=== PATIENT | male | born 1955 | race Caucasian/White ===

== ENCOUNTER 2020-04-15 10:17 | Outpatient (REF) | payer BC, SELFPAY | END 2020-04-15 10:18 | disposition home or self-care (01) | LOC: HO.LAB 10:17 | PROVIDERS: Visit Provider Internal Medicine | DX: Z20.828 Contact with and (suspected) exposure to other viral communicable diseases (principal) | CPT/HCPCS: C9803; U0003 ==

== ENCOUNTER 2020-05-29 08:39 | Outpatient (REF) | payer MEDICARE, SELFPAY ==
[2020-05-29 10:25] LABS: Basophils Percent Auto 0.1 % (0-2); Eosinophils Absolute Auto 0.2 X10*3/uL (0.0-0.4); Eosinophils Percent Auto 2.9 % (0-4); Hemoglobin 16.5 g/dl (14.0-18.0); Imm Gran Abs Auto 0.02 X10*3/uL (0.00-0.03); Imm Gran Pct Auto 0.3 % (0.0-0.4); Lymphocytes Absolute Auto 2.5 X10*3/uL (1.2-4.9); Lymphocytes Percent Auto 35.9 % (20-40); MANUAL DIFF FLAG SCAN; Mean Corpuscular HGB Conc 32.4 g/dl (31.0-36.0); Mean Platelet Volume 12.5 fL (9.4-12.4); Monocytes Absolute Auto 0.7 X10*3/uL (0.1-1.2); Monocytes Percent Auto 10.2 % (2-11); Neutrophils Absolute Auto 3.5 X10*3/uL (2.0-8.3); Neutrophils Percent Auto 50.6 % (45-73); Platelet Count 182 X10*3/uL (160-400); Red Blood Count 5.15 X10*6/uL (4.60-5.80); Red Cell Distribution Width 12.8 % (11.0-16.0); SCAN SMEAR FLAG 1; White Blood Count 6.9 X10*3/uL (4.8-10.8)
[2020-05-29 10:44] LABS: Glucose Urine UA NEG (NEG); Leukocyte Esterase Urine NEG (NEG); Nitrite Urine NEG (NEG); PH 5.5 (5.0-8.0); Specific Gravity - Urine >= 1.030 (1.005-1.025); Urine Blood 2+ (NEG); Urine Ketones NEG (NEG); Urine Protein NEG (NEG-TRACE)
[2020-05-29 10:47] LABS: Appearance Urine HAZY; Color Urine YELLOW
[2020-05-29 10:51] LABS: Alanine Aminotransferase 23 U/L (0-40); Albumin Level 4.3 g/dL (3.5-5.0); Alkaline Phosphatase 78 U/L (39-117); Anion Gap 13 (12-20); Aspartate Amino Transferase 23 U/L (5-37); Bilirubin Total 0.7 mg/dL (0.0-1.0); Blood Urea Nitrogen 19 mg/dL (9-16); Calcium 9.3 mg/dL (8.4-10.2); Carbon Dioxide 29 mmol/L (22-29); Chloride 104 mmol/L (96-108); Cholesterol 198 mg/dL; Estimated Glomerular Filt Rate > 60; Glucose Fasting 92 mg/dL (60-99); HDL Cholesterol 93 mg/dL; LDL Cholesterol Calculated 97 mg/dl; Potassium 4.5 mmol/l (3.3-5.1); Sodium 141 mmol/L (135-145); Total Protein 7.5 g/dL (6.5-8.0); Triglycerides 40 mg/dL
[2020-05-29 10:53] LABS: Squamous Epithelial Cell Urine 1+ /LPF; WBC Urine 0 /HPF (0-4)
[2020-05-29 10:55] LABS: Creatinine Urine 139.68 mg/dL; Microalbum/Creatinine Ratio Ur 25.7 ug/mg cr
[2020-05-29 11:10] LABS: Estimated Average Glucose 100 mg/dL; Hemoglobin A1c % 5.1 %
[2020-05-29 11:52] LABS: Prostate Specific Antigen Scr 1.35 ng/mL (<0.05-4.0)
[2020-05-29 13:54] LABS: SLIDE REVIEW VERIFIED
== END 2020-05-29 08:40 | disposition home or self-care (01) ==
LOC: HO.LAB 08:39
PROVIDERS: PCP Internal Medicine; Visit Provider Internal Medicine
DX: R73.09 Other abnormal glucose (principal); R97.20 Elevated prostate specific antigen [PSA]; Z00.00 Encounter for general adult medical examination without abnormal findings; I10 Essential (primary) hypertension
CPT/HCPCS: 36415; 80053; 80061; 81001; 81003; 82043; 83036; 84153; 85025

== ENCOUNTER 2020-06-07 11:07 | Outpatient (REF) | payer MEDICARE, SELFPAY ==
[2020-06-07 14:21] LABS: Glucose Urine UA NEG (NEG); Leukocyte Esterase Urine NEG (NEG); Nitrite Urine NEG (NEG); PH 5.5 (5.0-8.0); Specific Gravity - Urine >= 1.030 (1.005-1.025); Urine Blood 3+ (NEG); Urine Ketones NEG (NEG); Urine Protein NEG (NEG-TRACE)
[2020-06-07 14:22] LABS: Appearance Urine HAZY; Color Urine YELLOW
[2020-06-07 14:36] LABS: WBC Urine 0 /HPF (0-4)
[2020-06-07 14:37] LABS: Bacteria Urine TRACE /LPF; Mucus Urine TRACE /LPF; Squamous Epithelial Cell Urine 1+ /LPF
== END 2020-06-07 11:08 | disposition home or self-care (01) ==
LOC: HO.WFDLDS 11:07
PROVIDERS: Visit Provider Internal Medicine
DX: R31.21 Asymptomatic microscopic hematuria (principal)
CPT/HCPCS: 81001; 81003

== ENCOUNTER 2020-09-13 08:20 | Day surgery (SDC) | payer MEDICARE, SELFPAY ==
[2020-09-13] VITALS (11 sets, daily range): BP systolic 128–191; BP diastolic 75–97; PULSE 52–97; RESP 15–18; TEMP 36.6–37.1; O2SAT 95–98; BMI 35.9
--- NOTE | ~2020-09-13 | CT_ITS ---
EXAMINATION: CT ABDOMEN AND PELVIS WITHOUT CONTRAST CLINICAL INFORMATION: Left flank pain COMPARISON: February 02, 2016 TECHNIQUE: Multidetector volumetric imaging was performed from the superior aspect of the liver through the pubic symphysis. Sagittal and coronal reformatted images were obtained on the technologist's workstation. This CT examination was performed using dose optimization techniques as appropriate, variously including the following: *Automated exposure control *Adjustment of mA and/or kV according to patient size (this includes techniques or standardized protocols for targeted exams where dose is matched to indication/reason for exam; i.e. extremities or head) *Use of iterative reconstruction technique DLP: 840 mGy-cm FINDINGS: LUNG BASES: The visualized lung bases are unremarkable. No pleural or pericardial effusion. No coronary artery calcifications appreciated. LIVER, GALLBLADDER, AND BILIARY TREE: There is some mild diffuse diminished density present consistent with fatty infiltration. Liver normal size. No focal mass or intrahepatic bile duct dilatation. The gallbladder is unremarkable with no evidence of radiopaque gallstones, gallbladder wall thickening, or obvious pericholecystic inflammatory changes. PANCREAS: Unremarkable. SPLEEN: There are scattered calcified granulomas present. ADRENAL GLANDS: Unremarkable. KIDNEYS AND URETERS: Right kidney: There is a 1 cm exophytic cyst present in the interpolar region. There is a 5 mm nonobstructing calculus seen within the lower pole. No hydronephrosis. Left kidney: There is mild left hydronephrosis with an obstructing proximal left ureteral calculus measuring approximately 9 x 6 mm in size with density measurements of greater than 1000 Hounsfield units. There are 2 nonobstructing calculi within the lower pole one measuring 6 mm in diameter and the other 7 mm in diameter. The ureter has some periureteral inflammatory streaking present. BLADDER: Unremarkable. GASTROINTESTINAL TRACT: No dilated loops of large or small bowel evident. No fixed, air. Minimal fluid seen along the left ureter. There is mild diverticulosis of the descending colon. No evidence of colitis. The appendix appears unremarkable. ABDOMINAL WALL: Small fat-containing umbilical hernia. LYMPH NODES: Normal. VASCULAR: Unremarkable. PELVIC VISCERA: Unremarkable. OSSEOUS STRUCTURES: No suspicious osseous lesion identified. Multilevel degenerative disc disease is present. There is a mild grade 1 spondylolisthesis L3-L4. There is a mild anterior compression fracture of approximately 40% involving the T11 vertebral body. CT/CT abdomen pelvis wo con IMPRESSION: Mild left hydronephrosis with obstructing 9 mm proximal ureteral calculus. Bilateral nephrolithiasis. Fatty infiltration of the liver.
--- NOTE | 2020-09-13 08:52 | ED.BACK ---
HPI - Back Pain/Injury General Chief Complaint: Back Pain/Injury Stated Complaint: flank & abd pain Time Seen by Provider: 09/13/20 08:50 Source: patient Mode of arrival: ambulatory Limitations: no limitations History of Present Illness HPI Narrative: 65-year-old male who walked in for evaluation of left flank pain radiating to the left groin area. 65-year-old male with history of kidney stones on both sides that require multiple urological interventions in the past and patient follow-up with [facility], pain started 2 days ago, left flank area, radiates to the left groin/left testicular area, pain is a dull aching pain, severe 10/10, intermittent, associated with a darker urine and nausea and vomiting. No fever. Patient had a similar pain in the past when he get renal colic. Related Data Home Medications Medication Instructions Recorded Confirmed allopurinol 1 tab PO DAILY 09/13/20 09/13/20 lisinopril 1 tab PO DAILY 09/13/20 09/13/20 naproxen 1 tab PO BID 09/13/20 09/13/20 tramadol 1 tab PO Q6H PRN 09/13/20 09/13/20 Allergies Allergy/AdvReac Type Severity Reaction Status Date / Time No Known Allergies Allergy Verified 09/13/20 08:12 amoxicillin [Augmentin] AdvReac Unknown nausea Verified 12/30/18 00:00 clavulanic acid [Augmentin] AdvReac Unknown nausea Verified 12/30/18 00:00 Review of Systems Review of Systems: All other systems are reviewed and are negative Constitutional: Reports as per HPI and Reports no additional constitutional complaints Eyes: Reports as per HPI and Reports no additional eye complaints Reports system reviewed and no additional complaints, except as documented Cardiovascular: Reports as per HPI and Reports no additional cardiovascular complaints Respiratory: Reports as per HPI and Reports no additional respiratory complaints Gastrointestinal: Reports as per HPI and Reports no additional gastrointestinal complaints Genitourinary: Reports no additional female genitourinary complaints Musculoskeletal: Reports no additional musculoskeletal complaints Skin/Breast: Reports system reviewed and no additional complaints, except as docu Psychiatric: Reports no additional psychiatric complaints Endocrine: Reports no additional endocrine complaints Hematologic/Lymphatic: Reports no additional hematologic/lymphatic complaints Allergic/Immunologic: Reports no additional allergic/immunologic complaints Reports system reviewed and no additional complaints, except as documented and Reports Abnormal speech present [facility] Past Medical History Medical History Kidney calculi Social History Social History Smoking Status: Light tobacco smoker Use of substances other than those prescribed or required for medical reasons: No Have you been hit, kicked, punched, or otherwise hurt by someone within the past year? If so, by whom?: No Advance Directives: No Advance Directives Information Provided: No Advance Directives on File: No Recently lost weight without trying: No Physical Exam Vital Signs: Vital Signs: Last Vital Signs Temp 97.9 F 09/13/20 13:04 Pulse 71 09/13/20 13:04 Resp 16 09/13/20 13:04 BP 128/78 09/13/20 13:04 Pulse Ox 95 09/13/20 13:04 Body Mass Index 35.9 Vital signs have been reviewed as appeared to be correct. Blood pressure elevated. Heart rate normal. Respiration rate normal. Temperature normal. Oxygen saturation normal. Appearance: Alert. Oriented X3. No acute distress. Head: Normal external exam. Normocephalic. Atraumatic. No De Oliveira signs noted. No raccoon eyes noted Eyes: PERRLA. EOMI. Conjunctiva and sclera normal. Eyelids normal. ENT: TM's Normal. Pharynx normal. Uvula midline. Moist mucous membranes. No trismus noted. No drooling noted. No muffled voice noted. Neck: Normal inspection. Neck supple. FROM. No adenopathy. Thyroid Normal. No meningeal signs. No neck mass noted. CVS: Normal heart rate and rhythm. Heart sound normal. No murmurs noted. Pulses normal throughout. Respiratory: No respiratory distress. Painless inspiration. Breath sounds normal. No wheezes/rales/rhonchi noted. Chest nontender. No accessory muscle usage noted or decreased air movement noted. Abdomen: Soft and nontender. Bowel sounds normal in all 4 quadrants. No distention noted. No organomegaly noted. No visible injury noted. Back: Left CVA tenderness. Full range of motion noted. : Normal circumcised external genitalia, no testicular swelling or tenderness, intact cremasteric reflex bilaterally. Skin: Skin warm and dry. Normal skin color. Normal skin turgor. No rashes/lesions/lacerations noted. Extremities: No lower extremity edema. Extremities exhibit normal range of motion. Extremities nontender. Neuro: Oriented X 3. No motor deficit. No sensory deficit. Reflexes normal. Course Course Course Narrative: Assessment and plan. 65-year-old male with history of kidney stones came in with left flank pain showed 9 mm stone, the case was discussed with Dr. Blanco who will admit the patient to the OR for possible stent placement. MDM - Back Pain/Injury Lab Data Attestation: I reviewed the patient's lab results. Result diagrams: 09/13/20 08:58 09/13/20 08:58 Labs: Lab Results 09/13/20 09/13/20 Range/Units 08:58 08:58 WBC 8.4 (4.8-10.8) X10*3/uL RBC 4.92 (4.60-5.80) X10*6/uL Hgb 16.0 (14.0-18.0) g/dl Hct 48.3 (42-52) % MCV 98.2 H (80-98) fL MCH 32.5 (27.0-33.0) pg MCHC 33.1 (31.0-36.0) g/dl RDW 12.5 (11.0-16.0) % Plt Count 153 L (160-400) X10*3/uL MPV 13.0 H (9.4-12.4) fL Immature Gran % (Auto) 0.2 (0.0-0.4) % Neut % (Auto) 68.6 (45-73) % Lymph % (Auto) 18.8 L (20-40) % [place] % (Auto) 11.4 H (2-11) % Eos % (Auto) 0.8 (0-4) % Baso % (Auto) 0.2 (0-2) % Lymph # (Auto) 1.6 (1.2-4.9) X10*3/uL [place] # (Auto) 1.0 (0.1-1.2) X10*3/uL Eos # (Auto) 0.1 (0.0-0.4) X10*3/uL Baso # (Auto) 0.0 (0.0-0.2) X10*3/uL Abs Immat Gran (auto) 0.02 (0.00-0.03) X10*3/uL Absolute Neuts (auto) 5.7 (2.0-8.3) X10*3/uL Absolute Nucleated RBC 0.000 (0.0-0.012) X10*3/uL Nucleated RBC % (auto) 0.0 (0.0-0.2) /100WBC Sodium 138 (135-145) mmol/L Potassium 3.8 (3.3-5.1) mmol/L Chloride 96 (96-108) mmol/L Carbon Dioxide 29 (22-29) mmol/L Anion Gap 17 (12-20) BUN 16 (9-16) mg/dL Creatinine 1.19 (0.5-1.4) mg/dL Estim Creat Clear Calc 78.0 Estimated GFR > 60 Random Glucose 95 (60-115) mg/dL Calcium 11.0 H D (8.4-10.2) mg/dL Total Bilirubin 1.8 H (0.0-1.0) mg/dL Direct Bilirubin 0.7 H (0.0-0.5) mg/dL AST 36 D (5-37) U/L ALT 47 H (0-40) U/L Alkaline Phosphatase 78 (39-117) U/L Total Protein 6.8 (6.5-8.0) g/dL Albumin 3.9 (3.5-5.0) g/dL Lipase 21 (8-78) U/L Imaging Data CT scan - abdomen: Radiologist's impression: Mild left hydronephrosis with obstructing 9 mm proximal ureteral calculus. Discharge Plan Discharge Clinical Impression: Kidney calculi, Renal colic Patient Disposition: Admitted As Inpatient Interventions: Admission Worksheet (ED) Last Done: 09/13/20 10:59
[2020-09-13] MEDS: Morphine Sulfate 2 MG/ML CARTRIDGE 1 MG IVPUSH (09:01)
[2020-09-13] MEDS: ondansetron HCL 4 MG/2 ML VIAL IVPUSH (09:02)
[2020-09-13] MEDS: 0.9 % Sodium Chloride 1,000 ML 999 ML IVCONT (09:03)
[2020-09-13 09:25] LABS: MANUAL DIFF FLAG NO
[2020-09-13 09:31] LABS: Basophils Percent Auto 0.2 % (0-2); Eosinophils Absolute Auto 0.1 X10*3/uL (0.0-0.4); Eosinophils Percent Auto 0.8 % (0-4); Hematocrit 48.3 % (42-52); Imm Gran Abs Auto 0.02 X10*3/uL (0.00-0.03); Imm Gran Pct Auto 0.2 % (0.0-0.4); Lymphocytes Absolute Auto 1.6 X10*3/uL (1.2-4.9); Lymphocytes Percent Auto 18.8 % (20-40); Mean Corpuscular HGB Conc 33.1 g/dl (31.0-36.0); Mean Corpuscular Hemoglobin 32.5 pg (27.0-33.0); Mean Corpuscular Volume 98.2 fL (80-98); Monocytes Percent Auto 11.4 % (2-11); Neutrophils Absolute Auto 5.7 X10*3/uL (2.0-8.3); Neutrophils Percent Auto 68.6 % (45-73); Platelet Count 153 X10*3/uL (160-400); Red Blood Count 4.92 X10*6/uL (4.60-5.80); Red Cell Distribution Width 12.5 % (11.0-16.0); White Blood Count 8.4 X10*3/uL (4.8-10.8)
[2020-09-13 10:17] LABS: Alanine Aminotransferase 47 U/L (0-40); Albumin Level 3.9 g/dL (3.5-5.0); Alkaline Phosphatase 78 U/L (39-117); Anion Gap 17 (12-20); Aspartate Amino Transferase 36 U/L (5-37); Bilirubin Direct 0.7 mg/dL (0.0-0.5); Bilirubin Total 1.8 mg/dL (0.0-1.0); Blood Urea Nitrogen 16 mg/dL (9-16); Carbon Dioxide 29 mmol/L (22-29); Chloride 96 mmol/L (96-108); Estimated Glomerular Filt Rate > 60; Glucose Random 95 mg/dL (60-115); Lipase 21 U/L (8-78); Potassium 3.8 mmol/L (3.3-5.1); Sodium 138 mmol/L (135-145); Total Protein 6.8 g/dL (6.5-8.0)
--- NOTE | 2020-09-13 10:20 | P.CNUR_ITS ---
History of Present Illness Consult details Consult date: 09/13/20 Narrative: Angel is a pleasant 65-year-old male. Seen today in the emergency room for back pain. Long history of nephrolithiasis. Previous ESWL and ureteroscopy. Bilateral. Presents today with nausea, left back pain, and lack of appetite. Pain 8/10 did respond to IV pain medication. Symptoms have been present for [address] scan with 10 mm upper ureter stone, 2 other 6 mm stones in the left kidney. Discussed options with patient. These include stent placement, ureteroscopy, in ESWL. There is ESWL availability today. He would like to go ahead with treatment. He is aware the risks and benefits particularly need for secondary procedures. [facility] Past Medical History Medical History (Updated 09/13/20 @ 10:24 by Bryan Blanco MD) Kidney calculi Social History Social History Smoking Status: Never smoker Use of substances other than those prescribed or required for medical reasons: No Advance Directives: Yes Advance Directives Information Provided: Yes Advance Directives on File: No Meds Allergies Allergy/AdvReac Type Severity Reaction Status Date / Time No Known Allergies Allergy Verified 09/13/20 08:12 amoxicillin [Augmentin] AdvReac Unknown nausea Verified 12/30/18 00:00 clavulanic acid [Augmentin] AdvReac Unknown nausea Verified 12/30/18 00:00 Physical Exam Vital Signs: Vital Signs: Last Vital Signs Temp 98.7 F 09/13/20 09:15 Pulse 64 09/13/20 09:59 Resp 16 09/13/20 10:09 BP 144/80 H 09/13/20 09:59 Pulse Ox 96 09/13/20 09:59 Body Mass Index 35.9 Const: General: cooperative, healthy appearing, comfortable and no acute distress Nutritional Appearance: average body habitus Orientation/consciousness: oriented to person, oriented to place and oriented to time Eyes: General: appearance normal, both eyes and all related structures Chest: Chest palpation & inspection: normal inspection of the chest Resp: Effort & Inspection: normal respiratory effort Cardio: Rate: regular rate GI: Inspection: Yes normal to inspection Skin: Hair: normal Neuro: General: oriented to person, oriented to place and oriented to time Extrem: General: Yes normal to inspection Results Labs Result diagrams: 09/13/20 08:58 09/13/20 08:58 Labs: Abnormal lab results 09/13/20 09/13/20 Range/Units 08:58 08:58 MCV 98.2 H (80-98) fL Plt Count 153 L (160-400) X10*3/uL MPV 13.0 H (9.4-12.4) fL Lymph % (Auto) 18.8 L (20-40) % [place] % (Auto) 11.4 H (2-11) % Calcium 11.0 H D (8.4-10.2) mg/dL Total Bilirubin 1.8 H (0.0-1.0) mg/dL Direct Bilirubin 0.7 H (0.0-0.5) mg/dL ALT 47 H (0-40) U/L Short CBC 09/13/20 Range/Units 08:58 WBC 8.4 (4.8-10.8) X10*3/uL Hgb 16.0 (14.0-18.0) g/dl Hct 48.3 (42-52) % Plt Count 153 L (160-400) X10*3/uL BMP 09/13/20 08:58 Sodium 138 Potassium 3.8 Chloride 96 Carbon Dioxide 29 BUN 16 Creatinine 1.19 Calcium 11.0 H D Liver Function 09/13/20 Range/Units 08:58 Total Bilirubin 1.8 H (0.0-1.0) mg/dL Direct Bilirubin 0.7 H (0.0-0.5) mg/dL AST 36 D (5-37) U/L ALT 47 H (0-40) U/L Alkaline Phosphatase 78 (39-117) U/L Albumin 3.9 (3.5-5.0) g/dL All other labs normal. Left kidney: There is mild left hydronephrosis with an obstructing proximal left ureteral calculus measuring approximately 9 x 6 mm in size with density measurements of greater than 1000 Hounsfield units. There are 2 nonobstructing calculi within the lower pole one measuring 6 mm in diameter and the other 7 mm in diameter. The ureter has some periureteral inflammatory streaking present. Assessment and Plan (1) Kidney calculi: Status: Acute We discussed the nature of the decision and reasonable alternatives for performing the above surgery. Interventions include chemical dissolution, ESWL, ureteroscopy with laser lithotripsy and stent placement, PCNL. Options such as medical therapy were discussed. The relative uncertainties and benefits related to each alternate procedure were adequately discussed. General surgical risks including, but not limited to, pain, bleeding, infection, myocardial infarction, pulmonary embolus, deep vein thrombosis and cerebrovascular accident which may result in further hospitalization were discussed. Full disclosure of the procedure as well as all major risks, benefits and complications were discussed including but not limited to damage to the urethra, bladder and kidney, damage to adjacent organs such as the pancreas, spleen or liver, damage to the ureter, stent migration or malposition, scarring to the renal pelvis, failure of stone fragments to pass, stone passage with ureteral obstruction and the need for secondary procedures. The overall secondary procedure rate is approximately 10-15%. The success rate of the procedure was discussed. Success of the procedure in the short-term does not necessarily guarantee that long-term success will be maintained. Suitable follow up will need to be maintained. The patient showed understanding of the discussion as well as the typical recovery time, and the outpatient nature of this procedure. Opportunity was given for questions. Repeat-back proctol used to confirm understanding. They wish to proceed with - ESWL of the left side
--- NOTE | 2020-09-13 10:40 | PC.NURSE ---
nurse to nurse given to alden (rn) in [place], pt aware of plan of care for surgery with dr. white. pt seen by dr. white earlier.
--- NOTE | 2020-09-13 11:08 | P.CONAN_ITS ---
[facility] Active Problems Active Problems: All Active Problems (Updated 09/13/20 @ 10:28 by Kira Williamson MD) Renal colic (Acute) Kidney calculi (Acute) Past Medical History Medical History Kidney calculi Social History Social History Smoking Status: Light tobacco smoker Use of substances other than those prescribed or required for medical reasons: No Have you been hit, kicked, punched, or otherwise hurt by someone within the past year? If so, by whom?: No Advance Directives: No Advance Directives Information Provided: No Advance Directives on File: No Recently lost weight without trying: No Meds Allergies Allergy/AdvReac Type Severity Reaction Status Date / Time No Known Allergies Allergy Verified 09/13/20 08:12 amoxicillin [Augmentin] AdvReac Unknown nausea Verified 12/30/18 00:00 clavulanic acid [Augmentin] AdvReac Unknown nausea Verified 12/30/18 00:00 Home Medications Medication Instructions Recorded Confirmed Last Taken Type allopurinol 1 tab PO DAILY 09/13/20 09/13/20 09/12/20 History lisinopril 1 tab PO DAILY 09/13/20 09/13/20 09/12/20 History naproxen 1 tab PO BID 09/13/20 09/13/20 09/12/20 History tramadol 1 tab PO Q6H PRN 09/13/20 09/13/20 09/13/20 05:00 History Exam Exam Date and Time: September 13, 2020 1108 Height,Weight and Vital Signs: Height 5 ft 10 in Weight 113.398 kg Last Vital Signs Temp 98 F 09/13/20 11:03 Pulse 97 09/13/20 11:03 Resp 18 09/13/20 11:03 BP 163/97 H 09/13/20 11:03 Pulse Ox 97 09/13/20 11:03 Pertinent Lab Results Pertinent Lab Results: Laboratory Tests 09/13/20 09/13/20 08:58 08:58 WBC 8.4 RBC 4.92 Hgb 16.0 Hct 48.3 MCV 98.2 H MCH 32.5 MCHC 33.1 RDW 12.5 Plt Count 153 L MPV 13.0 H Immature Gran % (Auto) 0.2 Neut % (Auto) 68.6 Lymph % (Auto) 18.8 L [place] % (Auto) 11.4 H Eos % (Auto) 0.8 Baso % (Auto) 0.2 Lymph # (Auto) 1.6 [place] # (Auto) 1.0 Eos # (Auto) 0.1 Baso # (Auto) 0.0 Abs Immat Gran (auto) 0.02 Absolute Neuts (auto) 5.7 Absolute Nucleated RBC 0.000 Nucleated RBC % (auto) 0.0 Sodium 138 Potassium 3.8 Chloride 96 Carbon Dioxide 29 Anion Gap 17 BUN 16 Creatinine 1.19 Estim Creat Clear Calc 78.0 Estimated GFR > 60 Random Glucose 95 Calcium 11.0 H D Total Bilirubin 1.8 H Direct Bilirubin 0.7 H AST 36 D ALT 47 H Alkaline Phosphatase 78 Total Protein 6.8 Albumin 3.9 Lipase 21 Airway Mallampati Class: II TM Dist: >3cm Neck ROM: Full Assessment and Plan Assessment Anesthesia Assessment: Anesthesia Plan Discussed and Chart Reviewed Final Anesthetic Review NPO: Yes ASA Class: II Final Preanesthetic Review: No Changes in Pt Med Stat, Meds/Allgs Chart Reviewed, Consent Obtained/Reviewed and Anes Risks/Benef Reviewed Patient Risk: Low Procedure Risk: Low Assessment/Block/Sedation in SS: Assess/Block/Sedation-SS Anesthetic Plan Anesthetic Plan: MAC: Disposition: Standard PACU
[2020-09-13] MEDS: Lactated Ringers 1,000 ML 20 ML IVCONT (11:17)
--- NOTE | 2020-09-13 12:01 | MHC.SHP ---
Pre-Procedural Eval Section A The patient is an INPATIENT: No Changes since office visit: No Cold of Flu in the past 2 weeks, No New Medical Problems, No Changes in Medication and No Patient answered all questions The History & Physical has been completed within 30 days and I have reviewed it.: Yes Section B Chief Complaint: flank & abd pain Allergies: Allergies Allergy/AdvReac Type Severity Reaction Status Date / Time No Known Allergies Allergy Verified 09/13/20 08:12 amoxicillin [Augmentin] AdvReac Unknown nausea Verified 12/30/18 00:00 clavulanic acid [Augmentin] AdvReac Unknown nausea Verified 12/30/18 00:00 Plan Diagnosis/Plan: Unchanged (left proximal ureter stone) I have reviewed the history and physical and performed a pertinent physical examination on my patient. No changes have occurred unless specified.
--- NOTE | 2020-09-13 12:34 | PM.OP ---
Brief Operative Note Date of Service: 09/13/20 Pre-op diagnosis: left ureteric stone Post-op diagnosis: same Procedure: ESWL ureteric left Surgeon: Bryan Blanco MD Anesthesia: MAC Estimated blood loss (mL): 0 Pathology: none sent Condition: stable Disposition: same day
--- NOTE | 2020-09-13 12:35 | W.PM.OPN ---
Operative Note Operative Note Date of Service: 09/13/20 Narrative: PreOperative Diagnosis: left ureteric stones Post Operative Diagnosis: left ureteric stones Procedure: left ESWL Surgeon: Dr Bryan Blanco Anesthesia: mac/sedation Indications for procedure: They understand ESWL may be a staged procedure and subsequent intervention may be required based on imaging after ESWL. They also understand there is a risk of bleeding, infection, damage to adjacent organs. Procedure: After informed consent was verified the patient was brought to the operating room and placed in a supine position. Anesthesia was performed per protocol. Safety pause time-out was performed. Imaging was in the room and laterality confirmed. ESWL was performed. The 1st 500 shocks were performed at 60 hertz. These were performed with increasing power. Once maximum power was reached the rate was increased to 180 hertz. A total of 3000 shocks were given. Fluoroscopy showed stone disintegration. They tolerated procedure well and was transferred to the recovery area upon completion.
--- NOTE | 2020-09-13 18:30 | PC.NURSE ---
tech currently doing blood cultures and lactic
== END 2020-09-13 15:20 | disposition home or self-care (01) ==
LOC: HO.ED 09-14 11:20 → HO.SSS 09-14 11:22
PROVIDERS: Emergency Provider Emergency Medicine; PCP Internal Medicine; Visit Provider Urology
PROC: (CPT 50590; principal; 2020-09-13 10:10)
DX: N13.2 Hydronephrosis with renal and ureteral calculous obstruction (principal); Z87.442 Personal history of urinary calculi; R11.2 Nausea with vomiting, unspecified; Z88.0 Allergy status to penicillin; Z79.899 Other long term (current) drug therapy; F17.210 Nicotine dependence, cigarettes, uncomplicated
CPT/HCPCS: 50590; 36415; 74176; 80048; 80076; 83690; 85025; 96361; 96374; 96375; 99284; J1885; J1940; J2270; J2405; J3010

== ENCOUNTER 2020-09-19 11:05 | Outpatient (REF) | payer MEDICARE, SELFPAY ==
[2020-09-19 12:42] LABS: Calcium 9.5 mg/dL (8.4-10.2)
== END 2020-09-19 11:06 | disposition home or self-care (01) ==
LOC: HO.LNP 11:05
PROVIDERS: PCP Internal Medicine; Visit Provider Internal Medicine
DX: E83.52 Hypercalcemia (principal)
CPT/HCPCS: 82310

== ENCOUNTER 2020-12-22 13:46 | Outpatient (REF) | payer MEDICARE, SELFPAY ==
[2020-12-22 15:11] LABS: COVID-19 Test Negative (Negative)
== END 2020-12-22 13:47 | disposition home or self-care (01) ==
LOC: HO.LAB 13:46
PROVIDERS: PCP Internal Medicine; Visit Provider Internal Medicine
DX: Z20.822 Contact with and (suspected) exposure to COVID-19 (principal)
CPT/HCPCS: 36415; 87635; C9803

== ENCOUNTER 2021-01-27 08:52 | Inpatient (IN) | payer MEDICARE, SELFPAY ==
[2021-01-27] VITALS (7 sets, daily range): BP systolic 126–142; BP diastolic 63–88; PULSE 60–100; RESP 15–22; TEMP 36.6–36.8; O2SAT 92–99; BMI 35.9
--- NOTE | ~2021-01-27 | XR_ITS ---
EXAMINATION: XR CHEST CLINICAL INFORMATION: Cough and shortness of breath COMPARISON: Previous chest x-ray most recent June 2019 TECHNIQUE: 2 views of the chest were obtained. FINDINGS: The cardiac and mediastinal contours are normal. The lung volumes are low. The lungs are clear. There is no pleural effusion or pneumothorax. There are degenerative changes of the spine. XR/XR chest 2V IMPRESSION: No evidence for acute disease in the chest.
--- NOTE | ~2021-01-27 | CT_ITS ---
EXAMINATION: CT ABDOMEN AND PELVIS WITH CONTRAST CLINICAL INFORMATION: Abnormal liver function tests and lipase. COMPARISON: Previous CT of the abdomen and pelvis most recent August 2020 TECHNIQUE: Multidetector volumetric images were obtained from the superior aspect of the liver through the pubic symphysis following administration 85 mL of Omnipaque 350 intravenous contrast. Sagittal and coronal reformatted images were obtained on the technologist's workstation. Oral contrast: Yes This CT examination was performed using dose optimization techniques as appropriate, variously including the following: *Automated exposure control *Adjustment of mA and/or kV according to patient size (this includes techniques or standardized protocols for targeted exams where dose is matched to indication/reason for exam; i.e. extremities or head) *Use of iterative reconstruction technique DLP: 1060 mGy-cm FINDINGS: LUNG BASES: The visualized lung bases are unremarkable. LIVER, GALLBLADDER, AND BILIARY TREE: The liver is low in attenuation suggestive of fatty infiltration. The liver is slightly enlarged measuring 19 cm in length. No focal liver lesion or biliary duct dilatation. The gallbladder is contracted. PANCREAS: Unremarkable SPLEEN: Spleen is slightly enlarged measuring 13.5 cm in length. There is are small calcifications in the spleen probably related to old granulomatous disease. ADRENAL GLANDS: Unremarkable. KIDNEYS AND URETERS: There are bilateral lower pole renal stones. There is a 3 mm stone in the lower pole of the right kidney. There are several clustered stones in the lower pole the left kidney, largest measuring 4 mm. There is a 1 cm right renal cyst. No hydronephrosis, ureteral dilatation or ureteral stone is seen. BLADDER: Not optimally distended. GASTROINTESTINAL TRACT: There is diverticulosis of the colon. Small and large bowel are otherwise unremarkable. The appendix is unremarkable. The stomach is unremarkable. ABDOMINAL WALL: There is a small umbilical hernia containing fat. There are small bilateral inguinal hernias containing fat. LYMPH NODES: There is shotty retroperitoneal and, peripancreatic and small bowel mesentery lymph nodes adenopathy. No enlarged lymph nodes are seen. There is no ascites. VASCULAR: Unremarkable. PELVIC VISCERA: Unremarkable. OSSEOUS STRUCTURES: There are degenerative changes of the spine and hip joints. CT/CT abdomen pelvis w con IMPRESSION: Enlarged fatty liver. Slightly enlarged spleen. Bilateral renal stones. Small right renal cyst. Diverticulosis of the colon.
[2021-01-27 09:35] LABS: Glucose Urine UA NEG (NEG); Leukocyte Esterase Urine NEG (NEG); Nitrite Urine POS (NEG); PH 5.5 (5.0-8.0); Specific Gravity - Urine 1.025 (1.005-1.025); UACC Culture Trigger YES; Urine Blood TRACE (NEG); Urine Ketones 5 MG/DL (NEG); Urine Protein 2+ MG/DL (NEG-TRACE)
[2021-01-27 10:04] LABS: Appearance Urine HAZY; Color Urine DARK YELLOW
[2021-01-27 10:05] LABS: Bacteria Urine 1+ /LPF; Mucus Urine 1+ /LPF; RBC Urine 0-2 /HPF (0); Squamous Epithelial Cell Urine 2+ /LPF
[2021-01-27 10:19] LABS: COVID-19 Test Negative (Negative); IDNOW Serial# 08D9AD1C
--- NOTE | 2021-01-27 10:23 | ECG_ITS ---
Test Reason : CHECK CARDIAC STATUS Blood Pressure : / mmHG Vent. Rate : 078 BPM Atrial Rate : 078 BPM P-R Int : 166 ms QRS Dur : 088 ms QT Int : 386 ms P-R-T Axes : 050 -09 026 degrees QTc Int : 440 ms Normal sinus rhythm Normal ECG When compared with ECG of 05-JUL-2019 08:44, No significant change was found Referred By: Socorro Daniel Electronically Signed By:FLORENTIN WAGNER
--- NOTE | 2021-01-27 10:50 | ED_ITS ---
HPI - General Adult General Chief complaint: General Medical Stated complaint: BLOOD IN URINE Time Seen by Provider: 01/27/21 10:14 Source: patient Mode of arrival: ambulatory History of Present Illness HPI narrative: 65-year-old male with a past medical history asthma, renal calculi, presenting to the ED complaining of URI symptoms, nasal congestion, sinus headache, wheezing/chest congestion, cough with sputum, SOB, chest discomfort when coughing for greater than 1 week. No reports coffee colored urine x2 days. Reports working out in this hot sun last week. Reports similar urine symptoms in the past with renal stones. Admits to fever T-max 102? last week resolved at present. Denies abdominal pain, nausea/vomiting, diarrhea/co nstipation, LE edema, sick contacts, dysuria/hematuria, flank pain Onset (ago): week(s) Related Data Home Medications Medication Instructions Recorded Confirmed allopurinol 300 mg tablet 1 tab PO DAILY 09/13/20 01/27/21 lisinopril 10 mg tablet 1 tab PO DAILY 09/13/20 01/27/21 naproxen 250 mg tablet 1 tab PO BID 09/13/20 01/27/21 tramadol 50 mg tablet 1 tab PO Q6H PRN 09/13/20 01/27/21 omeprazole magnesium 20 mg mg PO 01/27/21 tablet,delayed release (Prilosec OTC) Previous Rx's Medication Instructions Recorded tamsulosin 0.4 mg capsule 0.4 mg PO BEDTIME 14 Days #14 cap 09/13/20 Allergies Allergy/AdvReac Type Severity Reaction Status Date / Time No Known Allergies Allergy Verified 09/13/20 08:12 amoxicillin [Augmentin] AdvReac Unknown nausea Verified 12/30/18 00:00 clavulanic acid [Augmentin] AdvReac Unknown nausea Verified 12/30/18 00:00 Review of Systems Review of Systems: Constitutional: + Fever (resolved), + Chills, No Night Sweats, No Fatigue, No Malaise ENT/Mouth: No Ear Pain, + Nasal Congestion, + Sinus Pain, No sore throat, + Rhinorrhea Eyes: No Eye Pain, No Swelling, No Vision Changes Cardiovascular: + Chest Pain, + SOB, No Dyspnea on Exertion, No Edema, No Palpitations Respiratory: + Cough, + Sputum, + Wheezing, No Dyspnea Gastrointestinal: No Nausea, No Vomiting, No Diarrhea, No Constipation, No Ab dominal pain Genitourinary: + discolored urine, No Dysuria, No Urinary Frequency, No Hematuria, No Urgency, No Flank Pain, No Hesitancy Musculoskeletal: No joint pain, No Myalgias, No Joint Swelling Skin: No Skin Lesions, No rash Neuro: No Weakness, No Dizziness, No Headache Yes all other systems are reviewed and are negative [facility] Past Medical History Attestation statement: The following information was validated with the patient. Medical History Kidney calculi Social History Social History Alcohol intake: never Patient Tobacco Use Status: Current someday Tobacco user Smoked in Last 30 Days: No Use of substances other than those prescribed or required for medical reasons: No Advance Directives: Yes Advance Directives Information Provided: Yes Advance Directives on File: No Physical Exam Vital Signs: Vital Signs: Last Vital Signs Temp 98.2 F 01/27/21 08:54 Pulse 100 01/27/21 16:40 Resp 16 01/27/21 16:40 BP 126/71 01/27/21 16:40 Pulse Ox 92 01/27/21 16:40 Body Mass Index 35.9 Const: General: cooperative, healthy appearing and no acute distress Orientation/consciousness: patient oriented x3 Limitations: no limitations HENMT: Head: Yes normal to inspection Ears: hearing grossly normal bilaterally General nose exam: Normal external nose present Face and s inus: Yes normal facial exam Eyes: General: appearance normal, both eyes and all related structures EOM: EOMs intact bilaterally Neck: Neck: Yes normal visual inspection Resp: Effort & Inspection: normal respiratory effort Auscultation: wheezes expiratory wheezes (throughout ) Cardio: Rate: regular rate Heart sounds: S1 normal heart sound present and S2 normal heart sound present GI: Inspection: Yes normal to inspection Palpation (GI): Soft to palpation, nontender and no guarding : General: Yes no CVA tenderness Back/Spine/Pelvis: Back: no CVA tenderness Skin: Other: Mildly jaundice Rashes: no rashes Wounds: no wounds Neuro: General: patient oriented x3 Gait exam (Neuro): Normal gait present Extrem: General: Yes normal to inspection, Yes no pedal edema and Yes no calf tenderness Course Course Course Narrative: -no leukocytosis, H&H lower than baseline -UA nitrate + and with the WBCs > will give IV Rocephin -1152--bilirubin, AST/ALT, and alk phos elevated > will obtain CT. Lipase also elevated. On re-evaluation still diffuse expiratory wheeze. Will give hour- long albuterol treatment -1215--patient had quick 4sec run of AFib, self broke. No documented history. Likely from albuterol -patient admits to drinking 2-3 beers/drinks daily. Do see Allopurinol on med rec potentially cause of hepatic toxicity. Has also been taking Tylenol q.4-6 hours the past 2-3 days for fever. And chronically taking Naproxen x years 1613--CT abdomen pelvis w con IMPRESSION: Enlarged fatty liver. Slightly enlarged spleen. Bilateral renal stones. Small right renal cyst. Diverticulosis of the colon.? >> GI Dr. Vazquez Recommended hepatitis studies and trending LFTs Medical Decision Making MDM Narrative Medical decision making narrative: 65-year-old male with a past medical history asthma, renal calculi, presenting to the ED complaining of URI symptoms, nasal congestion, sinus headache, wheezing/chest congestion, cough with sputum, SOB, chest discomfort when coughing for greater than 1 week. No reports coffee colored urine x2 days. On exam mildly tachypneic, diffuse expiratory wheeze/tight lung sounds, abdomen soft/nontender, no CVAT. Concern for asthma exacerbation vs viral syndrome. Rule out pneumonia. Low concern for severe sepsis. Concern for renal stone vs rhabdomyolysis Plan: EKG, labs, UA, CXR, DuoNeb, Solu-Medrol, magnesium, reassess Lab Data Result diagrams: 01/27/21 10:50 01/27/21 10:49 Labs: Lab Results 01/27/21 01/27/21 01/27/21 Range/Units 09:29 09:53 10:49 WBC (4.8-10.8) X10*3/uL RBC (4.60-5.80) X10*6/uL Hgb (14.0-18.0) g/dl Hct (42-52) % MCV (80-98) fL MCH (27.0-33.0) pg MCHC (31.0-36.0) g/dl RDW (11.0-16.0) % Plt Count (160-400) X10*3/uL MPV (9.4-12.4) fL Immature Gran % (Auto) (0.0-0.4) % Neut % (Auto) (45-73) % Lymph % (Auto) (20-40) % [place] % (Auto) (2-11) % Eos % (Auto) (0-4) % Baso % (Auto) (0-2) % Lymph # (Auto) (1.2-4.9) X10*3/uL [place] # (Auto) (0.1-1.2) X10*3/uL Eos # (Auto) (0.0-0.4) X10*3/uL Baso # (Auto) (0.0-0.2) X10*3/uL Abs Immat Gran (auto) (0.00-0.03) X10*3/uL Absolute Neuts (auto) (2.0-8.3) X10*3/uL Absolute Nucleated RBC (0.0-0.012) X10*3/uL Nucleated RBC % (auto) (0.0-0.2) /100WBC Smear Tech's Comments PT (9.9-13.0) SEC INR (0.9-1.1) APTT (24.1-38.0) SEC Sodium 139 (135-145) mmol/L Potassium 3.7 (3.3-5.1) mmol/L Chloride 103 (96-108) mmol/L Carbon Dioxide 28 (22-29) mmol/L Anion Gap 12 (12-20) BUN 20 H (9-16) mg/dL Creatinine 0.83 (0.5-1.4) mg/dL Estim Creat Clear Calc 111.8 Estimated GFR > 60 Random Glucose 116 H (60-115) mg/dL Calcium 9.6 (8.4-10.2) mg/dL Magnesium 1.6 (1.6-2.6) mg/dL Total Bilirubin 8.8 H (0.0-1.0) mg/dL Direct Bilirubin 6.4 H (0.0-0.5) mg/dL AST 197 H (5-37) U/L ALT 188 H (0-40) U/L Alkaline Phosphatase 501 H D (39-117) U/L Total Creatine Kinase 73 (38-174) U/L Troponin I High Sens (<3.5-35.0) ng/L Total Protein 6.7 (6.5-8.0) g/dL Albumin 3.3 L (3.5-5.0) g/dL Lipase 116 H (8-78) U/L Urine Color DARK YELLOW Urine Appearance HAZY Urine pH 5.5 (5.0-8.0) Ur Specific [place] 1.025 (1.005-1.025) Urine Protein 2+ H (NEG-TRACE) MG/DL Urine Glucose (UA) NEG (NEG) MG/DL Urine Ketones 5 (NEG) MG/DL Urine Blood TRACE (NEG) Urine Nitrite POS H (NEG) Ur Leukocyte Esterase NEG (NEG) Urine RBC 0-2 (0) /HPF Urine WBC 5-9 H (0-4) /HPF Ur Squamous Epith Cells 2+ /LPF Urine Bacteria 1+ /LPF Urine Mucus 1+ /LPF COVID-19 ([facility]) Negative (Negative) COVID-19 Clin Com See Note 01/27/21 01/27/21 01/27/21 Range/Units 10:49 10:50 12:29 WBC 6.3 (4.8-10.8) X10*3/uL RBC 4.10 L (4.60-5.80) X10*6/uL Hgb 13.6 L (14.0-18.0) g/dl Hct 39.1 L (42-52) % MCV 95.4 (80-98) fL MCH 33.2 H (27.0-33.0) pg MCHC 34.8 (31.0-36.0) g/dl RDW 13.2 (11.0-16.0) % Plt Count 164 (160-400) X10*3/uL MPV 11.6 (9.4-12.4) fL Immature Gran % (Auto) 1.8 H (0.0-0.4) % Neut % (Auto) 39.4 L (45-73) % Lymph % (Auto) 48.7 H (20-40) % [place] % (Auto) 9.1 (2-11) % Eos % (Auto) 0.8 (0-4) % Baso % (Auto) 0.2 (0-2) % Lymph # (Auto) 3.1 (1.2-4.9) X10*3/uL [place] # (Auto) 0.6 (0.1-1.2) X10*3/uL Eos # (Auto) 0.1 (0.0-0.4) X10*3/uL Baso # (Auto) 0.0 (0.0-0.2) X10*3/uL Abs Immat Gran (auto) 0.11 H (0.00-0.03) X10*3/uL Absolute Neuts (auto) 2.5 (2.0-8.3) X10*3/uL Absolute Nucleated RBC 0.000 (0.0-0.012) X10*3/uL Nucleated RBC % (auto) 0.0 (0.0-0.2) /100WBC Smear Tech's Comments VERIFIED PT 11.8 (9.9-13.0) SEC INR 1.0 (0.9-1.1) APTT 33.3 (24.1-38.0) SEC Sodium (135-145) mmol/L Potassium (3.3-5.1) mmol/L Chloride (96-108) mmol/L Carbon Dioxide (22-29) mmol/L Anion Gap (12-20) BUN (9-16) mg/dL Creatinine (0.5-1.4) mg/dL Estim Creat Clear Calc Estimated GFR Random Glucose (60-115) mg/dL Calcium (8.4-10.2) mg/dL Magnesium (1.6-2.6) mg/dL Total Bilirubin (0.0-1.0) mg/dL Direct Bilirubin (0.0-0.5) mg/dL AST (5-37) U/L ALT (0-40) U/L Alkaline Phosphatase (39-117) U/L Total Creatine Kinase (38-174) U/L Troponin I High Sens 5.9 (<3.5-35.0) ng/L Total Protein (6.5-8.0) g/dL Albumin (3.5-5.0) g/dL Lipase (8-78) U/L Urine Color Urine Appearance Urine pH (5.0-8.0) Ur Specific [place] (1.005-1.025) Urine Protein (NEG-TRACE) MG/DL Urine Glucose (UA) (NEG) MG/DL Urine Ketones (NEG) MG/DL Urine Blood (NEG) Urine Nitrite (NEG) Ur Leukocyte Esterase (NEG) Urine RBC (0) /HPF Urine WBC (0-4) /HPF Ur Squamous Epith Cells /LPF Urine Bacteria /LPF Urine Mucus /LPF COVID-19 ([facility]) (Negative) COVID-19 Clin Com 01/27/21 Range/Units 12:29 WBC (4.8-10.8) X10*3/uL RBC (4.60-5.80) X10*6/uL Hgb (14.0-18.0) g/dl Hct (42-52) % MCV (80-98) fL MCH (27.0-33.0) pg MCHC (31.0-36.0) g/dl RDW (11.0-16.0) % Plt Count (160-400) X10*3/uL MPV (9.4-12.4) fL Immature Gran % (Auto) (0.0-0.4) % Neut % (Auto) (45-73) % Lymph % (Auto) (20-40) % [place] % (Auto) (2-11) % Eos % (Auto) (0-4) % Baso % (Auto) (0-2) % Lymph # (Auto) (1.2-4.9) X10*3/uL [place] # (Auto) (0.1-1.2) X10*3/uL Eos # (Auto) (0.0-0.4) X10*3/uL Baso # (Auto) (0.0-0.2) X10*3/uL Abs Immat Gran (auto) (0.00-0.03) X10*3/uL Absolute Neuts (auto) (2.0-8.3) X10*3/uL Absolute Nucleated RBC (0.0-0.012) X10*3/uL Nucleated RBC % (auto) (0.0-0.2) /100WBC Smear Tech's Comments PT (9.9-13.0) SEC INR (0.9-1.1) APTT (24.1-38.0) SEC Sodium (135-145) mmol/L Potassium (3.3-5.1) mmol/L Chloride (96-108) mmol/L Carbon Dioxide (22-29) mmol/L Anion Gap (12-20) BUN (9-16) mg/dL Creatinine (0.5-1.4) mg/dL Estim Creat Clear Calc Estimated GFR Random Glucose (60-115) mg/dL Calcium (8.4-10.2) mg/dL Magnesium (1.6-2.6) mg/dL Total Bilirubin (0.0-1.0) mg/dL Direct Bilirubin (0.0-0.5) mg/dL AST (5-37) U/L ALT (0-40) U/L Alkaline Phosphatase (39-117) U/L Total Creatine Kinase (38-174) U/L Troponin I High Sens < 3.5 (<3.5-35.0) ng/L Total Protein (6.5-8.0) g/dL Albumin (3.5-5.0) g/dL Lipase (8-78) U/L Urine Color Urine Appearance Urine pH (5.0-8.0) Ur Specific [place] (1.005-1.025) Urine Protein (NEG-TRACE) MG/DL Urine Glucose (UA) (NEG) MG/DL Urine Ketones (NEG) MG/DL Urine Blood (NEG) Urine Nitrite (NEG) Ur Leukocyte Esterase (NEG) Urine RBC (0) /HPF Urine WBC (0-4) /HPF Ur Squamous Epith Cells /LPF Urine Bacteria /LPF Urine Mucus /LPF COVID-19 ([facility]) (Negative) COVID-19 Clin Com ECG Data Attestation: I personally reviewed and interpreted this ECG as follows: Interpretation: EKG normal sinus rhythm with a rate of 78. QTC 440, nonischem ic/no STEMI Discharge Plan Discharge Clinical Impression: Hepatitis Patient Disposition: Admitted As Inpatient
[2021-01-27] MEDS: 0.9 % Sodium Chloride 1,000 ML 999 ML IVCONT (10:52)
[2021-01-27] MEDS: methylPREDNISolone Sod Succ 125 MG/2 ML VIAL IVPUSH (10:54)
[2021-01-27] MEDS: Magnesium Sulfate/H2O 2 GM/50 ML PIGGYBACK IV (10:54)
[2021-01-27 11:04] LABS: Basophils Percent Auto 0.2 % (0-2); Eosinophils Absolute Auto 0.1 X10*3/uL (0.0-0.4); Eosinophils Percent Auto 0.8 % (0-4); Hematocrit 39.1 % (42-52); Hemoglobin 13.6 g/dl (14.0-18.0); Imm Gran Abs Auto 0.11 X10*3/uL (0.00-0.03); Imm Gran Pct Auto 1.8 % (0.0-0.4); Lymphocytes Absolute Auto 3.1 X10*3/uL (1.2-4.9); Lymphocytes Percent Auto 48.7 % (20-40); MANUAL DIFF FLAG SCAN; Mean Corpuscular HGB Conc 34.8 g/dl (31.0-36.0); Mean Corpuscular Hemoglobin 33.2 pg (27.0-33.0); Mean Corpuscular Volume 95.4 fL (80-98); Mean Platelet Volume 11.6 fL (9.4-12.4); Monocytes Absolute Auto 0.6 X10*3/uL (0.1-1.2); Monocytes Percent Auto 9.1 % (2-11); Neutrophils Absolute Auto 2.5 X10*3/uL (2.0-8.3); Neutrophils Percent Auto 39.4 % (45-73); Platelet Count 164 X10*3/uL (160-400); Red Cell Distribution Width 13.2 % (11.0-16.0); SCAN SMEAR FLAG 1; White Blood Count 6.3 X10*3/uL (4.8-10.8)
[2021-01-27 11:14] LABS: Alanine Aminotransferase 188 U/L (0-40); Albumin Level 3.3 g/dL (3.5-5.0); Alkaline Phosphatase 501 U/L (39-117); Anion Gap 12 (12-20); Aspartate Amino Transferase 197 U/L (5-37); Bilirubin Direct 6.4 mg/dL (0.0-0.5); Bilirubin Total 8.8 mg/dL (0.0-1.0); Blood Urea Nitrogen 20 mg/dL (9-16); Calcium 9.6 mg/dL (8.4-10.2); Carbon Dioxide 28 mmol/L (22-29); Chloride 103 mmol/L (96-108); Creatinine Clr Calc Pharmacy 111.8; Estimated Glomerular Filt Rate > 60; Glucose Random 116 mg/dL (60-115); Lipase 116 U/L (8-78); Magnesium 1.6 mg/dL (1.6-2.6); Potassium 3.7 mmol/L (3.3-5.1); Sodium 139 mmol/L (135-145); Total Protein 6.7 g/dL (6.5-8.0)
[2021-01-27 11:20] LABS: Troponin-I High Sensitivity 5.9 ng/L (<3.5-35.0)
[2021-01-27] MEDS: Albuterol/Iprat 2.5/0.5MG 3 ML AMPUL.NEB INHALE (11:35)
[2021-01-27 12:02] LABS: SLIDE REVIEW VERIFIED
[2021-01-27] MEDS: cefTRIAXone sodium 1 GM in 0.9 % Sodium Chloride 50 ML IV (12:06)
[2021-01-27 12:45] LABS: Prothrombin Time 11.8 SEC (9.9-13.0)
[2021-01-27 12:48] LABS: Partial Thromboplastin Time 33.3 SEC (24.1-38.0)
[2021-01-27 13:00] LABS: Troponin-I High Sensitivity < 3.5 ng/L (<3.5-35.0)
[2021-01-27] MEDS: Albuterol Sulfate (0.083%) 2.5 MG/3 ML VIAL.NEB 10 MG INHALE (13:18)
[2021-01-27] MEDS: iohexoL 350 MG/ML 100 ML INFUS..BTL IV (15:11)
[2021-01-27 17:07] LABS: Ethanol < 10 mg/dL
--- NOTE | 2021-01-27 17:34 | P.HPHOSP_ITS ---
History of Present Illness Date of Service: 01/27/21 Chief Complaint: Unpper respiratory symptosm, jaundice 65-year-old male with a past medical history asthma, renal calculi, and HTN presenting to the ED URI symptoms of nasal congestion, sinus headache, wheezing/chest congestion, cough with sputum, SOB, chest discomfort associated with cough for about a 1 week. CXR no pneumonia, incendtal routine labs show A LT of 188, AST 197, ALK phos 501 and Tbili 8.8 with direct bili of 6.4.. He has has jaundice yet no abdominal pain. He admits for having been taking tyelenol for the last 3 days to control sinus headache. INR is normal, tyelenol level is pending. He admits to fever of 102 last week at home. Of note, he drinks at least 3 beers a day in addition to vodka [facility] Medical History Kidney calculi Pertinent family history: father at 98, mother alive 98 Social History Alcohol intake: never Patient Tobacco Use Status: Current someday Tobacco user Smoked in Last 30 Days: No Use of substances other than those prescribed or required for medical reasons: No Advance Directives: Yes Advance Directives Information Provided: Yes Advance Directives on File: No Meds Allergies Allergy/AdvReac Type Severity Reaction Status Date / Time No Known Allergies Allergy Verified 09/13/20 08:12 amoxicillin [Augmentin] AdvReac Unknown nausea Verified 12/30/18 00:00 clavulanic acid [Augmentin] AdvReac Unknown nausea Verified 12/30/18 00:00 Home Medications Medication Instructions Recorded Confirmed Last Taken Type allopurinol 300 mg tablet 1 tab PO DAILY 09/13/20 01/27/21 09/12/20 History lisinopril 10 mg tablet 1 tab PO DAILY 09/13/20 01/27/21 09/12/20 History naproxen 250 mg tablet 1 tab PO BID 09/13/20 01/27/21 09/12/20 History tramadol 50 mg tablet 1 tab PO Q6H PRN 09/13/20 01/27/21 09/13/20 05:00 History omeprazole magnesium 20 mg mg PO 01/27/21 Unknown History tablet,delayed release (Prilosec OTC) Physical Exam Vital Signs and Narrative: Vital Signs: Last Vital Signs Temp 98.2 F 01/27/21 08:54 Pulse 100 01/27/21 16:40 Resp 16 01/27/21 16:40 BP 126/71 01/27/21 16:40 Pulse Ox 92 01/27/21 16:40 Body Mass Index 35.9 Results Labs CBC and Chem 7: 01/27/21 10:50 01/27/21 10:49 Labs: Laboratory Results - last 24 hr 01/27/21 01/27/21 01/27/21 09:29 09:53 10:49 MCV MCH MCHC RDW Plt Count MPV Immature Gran % (Auto) Neut % (Auto) Lymph % (Auto) [place] % (Auto) Eos % (Auto) Baso % (Auto) Lymph # (Auto) [place] # (Auto) Eos # (Auto) Baso # (Auto) Abs Immat Gran (auto) Absolute Neuts (auto) Absolute Nucleated RBC Nucleated RBC % (auto) Smear Tech's Comments PT INR APTT Anion Gap 12 Estim Creat Clear Calc 111.8 Estimated GFR > 60 Random Glucose 116 H Calcium 9.6 Magnesium 1.6 Total Bilirubin 8.8 H Direct Bilirubin 6.4 H AST 197 H ALT 188 H Alkaline Phosphatase 501 H D Total Creatine Kinase 73 Troponin I High Sens Total Protein 6.7 Albumin 3.3 L Lipase 116 H Urine Color DARK YELLOW Urine Appearance HAZY Urine pH 5.5 Ur Specific [place] 1.025 Urine Protein 2+ H Urine Glucose (UA) NEG Urine Ketones 5 Urine Blood TRACE Urine Nitrite POS H Ur Leukocyte Esterase NEG Urine RBC 0-2 Urine WBC 5-9 H Ur Squamous Epith Cells 2+ Urine Bacteria 1+ Urine Mucus 1+ Ethyl Alcohol COVID-19 ([facility]) Negative COVID-19 Clin Com See Note 01/27/21 01/27/21 01/27/21 10:49 10:50 10:50 MCV 95.4 MCH 33.2 H MCHC 34.8 RDW 13.2 Plt Count 164 MPV 11.6 Immature Gran % (Auto) 1.8 H Neut % (Auto) 39.4 L Lymph % (Auto) 48.7 H [place] % (Auto) 9.1 Eos % (Auto) 0.8 Baso % (Auto) 0.2 Lymph # (Auto) 3.1 [place] # (Auto) 0.6 Eos # (Auto) 0.1 Baso # (Auto) 0.0 Abs Immat Gran (auto) 0.11 H Absolute Neuts (auto) 2.5 Absolute Nucleated RBC 0.000 Nucleated RBC % (auto) 0.0 Smear Tech's Comments VERIFIED PT INR APTT Anion Gap Estim Creat Clear Calc Estimated GFR Random Glucose Calcium Magnesium Total Bilirubin Direct Bilirubin AST ALT Alkaline Phosphatase Total Creatine Kinase Troponin I High Sens 5.9 Total Protein Albumin Lipase Urine Color Urine Appearance Urine pH Ur Specific [place] Urine Protein Urine Glucose (UA) Urine Ketones Urine Blood Urine Nitrite Ur Leukocyte Esterase Urine RBC Urine WBC Ur Squamous Epith Cells Urine Bacteria Urine Mucus Ethyl Alcohol < 10 COVID-19 ([facility]) COVID-19 [employer] 01/27/21 01/27/21 12:29 12:29 MCV MCH MCHC RDW Plt Count MPV Immature Gran % (Auto) Neut % (Auto) Lymph % (Auto) [place] % (Auto) Eos % (Auto) Baso % (Auto) Lymph # (Auto) [place] # (Auto) Eos # (Auto) Baso # (Auto) Abs Immat Gran (auto) Absolute Neuts (auto) Absolute Nucleated RBC Nucleated RBC % (auto) Smear Tech's Comments PT 11.8 INR 1.0 APTT 33.3 Anion Gap Estim Creat Clear Calc Estimated GFR Random Glucose Calcium Magnesium Total Bilirubin Direct Bilirubin AST ALT Alkaline Phosphatase Total Creatine Kinase Troponin I High Sens < 3.5 Total Protein Albumin Lipase Urine Color Urine Appearance Urine pH Ur Specific [place] Urine Protein Urine Glucose (UA) Urine Ketones Urine Blood Urine Nitrite Ur Leukocyte Esterase Urine RBC Urine WBC Ur Squamous Epith Cells Urine Bacteria Urine Mucus Ethyl Alcohol COVID-19 ([facility]) COVID-19 [employer] [facility] Radiologist's Impressions: Impressions Chest X-Ray 01/27/21 10:24 IMPRESSION: No evidence for acute disease in the chest. Abdomen/Pelvis CT 01/27/21 11:56 IMPRESSION: Enlarged fatty liver. Slightly enlarged spleen. Bilateral renal stones. Small right renal cyst. Diverticulosis of the colon. Assessment and Plan (1) Hepatitis: Status: Acute (2) Jaundice: Status: Acute 65 year male with alcohol dependence, HTN, Asthma here with URI symptoms and found do have hepatitis, jaundice and possible UTI 1/Acute hepatitis--likely alcoholic -GI consult -viral Hepatitis -Follow LFTS -Avoid Tyelenol 2/Asthma exacerbation--Mild to mod -Bronchodialtors by Neb -corticosterod 3/HTN--continue Lisinopril 4/Kidney stone, non obstructive, assymmptomatic 5/UTI--Ceftriaxone 6/alcohol dependence--at risk for Withdrawal--Phenobarbital protocol, folate, thiamine supplement DVT prophylaxis Quality Stroke Does the patient have a stroke diagnosis?: No VTE Prior VTE?: No VTE Risk Level:: Medical - moderate - high VTE Device Contraindication: Treatment Not Indicated VTE Drug Contraindication: N/A - Med Ordered
[2021-01-27 18:05] LABS: Acetaminophen LAB 2 mcg/mL (<30)
[2021-01-27] MEDS: Dextrose 5 % and 0.45 % NaCl 1,000 ML 100 ML IVCONT (18:34)
[2021-01-27] MEDS: Enoxaparin Sodium 40 MG/0.4 ML SYRINGE SUBCUT (18:34)
[2021-01-27] MEDS: PHENobarbitaL sodium 130 MG/ML VIAL 234 MG IM (18:42)
--- NOTE | 2021-01-27 19:59 | HE.PHANOTE ---
Possible APAP toxicity. Dr. Anderson had a telephone order for 21-hour acetylcystiene protocol. I informed Dr. Anderson that APAP level was in normal ranges at 2 mcg/mL. However due to recent Tyenol usage, increase liver enzymes and recommendation from Dr. White, Dr Anderson would like to continue with the protocol.
[2021-01-27] MEDS: Acetylcysteine 15,000 MG in Dextrose 5 % 200 ML 200 MG IV (20:52)
[2021-01-27] MEDS: 0.9 % Sodium Chloride Flush 3 ML SYRINGE IVFLUSH (21:01)
[2021-01-27] MEDS: PHENobarbitaL sodium 130 MG/ML VIAL 175.5 MG IM (22:13)
[2021-01-27] MEDS: Acetylcysteine 5,000 MG in Dextrose 5 % 500 ML 125 MG IV (22:15)
[2021-01-27] MEDS: Benzonatate 100 MG CAPSULE PO (22:37)
[2021-01-28] VITALS (7 sets, daily range): BP systolic 127–152; BP diastolic 62–84; PULSE 70–92; RESP 14–19; TEMP 36.3–37.1; O2SAT 93–97
[2021-01-28] MEDS: PHENobarbitaL sodium 130 MG/ML VIAL 175.5 MG IM (01:25)
[2021-01-28] MEDS: Acetylcysteine 10,000 MG in Dextrose 5 % 1,000 ML 62.5 MG IV (02:21)
[2021-01-28 06:45] LABS: Basophils Percent Auto 0.2 % (0-2); Eosinophils Percent Auto 0.1 % (0-4); Hematocrit 35.8 % (42-52); Hemoglobin 12.3 g/dl (14.0-18.0); Imm Gran Pct Auto 1.2 % (0.0-0.4); Lymphocytes Absolute Auto 3.3 X10*3/uL (1.2-4.9); Lymphocytes Percent Auto 41.4 % (20-40); MANUAL DIFF FLAG SCAN; Mean Corpuscular HGB Conc 34.4 g/dl (31.0-36.0); Mean Corpuscular Hemoglobin 32.3 pg (27.0-33.0); Mean Platelet Volume 11.8 fL (9.4-12.4); Monocytes Absolute Auto 0.7 X10*3/uL (0.1-1.2); Monocytes Percent Auto 9.1 % (2-11); Neutrophils Absolute Auto 3.9 X10*3/uL (2.0-8.3); Platelet Count 178 X10*3/uL (160-400); Red Blood Count 3.81 X10*6/uL (4.60-5.80); Red Cell Distribution Width 13.1 % (11.0-16.0); SCAN SMEAR FLAG 1
[2021-01-28 06:48] LABS: Ammonia 41 umol/L (13-55)
[2021-01-28 06:55] LABS: INTERNATIONAL NORM RATIO 1.1 (0.9-1.1); Prothrombin Time 12.2 SEC (9.9-13.0)
[2021-01-28 07:16] LABS: Anion Gap 15 (12-20); Blood Urea Nitrogen 18 mg/dL (9-16); Calcium 9.1 mg/dL (8.4-10.2); Carbon Dioxide 23 mmol/L (22-29); Chloride 104 mmol/L (96-108); Creatinine Clr Calc Pharmacy 107.9; Estimated Glomerular Filt Rate > 60; Glucose Fasting 106 mg/dL (60-99); Sodium 138 mmol/L (135-145)
[2021-01-28 07:19] LABS: Alanine Aminotransferase 185 U/L (0-40); Albumin Level 2.9 g/dL (3.5-5.0); Alkaline Phosphatase 431 U/L (39-117); Aspartate Amino Transferase 171 U/L (5-37); Bilirubin Direct 5.4 mg/dL (0.0-0.5); Total Protein 5.9 g/dL (6.5-8.0)
[2021-01-28 07:23] LABS: SLIDE REVIEW VERIFIED
[2021-01-28] MEDS: Albuterol Sulfate (0.083%) 2.5 MG/3 ML VIAL.NEB INHALE ×3 (08:12→15:07)
[2021-01-28] MEDS: PHENobarbitaL 15 MG TABLET 45 MG PO (08:30)
[2021-01-28] MEDS: predniSONE 20 MG TABLET PO (08:30)
[2021-01-28] MEDS: Folic Acid 1 MG TABLET PO (08:31)
[2021-01-28] MEDS: Thiamine HCL 200 MG/2 ML VIAL 100 MG IM (08:32)
[2021-01-28 09:45] LABS: Acetaminophen LAB < 1 mcg/mL (<30)
--- NOTE | 2021-01-28 12:06 | P.DS_ITS ---
DS: Providers Provider Date of Service: 01/28/21 Date of admission: 01/27/21 17:51 Primary care physician: Pato Hampton MD Consults: 01/27/21 17:50 Consult to Gastroenterology Routine Consulting Provider: Derrick Vazquez Reason for consultation: acute hepatitis Has provider been notified: No DS: Diagnosis Discharge Diagnosis (1) Hepatitis: Status: Acute (2) Jaundice: Status: Acute DS: Summary Hospital Course Hospital Course: Chief Complaint: Unpper respiratory symptosm, jaundice 65-year-old male with a past medical history asthma, renal calculi,? and HTN presenting to the ED URI symptoms of nasal congestion, sinus headache, wheezing/chest congestion, cough with sputum, SOB, chest discomfort associated with cough for about a 1 week.? CXR no pneumonia, incendtal routine labs show ALT of? 188, AST 197, ALK phos 501 and Tbili 8.8 with direct bili of 6.4.. He has has jaundice yet no abdominal pain. He admits for having been taking? tyelenol for the last 3 days to control sinus headache. INR is normal, tyelenol level is pending.? He admits to fever of 102 last week at home. Of note, he drinks at least 3 beers a day in addition to vodka Hospital course: 1/Elevated LFTS--etiology not clear possibly multifactorila: alcohol vis viral, vs tyelenol--Levels going down, empirically treated with Mucomust. Tyelenol level remained normal. To avoid tyelenol, repeat LFTs within the week 2/Asthma exacerbation--mild, treated with bronchodilatos, Prednisone for 5 days. 3/HTN--continue Lisinopril 4/Alcohol Dependecy--started on Phenobarb to prevent withdrawal, cessation discussed with him. In the end, he would not stay to finish the Mucomyst and chose to leave AMA, he was aware of his risk including getting worse and possibly dying, he was fully alert and oreiented and still chose to leave AMA Time Spent with Patient Time attestation: Total time spent providing and/or coordinating discharge services: Discharge coordination time: Greater than 30 minutes Quality: Stroke Does the patient have a stroke diagnosis?: No Physical Exam Vital Signs: Vital Signs: Last Vital Signs Temp 98.7 F 01/28/21 11:44 Pulse 91 01/28/21 11:44 Resp 19 01/28/21 11:44 BP 148/78 H 01/28/21 11:44 Pulse Ox 95 01/28/21 11:44 Body Mass Index 35.9 General: AO X 3, no acute distress HEENT--sclera icteris Resp: CTA bilateral CVS: S1,S2,RRR GI: +BS, NT, no distention Skin: No rash Neuro: motor grossly intact Psych: appropriate affect DS: Data Data Completed and Pending Labs on day of discharge: Laboratory Results - last 24 hr 01/27/21 01/27/21 01/27/21 10:49 10:50 12:29 WBC RBC Hgb Hct MCV MCH MCHC RDW Plt Count MPV Immature Gran % (Auto) Neut % (Auto) Lymph % (Auto) [place] % (Auto) Eos % (Auto) Baso % (Auto) Lymph # (Auto) [place] # (Auto) Eos # (Auto) Baso # (Auto) Abs Immat Gran (auto) Absolute Neuts (auto) Absolute Nucleated RBC Nucleated RBC % (auto) Smear Tech's Comments PT 11.8 INR 1.0 APTT 33.3 Sodium Potassium Chloride Carbon Dioxide Anion Gap BUN Creatinine Estim Creat Clear Calc Estimated GFR Fasting Glucose Calcium Total Bilirubin Direct Bilirubin AST ALT Alkaline Phosphatase Ammonia Troponin I High Sens Total Protein Albumin Acetaminophen 2 Phenobarbital Ethyl Alcohol < 10 01/27/21 01/27/21 01/28/21 12:29 18:31 06:14 WBC RBC Hgb Hct MCV MCH MCHC RDW Plt Count MPV Immature Gran % (Auto) Neut % (Auto) Lymph % (Auto) [place] % (Auto) Eos % (Auto) Baso % (Auto) Lymph # (Auto) [place] # (Auto) Eos # (Auto) Baso # (Auto) Abs Immat Gran (auto) Absolute Neuts (auto) Absolute Nucleated RBC Nucleated RBC % (auto) Smear Tech's Comments PT 12.2 INR 1.1 APTT Sodium Potassium Chloride Carbon Dioxide Anion Gap BUN Creatinine Estim Creat Clear Calc Estimated GFR Fasting Glucose Calcium Total Bilirubin Direct Bilirubin AST ALT Alkaline Phosphatase Ammonia Troponin I High Sens < 3.5 Total Protein Albumin Acetaminophen Phenobarbital < 1.1 L Ethyl Alcohol 01/28/21 01/28/21 01/28/21 06:14 06:15 06:15 WBC RBC Hgb Hct MCV MCH MCHC RDW Plt Count MPV Immature Gran % (Auto) Neut % (Auto) Lymph % (Auto) [place] % (Auto) Eos % (Auto) Baso % (Auto) Lymph # (Auto) [place] # (Auto) Eos # (Auto) Baso # (Auto) Abs Immat Gran (auto) Absolute Neuts (auto) Absolute Nucleated RBC Nucleated RBC % (auto) Smear Tech's Comments PT INR APTT Sodium 138 Potassium 4.0 Chloride 104 Carbon Dioxide 23 Anion Gap 15 BUN 18 H Creatinine 0.86 Estim Creat Clear Calc 107.9 Estimated GFR > 60 Fasting Glucose 106 H Calcium 9.1 Total Bilirubin 7.0 H Direct Bilirubin 5.4 H AST 171 H ALT 185 H Alkaline Phosphatase 431 H Ammonia 41 Troponin I High Sens Total Protein 5.9 L Albumin 2.9 L Acetaminophen < 1 Phenobarbital Ethyl Alcohol 01/28/21 06:15 WBC 8.0 RBC 3.81 L Hgb 12.3 L Hct 35.8 L MCV 94.0 MCH 32.3 MCHC 34.4 RDW 13.1 Plt Count 178 MPV 11.8 Immature Gran % (Auto) 1.2 H Neut % (Auto) 48.0 Lymph % (Auto) 41.4 H [place] % (Auto) 9.1 Eos % (Auto) 0.1 Baso % (Auto) 0.2 Lymph # (Auto) 3.3 [place] # (Auto) 0.7 Eos # (Auto) 0.0 Baso # (Auto) 0.0 Abs Immat Gran (auto) 0.10 H Absolute Neuts (auto) 3.9 Absolute Nucleated RBC 0.000 Nucleated RBC % (auto) 0.0 Smear Tech's Comments VERIFIED PT INR APTT Sodium Potassium Chloride Carbon Dioxide Anion Gap BUN Creatinine Estim Creat Clear Calc Estimated GFR Fasting Glucose Calcium Total Bilirubin Direct Bilirubin AST ALT Alkaline Phosphatase Ammonia Troponin I High Sens Total Protein Albumin Acetaminophen Phenobarbital Ethyl Alcohol Discharge Plan Discharge Anticipated Discharge Date/Time: 01/28/21 12:04 Patient Disposition: Home, Self-Care Discharge Diagnosis: acute hepatitis, jaundice and asthma Referrals: Pato Hampton MD [Primary Care Provider] - 1 Week Discharge Medications: New prednisone 20 mg tablet 20 mg PO DAILY Qty: 8 RF: 0 Continued naproxen 250 mg tablet 1 tab PO BID RF: 0 tramadol 50 mg tablet 1 tab PO Q6H PRN (Reason: Pain) RF: 0 lisinopril 10 mg tablet 1 tab PO DAILY RF: 0 allopurinol 300 mg tablet 1 tab PO DAILY RF: 0 tamsulosin 0.4 mg capsule 0.4 mg PO BEDTIME 14 Days Qty: 14 RF: 0 omeprazole magnesium [Prilosec OTC] 20 mg Tablet,Delayed Release (Dr/Ec) PO RF: 0 Discharge Orders: Discharge Order (Routine); Ordered 01/28/21 Ordered By: Felipe Anderson Diet: advance to usual diet Activity on Discharge: As tolerated Stand Alone Forms: Patient Portal Discharge page Care Plan Goals: Full recovery from hepatitis Health Concerns: hepatitis Plan of Treatment: Repeat labs within a week, follow up with GI Take Prednisone for asthma, along with your inhalers Assessment: as above
--- NOTE | 2021-01-28 12:24 | PM.EVENT ---
Event Note Date of Service: 01/28/21 Event Note: GI Consult-Full note dictated Imp: 65 yo male presenting with jaundice and significant elevation of the liver enzymes. This appears to be multifactorial, including EtOH with at least 3 beers and 3 vodkas daily, recent Tylenol with 2 Extra strength pills 4 times a day, daily Naproxen, and probable fatty liver in relation to his obesity as well as EtOH consumption. His LFT's have improved overnight with initiation of Acetylcysteine for the possible component of Acetaminophen toxicity. He shows no signs of chronic liver disease on his exam nor any signs of liver failure by his exam or labs. His CT was negative for any signs of biliary obstruction. Rec: Continue supportive care and complete the Acetylcysteine protocol. I did review all of the above with the patient in detail and the need to stop EtOH, Acetaminophen, and NSAIDs completely. I advised him that I will be in touch with him to set up an OV and to F/U his LFT's to be sure they normalize. I think he could be discharged within the next 24 hours if things remain stable. D/W patient in detail. Thanks
--- NOTE | 2021-01-28 13:28 | P.PNIM_ITS ---
Subjective Subjective Date of Service: 01/28/21 Interval History: f/u hepatitis, asthma.. LFTs better, asthma better Review of Systems Gen: no fever Resp: sob, +cough CV: no chest, no ALANIS, no leg edema GI: No n/v, no abd pain Neuro: No confusion Physical Exam Vital Signs: Vital Signs: Last Vital Signs Temp 98.7 F 01/28/21 11:44 Pulse 83 01/28/21 12:12 Resp 19 01/28/21 11:44 BP 148/78 H 01/28/21 11:44 Pulse Ox 95 01/28/21 11:44 Body Mass Index 35.9 General: AO X 3, no acute distress HEENT sclera icteris Resp: CTA bilateral CVS: S1,S2,RRR GI: +BS, NT, no distention Skin: No rash Neuro: motor grossly intact Psych: appropriate affect Objective Data Active Medications Al Hydroxide/Mg Hydroxide (Magnesium Hydrox/Alum Hydrox 30 Ml Oral.Susp) 30 ml PO Q4H PRN PRN Reason: Heartburn/Nausea Albuterol Sulfate (Albuterol Sulfate (0.083%) 2.5 Mg/3 Ml Vial.Neb) 2.5 mg INHALE RQ4H WHILE AWAKE [facility] Last Admin: 01/28/21 12:12 Dose: 2.5 mg Documented by: STARR Benzonatate (Benzonatate 100 Mg Capsule) 100 mg PO TID PRN PRN Reason: Cough Last Admin: 01/27/21 22:37 Dose: 100 mg Documented by: VANITA Enoxaparin Sodium (Enoxaparin Sodium 40 Mg/0.4 Ml Syringe) 40 mg SUBCUT Q24H [facility] Last Admin: 01/27/21 18:34 Dose: 40 mg Documented by: JAVI Folic Acid (Folic Acid 1 Mg Tablet) 1 mg PO DAILY [facility] Stop: 01/30/21 09:01 Last Admin: 01/28/21 08:31 Dose: 1 mg Documented by: ALEX Acetylcysteine 10,000 mg/ (Dextrose) 1,050 mls @ 62.5 mls/hr IV ONCE ONE Stop: 01/28/21 19:02 Last Admin: 01/28/21 02:21 Dose: 62.5 mls/hr Documented by: HO.ODRISM Medication (No Benzodiazepines) 1 each MISCELLANE DAILY [facility] Melatonin (Melatonin 3 Mg Tablet) 6 mg PO BEDTIME PRN PRN Reason: Insomnia Phenobarbital (Phenobarbital 15 Mg Tablet) 45 mg PO BID [facility]; Protocol Stop: 01/29/21 21:01 Last Admin: 01/28/21 08:30 Dose: 45 mg Documented by: ALEX Phenobarbital (Phenobarbital 30 Mg Tablet) 30 mg PO BID [facility]; Protocol Stop: 01/31/21 21:01 Phenobarbital (Phenobarbital 30 Mg Tablet) 30 mg PO DAILY [facility]; Protocol Stop: 02/02/21 09:01 Prednisone (Prednisone 20 Mg Tablet) 20 mg PO DAILY [facility] Last Admin: 01/28/21 08:30 Dose: 20 mg Documented by: ALEX Sodium Chloride (0.9 % Sodium Chloride Flush 3 Ml Syringe) 3 ml IVFLUSH QSHIFT [facility] Last Admin: 01/28/21 07:47 Dose: Not Given Documented by: ALEX Non-Admin Reason: IV Running Thiamine HCl (Thiamine Hcl 200 Mg/2 Ml Vial) 100 mg IM DAILY [facility] Last Admin: 01/28/21 08:32 Dose: 100 mg Documented by: ALEX Labs CBC & Chem 7: 01/28/21 06:15 01/28/21 06:14 Labs: Laboratory Results - last 24 hr 01/27/21 01/27/21 01/27/21 10:49 10:50 18:31 MCV MCH MCHC RDW Plt Count MPV Immature Gran % (Auto) Neut % (Auto) Lymph % (Auto) [place] % (Auto) Eos % (Auto) Baso % (Auto) Lymph # (Auto) [place] # (Auto) Eos # (Auto) Baso # (Auto) Abs Immat Gran (auto) Absolute Neuts (auto) Absolute Nucleated RBC Nucleated RBC % (auto) Smear Tech's Comments PT INR Anion Gap Estim Creat Clear Calc Estimated GFR Fasting Glucose Calcium Total Bilirubin Direct Bilirubin AST ALT Alkaline Phosphatase Ammonia Total Protein Albumin Acetaminophen 2 Phenobarbital < 1.1 L Ethyl Alcohol < 10 01/28/21 01/28/21 01/28/21 06:14 06:14 06:15 MCV MCH MCHC RDW Plt Count MPV Immature Gran % (Auto) Neut % (Auto) Lymph % (Auto) [place] % (Auto) Eos % (Auto) Baso % (Auto) Lymph # (Auto) [place] # (Auto) Eos # (Auto) Baso # (Auto) Abs Immat Gran (auto) Absolute Neuts (auto) Absolute Nucleated RBC Nucleated RBC % (auto) Smear Tech's Comments PT 12.2 INR 1.1 Anion Gap 15 Estim Creat Clear Calc 107.9 Estimated GFR > 60 Fasting Glucose 106 H Calcium 9.1 Total Bilirubin Direct Bilirubin AST ALT Alkaline Phosphatase Ammonia 41 Total Protein Albumin Acetaminophen < 1 Phenobarbital Ethyl Alcohol 01/28/21 01/28/21 06:15 06:15 MCV 94.0 MCH 32.3 MCHC 34.4 RDW 13.1 Plt Count 178 MPV 11.8 Immature Gran % (Auto) 1.2 H Neut % (Auto) 48.0 Lymph % (Auto) 41.4 H [place] % (Auto) 9.1 Eos % (Auto) 0.1 Baso % (Auto) 0.2 Lymph # (Auto) 3.3 [place] # (Auto) 0.7 Eos # (Auto) 0.0 Baso # (Auto) 0.0 Abs Immat Gran (auto) 0.10 H Absolute Neuts (auto) 3.9 Absolute Nucleated RBC 0.000 Nucleated RBC % (auto) 0.0 Smear Tech's Comments VERIFIED PT INR Anion Gap Estim Creat Clear Calc Estimated GFR Fasting Glucose Calcium Total Bilirubin 7.0 H Direct Bilirubin 5.4 H AST 171 H ALT 185 H Alkaline Phosphatase 431 H Ammonia Total Protein 5.9 L Albumin 2.9 L Acetaminophen Phenobarbital Ethyl Alcohol Microbiology Microbiology Results: Microbiology 01/27/21 00:00 Urine Culture - Final Urine clean catch - Urine merritt top Assessment and Plan (1) Jaundice: Status: Acute (2) Hepatitis: Status: Acute (3) Asthma exacerbation: Status: Acute Assessment and Plan: 1/Elevated LFTS--etiology not clear possibly multifactorila: alcohol vis viral, vs tyelenol--Levels going down, empirically being treated with Mucomust. Tyelenol level remained normal. To avoid tyelenol, repeat labs tomorrow 2/Asthma exacerbation--mild, treating with bronchodilatos, Prednisone for 5 days. 3/HTN--continue Lisinopril 4/Alcohol Dependecy--started on Phenobarb to prevent withdrawal, cessation di scussed with him. Folic acid, thiamine Quality Stroke Does the patient have a stroke diagnosis?: No VTE Prior VTE?: No VTE Risk Level:: Medical - moderate - high VTE Device Contraindication: Treatment Not Indicated VTE Drug Contraindication: N/A - Med Ordered
--- NOTE | 2021-01-28 13:45 | MHC.CM.PN ---
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 D/C KIRA: HOME SELF-CARE (MAY LEAVE AMA), PT'S VEHICLE IN [facility] AND WILL TRANSPORT SELF. PCP: KALLI ARENAS HCP: LILO DOOLEY (SISTER) [phone], COPY REQUESTED
--- NOTE | 2021-01-28 17:22 | PC.NURSE ---
late entry, Pt requested discharge home or would sign himself out AMA. Dr anderson notified. Pt stated if we didnt remove his IV he would do it himself. Pt adamant about leaving. Dr Anderson in to see pt and removed IV. Pt instructed to greens picker prescription for prednisone. Pt adamant about not waiting for any printed dc instructions, got himself dressed , gathered his belongings, signed AMA sheet and ambulated off unit. Pt did not wait for printed dc instructions. Catherine Gore superviser notified.
[2021-01-30 04:15] LABS: HBsAGNum1 0.17 S/CO (0.00-0.99); Hepatitis B Surface Antigen Negative (Negative); ~HepC Num1 0.09 S/CO (0.00-0.79); ~Hepatitis C Antibody Nonreactive (Nonreactive)
[2021-01-30 04:27] LABS: ~Hepatitis B Surface Antibody NONREACTIVE (Nonreactive)
[2021-01-30 04:47] LABS: Hepatitis B Core Antibody Nonreactive (Nonreactive)
--- NOTE | 2021-01-30 12:54 | CONS_ITS ---
DATE OF SERVICE: 01/28/2021 REASON FOR CONSULTATION: Jaundice and elevated LFTs. HISTORY OF PRESENT ILLNESS: The patient is a 65-year-old male, who describes the onset of some darkened urine about 2-3 days before admission. They thought it was blood. He did have some respiratory issues as well, but denies any GI symptoms. He specifically denies any abdominal pain, any obvious jaundice in his skin or eyes, nausea, vomiting, nor anorexia. He reports his bowel movements have been regular without any sign of hematochezia nor melena. He denies any significant heartburn nor dysphagia. He came to the ER and was noted to have significant jaundice with a total bilirubin of 8.8 compared to total bilirubin of 1.8 back in August. He was admitted for further evaluation. The patient does admit to drinking 3 beers and 3 vodka drinks daily. He describes that this seemed to have increased once he retired. He had done that intermittently in the past, but since he retired, he has been doing it almost daily. He does not use any drugs other than prescription. He has had issues with obesity. He has been using two extra strength Tylenol about 4 times a day recently due to his respiratory symptoms and fever. He has also been using daily naproxen. He denies any previous history of liver disease in himself nor family members. He was started on Acetylcysteine for possible Acetaminophen toxicity. MEDICATIONS: Medications at home included allopurinol, lisinopril, naproxen, acetaminophen, omeprazole, tamsulosin, and tramadol. Medications here in the hospital include acetylcysteine, albuterol inhaler, , Lovenox, folic acid, antacids p.r.n., melatonin p.r.n., phenobarbital, prednisone 20 mg daily, and thiamine. PAST MEDICAL HISTORY: Tubular adenomas of the colon, hypertension, gout, kidney stones. Removal of a lipoma. He describes a history of asthma. He denies history of [place], diabetes or stroke. SOCIAL HISTORY: He is retired. He smokes an occasional cigar. Alcohol as above. FAMILY HISTORY: Noncontributory. REVIEW OF SYSTEMS: CONSTITUTIONAL: Other than his respiratory complaints, he has been feeling well from a GI standpoint with good appetite. SKIN: No rash. No pruritus. CARDIAC: No chest pain. PULMONARY: No cough, no hemoptysis. GI: As above. URINARY: The urine has been dark, but denies any dysuria. PHYSICAL EXAMINATION: GENERAL: The patient is a pleasant, alert, comfortable-appearing male. He is alert and oriented. There is no asterixis. There is no spider angiomata. SKIN: Warm and dry. Minimally icteric sclerae. NECK: Supple. CHEST: Clear. CARDIAC: Normal S1, S2. ABDOMEN: Soft, nondistended, nontender without mass. EXTREMITIES: Without edema. No palmar erythema. LABORATORY DATA: As above. Normal electrolytes. BUN 18, creatinine 0.9. His liver profile yesterday showed a total bilirubin of 8.8 with a direct bilirubin of 6.4, AST 197, ALT 188, and alkaline phosphatase 501. Today's labs have improved with a total bilirubin 7.0, direct bilirubin 5.4, AST 171, ALT 185, and alkaline phosphatase 431. His ammonia level was 41. Albumin was 3.3 yesterday and 2.9 today. Lipase was 116 yesterday. Hepatitis serologies are pending. His acetaminophen level was 2 yesterday and alcohol level was nondetectable. COVID was negative. He did have a CAT scan of the abdomen and pelvis describing some mild hepatosplenomegaly, but without any sign of liver lesions nor biliary obstruction. Pancreas was normal. There was no ascites. IMPRESSION: Given the patient's clinical history, I suspect his jaundice and elevated LFTs are multifactorial in relation to alcohol consumption, obesity with fatty liver, possible acetaminophen toxicity, and possible NSAID-induced toxicity. At this point, things appear stable with an improving liver profile and no sign of any liver failure nor chronic liver disease by his examination or by laboratories. As mentioned, he was started on acetylcysteine yesterday and this may also be helping to contribute to an improved liver profile, if indeed there was a component of acetaminophen toxicity. He appears very stable otherwise with a benign abdomen and without any other constitutional symptoms such as vomiting or nausea. At this point, I would continue supportive care and complete the acetylcysteine protocol. I have reviewed all the issues with him in detail in regard to the need to avoid alcohol completely long-term, avoid acetaminophen and NSAIDs completely, and to try to obviously lose weight and watch his diet. I advised him that I will be in touch with him to set up an office visit to follow up his LFTs to be sure they normalize. At this point given an improving liver profile without any sign of liver failure, including normal PT with INRs and normal ammonia levels, I do not think a liver biopsy is required nor consideration for transfer to a tertiary center at this time. This has all been discussed with the patient in detail, and he is comfortable with this plan. Thank you for consultation. MD LILIAN Ga/NASIR / [id number] MTDJoycelyn
[2021-01-31 08:37] LABS: HBS Num1 0.12 mIU/mL (0-7.99); HBc Num1 0.05 S/CO (0.00-0.79)
[2021-01-31 10:42] LABS: ~Hepatitis A Antibody IgM Nonreactive (Nonreactive)
== END 2021-01-28 17:21 | disposition home or self-care (01) | DRG 433 ==
LOC: HO.ED 16:59 → HO.S3 18:22
PROVIDERS: Internal Medicine; Physician Assistant; Admitting Provider Internal Medicine; Emergency Provider Internal Medicine; PCP Internal Medicine; Visit Provider Internal Medicine
DX: K70.10 Alcoholic hepatitis without ascites (principal); J45.901 Unspecified asthma with (acute) exacerbation; N39.0 Urinary tract infection, site not specified; F11.20 Opioid dependence, uncomplicated; R31.0 Gross hematuria; Z20.822 Contact with and (suspected) exposure to COVID-19; I10 Essential (primary) hypertension; K76.0 Fatty (change of) liver, not elsewhere classified; E66.9 Obesity, unspecified; Z68.35 Body mass index [BMI] 35.0-35.9, adult; Z87.442 Personal history of urinary calculi; F17.210 Nicotine dependence, cigarettes, uncomplicated; Z71.6 Tobacco abuse counseling; Z88.0 Allergy status to penicillin; Z79.891 Long term (current) use of opiate analgesic; Z79.899 Other long term (current) drug therapy
CPT/HCPCS: 36415; 71046; 74177; 80048; 80076; 80143; 80184; 81001; 81003; 82077; 82140; 82550; 83690; 83735; 84484; 85025; 85610; 85730; 86704; 86706; 86709; 86803; 87086; 87340; 87635; 93005; 94640; 94644; 96365; 96366; 96375; 99285; J0132; J0696; J1650; J2560; J2930; J3411; J3475; Q9967

== ENCOUNTER 2021-02-05 11:39 | Outpatient (REF) | payer MEDICARE, SELFPAY ==
[2021-02-05 12:44] LABS: Alanine Aminotransferase 183 U/L (0-40); Albumin Level 3.3 g/dL (3.5-5.0); Alkaline Phosphatase 522 U/L (39-117); Aspartate Amino Transferase 101 U/L (5-37); Bilirubin Total 5.4 mg/dL (0.0-1.0); Total Protein 7.7 g/dL (6.5-8.0)
== END 2021-02-05 11:40 | disposition home or self-care (01) ==
LOC: HO.LNP 11:39
PROVIDERS: Visit Provider Internal Medicine
DX: R74.8 Abnormal levels of other serum enzymes (principal)
CPT/HCPCS: 80076

== ENCOUNTER 2021-02-12 10:20 | Outpatient (REF) | payer MEDICARE, SELFPAY ==
[2021-02-12 11:25] LABS: Basophils Percent Auto 0.4 % (0-2); Eosinophils Absolute Auto 0.1 X10*3/uL (0.0-0.4); Eosinophils Percent Auto 0.6 % (0-4); Hematocrit 37.3 % (42-52); Hemoglobin 12.3 g/dl (14.0-18.0); Imm Gran Abs Auto 0.02 X10*3/uL (0.00-0.03); Imm Gran Pct Auto 0.2 % (0.0-0.4); Lymphocytes Absolute Auto 5.9 X10*3/uL (1.2-4.9); Lymphocytes Percent Auto 70.1 % (20-40); MANUAL DIFF FLAG SCAN; Mean Corpuscular Hemoglobin 31.8 pg (27.0-33.0); Mean Corpuscular Volume 96.4 fL (80-98); Monocytes Absolute Auto 0.7 X10*3/uL (0.1-1.2); Monocytes Percent Auto 7.8 % (2-11); Neutrophils Absolute Auto 1.7 X10*3/uL (2.0-8.3); Neutrophils Percent Auto 20.9 % (45-73); Platelet Count 223 X10*3/uL (160-400); Red Blood Count 3.87 X10*6/uL (4.60-5.80); Red Cell Distribution Width 14.2 % (11.0-16.0); SCAN SMEAR FLAG 1; White Blood Count 8.3 X10*3/uL (4.8-10.8)
[2021-02-12 12:07] LABS: SLIDE REVIEW VERIFIED
[2021-02-12 12:42] LABS: Alanine Aminotransferase 113 U/L (0-40); Albumin Level 3.3 g/dL (3.5-5.0); Alkaline Phosphatase 270 U/L (39-117); Aspartate Amino Transferase 81 U/L (5-37); Bilirubin Direct 1.6 mg/dL (0.0-0.5); Bilirubin Total 2.2 mg/dL (0.0-1.0); Total Protein 7.5 g/dL (6.5-8.0)
== END 2021-02-12 10:21 | disposition home or self-care (01) ==
LOC: HO.LNP 10:20
PROVIDERS: Visit Provider Internal Medicine
DX: K70.10 Alcoholic hepatitis without ascites (principal)
CPT/HCPCS: 80076; 85025

== ENCOUNTER 2021-03-08 10:22 | Outpatient (REF) | payer MEDICARE, SELFPAY ==
[2021-03-08 10:46] LABS: Basophils Percent Auto 0.2 % (0-2); Eosinophils Absolute Auto 0.1 X10*3/uL (0.0-0.4); Eosinophils Percent Auto 1.6 % (0-4); Hematocrit 41.6 % (42-52); Hemoglobin 13.8 g/dl (14.0-18.0); Imm Gran Abs Auto 0.03 X10*3/uL (0.00-0.03); Imm Gran Pct Auto 0.4 % (0.0-0.4); Lymphocytes Absolute Auto 4.3 X10*3/uL (1.2-4.9); Lymphocytes Percent Auto 50.6 % (20-40); MANUAL DIFF FLAG SCAN; Mean Corpuscular HGB Conc 33.2 g/dl (31.0-36.0); Mean Corpuscular Hemoglobin 31.2 pg (27.0-33.0); Mean Corpuscular Volume 93.9 fL (80-98); Mean Platelet Volume 11.7 fL (9.4-12.4); Monocytes Absolute Auto 0.8 X10*3/uL (0.1-1.2); Monocytes Percent Auto 9.7 % (2-11); Neutrophils Absolute Auto 3.2 X10*3/uL (2.0-8.3); Neutrophils Percent Auto 37.5 % (45-73); Platelet Count 208 X10*3/uL (160-400); Red Blood Count 4.43 X10*6/uL (4.60-5.80); Red Cell Distribution Width 13.5 % (11.0-16.0); SCAN SMEAR FLAG 1; White Blood Count 8.6 X10*3/uL (4.8-10.8)
[2021-03-08 11:07] LABS: Alanine Aminotransferase 49 U/L (0-40); Albumin Level 4.1 g/dL (3.5-5.0); Alkaline Phosphatase 95 U/L (39-117); Aspartate Amino Transferase 30 U/L (5-37); Bilirubin Direct 0.7 mg/dL (0.0-0.5); Bilirubin Total 1.3 mg/dL (0.0-1.0)
[2021-03-08 11:23] LABS: SLIDE REVIEW VERIFIED
== END 2021-03-08 10:23 | disposition home or self-care (01) ==
LOC: HO.LNP 10:22
PROVIDERS: Visit Provider Internal Medicine
DX: D70.9 Neutropenia, unspecified (principal); K70.11 Alcoholic hepatitis with ascites
CPT/HCPCS: 80076; 85025

== ENCOUNTER 2021-04-02 08:15 | Outpatient (REF) | payer MEDICARE, SELFPAY ==
[2021-04-02 09:14] LABS: Alanine Aminotransferase 35 U/L (0-40); Albumin Level 3.9 g/dL (3.5-5.0); Alkaline Phosphatase 92 U/L (39-117); Aspartate Amino Transferase 27 U/L (5-37); Bilirubin Direct 0.4 mg/dL (0.0-0.5); Bilirubin Total 0.8 mg/dL (0.0-1.0); Total Protein 7.3 g/dL (6.5-8.0)
== END 2021-04-02 08:16 | disposition home or self-care (01) ==
LOC: HO.LAB 08:15
PROVIDERS: PCP Internal Medicine; Visit Provider Internal Medicine
DX: R17 Unspecified jaundice (principal); R74.8 Abnormal levels of other serum enzymes
CPT/HCPCS: 36415; 80076

== ENCOUNTER → 2021-04-03 10:38 | Outpatient (BNVA) | payer MEDICARE, SELFPAY | PROVIDERS: PCP Internal Medicine; Visit Provider Internal Medicine | DX: E66.9 Obesity, unspecified (principal); J45.909 Unspecified asthma, uncomplicated; R06.02 Shortness of breath; G47.33 Obstructive sleep apnea (adult) (pediatric) | CPT/HCPCS: 99202 ==

== ENCOUNTER 2021-04-16 12:53 | Outpatient (REF) | payer MEDICARE, SELFPAY ==
--- NOTE | 2021-04-16 17:07 | PFT_ITS ---
INDICATION: Dyspnea. SPIROMETRY: FEV1 to FVC 84% with an FEV1 of 1.75 L which is 51% predicted, and an FVC of 2.8 L which is 45% predicted. There was a significant response to bronchodilators noted. To note, the patient's SCF05-22 decreased to 36% prebronchodilators. The maximum voluntary ventilation only 57% predicted. LUNG VOLUMES: Total lung capacity 59% predicted with an expiratory reserve volume of 15% predicted. DIFFUSION CAPACITY: DLCO 70% predicted. COMPARISONS: None. INTERPRETATION: No obstructive ventilatory defect. The patient did have a significant response to bronchodilators noted, and there was evidence of significant small airways disease bringing up the question of small airways disease and asthma. The patient does have a moderate decrease in maximum voluntary ventilation secondary to likely deconditioning. Lung volumes demonstrate a moderate restrictive ventilatory defect suggesting the possibility of interstitial lung conditions. In addition to that, the patient does have an elevated BMI with a decrease in the expiratory reserve volume of 15% predicted. The patient does have a mild diffusion impairment. Clinical correlation warranted. MD SHARON Gomez/MODL / [id number]
== END 2021-04-16 12:54 | disposition home or self-care (01) ==
LOC: HO.RESP 12:53
PROVIDERS: PCP Internal Medicine; Visit Provider Internal Medicine
DX: R06.02 Shortness of breath (principal); J45.909 Unspecified asthma, uncomplicated
CPT/HCPCS: 94060; 94727; 94729

== ENCOUNTER → 2021-04-30 13:51 | Outpatient (BNVA) | payer MEDICARE, SELFPAY | PROVIDERS: PCP Internal Medicine; Visit Provider Internal Medicine | DX: G47.33 Obstructive sleep apnea (adult) (pediatric) (principal); J98.4 Other disorders of lung; J44.9 Chronic obstructive pulmonary disease, unspecified | CPT/HCPCS: 99212 ==

== ENCOUNTER 2021-06-12 10:35 | Outpatient (REF) | payer MEDICARE, SELFPAY ==
[2021-06-12 11:00] LABS: Basophils Percent Auto 0.5 % (0-2); Eosinophils Absolute Auto 0.3 X10*3/uL (0.0-0.4); Eosinophils Percent Auto 4.6 % (0-4); Imm Gran Abs Auto 0.01 X10*3/uL (0.00-0.03); Imm Gran Pct Auto 0.2 % (0.0-0.4); Lymphocytes Absolute Auto 3.3 X10*3/uL (1.2-4.9); Lymphocytes Percent Auto 50.2 % (20-40); MANUAL DIFF FLAG SCAN; Mean Corpuscular HGB Conc 32.1 g/dl (31.0-36.0); Mean Corpuscular Hemoglobin 30.6 pg (27.0-33.0); Mean Corpuscular Volume 95.3 fL (80.0-98.0); Mean Platelet Volume 11.9 fL (9.4-12.4); Monocytes Absolute Auto 0.6 X10*3/uL (0.1-1.2); Neutrophils Absolute Auto 2.4 x10*3/uL (2.0-8.3); Neutrophils Percent Auto 35.5 % (45-73); Platelet Count 176 X10*3/uL (160-400); Red Blood Count 5.56 X10*6/uL (4.60-5.80); Red Cell Distribution Width 13.9 % (11.0-16.0); SCAN SMEAR FLAG 1; White Blood Count 6.6 X10*3/uL (4.8-10.8)
[2021-06-12 11:12] LABS: Estimated Average Glucose 100 mg/dL; Hemoglobin A1c % 5.1 %
[2021-06-12 11:18] LABS: Appearance Urine CLEAR; Color Urine YELLOW; Glucose Urine UA NEG (NEG); Leukocyte Esterase Urine NEG (NEG); Nitrite Urine NEG (NEG); PH 5.5 (5.0-8.0); Specific Gravity - Urine 1.025 (1.005-1.025); Urine Blood NEG (NEG); Urine Ketones NEG (NEG); Urine Protein NEG (NEG-TRACE)
[2021-06-12 11:22] LABS: SLIDE REVIEW VERIFIED
[2021-06-12 11:24] LABS: Creatinine Urine 132.65 mg/dL; Microalbum/Creatinine Ratio Ur 24.1 ug/mg cr
[2021-06-12 11:45] LABS: PSA,Total (Free>4and<10) 1.24 ng/mL (0.00-4.00)
[2021-06-12 12:10] LABS: Alanine Aminotransferase 21 U/L (0-40); Albumin Level 3.9 g/dL (3.5-5.0); Alkaline Phosphatase 97 U/L (39-117); Anion Gap 13 (12-20); Aspartate Amino Transferase 27 U/L (5-37); Bilirubin Total 0.8 mg/dL (0.0-1.0); Blood Urea Nitrogen 13 mg/dL (9-16); Calcium 10.4 mg/dL (8.4-10.2); Carbon Dioxide 31 mmol/L (22-29); Chloride 105 mmol/L (96-108); Cholesterol 180 mg/dL; Estimated Glomerular Filt Rate > 60; Glucose Fasting 96 mg/dL (60-99); HDL Cholesterol 84 mg/dL; LDL Cholesterol Calculated 85 mg/dl; Potassium 4.1 mmol/L (3.3-5.1); Sodium 145 mmol/L (135-145); Total Protein 7.4 g/dL (6.5-8.0); Triglycerides 56 mg/dL
== END 2021-06-12 10:36 | disposition home or self-care (01) ==
LOC: HO.LNP 10:35
PROVIDERS: Visit Provider Internal Medicine
DX: Z00.00 Encounter for general adult medical examination without abnormal findings (principal); I10 Essential (primary) hypertension; R97.20 Elevated prostate specific antigen [PSA]; R73.03 Prediabetes; Z12.5 Encounter for screening for malignant neoplasm of prostate
CPT/HCPCS: 80053; 80061; 81003; 82043; 83036; 84153; 85025

== ENCOUNTER 2021-06-14 10:24 | Outpatient (REF) | payer MEDICARE, SELFPAY ==
[2021-06-14 11:32] LABS: Calcium 11.1 mg/dL (8.4-10.2)
== END 2021-06-14 10:25 | disposition home or self-care (01) ==
LOC: HO.LNP 10:24
PROVIDERS: Visit Provider Internal Medicine
DX: E83.52 Hypercalcemia (principal)
CPT/HCPCS: 82310

== ENCOUNTER 2021-07-26 10:04 | Outpatient (REF) | payer MEDICARE, SELFPAY ==
[2021-07-26 10:34] LABS: Calcium 10.1 mg/dL (8.4-10.2)
== END 2021-07-26 10:05 | disposition home or self-care (01) ==
LOC: HO.LNP 10:04
PROVIDERS: Visit Provider Internal Medicine
DX: E83.51 Hypocalcemia (principal)
CPT/HCPCS: 82310

== ENCOUNTER → 2021-08-01 14:25 | Outpatient (BNVA) | payer MEDICARE, SELFPAY | PROVIDERS: PCP Internal Medicine; Visit Provider Internal Medicine | DX: J44.9 Chronic obstructive pulmonary disease, unspecified (principal); J98.4 Other disorders of lung; E66.9 Obesity, unspecified; Z68.36 Body mass index [BMI] 36.0-36.9, adult; Z79.899 Other long term (current) drug therapy | CPT/HCPCS: 99212 ==

== ENCOUNTER 2021-09-06 13:22 | Outpatient (REF) | payer MEDICARE, SELFPAY ==
--- NOTE | ~2021-09-06 | CT_ITS ---
EXAMINATION: CT ABDOMEN AND PELVIS WITHOUT CONTRAST CLINICAL INFORMATION: Calculus of kidney COMPARISON: CT abdomen and pelvis 01/27/2021. TECHNIQUE: Multidetector volumetric imaging was performed from the superior aspect of the liver through the pubic symphysis. Sagittal and coronal reformatted images were obtained on the technologist's workstation. This CT examination was performed using dose optimization techniques as appropriate, variously including the following: *Automated exposure control *Adjustment of mA and/or kV according to patient size (this includes techniques or standardized protocols for targeted exams where dose is matched to indication/reason for exam; i.e. extremities or head) *Use of iterative reconstruction technique DLP: 843 mGy-cm FINDINGS: LUNG BASES: The heart size is normal. There is a left basilar and right middle lobe atelectatic changes. LIVER, GALLBLADDER, AND BILIARY TREE: The liver is normal in size, shape, and attenuation. No fatty attenuation is seen like the previous scan No focal hepatic lesion or biliary ductal dilatation is present. The gallbladder is unremarkable with no evidence of radiopaque gallstones, gallbladder wall thickening, or obvious pericholecystic inflammatory changes. PANCREAS: Unremarkable. SPLEEN: Spleen is normal measuring 10 cm in length.. ADRENAL GLANDS: Unremarkable. KIDNEYS AND URETERS: The kidneys are normal in size, shape, and attenuation. There is a 7 mm and a final radiopaque calculi lower pole left kidney without caliectasis. There is a 1.1 cm exophytic cyst midpole right kidney with no radiopaque calculi seen on the right side. There is no caliectasis or hydronephrosis. BLADDER: Unremarkable. GASTROINTESTINAL TRACT: The small and large bowel are unremarkable. The appendix is unremarkable. ABDOMINAL WALL: There is a small lacunar hernia containing fat. LYMPH NODES: Normal. VASCULAR: Unremarkable. PELVIC VISCERA: The prostate gland is normal size. No free fluid or free air seen. There are prominent bilateral umbilical canal containing intraperitoneal fat. OSSEOUS STRUCTURES: There are degenerative disc changes with vacuum disc phenomena L1-L2, L3-L4, L4-L5 and L5/S1 disc level. There is grade 1 retrolisthesis L3 over L4 CT/CT abdomen pelvis wo con IMPRESSION: Nonobstructive small radiopaque calculi lower pole left kidney. There is no caliectasis or hydronephrosis. Small lumbar canal hernia. Bilateral prominent inguinal canals containing intraperitoneal fat. Fleischner guidelines were followed.
== END 2021-09-06 13:23 | disposition home or self-care (01) ==
LOC: HO.CT 13:22
PROVIDERS: Visit Provider Urology
DX: N20.0 Calculus of kidney (principal)
CPT/HCPCS: 74176

== ENCOUNTER → 2022-01-24 10:00 | Outpatient (BNVA) | payer MEDICARE, SELFPAY | PROVIDERS: PCP Internal Medicine; Visit Provider Internal Medicine | DX: J44.9 Chronic obstructive pulmonary disease, unspecified (principal); J45.909 Unspecified asthma, uncomplicated; J98.4 Other disorders of lung; E66.9 Obesity, unspecified | CPT/HCPCS: 94010; 99212 ==

== ENCOUNTER 2022-04-02 10:40 | Outpatient (REF) | payer MEDICARE, SELFPAY ==
--- NOTE | ~2022-04-02 | XR_ITS ---
EXAMINATION: XR CHEST CLINICAL INFORMATION: Intermittent asthmatic bronchitis. COMPARISON: 01/27/2021 chest radiographs. TECHNIQUE: 2 views of the chest were obtained. FINDINGS: No significant abnormality is noted involving the heart, lungs, mediastinum, bony thorax or soft tissues. XR/XR chest 2V IMPRESSION: No acute cardiopulmonary process.
== END 2022-04-02 10:41 | disposition home or self-care (01) ==
LOC: HO.XRAY 10:40
PROVIDERS: PCP Internal Medicine; Visit Provider Internal Medicine
DX: J45.21 Mild intermittent asthma with (acute) exacerbation (principal)
CPT/HCPCS: 71046

== ENCOUNTER 2022-08-19 10:42 | Outpatient (REF) | payer MEDICARE, SELFPAY ==
[2022-08-19 11:08] LABS: Basophils Percent Auto 0.2 % (0-2); Eosinophils Absolute Auto 0.1 X10*3/uL (0.0-0.4); Eosinophils Percent Auto 1.2 % (0-4); Hematocrit 44.5 % (42.0-52.0); Hemoglobin 14.6 g/dl (14.0-18.0); Imm Gran Abs Auto 0.03 X10*3/uL (0.00-0.03); Imm Gran Pct Auto 0.4 % (0.0-0.4); Lymphocytes Absolute Auto 3.1 X10*3/uL (1.2-4.9); Lymphocytes Percent Auto 37.8 % (20-40); MANUAL DIFF FLAG SCAN; Mean Corpuscular HGB Conc 32.8 g/dl (31.0-36.0); Mean Corpuscular Hemoglobin 32.2 pg (27.0-33.0); Mean Platelet Volume 12.1 fL (9.4-12.4); Monocytes Absolute Auto 0.8 X10*3/uL (0.1-1.2); Monocytes Percent Auto 9.3 % (2-11); Neutrophils Absolute Auto 4.2 x10*3/uL (2.0-8.3); Neutrophils Percent Auto 51.1 % (45-73); Platelet Count 166 X10*3/uL (160-400); Red Blood Count 4.54 X10*6/uL (4.60-5.80); Red Cell Distribution Width 12.9 % (11.0-16.0); SCAN SMEAR FLAG 1; White Blood Count 8.2 X10*3/uL (4.8-10.8)
[2022-08-19 11:10] LABS: Appearance Urine Clear; Color Urine Dark Yellow; Glucose Urine UA Negative (Negative); Leukocyte Esterase Urine Trace (Negative); Nitrite Urine Negative (Negative); PH 5.5 (5.0-9.0); Specific Gravity - Urine 1.025 (1.005-1.025); UMIC TRIGGER UACC YES; Urine Blood Negative (Negative); Urine Ketones Trace mg/dL (Negative); Urine Protein Negative (Neg-Trace)
[2022-08-19 11:12] LABS: Bacteria Urine None Seen (None Seen); Hyaline Casts Urine 0-2 /LPF (0-2); RBC Urine 0-2 /HPF (0-2); WBC Urine 0-5 /HPF (0-5)
[2022-08-19 11:41] LABS: Estimated Average Glucose 103 mg/dL; Hemoglobin A1c % 5.2 %
[2022-08-19 11:45] LABS: SLIDE REVIEW VERIFIED
[2022-08-19 12:25] LABS: Alanine Aminotransferase 19 U/L (0-40); Albumin Level 4.1 g/dL (3.5-5.0); Alkaline Phosphatase 71 U/L (39-117); Anion Gap 14 (12-20); Aspartate Amino Transferase 19 U/L (5-37); Bilirubin Total 1.3 mg/dL (0.0-1.0); Blood Urea Nitrogen 20 mg/dL (9-16); Calcium 9.4 mg/dL (8.4-10.2); Carbon Dioxide 28 mmol/L (22-29); Chloride 104 mmol/L (96-108); Cholesterol 225 mg/dL; Estimated Glomerular Filt Rate > 60; Glucose Fasting 97 mg/dL (60-99); HDL Cholesterol 107 mg/dL; LDL Cholesterol Calculated 106 mg/dl; Potassium 3.8 mmol/L (3.3-5.1); Sodium 142 mmol/L (135-145); Total Protein 6.8 g/dL (6.5-8.0); Triglycerides 64 mg/dL
[2022-08-19 12:27] LABS: Creatinine Urine 266.02 mg/dL; Microalbum/Creatinine Ratio Ur 5.2 ug/mg cr
[2022-08-19 12:42] LABS: PSA,Total (Free>4and<10) 2.06 ng/mL (0.00-4.00)
== END 2022-08-19 10:43 | disposition home or self-care (01) ==
LOC: HO.LNP 10:42
PROVIDERS: Visit Provider Internal Medicine
DX: Z00.00 Encounter for general adult medical examination without abnormal findings (principal); I10 Essential (primary) hypertension; R73.09 Other abnormal glucose; R97.20 Elevated prostate specific antigen [PSA]; Z12.5 Encounter for screening for malignant neoplasm of prostate
CPT/HCPCS: 80053; 80061; 81001; 82043; 83036; 84153; 85025

== ENCOUNTER 2023-01-23 16:08 | Emergency (ER) | payer MEDICARE, SELFPAY ==
[2023-01-23] VITALS (8 sets, daily range): BP systolic 114–130; BP diastolic 65–88; PULSE 77–106; RESP 13–24; TEMP 36.8; O2SAT 88–99; BMI 37.3
--- NOTE | ~2023-01-23 | XR_ITS ---
EXAMINATION: XR CHEST CLINICAL INFORMATION: Shortness of breath. COMPARISON: 04/02/2022 chest radiographs for TECHNIQUE: Frontal view of the chest was obtained. FINDINGS: No significant abnormality is noted involving the heart, lungs, mediastinum, bony thorax or soft tissues. XR/XR chest 1V IMPRESSION: No acute cardiopulmonary process.
--- NOTE | 2023-01-23 16:23 | ECG_ITS ---
Test Reason : SOB Blood Pressure : / mmHG Vent. Rate : 077 BPM Atrial Rate : 077 BPM P-R Int : 166 ms QRS Dur : 086 ms QT Int : 406 ms P-R-T Axes : 052 006 021 degrees QTc Int : 459 ms Normal sinus rhythm Normal ECG When compared with ECG of 27-JAN-2021 10:42, No significant change was found Referred By: Tim Ivey Electronically Signed By:FLORENTIN WAGNER
--- NOTE | 2023-01-23 16:25 | ED_ITS ---
HPI - General Adult General Chief complaint: Dyspnea Stated complaint: COPD,sob Time Seen by Provider: 01/23/23 16:33 Source: patient Mode of arrival: ambulatory Limitations: no limitations History of Present Illness HPI narrative: Patient is a 67-year-old male who presents emergency department for evaluation of shortness of breath. He has been noting worsening in his breathing over the past few weeks. Typically he uses his albuterol nebulizer once daily. For the past 3-4 days he has been using it 3-4 times daily with minimal relief in his symptoms. He has associated productive cough with yellow phlegm which is changed from his baseline, as well as orthopnea. He denies headache, dizziness, chest pain, nausea, vomiting, abdominal pain, genitourinary symptoms, numbness or tingling of the extremities, recent lower extremity swelling/redness/pain, personal history of DVT/PE, lower extremity edema. Related Data Home Medications Medication Instructions Recorded Confirmed allopurinol 300 mg tablet 1 tab PO DAILY 09/13/20 01/27/21 lisinopril 10 mg tablet 1 tab PO DAILY 09/13/20 01/27/21 sildenafil 25 mg tablet 25 mg PO DAILY PRN 04/03/21 loratadine 5 mg-pseudoephedrine ER 1 tab PO Q12H 01/24/22 120 mg tablet,extended release,12hr (Claritin-D 12 Hour) Previous Rx's Medication Instructions Recorded albuterol sulfate 90 mcg/actuation 2 puff PO Q4-6H PRN for wheezing 07/19/22 aerosol inhaler #1 ea doxycycline hyclate 100 mg capsule 100 mg PO BID #14 caps 01/23/23 prednisone 20 mg tablet 40 mg PO DAILY 5 days #10 tabs 01/23/23 Allergies Allergy/AdvReac Type Severity Reaction Status Date / Time Seasonal Allergies Allergy Unknown Verified 01/23/23 16:28 Review of Systems Review of Systems: Constitutional : No Fever, No Chills ENT/Mouth : No sore throat, No Rhinorrhea, No Swallowing Difficulty Eyes: No Eye Pain, No Swelling, No Redness Cardiovascular : No Chest Pain, positive SOB, positive Orthopnea, no Edema Respiratory : No Cough, No Sputum, No Wheezing, positive dyspnea Gastrointestinal : No Nausea, No Vomiting, No Diarrhea, No abdominal Pain, No Hematochezia, No Melena Genitourinary : No Dysuria, No Urinary Frequency, No Hematuria Musculoskeletal : No joint pain, No Myalgias Skin : No Skin Lesions, No rash Neuro : No Weakness, No Numbness, No Dizziness, No Headache Psych : No Anxiety/Panic, No Depression Heme/Lymph: No Bruising, No Lymphadenopathy Endocrine : No Polyuria, No Polydipsia Yes all other systems are reviewed and are negative [facility] Past Medical History Attestation statement: The following information was validated with the patient. Source: old records reviewed Medical History (Updated 01/23/23 @ 19:50 by Vickie Diaz CNP) Allergic rhinitis Asthma COPD (chronic obstructive pulmonary disease) Kidney calculi Obesity (BMI 35.0-39.9 without comorbidity) HERBERTH (obstructive sleep apnea) Restrictive lung disease Shortness of breath on exertion Social History Social History Household Members: Other Housing: House Do you presently have visiting nurse or other home services: No Alcohol intake: current Alcohol intake frequency: holidays/special occasions only Patient Tobacco Use Status: Former Tobacco user Tobacco use type: Cigar Smoked in Last 30 Days: No Use of substances other than those prescribed or required for medical reasons: No Advance Directives: Yes Advance Directives Information Provided: No Advance Directives on File: No Advance Directives Date on File: 01/27/21 service: No Current occupational status: retired Physical Exam ED Vital Signs: Vital Signs - 24 hr 01/23/23 16:22 01/23/23 16:52 01/23/23 18:22 Temperature 98.3 F Pulse Rate 81 77 102 H Respiratory Rate 20 18 13 Blood Pressure 130/73 Pulse Oximetry 95 Oxygen Delivery Method Room Air 01/23/23 18:57 01/23/23 19:33 01/23/23 19:37 Temperature Pulse Rate 103 H 98 105 H Respiratory Rate 14 15 24 H Blood Pressure 119/65 Pulse Oximetry 99 91 L 88 L Oxygen Delivery Method Aerosol Mask Room Air Room Air 01/23/23 19:38 Temperature Pulse Rate 106 H Respiratory Rate 19 Blood Pressure Pulse Oximetry 93 Oxygen Delivery Method Room Air BMI result Body Mass Index 37.3 Appearance: Alert.?Oriented to person, place and time. No acute distress.?Normal affect. Eyes: Pupils equal, round and reactive to light.? ENT: Pharynx normal.?? Neck: Normal inspection.? Neck supple.?? CVS: Heart sounds normal. Normal heart rate and rhythm.? Pulses normal.?? Respiratory: No respiratory distress.? Lung sounds rhonchorous with diffuse expiatory wheezing bilaterally Abdomen: Soft and non-tender. Normoactive bowel sounds. ?? Skin: Skin warm and dry.? Normal skin color.? Extremities: No lower extremity edema.? No calf ttp? Neuro: Moves all extremities spontaneously. Sensation intact bilaterally. . No focal neuro deficits. Ambulates with normal steady gait. Course Course Course Narrative: RME: 67 yold male presents to the ED for cough with yellow phleghm with SOB. patient using more of his albuterol nebulizer. patietn has COPD. labs, EKG ordered Reevaluation(s) Reevaluation #1: CBC is without leukocytosis or anemia. Troponin <2.7, EKG revealing normal sinus rhythm without acute ischemic findings, unlikely ACS. BNP within normal limits. Chest x-ray is without acute cardiopulmonary process. Most likely COPD exacerbation. Reports minimal improvement in shortness of breath after DuoNeb and Solu-Medrol, remains with significant expiratory wheezing. Will trial additional albuterol 5 mg nebulizer and magnesium 2 g IV, Rocephin 1 g IV. Time: 18:03 Reevaluation #2: Reports improvement in shortness of breath, noted room air O2 saturation 91% wh ile at rest. Ambulated to the restroom O2 saturation down to 88% on room air. I discussed with patient my recommendations for hospital admission due to acute hypoxic respiratory failure. At this time he states he does not wish to be admitted to the hospital. We discussed the risks and complications of persistent hypoxia which include and he verbalized understanding of this. He states he will return if he feels worse. He will follow up with his primary care provider, plans to contact their office tomorrow. Advised that he should follow-up with pulmonology to determine a better plan for management of his COPD as he states he has been receiving multiple courses of steroids recently. Will send course of antibiotics in prep to his pharmacy. Time: 19:35 Medications Administered Generic Name Dose Route Start Last Admin Trade Name Freq PRN Reason Stop Dose Admin Magnesium Sulfate 2 gm in 50 mls @ 25 mls/hr 01/23/23 18:12 01/23/23 19:32 Magnesium Sulfate/H2o IV 01/23/23 20:11 Infused ONCE ONE Infusion Discontinued Medications Generic Name Dose Route Start Last Admin Trade Name Neva PRN Reason Stop Dose Admin Albuterol Sulfate 7.5 mg 01/23/23 16:48 01/23/23 16:51 Albuterol Sulfate (0.083%) 2.5 Mg/3 Ml Vial.Neb INHALE 01/23/23 16:49 7.5 mg ONCE ONE Administration Albuterol Sulfate 5 mg 01/23/23 18:12 01/23/23 18:21 Albuterol Sulfate (0.083%) 2.5 Mg/3 Ml Vial.Neb INHALE 01/23/23 18:13 5 mg ONCE ONE Administration Albuterol/Ipratropium 3 ml 01/23/23 16:27 01/23/23 16:51 Albuterol/Iprat 2.5/0.5mg 3 Ml Ampul.Neb INHALE 01/23/23 16:28 3 ml ONCE ONE Administration Ceftriaxone Sodium 1 gm/ 50 mls @ 100 mls/hr 01/23/23 18:13 01/23/23 19:32 Sodium Chloride IV 01/23/23 18:42 Infused ONCE ONE Infusion Methylprednisolone Sodium Succinate 125 mg 01/23/23 16:49 01/23/23 17:10 Methylprednisolone Sod Succ 125 Mg/2 Ml Vial IVPUSH 01/23/23 16:50 125 mg ONCE ONE Administration Medical Decision Making Medical Decision Making MDM Narrative: Patient is a 67-year-old male past medical history of asthma/COPD overlap syndrome, obesity, allergic rhinitis, obstructive sleep apnea presenting to emergency department for evaluation of shortness of breath, and increased sputum production. On exam he is mildly tachypneic, has diffuse expiratory wheeze and rhonchi throughout, abdominal examination is benign. Turn at this time for asthma/COPD exacerbation verses viral syndrome versus pneumonia. He is afebrile without tachycardia, low concern for any severe sepsis. Will obtain CBC to evaluate for leukocytosis/ anemia, CMP and lipase to evaluate for abnormal electrolytes /abnormal renal function/ abnormal hepatic/biliary function, EKG and troponin to evaluate for ischemia/ACS. Chest x-ray to evaluate for consolidation/ infiltrate/ mass/ pulmonary congestion and Urinalysis. Will trial DuoNeb nebulizer with 10 mg albuterol, and Solu-Medrol. Differential Diagnosis Differential Diagnoses: The differential diagnosis associated with the presentation includes (As noted above) Admission/Observation Consideration of admission/observation: Escalation of care including admission/observation considered (I considered admission for shortness of breath, see course narrative for further detail) Lab Data MDM Lab Attestation statement: I reviewed the patient's lab results. (See course narrative for further detail) 01/23/23 17:07 01/23/23 17:07 Labs: Lab Results 01/23/23 01/23/23 01/23/23 Range/Units 17:02 17:03 17:07 WBC 9.0 (4.8-10.8) X10*3/uL RBC 4.50 L (4.60-5.80) X10*6/uL Hgb 14.8 (14.0-18.0) g/dl Hct 43.6 (42.0-52.0) % MCV 96.9 (80.0-98.0) fL MCH 32.9 (27.0-33.0) pg MCHC 33.9 (31.0-36.0) g/dl RDW 12.8 (11.0-16.0) % Plt Count 163 (160-400) X10*3/uL MPV 11.5 (9.4-12.4) fL Immature Gran % (Auto) 0.3 (0.0-0.4) % Neut % (Auto) 55.3 (45-73) % Lymph % (Auto) 26.0 (20-40) % Cherry % (Auto) 8.2 (2-11) % Eos % (Auto) 9.8 H (0-4) % Baso % (Auto) 0.4 (0-2) % Lymph # (Auto) 2.3 (1.2-4.9) X10*3/uL Cherry # (Auto) 0.7 (0.1-1.2) X10*3/uL Eos # (Auto) 0.9 H (0.0-0.4) X10*3/uL Baso # (Auto) 0.0 (0.0-0.2) X10*3/uL Abs Immat Gran (auto) 0.03 (0.00-0.03) X10*3/uL Absolute Neuts (auto) 5.0 (2.0-8.3) x10*3/uL Absolute Nucleated RBC 0.000 (0.0-0.012) X10*3/uL Nucleated RBC % (auto) 0.0 (0.0-0.2) /100WBC Smear Tech's Comments VERIFIED PT (11.1-13.3) SEC INR (0.9-1.1) APTT (26.0-36.4) SEC Troponin I High Sens (<3.5-35.0) ng/L B-Natriuretic Peptide (<100) pg/mL COVID-19 ([facility]) Negative (Negative) COVID-19 Clin Com See Note Influenza Type A ([facility]) Negative (Negative) Influenza Type B ([facility]) Negative (Negative) Influenza A & B Note See Note 01/23/23 01/23/23 01/23/23 Range/Units 17:07 17:07 17:07 WBC (4.8-10.8) X10*3/uL RBC (4.60-5.80) X10*6/uL Hgb (14.0-18.0) g/dl Hct (42.0-52.0) % MCV (80.0-98.0) fL MCH (27.0-33.0) pg MCHC (31.0-36.0) g/dl RDW (11.0-16.0) % Plt Count (160-400) X10*3/uL MPV (9.4-12.4) fL Immature Gran % (Auto) (0.0-0.4) % Neut % (Auto) (45-73) % Lymph % (Auto) (20-40) % Cherry % (Auto) (2-11) % Eos % (Auto) (0-4) % Baso % (Auto) (0-2) % Lymph # (Auto) (1.2-4.9) X10*3/uL Cherry # (Auto) (0.1-1.2) X10*3/uL Eos # (Auto) (0.0-0.4) X10*3/uL Baso # (Auto) (0.0-0.2) X10*3/uL Abs Immat Gran (auto) (0.00-0.03) X10*3/uL Absolute Neuts (auto) (2.0-8.3) x10*3/uL Absolute Nucleated RBC (0.0-0.012) X10*3/uL Nucleated RBC % (auto) (0.0-0.2) /100WBC Smear Tech's Comments PT 12.1 (11.1-13.3) SEC INR 1.0 (0.9-1.1) APTT 30.1 (26.0-36.4) SEC Troponin I High Sens < 2.7 (<3.5-35.0) ng/L B-Natriuretic Peptide 20 (<100) pg/mL COVID-19 ([facility]) (Negative) COVID-19 Clin Com Influenza Type A ([facility]) (Negative) Influenza Type B ([facility]) (Negative) Influenza A & B Note Independent Interpretation I performed an independent interpretation of an: EKG and Plain X-Ray (I personally interpreted chest x-ray and agree with radiologist impression, no evidence of pneumonia) Interpretation: Rate: 77 Rhythm:? Normal sinus rhythm Normal P waves.? Normal JUAN M.?? Normal QRS complex.?? ST T wave :??No ST elevation, no ST depression qTC: 459 prior studies:? January 2021 The study has been interpreted contemporaneously by me. Radiology Impression Discussion of test interpretation with radiology: I have reviewed the radiologist's reading. Radiologist Impression: XR/XR chest 1V IMPRESSION: No acute cardiopulmonary process.? External Record Review External record reviewed: Outpatient record Discharge Plan Discharge Clinical Impression: Acute exacerbation of chronic obstructive airways disease, Acute respiratory failure with hypoxia Patient Disposition: Left Against Medical Advice Additional Instructions: It was recommended that you remain in the hospital for admission however you declined, you verbalized understanding that you are leaving against medical advice. I have sent a prescription to your pharmacy for prednisone in addition to doxycycline. Please contact your primary care provider/client support representative for further follow-up. Return back to emergency department any new or worsening symptoms or concerns. Prescriptions: New prednisone 20 mg tablet 40 mg PO DAILY 5 Days Qty: 10 0RF doxycycline hyclate 100 mg capsule 100 mg PO BID Qty: 14 0RF No Action albuterol sulfate 90 mcg/actuation HFA aerosol inhaler 2 puff PO Q4-6H PRN (Reason: for wheezing) Qty: 1 2RF lisinopril 10 mg tablet 1 tab PO DAILY allopurinol 300 mg tablet 1 tab PO DAILY sildenafil 25 mg tablet 25 mg PO DAILY PRN Claritin-D 12 Hour 5-120 mg tablet extended release 12 hr 1 tab PO Q12H Referrals: Pato Hampton MD [Primary Care Provider] - Stand Alone Forms: Against Medical Advice
[2023-01-23] MEDS: Albuterol Sulfate (0.083%) 2.5 MG/3 ML VIAL.NEB 7.5 MG INHALE (16:51)
[2023-01-23] MEDS: Albuterol/Iprat 2.5/0.5MG 3 ML AMPUL.NEB INHALE (16:51)
[2023-01-23] MEDS: methylPREDNISolone Sod Succ 125 MG/2 ML VIAL IVPUSH (17:10)
[2023-01-23 17:14] LABS: Basophils Percent Auto 0.4 % (0-2); Eosinophils Absolute Auto 0.9 X10*3/uL (0.0-0.4); Eosinophils Percent Auto 9.8 % (0-4); Hematocrit 43.6 % (42.0-52.0); Hemoglobin 14.8 g/dl (14.0-18.0); Imm Gran Abs Auto 0.03 X10*3/uL (0.00-0.03); Imm Gran Pct Auto 0.3 % (0.0-0.4); Lymphocytes Absolute Auto 2.3 X10*3/uL (1.2-4.9); MANUAL DIFF FLAG SCAN; Mean Corpuscular HGB Conc 33.9 g/dl (31.0-36.0); Mean Corpuscular Hemoglobin 32.9 pg (27.0-33.0); Mean Corpuscular Volume 96.9 fL (80.0-98.0); Mean Platelet Volume 11.5 fL (9.4-12.4); Monocytes Absolute Auto 0.7 X10*3/uL (0.1-1.2); Monocytes Percent Auto 8.2 % (2-11); Neutrophils Percent Auto 55.3 % (45-73); Platelet Count 163 X10*3/uL (160-400); Red Cell Distribution Width 12.8 % (11.0-16.0); SCAN SMEAR FLAG 1
[2023-01-23 17:20] LABS: Prothrombin Time 12.1 SEC (11.1-13.3)
[2023-01-23 17:23] LABS: Partial Thromboplastin Time 30.1 SEC (26.0-36.4)
[2023-01-23 17:36] LABS: COVID-19 Test Negative (Negative); IDNOW Serial# 9DB6401D
[2023-01-23 17:37] LABS: IDNOW Serial# 55D5AD1C; Influenza A Negative (Negative); Influenza B2 Negative (Negative)
[2023-01-23 17:38] LABS: SLIDE REVIEW VERIFIED
[2023-01-23 17:48] LABS: B Type Natriuretic Peptide 20 pg/mL (<100); Troponin-I High Sensitivity < 2.7 ng/L (<3.5-35.0)
[2023-01-23] MEDS: Albuterol Sulfate (0.083%) 2.5 MG/3 ML VIAL.NEB 5 MG INHALE (18:21)
[2023-01-23] MEDS: cefTRIAXone sodium 1 GM in 0.9 % Sodium Chloride 50 ML IV (18:38)
[2023-01-23] MEDS: Magnesium Sulfate/H2O 2 GM/50 ML PIGGYBACK IV (19:01)
--- NOTE | 2023-01-23 19:02 | PC.NURSE ---
Pt resting comfortably on stretcher at this time, offers no complaints to this RN. pt verbalizes wanted to hang self and states that he already hung a noose to prepare. Pt has 20g IV in LAC placed by EMS. Labs obtained, awaiting medical clearance
[2023-01-23 20:10] LABS: Alanine Aminotransferase 24 U/L (0-40); Albumin Level 4.2 g/dL (3.5-5.0); Alkaline Phosphatase 80 U/L (39-117); Anion Gap 18 (12-20); Aspartate Amino Transferase 35 U/L (5-37); Blood Urea Nitrogen 15 mg/dL (9-16); Calcium 9.8 mg/dL (8.4-10.2); Carbon Dioxide 22 mmol/L (22-29); Chloride 101 mmol/L (96-108); Creatinine Clr Calc Pharmacy 101.3; Estimated Glomerular Filt Rate > 60; Glucose Random 87 mg/dL (60-115); Potassium 4.1 mmol/L (3.3-5.1); Sodium 137 mmol/L (135-145); Total Protein 7.3 g/dL (6.5-8.0)
== END 2023-01-23 20:04 | disposition left against medical advice (07) ==
PROVIDERS: Physician Assistant; Emergency Provider Emergency Medicine; PCP Internal Medicine
DX: J44.1 Chronic obstructive pulmonary disease with (acute) exacerbation (principal); J96.01 Acute respiratory failure with hypoxia; Z20.822 Contact with and (suspected) exposure to COVID-19; R06.02 Shortness of breath; E66.9 Obesity, unspecified; Z68.37 Body mass index [BMI] 37.0-37.9, adult; Z87.891 Personal history of nicotine dependence; Z79.899 Other long term (current) drug therapy
CPT/HCPCS: 36415; 71045; 80053; 83880; 84484; 85025; 85610; 85730; 87502; 87635; 93005; 94640; 96365; 96367; 96375; 99285; J0696; J2930; J3475

== ENCOUNTER 2023-05-19 12:01 | Emergency (ER) | payer MEDICARE, SELFPAY ==
--- NOTE | ~2023-05-19 | CT_ITS ---
EXAMINATION: CT ABDOMEN AND PELVIS WITHOUT CONTRAST CLINICAL INFORMATION: Hematuria. Question stone COMPARISON: CT abdomen pelvis 09/06/2021 TECHNIQUE: Multidetector volumetric imaging was performed from the superior aspect of the liver through the pubic symphysis. Sagittal and coronal reformatted images were obtained on the technologist's workstation. This CT examination was performed using dose optimization techniques as appropriate, variously including the following: *Automated exposure control *Adjustment of mA and/or kV according to patient size (this includes techniques or standardized protocols for targeted exams where dose is matched to indication/reason for exam; i.e. extremities or head) *Use of iterative reconstruction technique DLP: 289 mGy-cm FINDINGS: LUNG BASES: There is left lower lobe, right middle lobe and lingular atelectasis/scarring. The heart size is normal. LIVER, GALLBLADDER, AND BILIARY TREE: The liver is normal in size, shape, and attenuation. No focal hepatic lesion or biliary ductal dilatation is present. The gallbladder is unremarkable with no evidence of radiopaque gallstones, gallbladder wall thickening, or obvious pericholecystic inflammatory changes. PANCREAS: Unremarkable. SPLEEN: The spleen is normal size. There several small scattered calcified foci likely granulomas. ADRENAL GLANDS: Unremarkable. KIDNEYS AND URETERS: The kidneys are normal in size, shape, and attenuation. There is several small radiopaque calculi lower pole calyx left kidney the largest measuring 6 mm on axial slice 34/3. There is no focal caliectasis. There is a 1 mm radiopaque calculi lower pole calyx right kidney axial slice 42/2. There is mild bilateral perinephric stranding. No hydroureteronephrosis seen. There are multiple bilateral small exophytic renal cyst. BLADDER: Unremarkable. GASTROINTESTINAL TRACT: There is scattered stool, diverticuli and gas seen throughout the colon without distention. The small bowel loops are normal caliber. Appendix is normal caliber. No inflammatory process seen in the abdomen or pelvis. ABDOMINAL WALL: There is a small umbilical hernia containing fat. LYMPH NODES: Normal. VASCULAR: Unremarkable. PELVIC VISCERA: The prostate gland is mildly enlarged. The periprostatic fat planes are preserved. No free air or free fluid. There are prominent bilateral inguinal canals containing fat. OSSEOUS STRUCTURES: There are degenerative disc changes throughout lumbar spine with ventral spondylosis. No aggressive lytic or sclerotic process seen. There are inferior endplate Schmorl's node L4 and L3 vertebra. CT/CT abdomen pelvis wo IV con IMPRESSION: Bilateral radiopaque renal calculi unchanged to previous study 09/06/2021. No caliectasis or hydronephrosis seen. Bilateral renal cysts are stable as well. Small umbilical hernia and bilateral prominent inguinal canals containing fat are stable. Fleischner guidelines were followed.
[2023-05-19 12:03] VITALS: BP 143/84; PULSE 87; RESP 18; TEMP 36.4; O2SAT 96; BMI 42.7
--- NOTE | 2023-05-19 12:05 | ED.GENADULT ---
HPI - General Adult General Chief complaint: Urogenital-Male Stated complaint: uti blood discharge Time Seen by Provider: 05/19/23 14:29 Source: patient Mode of arrival: ambulatory Limitations: no limitations History of Present Illness HPI narrative: 68 year old male with pmhx significant for COPD. PSA, obesity, asthma, hepatitis, bilateral renal cysts, renal stones s/p ESWL 2020, presents to the ED today for evaluation of urinary hesitancy, dysuria, and hematuria since yesterday. Reports gradual decrease in urine stream and feels as though he is not completely emptying his bladder. Was only able to urinate a small amount today. Additionally reports seeing blood in his urine starting yesterday that occurs at the end of urine stream. Reports history of kidney stones however states this feels different. Follows with urologist Dr. Blanco. Denies history of BPH. Denies fever, chills, n/v, abdominal pain, flank pain, diarrhea, constipation. Not on AC. Related Data Home Medications Medication Instructions Recorded Confirmed allopurinol 300 mg tablet 1 tab PO DAILY 09/13/20 01/27/21 lisinopril 10 mg tablet 1 tab PO DAILY 09/13/20 01/27/21 sildenafil 25 mg tablet 25 mg PO DAILY PRN 04/03/21 loratadine 5 mg-pseudoephedrine ER 1 tab PO Q12H 01/24/22 120 mg tablet,extended release,12hr (Claritin-D 12 Hour) Previous Rx's Medication Instructions Recorded albuterol sulfate 90 mcg/actuation 2 puff PO Q4-6H PRN for wheezing 07/19/22 aerosol inhaler #1 ea doxycycline hyclate 100 mg capsule 100 mg PO BID #14 caps 01/23/23 prednisone 20 mg tablet 40 mg (2 x 20 mg) PO DAILY 5 days 01/23/23 #10 tabs cephalexin 500 mg capsule 500 mg PO BID 7 days #14 caps 05/19/23 tamsulosin 0.4 mg capsule (Flomax) 0.4 mg PO BEDTIME #30 caps 05/19/23 Allergies Allergy/AdvReac Type Severity Reaction Status Date / Time Seasonal Allergies Allergy Unknown Verified 05/19/23 12:01 Review of Systems Review of Systems: Constitutional: No fever, chills, fatigue, night sweats, weight changes ENT/Mouth: No ear pain, hearing loss, nasal congestion, sinus pain, rhinorrhea, sore throat Eyes: No eye pain, swelling, redness, vision changes, discharge Cardio: No chest pain, palpitations, ALANIS, orthopnea, peripheral edema Pulm: No SOB, cough, sputum, wheezing, dyspnea, hemoptysis GI: No nausea, vomiting, hematemesis, abdominal pain, diarrhea, constipation, hematochezia, melena : No irregular bleeding, +dysuria, No frequency, urgency, +hesitancy, +hematuria, flank pain, +urinary flow changes, No urinary incontinence or retention MSK: No back pain, neck pain, joint pain, myalgias Skin: No lesions, rashes Neuro: No weakness, numbness, paresthesias, LOC, dizziness, headache All other systems reviewed and are negative. [facility] Past Medical History Attestation statement: The following information was validated with the patient. Source: old records reviewed and nursing notes reviewed Medical History Allergic rhinitis COPD (chronic obstructive pulmonary disease) Restrictive lung disease HERBERTH (obstructive sleep apnea) Shortness of breath on exertion Asthma Obesity (BMI 35.0-39.9 without comorbidity) Kidney calculi Social History Social History Household Members: Other Housing: House Do you presently have visiting nurse or other home services: No Alcohol intake: current Alcohol intake frequency: holidays/special occasions only Patient Tobacco Use Status: Former Tobacco user Tobacco use type: Cigar Advance Directives: Yes Advance Directives on File: Yes Advance Directives Date on File: 01/27/21 service: No Current occupational status: retired Physical Exam ED Vital Signs: Vital Signs - 24 hr 05/19/23 12:03 05/19/23 14:42 Temperature 97.6 F 98.9 F Pulse Rate 87 76 Respiratory Rate 18 18 Blood Pressure 143/84 H 132/76 Pulse Oximetry 96 96 Oxygen Delivery Method Room Air Room Air BMI result Body Mass Index 42.7 Vital signs notable for hypertension, otherwise WNL. Const General: cooperative, comfortable, no acute distress, alert and awake Nutritional Appearance: obese Orientation/consciousness: patient oriented x3 Limitations: no limitations Eyes General: appearance normal, both eyes and all related structures Neck Neck: Yes normal visual inspection and Yes no lymphadenopathy Resp Effort & Inspection: normal respiratory effort Auscultation: clear to auscultation bilaterally Cardio Rate: regular rate Rhythm: regular rhythm GI Other: + obese abdomen, soft, nondistended, not tender to palpation, no rebound tenderness or guarding. No hepato splenomegaly. Exam is somewhat limited due to obese abdomen. + normoactive bowel sounds x4. + rectal exam deferred per patient Inspection: Yes normal to inspection Other: No CVAT bilaterally. Skin General skin exam: no rashes or lesions noted Neuro General: patient oriented x3, gait normal and moves all extremities Extrem General: Yes normal to inspection Course Course Course Narrative: This is an RME: Additional HPI, ROS, PE not included below will be deferred to primary provider. 60-year-old male presents with blood in urine, urinary hesitancy, past few days. History of kidney stones however this does not feel like his typical kidney stone. Not on thinners Reevaluation(s) Reevaluation #1: 1454--CBC without leukocytosis or anemia. H&H stable. No acute electrolyte abnormalities requiring intervention. Normal renal function. Urine showing large amount of blood, 1+ leukocytes, over 20 RBCs, 11-20 wbc's, no bacteria. CT abdomen/pelvis showing bilateral renal calculi unchanged from previous study 1 year ago, the largest measuring 6 mm at the lower pole of left kidney. No evidence of hydronephrosis or obstruction. Bladder scan revealing 200 CC. will trial to void with PVR. >> discussed case with broadcast director operations Urologist, Dr. Blanco who, after looking over the case, recommends out patient follow up with flomax x30 days. 1530-- postvoid residual is 170. Low suspicion for acute urinary retention. Urinary hesitancy likely secondary to urinary tract infection. As it is a holiday, will give patient dose of Keflex in ED and send a course to his pharmacy. Will also send home with tamsulosin times 30 days per urology request. > discussed workup results and disposition with patient. Patient has remained stable throughout ED visit today. Discussed worrisome signs symptoms of when to return to the ED. All questions answered at this time. Patient is agreeable with disposition and stable for discharge. Medications Administered Discontinued Medications Generic Name Dose Route Start Last Admin Trade Name Freq PRN Reason Stop Dose Admin Cephalexin HCl 500 mg 05/19/23 15:36 05/19/23 15:41 Cephalexin 500 Mg Capsule PO 05/19/23 15:37 500 mg ONCE ONE Administration Medical Decision Making Medical Decision Making [facility] Narrative: 68 year old male with pmhx significant for COPD. PSA, obesity, asthma, hepatitis, bilateral renal cysts, renal stones s/p ESWL 2020, presents to the ED today for evaluation of urinary hesitancy, dysuria, and hematuria since yesterday. Vital signs notable for hypertension, otherwise WNL. Obese abdomen, soft, nondistended, nontender to palpation, no rebound tenderness or guarding, normoactive bowel sounds x4. Exam is somewhat limited due to patient's body habitus. No CVAT bilaterally. He is nontoxic appearing and in no acute distress. Rectal exam deferred per patient. Clinical concern for urinary tract infection, renal colic, nephrolithiasis, obstructive uropathy, EPHRAIM, dehydration. Unlikely pyelonephritis, BPH, urethritis. Labs, UA, CT ordered in triage. Plan for re-evaluation and bladder scan. Differential Diagnosis Differential Diagnoses: The differential diagnosis associated with the presentation includes As above. Admission/Observation Consideration of admission/observation: Escalation of care including admission/observation considered In this patient with history of renal calculi requiring lithotripsy, admission was considered. Consult Healthcare Provider Management of the patient was discussed with: Sales Planning Manager (urologist, Dr. Blanco.) Lab Data [facility] Lab Attestation statement: I reviewed the patient's lab results. As above. 05/19/23 12:27 05/19/23 12:27 Labs: Lab Results 05/19/23 05/19/23 Range/Units 12: 12:35 WBC 7.3 (4.8-10.8) X10*3/uL RBC 4.60 (4.60-5.80) X10*6/uL Hgb 14.9 (14.0-18.0) g/dl Hct 44.9 (42.0-52.0) % MCV 97.6 (80.0-98.0) fL MCH 32.4 (27.0-33.0) pg MCHC 33.2 (31.0-36.0) g/dl RDW 13.0 (11.0-16.0) % Plt Count 164 (160-400) X10*3/uL MPV 11.2 (9.4-12.4) fL Immature Gran % (Auto) 0.3 (0.0-0.4) % Neut % (Auto) 65.5 (45-73) % Lymph % (Auto) 22.9 (20-40) % Rankin % (Auto) 8.4 (2-11) % Eos % (Auto) 2.6 (0-4) % Baso % (Auto) 0.3 (0-2) % Lymph # (Auto) 1.7 (1.2-4.9) X10*3/uL Rankin # (Auto) 0.6 (0.1-1.2) X10*3/uL Eos # (Auto) 0.2 (0.0-0.4) X10*3/uL Baso # (Auto) 0.0 (0.0-0.2) X10*3/uL Abs Immat Gran (auto) 0.02 (0.00-0.03) X10*3/uL Absolute Neuts (auto) 4.8 (2.0-8.3) x10*3/uL Absolute Nucleated RBC 0.000 (0.0-0.012) X10*3/uL Nucleated RBC % (auto) 0.0 (0.0-0.2) /100WBC Smear Tech's Comments VERIFIED Sodium 146 H (135-145) mmol/L Potassium 3.7 (3.3-5.1) mmol/L Chloride 105 (96-108) mmol/L Carbon Dioxide 30 H (22-29) mmol/L Anion Gap 15 (12-20) BUN 14 (9-16) mg/dL Creatinine 0.85 (0.5-1.4) mg/dL Estim Creat Clear Calc 115.1 Estimated GFR > 60 Random Glucose 102 (60-115) mg/dL Calcium 10.2 (8.4-10.2) mg/dL Total Bilirubin 1.4 H (0.0-1.0) mg/dL AST 31 (5-37) U/L ALT 24 (0-40) U/L Alkaline Phosphatase 81 (39-117) U/L Total Protein 7.1 (6.5-8.0) g/dL Albumin 3.9 (3.5-5.0) g/dL Urine Color [place] Urine Appearance Turbid Urine pH 5.5 (5.0-9.0) Ur Specific [place] 1.025 (1.005-1.025) Urine Protein 30 (1+) H (Neg-Trace) mg/dL Urine Glucose (UA) Negative (Negative) mg/dL Urine Ketones Trace (Negative) mg/dL Urine Blood Large (3+) H (Negative) Urine Nitrite Negative (Negative) Ur Leukocyte Esterase Small (1+) H (Negative) Urine RBC >20 H (0-2) /HPF Urine WBC 11-20 H (0-5) /HPF Ur Squamous Epith Cells 0-2 (0-2) /HPF Urine Bacteria None Seen (None Seen) Hyaline Casts 0-2 (0-2) /LPF Independent Interpretation I performed an independent interpretation of an: CT Scan Interpretation: CT abdomen/pelvis showing multiple renal calculi, agree with radiologist's interpretation. Radiology Impression Discussion of test interpretation with radiology: I have reviewed the radiologist's reading. Radiologist Impression: CT abdomen pelvis wo IV con IMPRESSION: Bilateral radiopaque renal calculi unchanged to previous study 09/06/2021. No caliectasis or hydronephrosis seen. Bilateral renal cysts are stable as well. Small umbilical hernia and bilateral prominent inguinal canals containing fat are stable. Fleischner guidelines were followed. External Record Review External record reviewed: Inpatient record, Office record, Outpatient record, Prior outpatient labs, Prior outpatient radiology, Primary care record and Outside ED record Prescription Management I considered prescription management with: Antibiotic Chronic Conditions Patient?s care impacted by: Other (Renal cyst, renal calculi) Social Determinants Patient?s care significantly limited by Social Determinants of Health including: Other Social Determinant of Health Critical Care Time Critical Care Time Critical Care Time: Yes Total Critical Care Time: 31 Attestation: Critical care time in the amount of 31 minutes has been provided to the patient in terms of direct patient care, frequent reevaluation, consultation with urologist Dr. Blanco, review and interpretation of medical data and results, and management of potentially life-threatening conditions. This is all outside of any medical procedures. Discharge Plan Discharge Clinical Impression: Urinary tract infection, Bilateral renal stones Patient Disposition: Home, Self-Care Instructions: Kidney Stones (ED), Renal Colic (ED) Additional Instructions: Your labs today were normal. Your urine was positive for infection. You CT scan shows stones in both kidneys, unchanged from scan last year. The largest stone measures approximately 6mm. Flomax has been sent to your pharmacy to help with kidney stones. Take this for the next 30 days. Take this at night as it may affect your blood pressure. Keflex is an antibiotic that has been sent to your pharmacy. Take this over the next 7 days for urinary tract infection. Take this to completion and do not skip any doses as this may cause infection to worsen or return. Please follow-up with urology. YOU HAVE BEEN PROVIDED WITH A REFERRAL. CALL THEM TO MAKE AN APPOINTMENT. THEY WILL NOT CALL YOU. Follow-up with your primary care provider as needed. If you aren unable to urinate despite antibiotic treatment, return to the ED. If symptoms persist or worsen please return to the ED. The case of an emergency call 911. On a cephalosporin antibiotic, softer bowel movements are to be expected. Call your provider if you move your bowels more than 4 times a day, your bowel movements are almost all liquid, or you get a rash. Prescriptions: New tamsulosin [Flomax] 0.4 mg capsule 0.4 mg PO BEDTIME Qty: 30 0RF cephalexin 500 mg capsule 500 mg PO BID 7 Days Qty: 14 0RF No Action albuterol sulfate 90 mcg/actuation HFA aerosol inhaler 2 puff PO Q4-6H PRN (Reason: for wheezing) Qty: 1 2RF lisinopril 10 mg tablet 1 tab PO DAILY allopurinol 300 mg tablet 1 tab PO DAILY prednisone 20 mg tablet 40 mg PO DAILY 5 Days Qty: 10 0RF doxycycline hyclate 100 mg capsule 100 mg PO BID Qty: 14 0RF sildenafil 25 mg tablet 25 mg PO DAILY PRN Claritin-D 12 Hour 5-120 mg tablet extended release 12 hr 1 tab PO Q12H Referrals: [facility] [Provider Group] Interventions: ED Discharge Assessment Last Done: 05/19/23 15:46 Discharge Date/Time: 05/19/23 15:47
[2023-05-19 12:31] LABS: Basophils Percent Auto 0.3 % (0-2); Eosinophils Absolute Auto 0.2 X10*3/uL (0.0-0.4); Eosinophils Percent Auto 2.6 % (0-4); Hematocrit 44.9 % (42.0-52.0); Hemoglobin 14.9 g/dl (14.0-18.0); Imm Gran Abs Auto 0.02 X10*3/uL (0.00-0.03); Imm Gran Pct Auto 0.3 % (0.0-0.4); Lymphocytes Absolute Auto 1.7 X10*3/uL (1.2-4.9); Lymphocytes Percent Auto 22.9 % (20-40); MANUAL DIFF FLAG SCAN; Mean Corpuscular HGB Conc 33.2 g/dl (31.0-36.0); Mean Corpuscular Hemoglobin 32.4 pg (27.0-33.0); Mean Corpuscular Volume 97.6 fL (80.0-98.0); Mean Platelet Volume 11.2 fL (9.4-12.4); Monocytes Absolute Auto 0.6 X10*3/uL (0.1-1.2); Monocytes Percent Auto 8.4 % (2-11); Neutrophils Absolute Auto 4.8 x10*3/uL (2.0-8.3); Neutrophils Percent Auto 65.5 % (45-73); Platelet Count 164 X10*3/uL (160-400); SCAN SMEAR FLAG 1; White Blood Count 7.3 X10*3/uL (4.8-10.8)
[2023-05-19 12:45] LABS: Appearance Urine Turbid; Glucose Urine UA Negative (Negative); Leukocyte Esterase Urine Small (1+) (Negative); Nitrite Urine Negative (Negative); PH 5.5 (5.0-9.0); Specific Gravity - Urine 1.025 (1.005-1.025); UMIC TRIGGER UACC YES; Urine Blood Large (3+) (Negative); Urine Ketones Trace mg/dL (Negative); Urine Protein 30 (1+) mg/dL (Neg-Trace)
[2023-05-19 12:46] LABS: Color Urine Orange
[2023-05-19 12:50] LABS: Bacteria Urine None Seen (None Seen); Hyaline Casts Urine 0-2 /LPF (0-2); RBC Urine >20 /HPF (0-2); Squamous Epithelial Cell Urine 0-2 /HPF (0-2); UACC Culture Trigger YES
[2023-05-19 12:52] LABS: SLIDE REVIEW VERIFIED
[2023-05-19 12:55] LABS: Alanine Aminotransferase 24 U/L (0-40); Albumin Level 3.9 g/dL (3.5-5.0); Alkaline Phosphatase 81 U/L (39-117); Anion Gap 15 (12-20); Aspartate Amino Transferase 31 U/L (5-37); Bilirubin Total 1.4 mg/dL (0.0-1.0); Blood Urea Nitrogen 14 mg/dL (9-16); Calcium 10.2 mg/dL (8.4-10.2); Carbon Dioxide 30 mmol/L (22-29); Chloride 105 mmol/L (96-108); Creatinine Clr Calc Pharmacy 115.1; Estimated Glomerular Filt Rate > 60; Glucose Random 102 mg/dL (60-115); Potassium 3.7 mmol/L (3.3-5.1); Sodium 146 mmol/L (135-145); Total Protein 7.1 g/dL (6.5-8.0)
[2023-05-19 14:42] VITALS: BP 132/76; PULSE 76; RESP 18; TEMP 37.2; O2SAT 96
--- NOTE | 2023-05-19 14:54 | PC.NURSE ---
Addendum entered by Erum Brown 05/19/23 15:46: post void 170mL. patient denies any pain or discomfort at this time, tolerated bladder scan well. Addendum entered by Erum Brown 05/19/23 14:57: attempting to void at this time, will obtain post-void bladder scan Original Note: bladder scan completed, 198mL urine noted to be in bladder. patient stating that he feels he has not properly voided in the past couple days it sort of just drips out . no discomfort at this time - only with urination.
[2023-05-19] MEDS: cephALEXin 500 MG CAPSULE PO (15:41)
== END 2023-05-19 15:47 | disposition home or self-care (01) ==
PROVIDERS: Physician Assistant; Emergency Provider Emergency Medicine; PCP Internal Medicine
DX: N39.0 Urinary tract infection, site not specified (principal); N20.0 Calculus of kidney; N28.1 Cyst of kidney, acquired; J44.9 Chronic obstructive pulmonary disease, unspecified
CPT/HCPCS: 36415; 51798; 74176; 80053; 81001; 85025; 87086; 99284; 99285

== ENCOUNTER 2023-05-20 11:42 | Emergency (ER) | payer MEDICARE, SELFPAY ==
[2023-05-20 11:49] VITALS: BP 159/85; PULSE 79; RESP 22; TEMP 36.6; O2SAT 97; BMI 43.1
--- NOTE | 2023-05-20 11:49 | ED.MALEGU ---
HPI - Male Genitourinary General Chief complaint: Abdominal Pain Stated complaint: Unable to Urinate Time Seen by Provider: 05/20/23 12:56 History of Present Illness HPI Narrative: The patient is a 68-year-old male who has a history of kidney stones. He presented to the emergency room yesterday with urinary hesitancy. He had a CT of the abdomen and pelvis without contrast that showed bilateral intrarenal stones but no other acute pathology. His urinalysis was mildly positive for a possible UTI. He was started on cephalexin and tamsulosin and was discharged. Today he returns because he has not been able to urinate at all for several hours. A friend drove him to the emergency room. No fever, sweats, chills. No nausea vomiting. He feels quite uncomfortable however. Related Data Home Medications Medication Instructions Recorded Confirmed allopurinol 300 mg tablet 1 tab PO DAILY 09/13/20 01/27/21 lisinopril 10 mg tablet 1 tab PO DAILY 09/13/20 01/27/21 sildenafil 25 mg tablet 25 mg PO DAILY PRN 04/03/21 loratadine 5 mg-pseudoephedrine ER 1 tab PO Q12H 01/24/22 120 mg tablet,extended release,12hr (Claritin-D 12 Hour) Previous Rx's Medication Instructions Recorded albuterol sulfate 90 mcg/actuation 2 puff PO Q4-6H PRN for wheezing 07/19/22 aerosol inhaler #1 ea doxycycline hyclate 100 mg capsule 100 mg PO BID #14 caps 01/23/23 prednisone 20 mg tablet 40 mg (2 x 20 mg) PO DAILY 5 days 01/23/23 #10 tabs cephalexin 500 mg capsule 500 mg PO BID 7 days #14 caps 05/19/23 tamsulosin 0.4 mg capsule (Flomax) 0.4 mg PO BEDTIME #30 caps 05/19/23 Allergies Allergy/AdvReac Type Severity Reaction Status Date / Time Seasonal Allergies Allergy Unknown Verified 05/20/23 11:48 Review of Systems Review of Systems: Yes all other systems are reviewed and are negative [facility] Past Medical History Medical History Allergic rhinitis COPD (chronic obstructive pulmonary disease) Restrictive lung disease HERBERTH (obstructive sleep apnea) Shortness of breath on exertion Asthma Obesity (BMI 35.0-39.9 without comorbidity) Kidney calculi Social History Social History Household Members: Other Housing: House Do you presently have visiting nurse or other home services: No Alcohol intake: current Alcohol intake frequency: former alcohol drinker Patient Tobacco Use Status: Former Tobacco user Tobacco use type: Cigar Smoked in Last 30 Days: No Use of substances other than those prescribed or required for medical reasons: No Advance Directives: Yes Advance Directives Information Provided: Yes Advance Directives on File: No Advance Directives Date on File: 01/27/21 service: No Current occupational status: retired Physical Exam Vital Signs: Vital Signs: Last Vital Signs Temp 97.6 F 05/20/23 16:05 Pulse 68 05/20/23 16:05 Resp 18 05/20/23 16:05 BP 141/76 H 05/20/23 16:05 Pulse Ox 96 05/20/23 16:05 O2 Del Method Room Air 05/20/23 16:05 BMI result Body Mass Index 43.1 Const: Other: The patient is an obese man who is awake and alert looks uncomfortable. HEENT: Other: Face is unremarkable. Mucous membranes moist Eyes: Other: Pupils are round equal, conjunctivae clear Resp: Other: Lungs are clear bilaterally Cardio: Other: The patient has a regular rate and rhythm with no murmur GI: Other: The patient is very tender in the suprapubic region. : Other: Patient is circumcised. External genitalia are normal Skin: Other: Skin is dry and unremarkable Neuro: Other: Patient is awake, alert, oriented, appropriate. Moving all 4 extremities normally. Grossly neurologically intact. Extrem: Other: No peripheral edema Course Course Course Narrative: RME:?68 yo male hx copd, HERBERTH, asthma, renal stones seen here yesterday for UTI/ urinary retention. Unable to urinate x2 days +bilateral flank pain. no catheter. on keflex for UTI. + nausea, no vomiting. Basic labs, bladder scan, zofran ordered, zofran Full HPI, ROS and PE to be performed by the primary ED provider. Medications Administered Discontinued Medications Generic Name Dose Route Start Last Admin Trade Name Freq PRN Reason Stop Dose Admin Hydromorphone HCl 1 mg 05/20/23 13:23 05/20/23 13:29 Hydromorphone Hcl 1 Mg/Ml Syringe IVPUSH 05/20/23 13:24 1 mg ONCE ONE Administration Protocol Ceftriaxone Sodium 1 gm/ 50 mls @ 100 mls/hr 05/20/23 15:21 05/20/23 16:03 Sodium Chloride IV 05/20/23 15:50 100 mls/hr ONCE ONE Administration Lidocaine HCl 10 ml 05/20/23 11:54 05/20/23 13:07 Lidocaine Hcl 2 % Urojet 10 Ml Jel.Pf.Artur TOPICAL 05/20/23 11:55 10 ml ONCE ONE Administration Lidocaine HCl 10 ml 05/20/23 13:05 05/20/23 13:07 Lidocaine Hcl 2 % Urojet 10 Ml Jel.Pf.Artur TOPICAL 05/20/23 13:06 10 ml ONCE ONE Administration Lidocaine HCl 10 ml 05/20/23 12:56 05/20/23 14:09 Lidocaine Hcl 2 % Urojet 10 Ml Jel.Pf.Artur TOPICAL 05/20/23 12:57 Not Given ONCE ONE Ondansetron HCl 4 mg 05/20/23 11:50 05/20/23 11:52 Ondansetron Odt 4 Mg Tab.Rapdis TRANSLINGU 05/20/23 11:51 4 mg ONCE ONE Administration Medical Decision Making Medical Decision Making MDM Narrative: Patient is a 68-year-old man presents in acute urinary retention. His bladder scan showed a bladder volume of 700. The patient had been seen here yesterday for urinary hesitancy. He had a CT of the abdomen and pelvis yesterday that showed no ureteral or bladder stones. He has intrarenal stones. His urinalysis yesterday was the goal and he was started on cephalexin and tamsulosin. He presents today unable to urinate. The patient's nurse attempted to pass a catheter but was unsuccessful. I then attempted to pass a catheter but could not pass the catheter more than 7 cm into the urethra. This seemed consistent with some kind of a urethral obstruction rather than a prostatic problem. Dr. Bryan Blanco of Urology was consulted. He came to the emergency department and used a guide wire to place a 14 [place] catheter. Urine flowed well through this catheter. Patient was given a dose of IV ceftriaxone prophylactically. The patient felt much better. He will be discharged with a catheter in place. He will continue the cephalexin that he was prescribed yesterday. He will follow-up with Dr. Blanco for further evaluation of this problem. Lab Data 05/20/23 12:59 05/20/23 12:59 Labs: Lab Results 05/20/23 Range/Units 12:59 WBC 8.7 (4.8-10.8) X10*3/uL RBC 4.62 (4.60-5.80) X10*6/uL Hgb 15.1 (14.0-18.0) g/dl Hct 44.1 (42.0-52.0) % MCV 95.5 (80.0-98.0) fL MCH 32.7 (27.0-33.0) pg MCHC 34.2 (31.0-36.0) g/dl RDW 12.8 (11.0-16.0) % Plt Count 150 L (160-400) X10*3/uL MPV 11.3 (9.4-12.4) fL Immature Gran % (Auto) 0.3 (0.0-0.4) % Neut % (Auto) 65.6 (45-73) % Lymph % (Auto) 21.6 (20-40) % [place] % (Auto) 8.3 (2-11) % Eos % (Auto) 3.9 (0-4) % Baso % (Auto) 0.3 (0-2) % Lymph # (Auto) 1.9 (1.2-4.9) X10*3/uL [place] # (Auto) 0.7 (0.1-1.2) X10*3/uL Eos # (Auto) 0.3 (0.0-0.4) X10*3/uL Baso # (Auto) 0.0 (0.0-0.2) X10*3/uL Abs Immat Gran (auto) 0.03 (0.00-0.03) X10*3/uL Absolute Neuts (auto) 5.7 (2.0-8.3) x10*3/uL Absolute Nucleated RBC 0.000 (0.0-0.012) X10*3/uL Nucleated RBC % (auto) 0.0 (0.0-0.2) /100WBC Smear Tech's Comments VERIFIED Sodium 143 (135-145) mmol/L Potassium 3.2 L (3.3-5.1) mmol/L Chloride 106 (96-108) mmol/L Carbon Dioxide 26 (22-29) mmol/L Anion Gap 14 (12-20) BUN 18 H (9-16) mg/dL Creatinine 0.79 (0.5-1.4) mg/dL Estim Creat Clear Calc 124.4 Estimated GFR > 60 Random Glucose 98 (60-115) mg/dL Calcium 9.4 D (8.4-10.2) mg/dL Discharge Plan Discharge Clinical Impression: Acute urinary retention Patient Disposition: Home, Self-Care Instructions: Nicole Catheter Placement and Care (ED) Additional Instructions: You had a urinary catheter today placed by the urologist Dr. Bryan Blanco. Please continue the antibiotics you were prescribed yesterday. Drink a lot of fluids to keep your catheter functioning well. Dr. Blanco has recommended that you follow-up with him to schedule a procedure to try to determine why you are retaining urine and why it was so difficult to get a catheter into your bladder. Therefore please call the office tomorrow morning to set up this appointment. If you have any questions or concerns about how you are doing call the urology office or return to the emergency room if you are significantly worse. Prescriptions: No Action albuterol sulfate 90 mcg/actuation HFA aerosol inhaler 2 puff PO Q4-6H PRN (Reason: for wheezing) Qty: 1 2RF lisinopril 10 mg tablet 1 tab PO DAILY allopurinol 300 mg tablet 1 tab PO DAILY prednisone 20 mg tablet 40 mg PO DAILY 5 Days Qty: 10 0RF doxycycline hyclate 100 mg capsule 100 mg PO BID Qty: 14 0RF tamsulosin [Flomax] 0.4 mg capsule 0.4 mg PO BEDTIME Qty: 30 0RF cephalexin 500 mg capsule 500 mg PO BID 7 Days Qty: 14 0RF sildenafil 25 mg tablet 25 mg PO DAILY PRN Claritin-D 12 Hour 5-120 mg tablet extended release 12 hr 1 tab PO Q12H Referrals: Bryan Blanco MD [Physician] - (Urinary retention, difficult catheter placement) Interventions: ED Discharge Assessment Last Done: 05/20/23 16:06
[2023-05-20] MEDS: Ondansetron ODT 4 MG TAB.RAPDIS TRANSLINGU (11:52)
[2023-05-20 13:05] LABS: Basophils Percent Auto 0.3 % (0-2); Eosinophils Absolute Auto 0.3 X10*3/uL (0.0-0.4); Eosinophils Percent Auto 3.9 % (0-4); Hematocrit 44.1 % (42.0-52.0); Hemoglobin 15.1 g/dl (14.0-18.0); Imm Gran Abs Auto 0.03 X10*3/uL (0.00-0.03); Imm Gran Pct Auto 0.3 % (0.0-0.4); Lymphocytes Absolute Auto 1.9 X10*3/uL (1.2-4.9); Lymphocytes Percent Auto 21.6 % (20-40); MANUAL DIFF FLAG SCAN; Mean Corpuscular HGB Conc 34.2 g/dl (31.0-36.0); Mean Corpuscular Hemoglobin 32.7 pg (27.0-33.0); Mean Corpuscular Volume 95.5 fL (80.0-98.0); Mean Platelet Volume 11.3 fL (9.4-12.4); Monocytes Absolute Auto 0.7 X10*3/uL (0.1-1.2); Monocytes Percent Auto 8.3 % (2-11); Neutrophils Absolute Auto 5.7 x10*3/uL (2.0-8.3); Neutrophils Percent Auto 65.6 % (45-73); Platelet Count 150 X10*3/uL (160-400); Red Blood Count 4.62 X10*6/uL (4.60-5.80); Red Cell Distribution Width 12.8 % (11.0-16.0); SCAN SMEAR FLAG 1; White Blood Count 8.7 X10*3/uL (4.8-10.8)
[2023-05-20] MEDS: Lidocaine HCl 2 % Urojet 10 ML JEL.PF.APP TOPICAL ×2 (13:07)
[2023-05-20 13:19] LABS: Anion Gap 14 (12-20); Blood Urea Nitrogen 18 mg/dL (9-16); Calcium 9.4 mg/dL (8.4-10.2); Carbon Dioxide 26 mmol/L (22-29); Chloride 106 mmol/L (96-108); Creatinine Clr Calc Pharmacy 124.4; Estimated Glomerular Filt Rate > 60; Glucose Random 98 mg/dL (60-115); Potassium 3.2 mmol/L (3.3-5.1); Sodium 143 mmol/L (135-145)
[2023-05-20 13:29] VITALS: RESP 26
[2023-05-20] MEDS: HYDROmorphone HCl 1 MG/ML SYRINGE IVPUSH (13:29)
[2023-05-20 13:46] LABS: SLIDE REVIEW VERIFIED
[2023-05-20 14:28] VITALS: BP 133/74; PULSE 69; RESP 16; O2SAT 97
--- NOTE | 2023-05-20 15:22 | P.CNUR_ITS ---
History of Present Illness Consult details Consult date: 05/20/23 Narrative: Consultation - difficulty Nicole placement in the emergency room 68-year-old male Known to Urology ER staff unable to place Nicole catheter Procedure performed in emergency room. Cystoscopy with placement of 14 Ugandan Nicole catheter Followup for dilation in OR Review of Systems 2 Constitutional: Constitutional: Reports as per HPI and Reports no additional constitutional complaints Cardiovascular: Cardiovascular: Reports as per HPI and Reports no additional cardiovascular complaints Respiratory: Respiratory: Reports as per HPI and Reports no additional respiratory complaints Gastrointestinal: Gastrointestinal: Reports as per HPI and Reports no additional gastrointestinal complaints Genitourinary: Genitourinary: Reports as per HPI Musculoskeletal: Musculoskeletal: Reports no additional musculoskeletal complaints and Reports as per HPI Neurologic: Reports system reviewed and no additional complaints, except as documented and Reports as per HPI [facility] Past Medical History Medical History (Updated 05/30/23 @ 09:46 by Diane Steele) Seasonal allergies Allergic rhinitis COPD (chronic obstructive pulmonary disease) Restrictive lung disease HERBERTH (obstructive sleep apnea) Shortness of breath on exertion Asthma Obesity (BMI 35.0-39.9 without comorbidity) Kidney calculi Social History Social History Household Members: Other Housing: House Do you presently have visiting nurse or other home services: No Alcohol intake: current Alcohol intake frequency: former alcohol drinker Patient Tobacco Use Status: Former Tobacco user Tobacco use type: Cigar Advance Directives Date on File: 01/27/21 service: No Current occupational status: retired Meds Allergies Allergy/AdvReac Type Severity Reaction Status Date / Time No Known Allergies Allergy Verified 05/30/23 09:46 Active Medications: Current Medications Ceftriaxone Sodium 1 gm/ (Sodium Chloride) 50 mls @ 100 mls/hr IV ONCE ONE Stop: 05/20/23 15:50 Home Medications Medication Instructions Recorded Confirmed Last Taken Type allopurinol 300 mg tablet 1 tab PO DAILY 09/13/20 01/27/21 09/12/20 History lisinopril 10 mg tablet 1 tab PO DAILY 09/13/20 01/27/21 09/12/20 History sildenafil 25 mg tablet 25 mg PO DAILY PRN 04/03/21 Unknown History loratadine 5 mg-pseudoephedrine ER 1 tab PO Q12H 01/24/22 Unknown History 120 mg tablet,extended release,12hr (Claritin-D 12 Hour) Physical Exam 2 Vital Signs: Vital Signs: Last Vital Signs Temp 97.9 F 05/20/23 11:49 Pulse 69 05/20/23 14:28 Resp 16 05/20/23 14:28 BP 133/74 05/20/23 14:28 Pulse Ox 97 05/20/23 14:28 O2 Del Method Room Air 05/20/23 14:28 BMI result Body Mass Index 43.1 Const: General: cooperative, healthy appearing, comfortable and no acute distress Orientation/consciousness: patient oriented x3 HEENT: Face and sinus: Yes normal facial exam Mouth: moist mucous membranes Neck: Neck: Yes normal visual inspection, Yes full ROM and Yes trachea midline Chest: Chest palpation & inspection: normal inspection of the chest Resp: Effort & Inspection: normal respiratory effort, able to speak in complete sentences and no respiratory distress GI: Inspection: Yes normal to inspection Back/Spine/Pelvis: Cervical Spine: normal cervical lordosis Thoracic/Lumbar Spine: thoracic and lumbar spine normal to inspection Skin: General skin exam: no rashes or lesions noted Neuro: General: patient oriented x3, tone normal and moves all extremities Extrem: General: Yes normal to inspection and Yes capillary refill normal Results Labs 05/20/23 12:59 05/20/23 12:59 Labs: Abnormal lab results 05/20/23 Range/Units 12:59 Plt Count 150 L (160-400) X10*3/uL Potassium 3.2 L (3.3-5.1) mmol/L BUN 18 H (9-16) mg/dL Short CBC 05/20/23 Range/Units 12:59 WBC 8.7 (4.8-10.8) X10*3/uL Hgb 15.1 (14.0-18.0) g/dl Hct 44.1 (42.0-52.0) % Plt Count 150 L (160-400) X10*3/uL BMP 05/20/23 12:59 Sodium 143 Potassium 3.2 L Chloride 106 Carbon Dioxide 26 BUN 18 H Creatinine 0.79 Calcium 9.4 D All other labs normal. Assessment and Plan (1) Urethral stricture: Status: Acute Plan F/U for OR dilation Procedures Date of Service Date of Service: 06/22/23
[2023-05-20] MEDS: cefTRIAXone sodium 1 GM in 0.9 % Sodium Chloride 50 ML IV (16:03)
[2023-05-20 16:05] VITALS: BP 141/76; PULSE 68; RESP 18; TEMP 36.4; O2SAT 96
== END 2023-05-20 16:24 | disposition home or self-care (01) ==
PROVIDERS: Physician Assistant Medical; Emergency Provider Emergency Medicine; PCP Internal Medicine
DX: R33.9 Retention of urine, unspecified (principal); Z79.899 Other long term (current) drug therapy
CPT/HCPCS: 36415; 51702; 51798; 80048; 85025; 96374; 96375; 99285; J0696; J1170

== ENCOUNTER → 2023-05-20 12:15 | Outpatient (BNV) | payer MEDICARE, SELFPAY | PROVIDERS: Emergency Provider Emergency Medicine; PCP Internal Medicine; Visit Provider Urology | DX: N35.919 Unspecified urethral stricture, male, unspecified site (principal) | CPT/HCPCS: 99222 ==

== ENCOUNTER 2023-05-29 13:23 | Outpatient (REF) | payer MEDICARE, SELFPAY | END 2023-05-29 13:24 | disposition home or self-care (01) | LOC: HO.LNP 13:23 | PROVIDERS: Visit Provider Internal Medicine | DX: E87.6 Hypokalemia (principal); D69.6 Thrombocytopenia, unspecified | CPT/HCPCS: 84132; 85025 ==

== ENCOUNTER 2023-06-02 10:50 | Day surgery (SDC) | payer MEDICARE, SELFPAY ==
--- NOTE | 2023-05-30 10:24 | HO.ANESPROP2 ---
Documented by User: Rosie Day NP 05/30/23 10:27 HPI - Anesthesia Eval Consult details Narrative: 68yo M for Cystoscopy & Nicole Removal [place]s [facility] [place] [facility] [place] for Asthma-COPD/RLD/HERBERTH. Last office visit 2021. COUNTS INCLUDE 234 BEDS AT [facility] Active Problems Active Problems: All Active Problems (Updated 05/30/23 @ 09:46 by Diane Steele) Urethral stricture (Acute) Jaundice (Acute) Hepatitis (Acute) Renal colic (Acute) Allergic rhinitis (Acute) COPD (chronic obstructive pulmonary disease) (Acute) Restrictive lung disease (Acute) HERBERTH (obstructive sleep apnea) (Acute) Shortness of breath on exertion (Acute) Asthma (Acute) Obesity (BMI 35.0-39.9 without comorbidity) (Acute) Kidney calculi (Acute) Past Medical History Medical History (Updated 05/30/23 @ 09:46 by Diane Steele) Seasonal allergies Allergic rhinitis COPD (chronic obstructive pulmonary disease) Restrictive lung disease HERBERTH (obstructive sleep apnea) Shortness of breath on exertion Asthma Obesity (BMI 35.0-39.9 without comorbidity) Kidney calculi Social History Social History Household Members: Other Housing: House Do you presently have visiting nurse or other home services: No Alcohol intake: current Alcohol intake frequency: former alcohol drinker Patient Tobacco Use Status: Former Tobacco user Tobacco use type: Cigar Use of substances other than those prescribed or required for medical reasons: No Are you DNR?: No Advance Directives: No Advance Directives Information Provided: Yes Advance Directives Date on File: 01/27/21 service: No Current occupational status: retired Meds Allergies Allergy/AdvReac Type Severity Reaction Status Date / Time No Known Allergies Allergy Verified 05/30/23 09:46 Home Medications Medication Instructions Recorded Confirmed Last Taken Type allopurinol 300 mg tablet 1 tab PO DAILY 09/13/20 01/27/21 09/12/20 History lisinopril 10 mg tablet 1 tab PO DAILY 09/13/20 01/27/21 09/12/20 History sildenafil 25 mg tablet 25 mg PO DAILY PRN 04/03/21 Unknown History loratadine 5 mg-pseudoephedrine ER 1 tab PO Q12H 01/24/22 Unknown History 120 mg tablet,extended release,12hr (Claritin-D 12 Hour) Exam Pertinent Lab Results Pertinent Lab Results: Laboratory Tests 05/20/23 05/29/23 05/29/23 12:59 10:30 10:30 WBC 7.6 Hgb 14.8 Hct 45.1 Plt Count 187 Sodium 143 Potassium 3.7 Chloride 106 Carbon Dioxide 26 BUN 18 H Creatinine 0.79 Narrative Narrative: EKG 12/2022 Vent. Rate : 077 BPM Atrial Rate : 077 BPM P-R Int : 166 ms QRS Dur : 086 ms QT Int : 406 ms P-R-T Axes : 052 006 021 degrees QTc Int : 459 ms Normal sinus rhythm Normal ECG When compared with ECG of 27-JAN-2021 10:42, No significant change was found Documented by User: Ami Galo MD 06/02/23 13:03 COUNTS INCLUDE 234 BEDS AT THE [facility] Past Medical History Medical History (Updated 05/30/23 @ 09:46 by Diane Steele) Seasonal allergies Allergic rhinitis COPD (chronic obstructive pulmonary disease) Restrictive lung disease HERBERTH (obstructive sleep apnea) Shortness of breath on exertion Asthma Obesity (BMI 35.0-39.9 without comorbidity) Kidney calculi Family History Family history of problems with anesthesia: No Surgical History History of Problems with Anesthesia: No Social History Social History Household Members: Other Housing: House Do you presently have visiting nurse or other home services: No Alcohol intake: current Alcohol intake frequency: former alcohol drinker Patient Tobacco Use Status: Former Tobacco user Tobacco use type: Cigar Use of substances other than those prescribed or required for medical reasons: No Are you DNR?: No Advance Directives: No Advance Directives Information Provided: Yes Advance Directives Date on File: 01/27/21 service: No Current occupational status: retired Meds Allergies Allergy/AdvReac Type Severity Reaction Status Date / Time No Known Allergies Allergy Verified 05/30/23 09:46 Home Medications Medication Instructions Recorded Confirmed Last Taken Type allopurinol 300 mg tablet 1 tab PO DAILY 09/13/20 01/27/21 09/12/20 History lisinopril 10 mg tablet 1 tab PO DAILY 09/13/20 01/27/21 09/12/20 History sildenafil 25 mg tablet 25 mg PO DAILY PRN 04/03/21 Unknown History loratadine 5 mg-pseudoephedrine ER 1 tab PO Q12H 01/24/22 Unknown History 120 mg tablet,extended release,12hr (Claritin-D 12 Hour) Exam Airway Mallampati Class: III TM Dist: >3cm Neck ROM: Full Heart: rrr Lungs: cta Assessment and Plan Assessment Anesthesia Assessment: Anesthesia Plan Discussed and Chart Reviewed Final Anesthetic Review Family History of Problems with Anesthesia: No History of Problems with Anesthesia: No NPO: Yes ASA Class: III Final Preanesthetic Review: No Changes in Pt Med Stat, Meds/Allgs Chart Reviewed and Consent Obtained/Reviewed Patient Risk: Intermediate Procedure Risk: Intermediate Anesthetic Plan Anesthetic Plan: GA Disposition: Standard PACU
[2023-06-02 12:18] VITALS: BMI 39.1
[2023-06-02 12:32] VITALS: BP 120/77; PULSE 89; RESP 18; TEMP 37.3; O2SAT 95
--- NOTE | 2023-06-02 13:11 | MHC.SHP ---
Pre-Procedural Eval Section A Date of Service: 06/02/23 The patient is an INPATIENT: No Changes since office visit: No Cold of Flu in the past 2 weeks, No New Medical Problems, No Changes in Medication and No Patient answered all questions The History & Physical has been completed within 30 days and I have reviewed it.: Yes Section B Chief Complaint: Unspecified urethral stricture, male, unspecified Details of Present Illness: urinary retention with possible urethral stricture Allergies: Allergies Allergy/AdvReac Type Severity Reaction Status Date / Time No Known Allergies Allergy Verified 05/30/23 09:46 Review of Systems Sugical H&P ROS: Negative: Constitution, Cardiovascular, Respiratory, Neurological, Psychiatric, Hem-Onc, Allergic/Immunologic, Gastrointestinal, Genitourinary, Musculoskeletal, Integumentary, Endocrine and Eyes/Ears/Nose/Throat Exam Surgical H&P Exam: Normal: HEENT, Normal: Heart, Normal: Lungs, Normal: Extremities, Normal: Abdomen, Normal: Skin and Normal: Neurological Plan Diagnosis/Plan: Unchanged I have reviewed the history and physical and performed a pertinent physical examination on my patient. No changes have occurred unless specified. Time Spent With Patient Time: Total time managing care of this patient today ____ minutes.
--- NOTE | 2023-06-02 13:49 | W.PM.OPN ---
Operative Note Operative Note Date of Service: 06/02/23 Narrative: PreOperative Diagnosis: urethral stricture Post Operative Diagnosis: distal urethral stricture Procedure: Nicole catheter removal, cystoscopy with urethral dilatation Surgeon: Dr Bryan Blanco Anesthesia: LMA Indications for procedure: urinary retention with difficult placement of 14 Filipino Nicole catheter Procedure: After informed consent was verified the patient was brought to the operating room and placed in a supine position. Anesthesia was administered per protocol. The patient was prepped and draped in a sterile fashion. Safety pause time-out was performed. Antibiotics being given. Nicole catheter had been removed. Twenty-two Filipino cystoscope placed. Approximately 1 in from meatus there was narrowing of the urethra. Cystoscope was removed. Dilatation performed using year old dilated. We then advanced a 22 Filipino cystoscope in the bladder. Changes consistent with irritation from the catheter was seen. Cystoscope removed. Decision made to not leave Nicole catheter Pathology: [] Drains: []
[2023-06-02 13:59] VITALS: BP 88/39; PULSE 91; RESP 16; TEMP 36.8; O2SAT 92
[2023-06-02 14:04] VITALS: BP 100/50; PULSE 87; RESP 16; O2SAT 93
[2023-06-02 14:09] VITALS: BP 100/58; PULSE 81; RESP 18; O2SAT 96
[2023-06-02 14:14] VITALS: BP 120/53; PULSE 80; RESP 18; O2SAT 94
[2023-06-02 14:29] VITALS: BP 123/46; PULSE 79; RESP 18; TEMP 36.7; O2SAT 95
== END 2023-06-02 16:01 | disposition home or self-care (01) ==
PROVIDERS: PCP Internal Medicine; Visit Provider Urology
PROC: (CPT 52310; principal; 2023-06-02 12:50)
DX: N35.919 Unspecified urethral stricture, male, unspecified site (principal); R33.8 Other retention of urine; J44.9 Chronic obstructive pulmonary disease, unspecified; J98.4 Other disorders of lung; G47.33 Obstructive sleep apnea (adult) (pediatric); Z79.899 Other long term (current) drug therapy; Z87.442 Personal history of urinary calculi; Z87.891 Personal history of nicotine dependence
CPT/HCPCS: 52281; J1956; J2250; J2371; J2704; J3010

== ENCOUNTER → 2023-06-02 10:50 | Outpatient (BNV) | payer MEDICARE, SELFPAY | PROVIDERS: PCP Internal Medicine; Visit Provider Urology | DX: N35.919 Unspecified urethral stricture, male, unspecified site (principal) | CPT/HCPCS: 52281 ==

== ENCOUNTER 2023-06-19 14:08 | Outpatient (REF) | payer MEDICARE, SELFPAY ==
[2023-06-19 14:16] LABS: Basophils Percent Auto 0.2 % (0-2); Eosinophils Absolute Auto 0.4 X10*3/uL (0.0-0.4); Eosinophils Percent Auto 3.6 % (0-4); Hematocrit 45.5 % (42.0-52.0); Hemoglobin 15.2 g/dl (14.0-18.0); Imm Gran Abs Auto 0.03 X10*3/uL (0.00-0.03); Imm Gran Pct Auto 0.3 % (0.0-0.4); Lymphocytes Percent Auto 31.5 % (20-40); MANUAL DIFF FLAG SCAN; Mean Corpuscular HGB Conc 33.4 g/dl (31.0-36.0); Mean Corpuscular Hemoglobin 32.8 pg (27.0-33.0); Mean Corpuscular Volume 98.1 fL (80.0-98.0); Mean Platelet Volume 12.2 fL (9.4-12.4); Monocytes Absolute Auto 0.9 X10*3/uL (0.1-1.2); Monocytes Percent Auto 9.6 % (2-11); Neutrophils Absolute Auto 5.3 x10*3/uL (2.0-8.3); Neutrophils Percent Auto 54.8 % (45-73); Platelet Count 221 X10*3/uL (160-400); Red Blood Count 4.64 X10*6/uL (4.60-5.80); SCAN SMEAR FLAG 1
[2023-06-19 15:14] LABS: SLIDE REVIEW VERIFIED; White Blood Count 9.6 X10*3/uL (4.8-10.8)
== END 2023-06-19 14:09 | disposition home or self-care (01) ==
LOC: HO.LNP 14:08
PROVIDERS: Visit Provider Internal Medicine
DX: D69.6 Thrombocytopenia, unspecified (principal)
CPT/HCPCS: 85025

== ENCOUNTER 2023-07-18 13:15 | Outpatient (AMB) | payer MEDICARE, SELFPAY ==
--- NOTE | 2023-07-18 13:24 | MHC.OFFVIS ---
Intake Intake Visit Reasons: 6W PVR(PostOp 06/02/23 urethral stricture Intake Note: Patient is Present for Follow Up Urology Medication: Sildenafil, Tamsulosin Antibiotic Allergies:None Blood Thinners: None PVR: 21 Allergies No Known Allergies Allergy (Verified 05/30/23 09:46) HPI HPI Comments History of Present Illness Details Angel is a pleasant male. He is a patient of . He is seen for the following urologic conditions - nephrolithiasis - urethral stricture Follow-up from recent cystoscopy with urethral dilatation Effective stream Effective emptying Start vitamin B6 for kidney stone Nephrolithiasis Chronic Last intervention right ureteroscopy 2020 [facility] Medical History (Updated 05/30/23 @ 09:46 by Diane Steele) Seasonal allergies Allergic rhinitis COPD (chronic obstructive pulmonary disease) Restrictive lung disease HERBERTH (obstructive sleep apnea) Shortness of breath on exertion Asthma Obesity (BMI 35.0-39.9 without comorbidity) Kidney calculi Social History Household Members: Other Housing: House Do you presently have visiting nurse or other home services: No Alcohol intake: current Alcohol intake frequency: former alcohol drinker Patient Tobacco Use Status: Former Tobacco user Tobacco use type: Cigar Advance Directives Date on File: 01/27/21 service: No Current occupational status: retired Review of Systems Const Denies chills and Denies fever(s) Card Reports no additional complaints and Denies syncope Resp Denies cough GI Denies abdominal pain and Denies heartburn Reports as per HPI and Denies change in libido Neuro Denies syncope Psych Denies change in libido Endo Denies change in libido Physical Exam Const General: cooperative, healthy appearing, comfortable and no acute distress Orientation/consciousness: patient oriented x3 HEENT Face and sinus: Yes normal facial exam Mouth: moist mucous membranes Neck Neck: Yes normal visual inspection, Yes full ROM and Yes trachea midline Chest Chest palpation & inspection: normal inspection of the chest Resp Effort & Inspection: normal respiratory effort, able to speak in complete sentences and no respiratory distress GI Inspection: Yes normal to inspection Back/Spine/Pelvis Cervical Spine: normal cervical lordosis Thoracic/Lumbar Spine: thoracic and lumbar spine normal to inspection Skin General skin exam: no rashes or lesions noted Neuro General: patient oriented x3, gait normal, tone normal and moves all extremities Extrem General: Yes normal to inspection and Yes capillary refill normal Office Procedures Post Void Residual Post Residual Void Post Void Residual (PVR): 21 [id number] Void Residual by ultrasound Assessment & Plan Assessment & Plan (1) Urethral stricture: Code(s): N35.919 - Unspecified urethral stricture, male, unspecified site (2) Kidney calculi: Code(s): N20.0 - Calculus of kidney Plan Six-month follow-up tele Orders: Orders AMB Post Void Residual by ultrasound Today N35.919 - Unspecified urethral stricture, male, unspecified site Medications: New pyridoxine (vitamin B6) 50 mg PO DAILY 90 tabs 1RF 90 days N20.0 - Calculus of kidney Patient Instructions: Imaging studies, laboratory and physical exam results were discussed and reviewed in detail. No major barriers to patient understanding were identified. An opportunity to ask questions regarding the treatment plan was provided. All questions were answered. The patient expressed understanding and agreement with the above treatment plan. The patient is aware they should contact our office by phone for worsening of their current condition or the appearance of new urologic symptoms. Compliance is encouraged with any medications and followup testing that is ordered. It is a privilege to participate in the urologic care of your patient. If you have any questions or concerns regarding treatment for the above conditions, or other urologic issues, please do not hesitate to contact me. The office telephone contact is [phone]. This note is constructed using voice recognition software. While every effort has been made to ensure accuracy production engineer track errors may have been included. Yours sincerely, Dr Bryan Blanco MD, HEATH[facility] - Urology Providers of Expert, Compassionate Care for the Genitourinary System Coding Level of Care Code Est Pt Level 4 (19391) Diagnoses Urethral stricture N35.919 Kidney calculi N20.0 CPT Codes Post Residual Void - PVR CPT Code: 82658-Qbpq Void Residual by ultrasound ([id number])
== END 2023-07-18 13:44 | disposition home or self-care (01) ==
PROVIDERS: PCP Internal Medicine; Visit Provider Urology
DX: N35.919 Unspecified urethral stricture, male, unspecified site (principal); N20.0 Calculus of kidney
CPT/HCPCS: 99213

== ENCOUNTER → 2023-07-18 13:15 | Outpatient (BNVA) | payer MEDICARE, SELFPAY | PROVIDERS: PCP Internal Medicine; Visit Provider Urology | DX: N35.919 Unspecified urethral stricture, male, unspecified site (principal); N20.0 Calculus of kidney | CPT/HCPCS: 51798; 99212 ==

== ENCOUNTER 2023-08-21 11:51 | Outpatient (REF) | payer MEDICARE, SELFPAY ==
[2023-08-21 12:14] LABS: Appearance Urine Turbid; Color Urine Yellow; Glucose Urine UA Negative (Negative); Leukocyte Esterase Urine Large (3+) (Negative); Nitrite Urine Positive (Negative); Specific Gravity - Urine 1.015 (1.005-1.025); UMIC TRIGGER UACC YES; Urine Blood Small (1+) (Negative); Urine Ketones Negative (Negative); Urine Protein 30 (1+) mg/dL (Neg-Trace)
[2023-08-21 12:25] LABS: Basophils Percent Auto 0.2 % (0-2); Eosinophils Absolute Auto 0.4 X10*3/uL (0.0-0.4); Eosinophils Percent Auto 4.7 % (0-4); Hematocrit 41.8 % (42.0-52.0); Hemoglobin 14.2 g/dl (14.0-18.0); Imm Gran Abs Auto 0.02 X10*3/uL (0.00-0.03); Imm Gran Pct Auto 0.2 % (0.0-0.4); Lymphocytes Absolute Auto 2.3 X10*3/uL (1.2-4.9); Lymphocytes Percent Auto 28.1 % (20-40); MANUAL DIFF FLAG SCAN; Mean Corpuscular Hemoglobin 32.3 pg (27.0-33.0); Mean Platelet Volume 11.2 fL (9.4-12.4); Monocytes Absolute Auto 0.8 X10*3/uL (0.1-1.2); Monocytes Percent Auto 9.8 % (2-11); Neutrophils Absolute Auto 4.7 x10*3/uL (2.0-8.3); Platelet Count 209 X10*3/uL (160-400); Red Cell Distribution Width 15.1 % (11.0-16.0); SCAN SMEAR FLAG 1; White Blood Count 8.3 X10*3/uL (4.8-10.8)
[2023-08-21 12:28] LABS: Alanine Aminotransferase 28 U/L (0-40); Albumin Level 4.2 g/dL (3.5-5.0); Alkaline Phosphatase 80 U/L (39-117); Anion Gap 16 (12-20); Aspartate Amino Transferase 34 U/L (5-37); Bacteria Urine 4+ (None Seen); Bilirubin Total 0.7 mg/dL (0.0-1.0); Blood Urea Nitrogen 32 mg/dL (9-16); Calcium 9.7 mg/dL (8.4-10.2); Carbon Dioxide 22 mmol/L (22-29); Chloride 108 mmol/L (96-108); Cholesterol 190 mg/dL (<200); Estimated Glomerular Filt Rate 59; Glucose Fasting 100 mg/dL (60-99); HDL Cholesterol 89 mg/dL (>40); Hyaline Casts Urine 0-2 /LPF (0-2); LDL Cholesterol Calculated 88 mg/dL (<100); Potassium 4.6 mmol/L (3.3-5.1); RBC Urine 0-2 /HPF (0-2); Sodium 141 mmol/L (135-145); Total Protein 7.8 g/dL (6.5-8.0); Triglycerides 65 mg/dL (<150); UACC Culture Trigger YES; WBC Clumps Urine Present; WBC Urine >50 /HPF (0-5)
[2023-08-21 12:49] LABS: PSA,Total (Free>4and<10) 3.65 ng/mL (0.00-4.00)
[2023-08-21 13:14] LABS: SLIDE REVIEW VERIFIED
== END 2023-08-21 11:52 | disposition home or self-care (01) ==
LOC: HO.LNP 11:51
PROVIDERS: Visit Provider Internal Medicine
DX: Z00.00 Encounter for general adult medical examination without abnormal findings (principal); Z12.5 Encounter for screening for malignant neoplasm of prostate; I10 Essential (primary) hypertension; R97.20 Elevated prostate specific antigen [PSA]; D70.9 Neutropenia, unspecified
CPT/HCPCS: 80053; 80061; 81001; 84153; 85025; 87086; 87088; 87186

== ENCOUNTER 2023-09-22 11:04 | Outpatient (REF) | payer MEDICARE, SELFPAY ==
[2023-09-22 13:14] LABS: Blood Urea Nitrogen 38 mg/dL (9-16)
== END 2023-09-22 11:05 | disposition home or self-care (01) ==
LOC: HO.LNP 11:04
PROVIDERS: Visit Provider Internal Medicine
DX: R79.9 Abnormal finding of blood chemistry, unspecified (principal); N39.0 Urinary tract infection, site not specified
CPT/HCPCS: 84520; 87086

== ENCOUNTER 2023-10-12 15:33 | Inpatient (IN) | payer OTHER, MEDICARE, SELFPAY ==
[2023-10-12] VITALS (7 sets, daily range): BP systolic 107–143; BP diastolic 62–80; PULSE 60–108; RESP 18–28; TEMP 36.4–36.6; O2SAT 88–95; BMI 40.1
--- NOTE | ~2023-10-12 | XR_ITS ---
EXAMINATION: XR CHEST CLINICAL INFORMATION: Dyspnea. COMPARISON: Chest 01/23/2023 TECHNIQUE: Frontal view of the chest was obtained. FINDINGS: Lungs are somewhat expanded and clear of acute process. Heart size and pulmonary vascularity is normal. No gross bony abnormality seen. XR/XR chest 1V IMPRESSION: Unremarkable chest exam.
--- NOTE | ~2023-10-12 | XR_ITS ---
EXAMINATION: XR CHEST CLINICAL INFORMATION: Shortness of breath and hypoxia COMPARISON: 10/12/2023 TECHNIQUE: 2 views of the chest were obtained. FINDINGS: Heart, mediastinum and vascularity within normal limits. Low lung volumes likely contributing to prominent appearing right hilum and increasing left base density. XR/XR chest 2V IMPRESSION: Low lung volumes. Left lower lobe increased markings, question atelectasis versus pneumonia.
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
--- NOTE | ~2023-10-12 | NM_ITS ---
EXAMINATION: PULMONARY PERFUSION STUDY CLINICAL INFORMATION: Shortness of breath and hypoxia. COMPARISON: No previous lung scan is available for comparison. Radiographs of the chest dated 10/14/2023, the same date as his lung scan, are available for comparison. TECHNIQUE: Following the intravenous injection of 4.0 mCi Tc-99m MAA, the lungs were imaged in the anterior and posterior, left and right lateral and INDONESIAN, PARHAM, LPO, and RPO projections using a gamma scintillation camera. FINDINGS: No segmental perfusion defects are present. There is a small subsegmental perfusion abnormality present laterally in the right middle lobe. No other perfusion abnormalities are present. NM/NM pul perfusion IMPRESSION: Very low probability of pulmonary embolism.
--- NOTE | 2023-10-12 15:39 | ECG_ITS ---
Test Reason : DYSPNEA Blood Pressure : / mmHG Vent. Rate : 091 BPM Atrial Rate : 091 BPM P-R Int : 144 ms QRS Dur : 080 ms QT Int : 362 ms P-R-T Axes : 040 019 044 degrees QTc Int : 445 ms Normal sinus rhythm Nonspecific ST abnormality Abnormal ECG When compared with ECG of 23-JAN-2023 16:55, No significant change was found Referred By: Vale Moon Electronically Signed By:Austin Parekh
[2023-10-12] MEDS: Albuterol Sulfate 90 MCG 8 GM INHALER 12 PUFF INHALE (16:23)
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
[2023-10-12] MEDS: guaiFEN/Codeine SF 200/20/10ML 10 ML LIQUID PO (16:43)
[2023-10-12] MEDS: methylPREDNISolone Sod Succ 125 MG/2 ML VIAL IVPUSH (16:43)
[2023-10-12 16:54] LABS: Hematocrit 40.4 % (42.0-52.0); Mean Corpuscular HGB Conc 34.7 g/dl (31.0-36.0); Mean Corpuscular Hemoglobin 33.6 pg (27.0-33.0); Mean Corpuscular Volume 96.9 fL (80.0-98.0); Mean Platelet Volume 11.9 fL (9.4-12.4); Platelet Count 170 X10*3/uL (160-400); Red Blood Count 4.17 X10*6/uL (4.60-5.80); Red Cell Distribution Width 13.1 % (11.0-16.0); White Blood Count 10.1 X10*3/uL (4.8-10.8)
[2023-10-12 17:03] LABS: Ethanol 153 mg/dL
[2023-10-12 17:10] LABS: B Type Natriuretic Peptide 36 pg/mL (<100)
[2023-10-12 17:18] LABS: Atypical Lymph Absolute Manual 0.9 x10*3/uL; Atypical Lymphs Percent Manual 9 % (0-6); Band Neutrophils Percent 2 % (3-5); Eosinophils Absolute Manual 0.8 X10*3/uL (0.0-0.4); Eosinophils Percent Manual 8 % (0-4); Lymphocytes Absolute Manual 1.4 X10*3/uL (1.2-4.9); Lymphocytes Percent Manual 14 % (20-40); Monocytes Absolute Manual 0.3 X10*3/uL (0.1-1.2); Monocytes Percent Manual 3 % (2-11); Neutrophils Absolute Manual 6.7 X10*3/uL (2.0-8.3); Neutrophils Percent Manual 64 % (45-73); Platelet Estimate NORMAL (NORMAL); RBC Morphology NORMAL
[2023-10-12 17:19] LABS: Platelet Morphology Comment NORMAL
[2023-10-12 17:27] LABS: Influenza A PCR NEGATIVE (Negative); Influenza B PCR NEGATIVE (Negative); Resp Syncy Virus RNA Qual PCR NEGATIVE (Negative); SARS COV2 PCR INHOUSE NEGATIVE (Negative)
[2023-10-12 17:27] LABS: Alanine Aminotransferase 29 U/L (0-40); Albumin Level 4.4 g/dL (3.5-5.0); Alkaline Phosphatase 71 U/L (39-117); Anion Gap 19 (12-20); Aspartate Amino Transferase 42 U/L (5-37); Bilirubin Direct 0.3 mg/dL (0.0-0.5); Bilirubin Total 0.8 mg/dL (0.0-1.0); Blood Urea Nitrogen 24 mg/dL (9-16); Calcium 9.9 mg/dL (8.4-10.2); Carbon Dioxide 22 mmol/L (22-29); Chloride 101 mmol/L (96-108); Creatinine Clr Calc Pharmacy 85.8; Estimated Glomerular Filt Rate > 60; Glucose Random 88 mg/dL (60-115); Magnesium 1.4 mg/dL (1.6-2.6); Potassium 4.2 mmol/L (3.3-5.1); Sodium 138 mmol/L (135-145); Total Protein 7.7 g/dL (6.5-8.0)
[2023-10-12] MEDS: Magnesium Sulfate/H2O 2 GM/50 ML PIGGYBACK IV (18:05)
[2023-10-12] MEDS: Albuterol Sulfate 5 MG, Albuterol/Iprat 2.5/0.5MG 3 ML 3 ML INHALE (19:59)
[2023-10-12 20:16] LABS: VBG Base Excess -1.7 mmol/L; VBG HCO3 25 mmol/L (22-26); VBG pCO2 50 mmHg; VBG pO2 45 mmHg
[2023-10-12 20:19] LABS: Venous Blood Gas Refer to POC result
[2023-10-12 20:24] LABS: Lactic Acid 1.9 mmol/L (0.5-2.0)
[2023-10-12] MEDS: cefTRIAXone sodium 1 GM in 0.9 % Sodium Chloride 50 ML IV (20:28)
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
[2023-10-12] MEDS: Acetaminophen 325 MG TABLET 650 MG PO (22:23)
[2023-10-12] MEDS: Enoxaparin Sodium 40 MG/0.4 ML SYRINGE SUBCUT (22:23)
[2023-10-12] MEDS: Azithromycin 500 MG in 0.9 % Sodium Chloride 250 ML 125 MG IV (22:23)
[2023-10-12] MEDS: hydrOXYzine HCL 25 MG TABLET PO (22:23)
[2023-10-13] VITALS (11 sets, daily range): BP systolic 110–135; BP diastolic 52–68; PULSE 92–105; RESP 17–22; TEMP 36.6–37.3; O2SAT 91–96
[2023-10-13] MEDS: methylPREDNISolone Sod Succ 40 MG/ML VIAL IVPUSH ×2 (03:59→16:03)
[2023-10-13 05:07] LABS: Hematocrit 39.6 % (42.0-52.0); Hemoglobin 13.6 g/dl (14.0-18.0); Mean Corpuscular HGB Conc 34.3 g/dl (31.0-36.0); Mean Corpuscular Volume 96.1 fL (80.0-98.0); Mean Platelet Volume 11.9 fL (9.4-12.4); Platelet Count 170 X10*3/uL (160-400); Red Blood Count 4.12 X10*6/uL (4.60-5.80); Red Cell Distribution Width 12.9 % (11.0-16.0); White Blood Count 8.7 X10*3/uL (4.8-10.8)
[2023-10-13 05:21] LABS: Anion Gap 18 (12-20); Blood Urea Nitrogen 25 mg/dL (9-16); Calcium 9.9 mg/dL (8.4-10.2); Carbon Dioxide 20 mmol/L (22-29); Chloride 102 mmol/L (96-108); Creatinine Clr Calc Pharmacy 78.7; Estimated Glomerular Filt Rate > 60; Glucose Random 157 mg/dL (60-115); Magnesium 1.7 mg/dL (1.6-2.6); Potassium 4.9 mmol/L (3.3-5.1); Sodium 135 mmol/L (135-145)
[2023-10-13] MEDS: Albuterol/Iprat 2.5/0.5MG 3 ML AMPUL.NEB INHALE ×4 (07:43→19:58)
--- NOTE | 2023-10-13 11:28 | PC.RT ---
RT taught pt how to use incentive spirometry and aerobika. Pt demonstrates understanding and states they help.
[2023-10-13] MEDS: 0.9 % Sodium Chloride Flush 3 ML SYRINGE IVFLUSH ×2 (11:54→16:03)
--- NOTE | 2023-10-13 12:38 | PHA.MEDREC ---
Pharmacy Consult ? Medication Reconciliation Pharmacy has completed the medication reconciliation. spoke with patient to confirm medications. He reports still having lasix at home and takes once daily. He finished his prednisone about a week ago.
[2023-10-13] MEDS: Acetaminophen 325 MG TABLET 650 MG PO ×2 (12:42→19:22)
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
[2023-10-13] MEDS: guaiFENesin DM 200/20/10 ML 10 ML SYRUP PO (14:09)
--- NOTE | 2023-10-13 14:10 | PC.NURSE ---
pt has persistant dry cough. reports that it is painful. cough syrup given per jul.
[2023-10-13] MEDS: Furosemide 20 MG TABLET PO (14:26)
[2023-10-13] MEDS: lisinopriL 10 MG TABLET PO (14:29)
[2023-10-13] MEDS: Pyridoxine HCl (Vitamin B6) 50 MG TABLET PO (14:29)
--- NOTE | 2023-10-13 15:21 | PM.CNPUL ---
History of Present Illness History of Present Illness Consult date: 10/13/23 Chief complaint: COPD exacerbationw /hypoxia Narrative: 68-year-old gentleman, cigar smoker, with underlying history of restrictive ventilatory defect, reactive airway disease, and HERBERTH, followed by Dr. Elena, admitted on 10/12/2023 with complaints of respiratory distress that occurs with coughing (and can cause loss of consciousness) or, if trying to lay down flat in bed that has slowly been getting worse over the last 2-3 weeks. Patient does complain of cough intermittently productive of small to moderate amount of clear sputum. Patient states that he can not lay down flat secondary to shortness of breath and had to sleep in his chair. On ER evaluation patient with mild hypoxia requiring supplemental oxygen, empirically treated for community-acquired pneumonia and COPD exacerbation. Review of Systems Constitutional: Constitutional: Denies daytime sleepiness, Denies excessive sweating, Denies fatigue, Denies fever(s), Denies lethargy, Denies malaise, Denies night sweats, Denies snoring and Denies weight loss Eyes: Eyes: Denies blurry vision and Denies itchy eyes ENT: Denies nasal congestion, Denies post nasal drip, Denies sinus pain, Denies sinus pressure and Denies other ( Thrush) Cardiovascular: Cardiovascular: Denies chest pain, Denies pedal edema, Reports dyspnea, Reports orthopnea and Denies paroxysmal nocturnal dyspnea Respiratory: Respiratory: Reports chest congestion, Reports cough, Denies hemoptysis, Denies excessive phlegm production, Reports dyspnea, Denies snoring and Denies wheezing Gastrointestinal: Gastrointestinal: Denies abdominal pain and Denies heartburn Musculoskeletal: Musculoskeletal: Denies myalgias, Denies arthralgias and Denies joint swelling Integumentary/Breasts: Skin/Breast: Denies rash Neurologic: Denies memory loss and Denies seizure-like activity Psychiatric: Psychiatric: Denies abnormal sleep pattern, Denies anxiety and Denies memory loss Endocrine: Endocrine: Denies excessive sweating, Denies fatigue and Denies heat intolerance Hematologic/Lymphatic: Hematologic/Lymphatic: Denies easy bruising Allergic/Immunologic: Allergic/Immunologic: Denies itchy eyes, Denies seasonal rhinorrhea and Denies wheezing PMFSH Past Medical History Medical History (Updated 10/13/23 @ 15:26 by Fabian Chopra MD) Seasonal allergies Allergic rhinitis COPD (chronic obstructive pulmonary disease) Restrictive lung disease HERBERTH (obstructive sleep apnea) Shortness of breath on exertion Asthma Obesity (BMI 35.0-39.9 without comorbidity) Kidney calculi Social History Social History Household Members: Other Housing: House Do you presently have visiting nurse or other home services: No Alcohol intake: current Alcohol intake frequency: 0-2 drinks per day Alcohol type: beer Patient Tobacco Use Status: Former Tobacco user Tobacco use type: Cigar Use of substances other than those prescribed or required for medical reasons: No Advance Directives: No Advance Directives Information Provided: No Advance Directives Date on File: 01/27/21 Do you have a plan to hurt others: No Plan Nutrition Risks: No Nutritional Risk service: No Current occupational status: retired Meds Allergies Allergy/AdvReac Type Severity Reaction Status Date / Time Seasonal Allergies Allergy Runny Nose Verified 10/12/23 15:58 Active Medications: Current Medications Acetaminophen (Acetaminophen 325 Mg Tablet) 650 mg PO Q6H PRN PRN Reason: Pain, Mild (Pain Scale 1-3) Last Admin: 10/13/23 12:42 Dose: 650 mg Albuterol Sulfate (Albuterol Sulfate 90 Mcg 8 Gm Inhaler) 2 puff INHALE Q4H PRN PRN Reason: for wheezing Albuterol/Ipratropium (Albuterol/Iprat 2.5/0.5mg 3 Ml Ampul.Neb) 3 ml INHALE RQ4H WHILE AWAKE [facility] Last Admin: 10/13/23 11:28 Dose: 3 ml Albuterol/Ipratropium (Albuterol/Iprat 2.5/0.5mg 3 Ml Ampul.Neb) 3 ml INHALE Q6H PRN PRN Reason: Shortness Of Breath Or Wheezing Docusate Sodium (Docusate Sodium 100 Mg Capsule) 100 mg PO DAILY PRN PRN Reason: Constipation Enoxaparin Sodium (Enoxaparin Sodium 40 Mg/0.4 Ml Syringe) 40 mg SUBCUT Q24H [facility] Last Admin: 10/12/23 22:23 Dose: 40 mg Furosemide (Furosemide 20 Mg Tablet) 20 mg PO DAILY [facility]; Protocol Last Admin: 10/13/23 14:26 Dose: 20 mg Guaifenesin/Dextromethorphan (Guaifenesin Dm 200/20/10 Ml 10 Ml Syrup) 10 ml PO Q6H PRN PRN Reason: Cough Last Admin: 10/13/23 14:09 Dose: 10 ml Hydroxyzine HCl (Hydroxyzine Hcl 25 Mg Tablet) 25 mg PO Q6H PRN PRN Reason: Anxiety Last Admin: 10/12/23 22:23 Dose: 25 mg Azithromycin 500 mg/ Sodium (Chloride) 250 mls @ 125 mls/hr IV Q24H [facility] Last Infusion: 10/13/23 01:13 Dose: Infused Lisinopril (Lisinopril 10 Mg Tablet) 10 mg PO DAILY [facility]; Protocol Last Admin: 10/13/23 14:29 Dose: 10 mg Melatonin (Melatonin 3 Mg Tablet) 6 mg PO BEDTIME PRN PRN Reason: Insomnia Methylprednisolone Sodium Succinate (Methylprednisolone Sod Succ 40 Mg/Ml Vial) 40 mg IVPUSH Q12H [facility] Last Admin: 10/13/23 03:59 Dose: 40 mg Ondansetron HCl (Ondansetron Hcl 4 Mg/2 Ml Vial) 4 mg IVPUSH Q8H PRN PRN Reason: Nausea and Vomiting Pyridoxine HCl (Pyridoxine Hcl (Vitamin B6) 50 Mg Tablet) 50 mg PO DAILY [facility] Last Admin: 10/13/23 14:29 Dose: 50 mg Sodium Chloride (0.9 % Sodium Chloride Flush 3 Ml Syringe) 3 ml IVFLUSH QSHIFT [facility] Last Admin: 10/13/23 11:54 Dose: 3 ml Home Medications ?Medication ?Instructions ?Recorded ?Confirmed ?Last Taken ?Type lisinopril 10 mg tablet 1 tab PO DAILY 09/13/20 10/13/23 09/12/20 History sildenafil 25 mg tablet 25 mg PO DAILY PRN Sexual Activity 04/03/21 10/13/23 Unknown History furosemide 20 mg tablet 20 mg PO DAILY 10/13/23 10/13/23 Unknown History ibuprofen 200 mg tablet 400 mg PO DAILY PRN Pain 10/13/23 10/13/23 Unknown History ipratropium 0.5 mg-albuterol 3 mg 3 ml inhalation Q6H PRN Shortness 10/13/23 10/13/23 Unknown History (2.5 mg base)/3 mL nebulization Of Breath Or Wheezing soln Physical Exam Vital Signs: Vital Signs: Last Vital Signs Temp 99.1 F 10/13/23 14:27 Pulse 93 10/13/23 14:27 Resp 20 10/13/23 14:27 BP 115/68 10/13/23 14:27 Pulse Ox 94 10/13/23 14:27 O2 Del Method Nasal Cannula 10/13/23 14:27 O2 Flow Rate 2 10/13/23 14:27 BMI result Body Mass Index 40.1 Const: General: no acute distress and alert Nutritional Appearance: obese Orientation/consciousness: Other orientation findings ( oriented) HEENT: Head: Yes atraumatic Eyes: General: appearance normal, both eyes and all related structures Sclerae: sclerae normal EOM: EOMs intact bilaterally Neck: Neck: Yes supple Lymphatic: no lymphadenopathy noted Resp: Effort & Inspection: normal respiratory effort and no use of accessory muscles Auscultation: clear to auscultation bilaterally Cardio: Rate: regular rate Rhythm: regular rhythm Heart sounds: no gallops, no murmurs and no rubs Skin: General skin exam: other ( warm) Extrem: General: No clubbing, No cyanosis and Yes edema (2+ bilateral) Results Laboratory Findings 10/13/23 04:40 10/13/23 04:40 Abnormal lab findings: Abnormal Labs 10/12/23 10/12/23 10/13/23 16:35 20:08 04:40 RBC 4.17 L 4.12 L Hgb 13.6 L Hct 40.4 L 39.6 L MCH 33.6 H Band Neutrophils % 2 L Lymphocytes % (Manual) 14 L Atypical Lymphs % (Man) 9 H Eosinophils % (Manual) 8 H Eosinophils # (Manual) 0.8 H VBG pH 7.30 L Carbon Dioxide 20 L BUN 24 H 25 H Random Glucose 157 H Magnesium 1.4 L* AST 42 H Assessment and Plan (1) Acute respiratory failure with hypoxia: Status: Inactive (2) Reactive airway disease: Status: Acute (3) Orthopnea: Status: Acute (4) HERBERTH (obstructive sleep apnea): Status: Acute Plan Impression: 60-year-old gentleman with underlying reactive airway disease and HERBERTH admitted with acute hypoxic respiratory failure and significant orthopnea. No evidence of community-acquired pneumonia. No evidence of underlying COPD. Does have underlying reactive airway disease, though no evidence of an acute exacerbation. Appears to have significant component of orthopnea and dyspnea on exertion. Recommendations: Consider discontinuation of empiric community-acquired pneumonia antibiotic coverage. Consider discontinuation of systemic glucocorticoids. Consider obtaining 2D echocardiogram. Consider diuresis. Procedures Date of Service Date of Service: 10/13/23
--- NOTE | 2023-10-13 16:03 | MHC.CM.PN ---
PT REPORTS HE LIVES ALONE AND IS INDEPENDENT WITH CARE HE HAS NO SERVICES AND ONLY A NEBULIZER FOR DME PT SAYS HE HAS A HCP, COPY REQUESTED PCP: KALLI ARENAS IMM DELIVERED DCP: HOME NO SERVICES VIA PRIVATE TRANSPORT
[2023-10-13] MEDS: Furosemide 40 MG/4 ML VIAL IVPUSH (16:42)
[2023-10-13 16:54] LABS: D Dimer High Sensitivity 698 NG/ML
--- NOTE | 2023-10-13 19:31 | PC.NURSE ---
assumed care at 1900, pt c/o bilateral rib pain, medicated per mar
--- NOTE | 2023-10-13 20:04 | PC.NURSE ---
resp therapy in with pt
[2023-10-13] MEDS: Enoxaparin Sodium 40 MG/0.4 ML SYRINGE SUBCUT (21:51)
[2023-10-13] MEDS: Azithromycin 500 MG in 0.9 % Sodium Chloride 250 ML 125 MG IV (21:52)
--- NOTE | 2023-10-13 21:52 | PC.NURSE ---
pt reassessed reported mild rib navjot after the administration of pain med, pt has non-productive cough medication given per Mar
--- NOTE | 2023-10-13 22:24 | PC.NURSE ---
Pt assessed , pt was shaking while in the chair, staff rushed over pt reported he think he had a seizure the episode lasted 1-2 minutes , no seizure hx, pt reported he has these episodes 2-3 weeks since he has been sick, pt awake and oriented x4, , Dr. Person to assess pt, VSS, new orders per Dr. Person
--- NOTE | 2023-10-13 22:26 | PM.EVENT ---
Event Note Date of Service: 10/13/23 Event Note: Was informed by RN that patient had a possible seizure episode. Upon arrival, patient apparently had shaking of all his extremities that lasted for about a min and self resolved. Patient is alert, awake and oriented x3 at the tamir of my arrival. No post ictal epsidoe. The episode patient remembers well and states he himself called the nurse as he was having a seizure. No tongue bite. Patient was sitting in chair but did not fall down. Highly doubt that this is a seizure episode. Concern for PNES. Defer anti epileptics and further work up for now. Time Spent With Patient Time: Total time managing care of this patient today ____ minutes.
[2023-10-14] VITALS (9 sets, daily range): BP systolic 98–131; BP diastolic 55–62; PULSE 80–102; RESP 15–18; TEMP 36.4–37; O2SAT 92–94
[2023-10-14] MEDS: 0.9 % Sodium Chloride Flush 3 ML SYRINGE IVFLUSH ×4 (00:14→21:01)
[2023-10-14] MEDS: methylPREDNISolone Sod Succ 40 MG/ML VIAL IVPUSH ×2 (04:23→16:16)
[2023-10-14] MEDS: guaiFENesin DM 200/20/10 ML 10 ML SYRUP PO (04:39)
--- NOTE | 2023-10-14 04:41 | PC.NURSE ---
pt c/o beka, medicated per MAR
[2023-10-14] MEDS: Albuterol/Iprat 2.5/0.5MG 3 ML AMPUL.NEB INHALE ×4 (07:42→20:09)
[2023-10-14] MEDS: Acetaminophen 325 MG TABLET 650 MG PO ×2 (07:58→18:32)
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
[2023-10-14 10:29] LABS: Anion Gap 17 (12-20); Blood Urea Nitrogen 37 mg/dL (9-16); Carbon Dioxide 23 mmol/L (22-29); Chloride 101 mmol/L (96-108); Creatinine Clr Calc Pharmacy 63.4; Estimated Glomerular Filt Rate 47; Glucose Random 150 mg/dL (60-115); Potassium 4.3 mmol/L (3.3-5.1); Sodium 137 mmol/L (135-145)
[2023-10-14] MEDS: Furosemide 20 MG TABLET PO (10:32)
[2023-10-14] MEDS: lisinopriL 10 MG TABLET PO (10:32)
[2023-10-14] MEDS: Pyridoxine HCl (Vitamin B6) 50 MG TABLET PO (10:32)
--- NOTE | 2023-10-14 16:58 | P.PNPL_ITS ---
Subjective Subjective Date of Service: 10/14/23 Interval history: Respiratory status and oxygen requirements improved with diuresis. However, now limited by blood pressure and increasing creatinine. Objective Data Labs 10/13/23 04:40 10/14/23 10:04 Labs: Laboratory Results - last 24 hr 10/14/23 10:04 Sodium 137 Potassium 4.3 Chloride 101 Carbon Dioxide 23 Anion Gap 17 BUN 37 H Creatinine 1.49 H Estim Creat Clear Calc 63.4 Estimated GFR 47 Random Glucose 150 H Calcium 10.0 Microbiology Microbiology Results: Microbiology 10/12/23 20:25 Blood - Venous Blood Culture - Preliminary No growth after 24 hours. 10/12/23 20:05 Blood - Venous Blood Culture - Preliminary No growth after 24 hours. Physical Exam 2 Vital Signs: Vital Signs: Last Vital Signs Temp 97.5 F 10/14/23 15:29 Pulse 102 H 10/14/23 15:29 Resp 18 10/14/23 15:29 BP 98/57 L 10/14/23 15:29 Pulse Ox 93 10/14/23 15:29 O2 Del Method Nasal Cannula 10/14/23 15:29 O2 Flow Rate 1.5 10/14/23 15:29 BMI result Body Mass Index 40.1 Const: General: no acute distress, alert and awake Eyes: Sclerae: sclerae normal EOM: EOMs intact bilaterally Neck: Neck: Yes no lymphadenopathy, Yes trachea midline and Yes supple Resp: Effort & Inspection: normal respiratory effort and no respiratory distress Auscultation: clear to auscultation bilaterally Cardio: Rate: tachycardic Rhythm: regular rhythm Heart sounds: no gallops, no murmurs and no rubs GI: Palpation (GI): Soft to palpation and Other GI palpation findings present ( Nontender) Auscultation: normal bowel sounds Extrem: General: No clubbing, No cyanosis and Yes edema (Trace bilateral) Procedures Date of Service Date of Service: 10/14/23 Assessment and Plan Assessment and plan (1) Orthopnea: Status: Acute (2) Acute and chronic respiratory failure with hypoxia: Status: Acute Plan Impression: 60-year-old gentleman with underlying reactive airway disease and HERBERTH admitted with acute hypoxic respiratory failure and significant orthopnea. No evidence of community-acquired pneumonia. No evidence of underlying COPD. Does have underlying reactive airway disease, though no evidence of an acute exacerbation. Appears to have significant component of orthopnea and dyspnea on exertion that improved with diuresis. At this time is limited by borderline blood pressure and increasing creatinine. No evidence of pulmonary emboli.. Recommendations: Consider discontinuation of empiric community-acquired pneumonia antibiotic coverage. Consider discontinuation of systemic glucocorticoids. Consider obtaining 2D echocardiogram. Consider discontinuation of lisinopril. Consider continuation of judicious diuresis. Time Spent With Patient Time: Total time managing care of this patient today ____ minutes. Progress Note: Quality Stroke Does the patient have a stroke diagnosis?: No
[2023-10-14] MEDS: Enoxaparin Sodium 40 MG/0.4 ML SYRINGE SUBCUT (20:59)
[2023-10-15] VITALS (8 sets, daily range): BP systolic 100–113; BP diastolic 59–66; PULSE 73–109; RESP 18–22; TEMP 36.3–36.6; O2SAT 91–96
--- NOTE | 2023-10-15 07:00 | CA_ITS ---
Transthoracic Echocardiogram Patient (Last, First, Middle): Angel Temple H Gender: Male Date of : 1955 Age: 68 Procedure Date: 10/15/2023 Procedure Type: Transthoracic Echocardiogram Location: S3E Height: 175.26 cm Weight: 126.55 kg BSA: 2.38 m2 Heart Rate: bpm BP: 110 / 61 mmHg Fitness Management Director: Referring MD: Felipe Anderson MD Symptoms: ?heart failure Study Quality: Technically Difficult due to body habitus ECG Rhythm: Sinus Conclusions: - Normal left ventricular size and systolic function. - Diastolic function is normal for age. - Normal right ventricular cavity size and systolic function. - There is mild dilatation of the ascending aorta measuring 3.70 cm. Findings Procedure Information Contrast agent, definity, is being given per protocol without apparent complications. Left Ventricle Normal left ventricular size and systolic function. There is mildly increased left ventricular wall thickness. The visually estimated ejection fraction is between 60-65%. There is no evidence of regional wall motion abnormalities. Diastolic function is normal for age. Right Ventricle Normal right ventricular cavity size and systolic function. Atria The left atrium is likely dilated. Aortic Valve Normal aortic valve structure and function. There is no aortic valve stenosis. There is no aortic valve regurgitation. Mitral Valve The mitral valve appears normal. There is no mitral valve regurgitation. There is no mitral valve stenosis. Pulmonic Valve The pulmonic valve is likely normal. Tricuspid Valve Normal tricuspid valve structure and function. There is no tricuspid valve regurgitation. Normal right atrial pressure. There is no evidence of pulmonary hypertension. Great Vessels There is mild dilatation of the ascending aorta measuring 3.70 cm. Venous The inferior vena cava is normal in size and collapses greater than 50% with inspiration. Pericardium/Pleural There is no evidence of pericardial effusion. Measurements 2D Linear Measurements IVSd: 1.13 0.6-0.9/0.6-1.0 cm LVIDd: 5.75 3.9-5.3/4.2-5.9 cm LVIDd Index: 2.42 2.4-3.2/2.2-3.1 cm/m2 LVIDs: 3.75 2.0-3.6 cm LVPWd: 1.02 0.7-1.1 cm Ao Root: 3.70 2.1-3.5 cm LA Diam: 4.60 2.7-3.8/3.0-4.0 cm LAIDs Index: 1.93 1.5-2.3 cm/m2 LV Mass: 315.05 67-162/88-224 g LV Mass Index: 132.37 43-95/49-115 g/m2 LVOT Diam: 2.40 3.0+(-)1.3 cm 2D Systolic Function EF 4C: 73.20 >55% EF 2C: 51.10 >55% EF BiP: 61.50 >55% Mitral Valve MV Pk E: 0.55 MV PK A: 0.95 MV Decel Time: 125.00 E/A: 0.60 E'Lateral: 9.79 E'Medial: 7.51 E/E' Med: 7.40 E/E' Lat: 5.60 PHT: 37.00 MVA PHT: 5.95 Decel Breathitt: 4.42 Aortic Valve AoV Pk Fernandez: 1.30 AoV Pk Grad: 7.00 LVOT LVOT Pk Fernandez: 0.89 LVOT Mn Fernandez: 0.59 LVOT VTI: 0.18 LVOT Pk Grad: 3.00 LVOT Mn Grad: 2.00 LVOT Diam: 2.40 LVOT Area: 4.52 Diastolic Function MV Pk E: 0.55 MV Pk A: 0.95 E/A: 0.60 E'Medial: 7.51 E/E' Med: 7.40 E' Laterial: 9.79 E/E' Lat: 5.60 Right Ventricle TAPSE (mm): 22.00 TVS' Fernandez: 16.00 Tricuspid Valve TR Pk Fenrandez: 1.86 TR Pk Grad: 14.00 RA Press: 3.00 RVSP: 17.00 Great Vessels Aorta Ao Root-2D: 3.70 2.0-3.7 cm Ao Asc: 3.70 2.1-3.4 cm Pulmonary Valve PV Pk Fernandez: 0.99 Peak PV Grad: 4.00 Updated in Other Vendor System with Status of Final Austin Parekh MD electronically signed on 10/17/2023 11:42:32 AM with status of Final
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
[2023-10-15] MEDS: Acetaminophen 325 MG TABLET 650 MG PO ×2 (08:41→16:38)
[2023-10-15] MEDS: Pyridoxine HCl (Vitamin B6) 50 MG TABLET PO (08:41)
[2023-10-15] MEDS: 0.9 % Sodium Chloride Flush 3 ML SYRINGE IVFLUSH (08:43)
[2023-10-15] MEDS: Albuterol/Iprat 2.5/0.5MG 3 ML AMPUL.NEB INHALE ×4 (08:52→19:19)
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
[2023-10-15 10:35] LABS: Anion Gap 18 (12-20); Blood Urea Nitrogen 48 mg/dL (9-16); Calcium 10.6 mg/dL (8.4-10.2); Carbon Dioxide 24 mmol/L (22-29); Chloride 102 mmol/L (96-108); Creatinine Clr Calc Pharmacy 55.9; Estimated Glomerular Filt Rate 41; Glucose Random 72 mg/dL (60-115); Sodium 140 mmol/L (135-145)
[2023-10-15] MEDS: 0.9 % Sodium Chloride 1,000 ML 125 ML IVCONT ×2 (12:49→21:04)
--- NOTE | 2023-10-15 15:39 | MHC.CM.PN ---
Patient is not medically cleared for discharge. His renal function has worsened. IV fluids and labs ordered. DP Home self care. Patient will arrange for transport home.
--- NOTE | 2023-10-15 16:43 | P.PNPL_ITS ---
Subjective Subjective Date of Service: 10/15/23 Interval history: Respiratory status improved to baseline. Objective Data Labs 10/13/23 04:40 10/15/23 10:02 Labs: Laboratory Results - last 24 hr 10/15/23 10:02 Sodium 140 Potassium 4.0 Chloride 102 Carbon Dioxide 24 Anion Gap 18 BUN 48 H Creatinine 1.69 H Estim Creat Clear Calc 55.9 Estimated GFR 41 Random Glucose 72 Calcium 10.6 H Microbiology Microbiology Results: Microbiology 10/12/23 20:25 Blood - Venous Blood Culture - Preliminary No growth after 48 hours. 10/12/23 20:05 Blood - Venous Blood Culture - Preliminary No growth after 48 hours. Physical Exam 2 Vital Signs: Vital Signs: Last Vital Signs Temp 97.6 F 10/15/23 15:55 Pulse 92 10/15/23 15:55 Resp 20 10/15/23 15:55 BP 111/66 10/15/23 15:55 Pulse Ox 91 L 10/15/23 15:55 O2 Del Method Room Air 10/15/23 15:55 O2 Flow Rate 1.5 10/14/23 15:29 BMI result Body Mass Index 40.1 Const: General: no acute distress, alert and awake Eyes: Sclerae: sclerae normal EOM: EOMs intact bilaterally Neck: Neck: Yes no lymphadenopathy, Yes trachea midline and Yes supple Resp: Effort & Inspection: normal respiratory effort and no respiratory distress Auscultation: clear to auscultation bilaterally Cardio: Rate: regular rate Rhythm: regular rhythm Heart sounds: no gallops, no murmurs and no rubs GI: Palpation (GI): Soft to palpation and Other GI palpation findings present ( Nontender) Auscultation: normal bowel sounds Extrem: General: No clubbing, No cyanosis and Yes edema (1+ bilateral) Procedures Date of Service Date of Service: 10/15/23 Assessment and Plan Assessment and plan (1) Orthopnea: Status: Acute (2) Reactive airway disease: Status: Acute Plan Impression: 60-year-old gentleman with underlying reactive airway disease and HERBERTH admitted with acute hypoxic respiratory failure and significant orthopnea. No evidence of community-acquired pneumonia. No evidence of underlying COPD. Does have underlying reactive airway disease, though no evidence of an acute exacerbation. Respiratory status appears to be at baseline, though still has some lower extremity edema. 2D echo is pending. No evidence of pulmonary emboli. Recommendations: Consider continuation of judicious diuresis. Time Spent With Patient Time: Total time managing care of this patient today ____ minutes. Progress Note: Quality Stroke Does the patient have a stroke diagnosis?: No
[2023-10-15] MEDS: Fluticasone Propionate Nasal 16 GM SPRAY 2 SPRAY NOSTRIL-B (21:03)
[2023-10-15] MEDS: Enoxaparin Sodium 40 MG/0.4 ML SYRINGE SUBCUT (21:44)
[2023-10-16 03:27] VITALS: BP 109/59; PULSE 72; RESP 16; TEMP 36.1; O2SAT 95
[2023-10-16] MEDS: 0.9 % Sodium Chloride 1,000 ML 125 ML IVCONT (05:08)
[2023-10-16 07:23] LABS: Anion Gap 13 (12-20); Blood Urea Nitrogen 53 mg/dL (9-16); Carbon Dioxide 25 mmol/L (22-29); Chloride 108 mmol/L (96-108); Creatinine Clr Calc Pharmacy 62.1; Estimated Glomerular Filt Rate 46; Glucose Random 86 mg/dL (60-115); Potassium 4.3 mmol/L (3.3-5.1); Sodium 142 mmol/L (135-145)
[2023-10-16 07:36] LABS: Calcium 9.6 mg/dL (8.4-10.2)
[2023-10-16 08:00] VITALS: BP 116/66; PULSE 71; RESP 18; TEMP 36.1; O2SAT 94
[2023-10-16] MEDS: Acetaminophen 325 MG TABLET 650 MG PO (08:07)
[2023-10-16] MEDS: Pyridoxine HCl (Vitamin B6) 50 MG TABLET PO (08:07)
[2023-10-16] MEDS: Fluticasone Propionate Nasal 16 GM SPRAY 2 SPRAY NOSTRIL-B (08:08)
[2023-10-16] MEDS: Albuterol/Iprat 2.5/0.5MG 3 ML AMPUL.NEB INHALE ×2 (08:38→12:27)
[2023-10-16 08:41] VITALS: PULSE 71; RESP 18; O2SAT 94
--- NOTE | 2023-10-16 12:26 | MHC.CM.PN ---
Patient is discharged to home, today, self care. He has arranged for transportation home.
[2023-10-16 12:27] VITALS: PULSE 71; RESP 17; O2SAT 94
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
--- NOTE | 2023-10-17 07:37 | P.CDIM_ITS ---
PROVIDER RESPONSE TEXT: To clarify, the appropriate diagnosis supported by the clinical indicators: Morbid obesity QUERY TEXT: PHYSICIAN'S DOCUMENTATION REQUEST Date of Query: 10/14/2023 11:59 AM EDT Patient Name: Angel Temple Admit Date: 10/13/2023 Dear Felipe Anderson, A review of the medical record indicates additional documentation may be needed. Please review below and update the documentation accordingly. Clinical Indicators: BMI: 40.1 126.7 kg Obesity class III If possible, please provide an associated diagnosis related to the abnormal BMI, such as: Morbid obesity Obesity Other (explain) Clinically unable to determine (explain) Thank you, Jaymie Lemos, CCS, CDIS Use of terms such as suspected, likely, concern for, or probable (associated with a specific diagnosi s that is being evaluated, monitored, or treated as if it exists) are acceptable and can be coded in the inpatient se tting, when documented at the time of discharge. Please use your independent medical judgment in providing your response. THIS QUERY IS PART OF THE PERMANENT MEDICAL RECORD
== END 2023-10-16 14:30 | disposition home or self-care (01) | DRG 189 ==
LOC: HO.ED 21:05 → HO.EDOVER 22:03 → HO.S3 10-14 07:27
PROVIDERS: Emergency Medicine; Admitting Provider Student in an Organized Health Care Education/Training Program; Emergency Provider Internal Medicine; PCP Internal Medicine; Visit Provider Internal Medicine
DX: J96.21 Acute and chronic respiratory failure with hypoxia (principal); N17.0 Acute kidney failure with tubular necrosis; F11.20 Opioid dependence, uncomplicated; Z68.41 Body mass index [BMI] 40.0-44.9, adult; I11.0 Hypertensive heart disease with heart failure; E83.42 Hypomagnesemia; I50.9 Heart failure, unspecified; G47.33 Obstructive sleep apnea (adult) (pediatric); F44.5 Conversion disorder with seizures or convulsions; Z20.822 Contact with and (suspected) exposure to COVID-19; Y90.6 Blood alcohol level of 120-199 mg/100 ml; E66.01 Morbid (severe) obesity due to excess calories; F41.9 Anxiety disorder, unspecified; M10.9 Gout, unspecified; Z87.891 Personal history of nicotine dependence; Z79.899 Other long term (current) drug therapy
CPT/HCPCS: 0241U; 36415; 70450; 71045; 71046; 72125; 78580; 80048; 80076; 80307; 82803; 83605; 83735; 83880; 84484; 85007; 85025; 85027; 85379; 87040; 92950; 93005; 93306; 94640; 94664; 99285; A9540; J0456; J0696; J1650; J1940; J2919; J3475; Q9957

== ENCOUNTER → 2023-10-12 15:39 | Outpatient (BNV) | payer MEDICARE, SELFPAY | PROVIDERS: Admitting Provider Student in an Organized Health Care Education/Training Program; Emergency Provider Internal Medicine; PCP Internal Medicine; Visit Provider Internal Medicine Cardiovascular Disease | DX: R94.31 Abnormal electrocardiogram [ECG] [EKG] (principal) | CPT/HCPCS: 93010 ==

== ENCOUNTER 2023-10-12 22:02 | Outpatient (BNV) | payer MEDICARE, SELFPAY | END 2023-10-15 07:00 | PROVIDERS: Admitting Provider Student in an Organized Health Care Education/Training Program; Emergency Provider Internal Medicine; PCP Internal Medicine; Visit Provider Internal Medicine Cardiovascular Disease | DX: I71.21 Aneurysm of the ascending aorta, without rupture (principal) | CPT/HCPCS: 93306 ==

== ENCOUNTER → 2023-10-12 22:02 | Outpatient (BNV) | payer MEDICARE, SELFPAY | PROVIDERS: Admitting Provider Student in an Organized Health Care Education/Training Program; Emergency Provider Internal Medicine; PCP Internal Medicine; Visit Provider Psychiatry & Neurology Neurology | DX: R55 Syncope and collapse (principal); R05.4 Cough syncope; J96.21 Acute and chronic respiratory failure with hypoxia; J98.4 Other disorders of lung | CPT/HCPCS: 99222 ==

== ENCOUNTER → 2023-10-12 22:02 | Outpatient (BNV) | payer MEDICARE, SELFPAY | PROVIDERS: Admitting Provider Student in an Organized Health Care Education/Training Program; Emergency Provider Internal Medicine; PCP Internal Medicine; Visit Provider Internal Medicine Pulmonary Disease | DX: J45.909 Unspecified asthma, uncomplicated (principal) | CPT/HCPCS: 99222; 99232 ==

== ENCOUNTER → 2023-10-12 22:02 | Outpatient (BNV) | payer MEDICARE, SELFPAY | PROVIDERS: Admitting Provider Student in an Organized Health Care Education/Training Program; Emergency Provider Internal Medicine; PCP Internal Medicine; Visit Provider Internal Medicine Nephrology | DX: N17.0 Acute kidney failure with tubular necrosis (principal) | CPT/HCPCS: 99222 ==

== ENCOUNTER → 2023-10-12 22:02 | Outpatient (BNV) | payer MEDICARE, SELFPAY | PROVIDERS: Admitting Provider Student in an Organized Health Care Education/Training Program; Emergency Provider Internal Medicine; PCP Internal Medicine; Visit Provider Student in an Organized Health Care Education/Training Program | DX: J96.21 Acute and chronic respiratory failure with hypoxia (principal); J98.4 Other disorders of lung | CPT/HCPCS: 99223; 99232; 99239 ==

== ENCOUNTER 2023-10-27 08:13 | Outpatient (REF) | payer OTHER, MEDICARE, SELFPAY ==
[2023-10-27 10:15] LABS: Anion Gap 15 (12-20); Blood Urea Nitrogen 16 mg/dL (9-16); Calcium 9.9 mg/dL (8.4-10.2); Carbon Dioxide 25 mmol/L (22-29); Chloride 105 mmol/L (96-108); Estimated Glomerular Filt Rate > 60; Glucose Random 90 mg/dL (60-115); Potassium 3.9 mmol/L (3.3-5.1); Sodium 141 mmol/L (135-145)
== END 2023-10-27 08:14 | disposition home or self-care (01) ==
LOC: HO.10HDL 08:13
PROVIDERS: Referring Provider Internal Medicine; Visit Provider Internal Medicine
DX: N17.9 Acute kidney failure, unspecified (principal)
CPT/HCPCS: 36415; 80048

== ENCOUNTER 2023-10-31 08:53 | Inpatient (IN) | payer MEDICARE, SELFPAY ==
[2023-10-31] VITALS (11 sets, daily range): BP systolic 130–143; BP diastolic 76–89; PULSE 99–113; RESP 17–30; TEMP 36.7–37.1; O2SAT 91–97; BMI 39.9
--- NOTE | ~2023-10-31 | XR_ITS ---
EXAMINATION: XR chest 1V CLINICAL INFORMATION: Reason for Exam sob COMPARISON: Chest radiograph 10/14/2023 TECHNIQUE: AP upright portable chest radiograph FINDINGS: Normal appearance of the cardiomediastinal structures. No effusions or pneumothoraces. Normal pattern of pulmonary vasculature. No focal pulmonary consolidation. The descending aortic and left hemidiaphragmatic margins are well visualized which may represent resolution of the previously noted left base airspace opacification on the comparison study of 10/14/2023. XR/XR chest 1V IMPRESSION: Normal chest. Lungs clear.
--- NOTE | 2023-10-31 08:56 | ECG_ITS ---
Test Reason : SOB Blood Pressure : / mmHG Vent. Rate : 107 BPM Atrial Rate : 107 BPM P-R Int : 142 ms QRS Dur : 092 ms QT Int : 358 ms P-R-T Axes : 045 025 049 degrees QTc Int : 477 ms Sinus tachycardia with Premature atrial complexes with Aberrant conduction Otherwise normal ECG When compared with ECG of 12-OCT-2023 16:08, Aberrant conduction is now Present Referred By: Mari Sharma Electronically Signed By:SAMANTHA CHOE MD
--- NOTE | 2023-10-31 09:02 | ED_ITS ---
HPI - General Adult General Chief complaint: Dyspnea Stated complaint: DIFF BREATHING Time Seen by Provider: 10/31/23 08:56 Source: patient Mode of arrival: EMS Limitations: no limitations History of Present Illness ED Provider: Mari Sharma PA-C HPI narrative: This is a 68 yo male pmh asthma, COPD, EPHRAIM, renal colic, urethral stricture, restrictive lung disease, reactive airway disease, HERBERTH obesity, allergic rhinitis, kidney calculi presents with SOB x1 week which worsened this morning. Not able to respond in full sentences. Patient reports, cough, phlegm, wheezing and mild chest pain from coughing. Denies fever, chills, headache, lightheadedness, dizziness, syncope, nausea, vomiting, night sweats, change in weight/appetite. Patient does report this feels like exacerbations of his asthma?COPD that he's had in the past. Also states he has been taking his meds regularly and is not on O2 at home. Reports he was here this year for about a week for respiratory failure. Denies recent travel or sick contacts. Related Data Home Medications ?Medication ?Instructions ?Recorded ?Confirmed sildenafil 25 mg tablet 25 mg PO DAILY PRN Sexual Activity 04/03/21 10/13/23 ipratropium 0.5 mg-albuterol 3 mg 3 ml inhalation Q6H PRN Shortness 10/13/23 10/13/23 (2.5 mg base)/3 mL nebulization Of Breath Or Wheezing soln Previous Rx's ?Medication ?Instructions ?Recorded albuterol sulfate 90 mcg/actuation 2 puff PO Q4-6H PRN for wheezing 07/19/22 aerosol inhaler #1 ea pyridoxine (vitamin B6) 50 mg 50 mg PO DAILY 90 days #90 tabs 07/18/23 tablet Allergies Allergy/AdvReac Type Severity Reaction Status Date / Time Seasonal Allergies Allergy Runny Nose Verified 10/31/23 09:05 Review of Systems 2 Review of Systems: Yes all other systems are reviewed and are negative [facility] Past Medical History Medical History (Updated 10/31/23 @ 09:35 by NAVJOT Woodward) Orthopnea Reactive airway disease Chronic lung disease Seasonal allergies Allergic rhinitis COPD (chronic obstructive pulmonary disease) Restrictive lung disease HERBERTH (obstructive sleep apnea) Shortness of breath on exertion Asthma Obesity (BMI 35.0-39.9 without comorbidity) Kidney calculi Social History Social History Household Members: None Housing: House Do you presently have visiting nurse or other home services: No Alcohol intake: current Alcohol intake frequency: 0-2 drinks per day Alcohol type: beer Patient Tobacco Use Status: Former Tobacco user Tobacco use type: Cigar Advance Directives: No Advance Directives Date on File: 01/27/21 service: No Current occupational status: retired Physical Exam ED Vital Signs: Vital Signs - 24 hr 10/31/23 09:00 10/31/23 09:09 10/31/23 09:36 Pulse Rate 106 H 102 H 107 H Respiratory Rate 30 H 25 H 25 H Blood Pressure 130/89 Pulse Oximetry 97 10/31/23 10:50 Pulse Rate 109 H Respiratory Rate 25 H Blood Pressure Pulse Oximetry BMI result Body Mass Index 39.9 vss. Appearance: Alert.? Oriented X3.? + Tripoding in chair. Head: Normocephalic, atraumatic, no step-offs or deformities Eyes: Pupils equal, round and reactive to light.? Neck: Normal inspection.? Neck supple.? CVS: Normal heart rate and rhythm.? Pulses normal.? Respiratory: Diffuse wheezing and crackles throughout lung gomez bilaterally. Tripoding and not speaking in full sentences. Abdomen: Soft and nontender.? Skin: Skin warm and dry.? Normal skin color.? Normal skin turgor.? Extremities: 1+ pitting edema bilaterally.? No calf ttp. 5/5 strength to bilateral upper and lower extremities Neuro: Oriented X 3.? No motor deficit.? No sensory deficit. CN 2-12 intact Course Reevaluation(s) Reevaluation #1: Patient was 86% on room air. Placed on 2 L nasal cannula. Continued to complain of worsening of shortness of breath and was tripoding and wheezing worse than before. He was bumped to 5 L on nasal cannula. CBC with no leukocytosis and a baseline anemia. Not deviating from baseline. Chemistry no acute findings requiring intervention. Normal troponin normal BNP. Flu COVID, RSV negative. Chest x-ray pending. Will obtain an ABG. Plan is hospital admission. He was changed over to leave albuterol secondary to shakiness and tachycardia. Time: 10:50 Reevaluation #2: Patient on re-evaluation patient states he is feeling better however still significant wheezing. Time: 11:06 Medications Administered Discontinued Medications Generic Name Dose Route Start Last Admin Trade Name Neva PRN Reason Stop Dose Admin Albuterol Sulfate 7.5 mg/ 0 mg 10/31/23 09:05 10/31/23 09:09 Albuterol/Ipratropium 3 ml INHALE 10/31/23 09:06 10 each ONCE ONE Administration Albuterol Sulfate 5 mg/ 0 mg 10/31/23 09:33 10/31/23 09:36 Albuterol/Ipratropium 3 ml INHALE 10/31/23 09:34 7.5 each ONCE ONE Administration Levalbuterol HCl 3.75 mg/ 0 mg 10/31/23 10:47 10/31/23 10:50 Ipratropium Blevins 0.5 mg INHALE 10/31/23 10:48 1 dose ONCE ONE Administration Medical Decision Making Medical Decision Making [facility] Narrative: 0910 86 yo male pmh asthma, COPD, restrictive lung disease, reactive airway disease, allergic rhinitis presents with SOB, cough, wheezing x1 week worsening this morning. PE: Respiratory: Diffuse wheezing and crackles throughout lung gomez bilaterally. Tripoding and not speaking in full sentences. Extremities: 1+ pitting edema bilaterally Differential: Asthma/COPD exacerbation vs acute hypoxic respiratory failure pneumonia vs other viral infection vs CHF vs allergic rhinitis. Unlikely ARDS, acute threat to airway, anaphylaxis, foreign body aspiration, pneumothroax, PE, pleural effsuion. Plan: Labs, imaging, breathing treatment with respiratory therapy Differential Diagnosis Differential Diagnoses: The differential diagnosis associated with the presentation includes Asthma/COPD exacerbation vs acute hypoxic respiratory failure vs pneumonia vs other viral infection vs CHF vs allergic rhinitis. Unlikely ARDS, acute threat to airway, anaphylaxis, foreign body aspiration, pneumothroax, PE, pleural effsuion. Admission/Observation Consideration of admission/observation: Escalation of care including admission/observation considered Likely Consult Healthcare Provider Management of the patient was discussed with: Hospitalist Lab Data [facility] Lab Attestation statement: I reviewed the patient's lab results. 10/31/23 09:49 10/31/23 09:49 Labs: Lab Results 10/31/23 Range/Units 09:49 WBC 8.4 (4.8-10.8) X10*3/uL RBC 3.85 L (4.60-5.80) X10*6/uL Hgb 13.1 L (14.0-18.0) g/dl Hct 38.1 L (42.0-52.0) % MCV 99.0 H (80.0-98.0) fL MCH 34.0 H (27.0-33.0) pg MCHC 34.4 (31.0-36.0) g/dl RDW 13.0 (11.0-16.0) % Plt Count 170 (160-400) X10*3/uL MPV 11.4 (9.4-12.4) fL Immature Gran % (Auto) 0.5 H (0.0-0.4) % Neut % (Auto) 59.4 (45-73) % Lymph % (Auto) 23.9 (20-40) % [place] % (Auto) 7.4 (2-11) % Eos % (Auto) 8.6 H (0-4) % Baso % (Auto) 0.2 (0-2) % Lymph # (Auto) 2.0 (1.2-4.9) X10*3/uL [place] # (Auto) 0.6 (0.1-1.2) X10*3/uL Eos # (Auto) 0.7 H (0.0-0.4) X10*3/uL Baso # (Auto) 0.0 (0.0-0.2) X10*3/uL Abs Immat Gran (auto) 0.04 H (0.00-0.03) X10*3/uL Absolute Neuts (auto) 5.0 (2.0-8.3) x10*3/uL Absolute Nucleated RBC 0.000 (0.0-0.012) X10*3/uL Nucleated RBC % (auto) 0.0 (0.0-0.2) /100WBC Smear Tech's Comments VERIFIED PT 12.4 (11.1-13.3) SEC INR 1.0 (0.9-1.1) Sodium 139 (135-145) mmol/L Potassium 4.2 (3.3-5.1) mmol/L Chloride 101 (96-108) mmol/L Carbon Dioxide 26 (22-29) mmol/L Anion Gap 16 (12-20) BUN 10 (9-16) mg/dL Creatinine 0.80 (0.5-1.4) mg/dL Estim Creat Clear Calc 114.2 Estimated GFR > 60 Random Glucose 118 H (60-115) mg/dL Calcium 9.8 (8.4-10.2) mg/dL Magnesium 1.9 (1.6-2.6) mg/dL Total Bilirubin 0.9 (0.0-1.0) mg/dL AST 34 (5-37) U/L ALT 25 (0-40) U/L Alkaline Phosphatase 84 (39-117) U/L Troponin I High Sens 5.0 (<3.5-35.0) ng/L B-Natriuretic Peptide 35 (<100) pg/mL Total Protein 7.2 (6.5-8.0) g/dL Albumin 4.2 (3.5-5.0) g/dL Influenza Type A (PCR) NEGATIVE (Negative) Influenza Type B (PCR) NEGATIVE (Negative) RSV RNA Qual (PCR) NEGATIVE (Negative) SARS-CoV-2 RNA (RT-PCR) NEGATIVE (Negative) Independent Interpretation I performed an independent interpretation of an: Plain X-Ray Radiology Impression Discussion of test interpretation with radiology: I have reviewed the radiologist's reading. External Record Review External record reviewed: Inpatient record, Office record, Outpatient record, Prior outpatient labs, Prior outpatient radiology, Primary care record and Outside ED record Chronic Conditions Patient?s care impacted by: Other Asthma, COPD, restrictive lung disease, allergic rhinitis, reactive airway disease, HERBERTH, obesity Critical Care Time Critical Care Time Critical Care Time: Yes Total Critical Care Time: 35 Attestation: I attest to this time spent taking care of the patient, obtaining history, physical, reviewing labs, imaging, speaking to my attending, specialist or hospitalist. Discharge Plan Discharge Clinical Impression: Acute hypoxemic respiratory failure Prescriptions: No Action albuterol sulfate 90 mcg/actuation HFA aerosol inhaler 2 puff PO Q4-6H PRN (Reason: for wheezing) Qty: 1 2RF ipratropium-albuterol 0.5 mg-3 mg(2.5 mg base)/3 mL solution for nebulization 3 ml inhalation Q6H PRN (Reason: Shortness Of Breath Or Wheezing) sildenafil 25 mg tablet 25 mg PO DAILY PRN (Reason: Sexual Activity) pyridoxine (vitamin B6) 50 mg tablet 50 mg PO DAILY 90 Days Qty: 90 1RF Print Language: Swedish
[2023-10-31] MEDS: Albuterol Sulfate 7.5 MG, Albuterol/Iprat 2.5/0.5MG 3 ML 3 ML INHALE (09:09)
[2023-10-31] MEDS: Albuterol Sulfate 5 MG, Albuterol/Iprat 2.5/0.5MG 3 ML 3 ML INHALE (09:36)
[2023-10-31 09:56] LABS: Basophils Percent Auto 0.2 % (0-2); Eosinophils Absolute Auto 0.7 X10*3/uL (0.0-0.4); Eosinophils Percent Auto 8.6 % (0-4); Hematocrit 38.1 % (42.0-52.0); Hemoglobin 13.1 g/dl (14.0-18.0); Imm Gran Abs Auto 0.04 X10*3/uL (0.00-0.03); Imm Gran Pct Auto 0.5 % (0.0-0.4); Lymphocytes Percent Auto 23.9 % (20-40); MANUAL DIFF FLAG SCAN; Mean Corpuscular HGB Conc 34.4 g/dl (31.0-36.0); Mean Platelet Volume 11.4 fL (9.4-12.4); Monocytes Absolute Auto 0.6 X10*3/uL (0.1-1.2); Monocytes Percent Auto 7.4 % (2-11); Neutrophils Percent Auto 59.4 % (45-73); Platelet Count 170 X10*3/uL (160-400); Red Blood Count 3.85 X10*6/uL (4.60-5.80); SCAN SMEAR FLAG 1; White Blood Count 8.4 X10*3/uL (4.8-10.8)
[2023-10-31 10:11] LABS: Alanine Aminotransferase 25 U/L (0-40); Albumin Level 4.2 g/dL (3.5-5.0); Alkaline Phosphatase 84 U/L (39-117); Anion Gap 16 (12-20); Aspartate Amino Transferase 34 U/L (5-37); Bilirubin Total 0.9 mg/dL (0.0-1.0); Blood Urea Nitrogen 10 mg/dL (9-16); Calcium 9.8 mg/dL (8.4-10.2); Carbon Dioxide 26 mmol/L (22-29); Chloride 101 mmol/L (96-108); Creatinine Clr Calc Pharmacy 114.2; Estimated Glomerular Filt Rate > 60; Glucose Random 118 mg/dL (60-115); Magnesium 1.9 mg/dL (1.6-2.6); Potassium 4.2 mmol/L (3.3-5.1); Sodium 139 mmol/L (135-145); Total Protein 7.2 g/dL (6.5-8.0)
[2023-10-31 10:15] LABS: B Type Natriuretic Peptide 35 pg/mL (<100); SLIDE REVIEW VERIFIED
[2023-10-31 10:18] LABS: Prothrombin Time 12.4 SEC (11.1-13.3)
[2023-10-31 10:46] LABS: Influenza A PCR NEGATIVE (Negative); Influenza B PCR NEGATIVE (Negative); Resp Syncy Virus RNA Qual PCR NEGATIVE (Negative); SARS COV2 PCR INHOUSE NEGATIVE (Negative)
[2023-10-31] MEDS: levalbuterol HCL 3.75 MG, Ipratropium Bromide 0.5 MG INHALE (10:50)
[2023-10-31 11:14] LABS: ABG Base Excess -1.6 mmol/L; ABG HCO3 23 mmol/L (22-26); ABG pCO2 42 mmHg (32-45); ABG pH 7.35 (7.35-7.45); ABG pO2 86 mmHg (83-108)
[2023-10-31] MEDS: Benzonatate 100 MG CAPSULE 200 MG PO (11:30)
--- NOTE | 2023-10-31 12:23 | P.HPHOSP_ITS ---
History of Present Illness Date of Service: 10/31/23 Attending physician on admission: Jovany Sánchez Chief Complaint: SOB Pt is a 68-year-old male with a PMH significant for?restrictive ventilatory defect, reactive airway disease, asthma, HERBERTH, HTN, BPH, and gout who presents to the ED with?increasing SOB and difficulty breathing times 1 week. Patient was previously admitted to the hospital on 10/11-10/15 for similar symptoms where he was initially treated for COPD exacerbation with possible pneumonia, then diuresed for possible CHF. Patient was seen by pulmonology who stated there was no evidence of underlying COPD or community-acquired pneumonia. Empiric antibiotics were stopped. Echocardiogram was negative for CHF and found normal diastolic and systolic function. Patient reports he initially did well after discharge for approximately 10 days when he began developing increased wheezing, SOB, ALANIS, and constant cough occasionally productive of clear sputum. Continued use home nebulizers and inhalers to little effect. Presents today as SOB and ALANIS significantly worsened this morning. Complains of chest pain and tightness associated with cough. Denies fever, chills. No nausea, vomiting, diarrhea, abdominal pain. Patient denies history of cigarette smoking, though states previously what occasionally smoke a cigar. Drinks 2-3 beers daily. He has not home O2. In the ED pt was tachycardic up to 112, tachypneic up to 30, and hypoxic as low as 86% on RA. Labs were grossly unremarkable. No leukocytosis. Stable H&H. No significant electrolyte abnormalities. Renal function WNL. Hepatic function WNL. Tested negative for flu, COVID, RSV. CXR showed clear lungs. EKG demonstrated sinus tachycardia with PACs and aberrant conduction, no evidence of significant ST elevations or depressions. Pt was treated with DuoNebs, Xopenex, and benzonatate. Was given Mag sulfate and Solu-Medrol by EMS. Of note, was switched over in the ED from DuoNebs to Xopenex due to tachycardia and shakiness. Pt will be admitted to the hospital for treatment and further evaluation of acute hypoxic respiratory failure in the setting of asthma and reactive airway disease exacerbation. Review of Systems 2 Review of Systems: SOB, ALANIS Cough occasionally productive of clear sputum Chest pain and tightness associated with cough No fever, chills Denies nausea, vomiting, abdominal pain PMFSH Medical History Orthopnea Reactive airway disease Chronic lung disease Seasonal allergies Allergic rhinitis COPD (chronic obstructive pulmonary disease) Restrictive lung disease HERBERTH (obstructive sleep apnea) Shortness of breath on exertion Asthma Obesity (BMI 35.0-39.9 without comorbidity) Kidney calculi Social History Household Members: None Housing: House Do you presently have visiting nurse or other home services: No Alcohol intake: current Alcohol intake frequency: 0-2 drinks per day Alcohol type: beer Patient Tobacco Use Status: Former Tobacco user Tobacco use type: Cigar Advance Directives Date on File: 01/27/21 service: No Current occupational status: retired Meds Allergies Allergy/AdvReac Type Severity Reaction Status Date / Time Seasonal Allergies Allergy Runny Nose Verified 10/31/23 09:05 Home Medications ?Medication ?Instructions ?Recorded ?Confirmed ?Last Taken ?Type sildenafil 25 mg tablet 25 mg PO DAILY PRN Sexual Activity 04/03/21 10/31/23 Unknown History ipratropium 0.5 mg-albuterol 3 mg 3 ml inhalation Q6H PRN Shortness 10/13/23 10/31/23 Unknown History (2.5 mg base)/3 mL nebulization Of Breath Or Wheezing soln acetaminophen 325 mg tablet 650 mg PO BID PRN Pain 10/31/23 10/31/23 Unknown History Physical Exam 2 Vital Signs and Narrative: Vital Signs: Last Vital Signs Temp 98.8 F 10/31/23 11:50 Pulse 112 H 10/31/23 11:50 Resp 29 H 10/31/23 11:50 BP 142/81 H 10/31/23 11:50 Pulse Ox 94 10/31/23 11:50 O2 Del Method Nasal Cannula 10/31/23 11:50 O2 Flow Rate 5 10/31/23 11:50 BMI result Body Mass Index 39.9 Constitutional: Alert, in mild respiratory distress. Mental Status: Oriented to person, place and time. Eyes: Pupils are equal, round, and reactive to light. Ear, Nose, and Throat: Oropharynx clear, mucous membranes moist. Ears and nose without deformities. Trachea midline. Respiratory: Inspiratory rhonchi and expiratory wheezing noted upon auscultation. Increased work of breathing and having difficulty speaking in full sentences. Cardiovascular: S1, S2 regular rhythm, tachycardic. No murmurs, rubs, or gallops. Gastrointestinal: Abdomen soft, non-tender, non-distended. Normal bowel sounds. Neurologic: Cranial nerves II-XII are grossly intact bilaterally. No focal neurological deficits. Moves all extremities spontaneously. Skin: Warm, dry. Musculoskeletal: No cyanosis or clubbing. Extremities: 2+ bilateral pitting lower leg edema. Psychiatric: Normal mood and affect. Results Labs 10/31/23 09:49 10/31/23 09:49 Labs: Laboratory Results - last 24 hr 10/31/23 10/31/23 09:49 11:05 MCV 99.0 H MCH 34.0 H MCHC 34.4 RDW 13.0 Plt Count 170 MPV 11.4 Immature Gran % (Auto) 0.5 H Neut % (Auto) 59.4 Lymph % (Auto) 23.9 [place] % (Auto) 7.4 Eos % (Auto) 8.6 H Baso % (Auto) 0.2 Lymph # (Auto) 2.0 [place] # (Auto) 0.6 Eos # (Auto) 0.7 H Baso # (Auto) 0.0 Abs Immat Gran (auto) 0.04 H Absolute Neuts (auto) 5.0 Absolute Nucleated RBC 0.000 Nucleated RBC % (auto) 0.0 Smear Tech's Comments VERIFIED PT 12.4 INR 1.0 O2 Saturation 97.0 ABG pH at Pt Temp 7.35 ABG pCO2 at Pt Temp 42 ABG pO2 at Pt Temp 86 ABG HCO3 23 ABG Base Excess (Actual) -1.6 Anion Gap 16 Estim Creat Clear Calc 114.2 Estimated GFR > 60 Random Glucose 118 H Calcium 9.8 Magnesium 1.9 Total Bilirubin 0.9 AST 34 ALT 25 Alkaline Phosphatase 84 Troponin I High Sens 5.0 B-Natriuretic Peptide 35 Total Protein 7.2 Albumin 4.2 Influenza Type A (PCR) NEGATIVE Influenza Type B (PCR) NEGATIVE RSV RNA Qual (PCR) NEGATIVE SARS-CoV-2 RNA (RT-PCR) NEGATIVE Imaging Radiologist's Impressions: Impressions Chest X-Ray 10/31/23 09:00 IMPRESSION: Normal chest. Lungs clear. Assessment and Plan (1) Acute hypoxemic respiratory failure: Status: Acute Plan Pt is a 68-year-old male with a PMH significant for?restrictive ventilatory defect, reactive airway disease, asthma, HERBERTH, HTN, BPH, and gout who presents to the ED with?increasing SOB and difficulty breathing times 1 week. Pt will be admitted to the hospital for treatment and further evaluation of acute hypoxic respiratory failure in the setting of asthma and reactive airway disease exacerbation. Acute hypoxic respiratory failure in the setting of asthma exacerbation Pain desatting as low as 87% on RA, with SOB, ALANIS Diffuse inspiratory rhonchi and expiratory wheezing noted on auscultation despite multiple treatments in ED No indication of underlying pneumonia: Patient does not meet sepsis criteria; tachycardia secondary to albuterol; no fever, leukocytosis No indication for antibiotics at this time Will treat with Xopenex, Solu-Medrol, guaifenesin Titrate supplemental O2 >92, wean as tolerated Monitor respiratory status Hx of gout Continue allopurinol Obesity Class II Weight loss encouraged Full Code Attending:?Dr. Sánchez DVT Prophylaxis: Lovenox Pt will require a hospitalization of at least two nights for treatment of?acute hypoxic respiratory failure in the setting of asthma exacerbation. Patient will require treatment with IV steroids, breathing treatments, and supplemental oxygen, as well as close monitoring of respiratory status. Quality Stroke Does the patient have a stroke diagnosis?: No VTE Prior VTE?: No VTE Risk Level:: Medical - moderate - high VTE Device Contraindication: Treatment Not Indicated VTE Drug Contraindication: N/A - Med Ordered
--- NOTE | 2023-10-31 12:26 | PHA.MEDREC ---
Pharmacy Consult ? Medication Reconciliation Pharmacy has completed the medication reconciliation. Spoke with patient to confirm medications. He confirmed that he stopped taking the medications that were discontinued upon his recent discharge (lisinopril, ibuprofen, furosemide). He did not take any medications today.
[2023-10-31] MEDS: levalbuterol HCL 1.25 MG/3 ML VIAL.NEB 3.75 MG INHALE (13:12)
--- NOTE | 2023-10-31 13:22 | PC.NURSE ---
Assumed care of this patient at 1100, patient c/o increased SOB/WOB visibly dyspenic at EMS, after numerous resp treatments, patient now able to rest comfortably sitting on chair, to be admitted to hospital for resp failure/copd
[2023-10-31] MEDS: methylPREDNISolone Sod Succ 40 MG/ML VIAL IVPUSH (14:10)
[2023-10-31] MEDS: levalbuterol HCL 1.25 MG/3 ML VIAL.NEB INHALE ×3 (15:09→23:48)
[2023-10-31 15:53] LABS: Adenovirus PCR Not Detected (Not Detect.); Bordetella parapertussis PCR Not Detected (Not Detect.); Bordetella pertussis PCR Not Detected (Not Detect.); Chlamydia pneumoniae PCR Not Detected (Not Detect.); Coronavirus 229E PCR Not Detected (Not Detect.); Coronavirus HKU1 PCR Not Detected (Not Detect.); Coronavirus NL63 PCR Not Detected (Not Detect.); Coronavirus OC43 PCR Not Detected (Not Detect.); Human metapneumovirus PCR Not Detected (Not Detect.); Influenza A PCR Not Detected (Not Detect.); Influenza B PCR Not Detected (Not Detect.); Mycoplasma pneumoniae PCR Not Detected (Not Detect.); Parainfluenza 1 PCR Not Detected (Not Detect.); Parainfluenza 2 PCR Not Detected (Not Detect.); Parainfluenza 3 PCR Not Detected (Not Detect.); Parainfluenza 4 PCR Not Detected (Not Detect.); RSV PCR Not Detected (Not Detect.); Rhino/Enterovirus PCR Not Detected (Not Detect.); SARS-CoV-2 PCR Not Detected (Not Detect.)
[2023-10-31] MEDS: Acetaminophen 325 MG TABLET 650 MG PO (17:09)
[2023-10-31] MEDS: 0.9 % Sodium Chloride Flush 3 ML SYRINGE IVFLUSH (17:09)
[2023-10-31 19:15] LABS: Appearance Urine Clear; Color Urine Yellow; Glucose Urine UA Negative (Negative); Leukocyte Esterase Urine Negative (Negative); Nitrite Urine Negative (Negative); PH 5.5 (5.0-9.0); Specific Gravity - Urine 1.015 (1.005-1.025); Urine Blood Negative (Negative); Urine Ketones 15 mg/dL (Negative); Urine Protein Negative (Neg-Trace)
[2023-11-01] VITALS (12 sets, daily range): BP systolic 117–146; BP diastolic 57–82; PULSE 87–103; RESP 18–22; TEMP 35.8–36.6; O2SAT 88–98
[2023-11-01 00:12] LABS: ABG Refer to POC result
[2023-11-01] MEDS: guaiFENesin DM 200/20/10 ML 10 ML SYRUP PO (00:24)
[2023-11-01] MEDS: methylPREDNISolone Sod Succ 40 MG/ML VIAL IVPUSH ×2 (00:45→13:38)
[2023-11-01] MEDS: levalbuterol HCL 1.25 MG/3 ML VIAL.NEB INHALE ×6 (03:05→23:08)
[2023-11-01] MEDS: Pyridoxine HCl (Vitamin B6) 50 MG TABLET PO (09:36)
[2023-11-01] MEDS: 0.9 % Sodium Chloride Flush 3 ML SYRINGE IVFLUSH (09:36)
--- NOTE | 2023-11-01 10:46 | HO.PM.IMPN ---
Subjective Subjective Date of Service: 11/01/23 Interval History: still sob but better than yesterday Physical Exam Vital Signs: Vital Signs: Last Vital Signs Temp 97.8 F 11/01/23 08:00 Pulse 103 H 11/01/23 08:00 Resp 20 11/01/23 08:00 BP 140/68 H 11/01/23 08:00 Pulse Ox 88 L 11/01/23 08:00 O2 Del Method Nasal Cannula 11/01/23 08:00 O2 Flow Rate 2 11/01/23 08:00 BMI result Body Mass Index 39.9 General: AO X 3, no acute distress Resp: wheezing bilateral, mild accessory muscles used CVS: S1,S2,RRR GI: soft, non tender, non distended Neuro: motor grossly intact, alert Psych: appropriate affect, appropriate insight Objective Data Active Medications Acetaminophen (Acetaminophen 325 Mg Tablet) 650 mg PO Q6H PRN PRN Reason: Pain, Mild (Pain Scale 1-3) Last Admin: 10/31/23 17:09 Dose: 650 mg Documented By: RADHA Docusate Sodium (Docusate Sodium 100 Mg Capsule) 100 mg PO DAILY PRN PRN Reason: Constipation Guaifenesin/Dextromethorphan (Guaifenesin Dm 200/20/10 Ml 10 Ml Syrup) 10 ml PO Q4H PRN PRN Reason: Cough Last Admin: 11/01/23 00:24 Dose: 10 ml Documented By: AURA Levalbuterol HCl (Levalbuterol Hcl 1.25 Mg/3 Ml Vial.Neb) 1.25 mg INHALE Q4H [facility] Last Admin: 11/01/23 07:54 Dose: 1.25 mg Documented By: YANET Melatonin (Melatonin 3 Mg Tablet) 6 mg PO BEDTIME PRN PRN Reason: Insomnia Methylprednisolone Sodium Succinate (Methylprednisolone Sod Succ 40 Mg/Ml Vial) 40 mg IVPUSH Q12H [facility] Last Admin: 11/01/23 00:45 Dose: 40 mg Documented By: AURA Ondansetron HCl (Ondansetron Hcl 4 Mg/2 Ml Vial) 4 mg IVPUSH Q8H PRN PRN Reason: Nausea and Vomiting Pyridoxine HCl (Pyridoxine Hcl (Vitamin B6) 50 Mg Tablet) 50 mg PO DAILY [facility] Last Admin: 11/01/23 09:36 Dose: 50 mg Documented By: CAROL Sodium Chloride (0.9 % Sodium Chloride Flush 3 Ml Syringe) [facility] Last Admin: 11/01/23 09:36 Dose: 3 ml Documented By: CAROL Labs 10/31/23 09:49 10/31/23 09:49 Labs: Laboratory Results - last 24 hr 10/31/23 10/31/23 10/31/23 09:49 11:05 14:15 O2 Saturation 97.0 ABG pH at Pt Temp 7.35 ABG pCO2 at Pt Temp 42 ABG pO2 at Pt Temp 86 ABG HCO3 23 ABG Base Excess (Actual) -1.6 Urine Color Urine Appearance Urine pH Ur Specific [place] Urine Protein Urine Glucose (UA) Urine Ketones Urine Blood Urine Nitrite Ur Leukocyte Esterase Respiratory Panel [place] See Note Adenovirus (Rapid PCR) Not Detected B.pert (TEM-PCR) Not Detected B.parapertussis DNA PCR Not Detected C. pneumoniae DNA (PCR) Not Detected Coronavirus OC43 (PCR) Not Detected Coronavirus HKU1 (PCR) Not Detected Coronavirus 229E (PCR) Not Detected Coronavirus NL63 (PCR) Not Detected Human Metapneumovir PCR Not Detected Influenza A (RT-PCR) Not Detected Influenza Type A (PCR) NEGATIVE Influenza B (RT-PCR) Not Detected Influenza Type B (PCR) NEGATIVE M. pneumoniae (PCR) Not Detected Parainfluenza 1 (PCR) Not Detected Parainfluenza 2 (PCR) Not Detected Parainfluenza 3 (PCR) Not Detected Parainfluenza 4 (PCR) Not Detected RSV (PCR) Not Detected RSV RNA Qual (PCR) NEGATIVE Entero/Rhino (PCR) Not Detected SARS-CoV-2 RNA (RT-PCR) NEGATIVE Not Detected 10/31/23 19:07 O2 Saturation ABG pH at Pt Temp ABG pCO2 at Pt Temp ABG pO2 at Pt Temp ABG HCO3 ABG Base Excess (Actual) Urine Color Yellow Urine Appearance Clear Urine pH 5.5 Ur Specific [place] 1.015 Urine Protein Negative Urine Glucose (UA) Negative Urine Ketones 15 Urine Blood Negative Urine Nitrite Negative Ur Leukocyte Esterase Negative Respiratory Panel [place] Adenovirus (Rapid PCR) B.pert (TEM-PCR) B.parapertussis DNA PCR C. pneumoniae DNA (PCR) Coronavirus OC43 (PCR) Coronavirus HKU1 (PCR) Coronavirus 229E (PCR) Coronavirus NL63 (PCR) Human Metapneumovir PCR Influenza A (RT-PCR) Influenza Type A (PCR) Influenza B (RT-PCR) Influenza Type B (PCR) M. pneumoniae (PCR) Parainfluenza 1 (PCR) Parainfluenza 2 (PCR) Parainfluenza 3 (PCR) Parainfluenza 4 (PCR) RSV (PCR) RSV RNA Qual (PCR) Entero/Rhino (PCR) SARS-CoV-2 RNA (RT-PCR) Assessment and Plan (1) Acute hypoxemic respiratory failure: Status: Acute Plan 68M PMH moderate persistent asthma, restrictive lung disease, HERBERTH, htn, bph, gout, presented with sob Acute hypoxic respiratory failure secondary to moderate persistent asthma with acute decompensation IV steroids, bronchodilators, wean O2 as tolerated, still 88% on room air, evaluate home for allergens Gout Allopurinol Morbid obesity Weight loss recommended DVT prophylaxis with Lovenox Full Code reason for continued hospitalization: Still hypoxic and very wheezy Quality Stroke Does the patient have a stroke diagnosis?: No VTE Prior VTE?: No VTE Risk Level:: Medical - moderate - high VTE Device Contraindication: Treatment Not Indicated VTE Drug Contraindication: N/A - Med Ordered
[2023-11-02 03:05] VITALS: BP 129/65; PULSE 87; RESP 16; TEMP 36.1; O2SAT 93
[2023-11-02] MEDS: levalbuterol HCL 1.25 MG/3 ML VIAL.NEB INHALE ×2 (03:07→08:42)
[2023-11-02] MEDS: methylPREDNISolone Sod Succ 40 MG/ML VIAL IVPUSH (03:07)
[2023-11-02 07:37] LABS: Hemoglobin 13.4 g/dl (14.0-18.0); Mean Corpuscular HGB Conc 33.5 g/dl (31.0-36.0); Mean Corpuscular Hemoglobin 33.3 pg (27.0-33.0); Mean Corpuscular Volume 99.3 fL (80.0-98.0); Mean Platelet Volume 12.5 fL (9.4-12.4); Platelet Count 188 X10*3/uL (160-400); Red Blood Count 4.03 X10*6/uL (4.60-5.80); Red Cell Distribution Width 13.2 % (11.0-16.0); White Blood Count 11.5 X10*3/uL (4.8-10.8)
[2023-11-02 07:54] VITALS: BP 129/65; PULSE 79; RESP 20; TEMP 36.2; O2SAT 93
[2023-11-02 08:00] LABS: Anion Gap 13 (12-20); Blood Urea Nitrogen 21 mg/dL (9-16); Calcium 10.1 mg/dL (8.4-10.2); Carbon Dioxide 25 mmol/L (22-29); Chloride 104 mmol/L (96-108); Creatinine Clr Calc Pharmacy 108.8; Estimated Glomerular Filt Rate > 60; Glucose Fasting 119 mg/dL (60-99); Sodium 138 mmol/L (135-145)
[2023-11-02] MEDS: Pyridoxine HCl (Vitamin B6) 50 MG TABLET PO (08:07)
[2023-11-02] MEDS: 0.9 % Sodium Chloride Flush 3 ML SYRINGE IVFLUSH (08:09)
[2023-11-02 08:46] VITALS: PULSE 88; RESP 18; O2SAT 97
--- NOTE | 2023-11-02 09:31 | P.DS_ITS ---
DS: Providers Provider Date of Service: 11/02/23 Date of admission: 10/31/23 13:32 Primary care physician: Ptao Hampton MD DS: Diagnosis Discharge Diagnosis (1) Acute hypoxemic respiratory failure: Status: Acute DS: Summary Hospital Course Hospital Course: from initial hpi: 68-year-old male with a PMH significant for?restrictive ventilatory defect, reactive airway disease, asthma, HERBERTH, HTN, BPH, and gout who presents to the ED with?increasing SOB and difficulty breathing times 1 week. Patient was previously admitted to the hospital on 10/11-10/15 for similar symptoms where he was initially treated for COPD exacerbation with possible pneumonia[facility]. Patient was seen by pulmonology who stated there was no evidence of underlying COPD or community-acquired pneumonia. Empiric antibiotics were stopped. Echocardiogram was negative for CHF and found normal diastolic and systolic function. Patient reports he initially did well after discharge for approximately 10 days when he began developing increased wheezing, SOB, ALANIS, and constant cough occasionally productive of clear sputum. Continued use home nebulizers and inhalers to little effect. Presents today as SOB and ALANIS significantly worsened this morning. Complains of chest pain and tightness associated with cough. Denies fever, chills. No nausea, vomiting, diarrhea, abdominal pain. Patient denies history of cigarette smoking, though states previously what occasionally smoke a cigar. Drinks 2-3 beers daily. He has not home O2. In the ED pt was tachycardic up to 112, tachypneic up to 30, and hypoxic as low as 86% on RA. Labs were grossly unremarkable. No leukocytosis. Stable H&H. No significant electrolyte abnormalities. Renal function WNL. Hepatic function WNL. Tested negative for flu, COVID, RSV. CXR showed clear lungs. EKG demonstrated sinus tachycardia with PACs and aberrant conduction, no evidence of significant ST elevations or depressions. Pt was treated with DuoNebs, Xopenex, and benzonatate. Was given Mag sulfate and Solu-Medrol by EMS. Of note, was switched over in the ED from DuoNebs to Xopenex due to tachycardia and shakiness. Pt will be admitted to the hospital for treatment and further evaluation of acute hypoxic respiratory failure in the setting of asthma and reactive airway disease exacerbation. hospital course: Patient was admitted for acute hypoxic respiratory failure secondary to moderate persistent asthma with acute decompensation and restrictive lung disease due to morbid obesity. Status most likely treated by has allergens, possibly patient's Cat, he was treated with IV steroids, bronchodilators and weaned off oxygen and shortness of breath significantly improved. He will be discharged home on 5 more days of prednisone and how should be evaluated for allergens. He will follow up with pulmonology as outpatient. Was also started on inhaled Advair. For gout was continued on allopurinol. For morbid obesity weight loss recommended. Time Attestation Discharge Coordination Time (in mins): 37 Quality: Safe Use of Opioids Does Pt have an Active Cancer Diagnosis on the Problem List?: No Quality: Stroke Does the patient have a stroke diagnosis?: No Physical Exam Vital Signs: Vital Signs: Last Vital Signs Temp 97.2 F 11/02/23 07:54 Pulse 88 11/02/23 08:46 Resp 18 11/02/23 08:46 BP 129/65 11/02/23 07:54 Pulse Ox 93 11/02/23 07:54 O2 Del Method Room Air 11/02/23 07:54 O2 Flow Rate 2 11/02/23 07:54 BMI result Body Mass Index 39.9 General: AO X 3, no acute distress Resp: very mild wheezing bilateral, no accessory muscles used CVS: S1,S2,RRR GI: soft, non tender, non distended Neuro: motor grossly intact, alert Psych: appropriate affect, appropriate insight DS: Data Data Completed and Pending Completed studies during hospitalization [Text1]: Procedures [facility] (01/27/21) Labs on day of discharge: Laboratory Results - last 24 hr 11/02/23 06:52 WBC 11.5 H RBC 4.03 L Hgb 13.4 L Hct 40.0 L MCV 99.3 H MCH 33.3 H MCHC 33.5 RDW 13.2 Plt Count 188 MPV 12.5 H Absolute Nucleated RBC 0.000 Nucleated RBC % (auto) 0.0 Sodium 138 Potassium 4.0 Chloride 104 Carbon Dioxide 25 Anion Gap 13 BUN 21 H Creatinine 0.84 Estim Creat Clear Calc 108.8 Estimated GFR > 60 Fasting Glucose 119 H Calcium 10.1 Discharge Plan Discharge Anticipated Discharge Date/Time: 11/02/23 09:29 Patient Disposition: Home, Self-Care Discharge Diagnosis: asthma Referrals: Pato Hampton MD [Primary Care Provider] - 1 Week Guille Das MD [Physician] - 1 Week Discharge Medications: New prednisone 20 mg tablet 40 mg PO DAILY Qty: 10 0RF fluticasone propion-salmeterol [Advair Diskus] 100-50 mcg/dose blister with device 1 inh inhalation Q12H Qty: 60 0RF Continued albuterol sulfate 90 mcg/actuation HFA aerosol inhaler 2 puff PO Q4-6H PRN (Reason: for wheezing) Qty: 1 2RF acetaminophen 325 mg Tablet 650 mg PO BID PRN (Reason: Pain) ipratropium-albuterol 0.5 mg-3 mg(2.5 mg base)/3 mL solution for nebulization 3 ml inhalation Q6H PRN (Reason: Shortness Of Breath Or Wheezing) Qty: 30 0RF sildenafil 25 mg tablet 25 mg PO DAILY PRN (Reason: Sexual Activity) pyridoxine (vitamin B6) 50 mg tablet 50 mg PO DAILY 90 Days Qty: 90 1RF Discharge Orders: Discharge Order (Routine); Ordered 11/02/23 Ordered By: Jovany Sánchez Diet: Advance to usual diet Activity on Discharge: avoid allergens Stand Alone Forms: Patient Portal Discharge page Print Language: [place] Care Plan Goals: avoid exacerbations Health Concerns: asthma Plan of Treatment: prednisone, inhalers, follow up pulmanary, avoid allergens Assessment: see above
[2023-11-02 09:33] VITALS: PULSE 111; PULSE 115; O2SAT 90; O2SAT 91
[2023-11-02 10:49] VITALS: BP 148/64; PULSE 103; RESP 19; TEMP 36.4; O2SAT 94
--- NOTE | 2023-11-02 11:00 | MHC.CM.PN ---
PT LIVES ALONE AND IS INDEPENDENT WITH CARE HE HAS A NEBULIZER FOR DME COPY OF HCP REQUESTED PCP: KALLI ARENAS IMM DELIVERED PT WILL DC HOME TODAY WITH NO SERVICES VIA PRIVATE TRANSPORT
== END 2023-11-02 11:32 | disposition home or self-care (01) | DRG 202 ==
LOC: HO.ED 09:23 → HO.EDOVER 13:45 → HO.IMC 21:31
PROVIDERS: Physician Assistant; Admitting Provider Student in an Organized Health Care Education/Training Program; Emergency Provider Emergency Medicine Emergency Medical Services; PCP Internal Medicine; Visit Provider Internal Medicine
DX: J45.41 Moderate persistent asthma with (acute) exacerbation (principal); J96.01 Acute respiratory failure with hypoxia; G47.33 Obstructive sleep apnea (adult) (pediatric); E66.01 Morbid (severe) obesity due to excess calories; N40.0 Benign prostatic hyperplasia without lower urinary tract symptoms; M10.9 Gout, unspecified; Z71.3 Dietary counseling and surveillance; Z68.39 Body mass index [BMI] 39.0-39.9, adult; Z79.51 Long term (current) use of inhaled steroids; Z79.899 Other long term (current) drug therapy
CPT/HCPCS: 0241U; 36415; 71045; 80048; 80053; 81003; 82803; 83735; 83880; 84484; 85025; 85027; 85610; 87633; 93005; 94640; 99285; J2919

== ENCOUNTER → 2023-10-31 08:56 | Outpatient (BNV) | payer MEDICARE, SELFPAY | PROVIDERS: Emergency Provider Emergency Medicine Emergency Medical Services; PCP Internal Medicine; Visit Provider Internal Medicine Cardiovascular Disease | DX: R00.0 Tachycardia, unspecified (principal); I49.1 Atrial premature depolarization | CPT/HCPCS: 93010 ==

== ENCOUNTER → 2023-10-31 13:32 | Outpatient (BNV) | payer MEDICARE, SELFPAY | PROVIDERS: Admitting Provider Student in an Organized Health Care Education/Training Program; Emergency Provider Emergency Medicine Emergency Medical Services; PCP Internal Medicine; Visit Provider Student in an Organized Health Care Education/Training Program | DX: J96.01 Acute respiratory failure with hypoxia (principal) | CPT/HCPCS: 99223; 99232; 99239 ==

== ENCOUNTER 2023-11-05 14:16 | Outpatient (AMB) | payer MEDICARE, SELFPAY ==
[2023-11-05 14:23] VITALS: BP 102/64; PULSE 99; O2SAT 96; BMI 39.2
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
[2023-11-05 15:09] VITALS: PULSE 92; O2SAT 95
== END 2023-11-05 15:21 | disposition home or self-care (01) ==
PROVIDERS: PCP Internal Medicine; Visit Provider Internal Medicine
DX: E66.9 Obesity, unspecified (principal); J44.89 Other specified chronic obstructive pulmonary disease; J30.9 Allergic rhinitis, unspecified; J98.4 Other disorders of lung; R06.02 Shortness of breath
CPT/HCPCS: 94618; 99214

== ENCOUNTER → 2023-11-05 14:16 | Outpatient (BNVA) | payer MEDICARE, SELFPAY | PROVIDERS: PCP Internal Medicine; Visit Provider Internal Medicine | DX: J44.89 Other specified chronic obstructive pulmonary disease (principal); J30.9 Allergic rhinitis, unspecified; J98.4 Other disorders of lung; R06.02 Shortness of breath; E66.9 Obesity, unspecified; Z68.39 Body mass index [BMI] 39.0-39.9, adult; Z79.52 Long term (current) use of systemic steroids | CPT/HCPCS: 94618; 99212 ==

== ENCOUNTER 2023-12-01 10:05 | Outpatient (AMB) | payer MEDICARE, SELFPAY ==
[2023-12-01 10:17] VITALS: BP 120/68; PULSE 91; O2SAT 97; BMI 39.4
--- NOTE | 2023-12-01 10:17 | A.OFFVIS_ITS ---
Vital Signs 12/01/23 10:17 Height 5 ft 10 in Weight 274 lb 7.608 oz BMI 39.4 BP 120/68 Blood Pressure Location Lt brachial Position Sitting Pulse 91 Pulse Source Pulse Oximeter Pulse Oximetry (%) 97 Oxygen Delivery Method Room Air Intake Visit Reasons: Acute exacerbation chronic obstructive airway Intake Note: pt is here for follow up and states he did not receive oxygen yet. 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 Allergies Seasonal Allergies Allergy (Verified 12/01/23 10:43) Runny Nose Medication List - Last Reconciled 12/01/23 by Km Elena MD acetaminophen 650 mg PO BID PRN albuterol sulfate 90 mcg/actuation 2 puffs PO Q4-6H PRN fluticasone propion-salmeterol 250-50 mcg/dose 1 inh inhalation BID 30 days ipratropium-albuterol 0.5 mg-3 mg(2.5 mg base)/3 mL 3 mL inhalation Q6H PRN pyridoxine (vitamin B6) 50 mg PO DAILY 90 days sildenafil 25 mg PO DAILY PRN Do you need a note to return to daycare/school/sports/work: No HPI HPI Acute exacerbation chronic obstructive airway: Details: 68 YEARS OLD GENTLEMAN MORBIDLY OBESE WITH CHRONIC OBSTRUCTIVE PULMONARY DISEASE, WHO WAS RECENTLY TREATED FOR AN ACUTE EXACERBATION, COMES FOR A SHORT TERM FOLLOW-UP. BREATHING STATUS HAS IMPROVED AND REMAINED STABLE. HE WAS ABLE TO COME OFF PREDNISONE COMPLETELY. HE USING ADVAIR 250-51 INHALATION B.I.D., AND DUONEB UPDRAFTS Q 6 HOURS NEEDED ( ABOUT TWICE A DAY) HIS 6 MINUTES WALK TEST WAS NEGATIVE FOR EXERCISE INDUCED HYPOXEMIA, HOWEVER HIS OVERNIGHT OXIMETRY RECORDING DID SHOW THAT HE HAD NOCTURNAL HYPOXEMIA FOR WHICH O2 CONCENTRATOR HAS BEEN ORDERED. HE IS SUPPOSED TO USE O2 2 L/MINUTE AT NIGHT, STILL WAITING FOR THE O2 CONCENTRATOR. HE CLAIMS THAT HE IS DOING BETTER, HIS MAIN ISSUE IS GETTING SHORT OF BREATH EASILY ON WALKING AROUND, ESPECIALLY IN HOT AND HUMID WEATHER. HIS SLEEP IS FRAGMENTED AND HE WAKES UP AFTER A FEW HOURS OF SLEEP, THEN HAS DIFFICULTY TO GO BACK TO SLEEP. [facility] Medical History HERBERTH (obstructive sleep apnea) Asthma with COPD (chronic obstructive pulmonary disease) Orthopnea Reactive airway disease Chronic lung disease Seasonal allergies Allergic rhinitis COPD (chronic obstructive pulmonary disease) Restrictive lung disease Shortness of breath on exertion Asthma Obesity (BMI 35.0-39.9 without comorbidity) Kidney calculi Social History Household Members: None Housing: House Do you presently have visiting nurse or other home services: No Alcohol intake: current Alcohol intake frequency: 0-2 drinks per day Alcohol type: beer Patient Tobacco Use Status: Former Tobacco user Tobacco use type: Cigar Advance Directives Date on File: 01/27/21 service: No Current occupational status: retired Review of Systems Const All systems reviewed & are unremarkable except as noted in HPI and below Eyes Reports no additional complaints ENT Reports nasal congestion (OFF AND ON ALMOST ON A DAILY BASIS) Card Denies irregular heart rhythm and Reports leg edema (OFF AND ON) Resp Reports as per HPI GI Reports no additional complaints Reports erectile dysfunction Musc Reports no additional complaints Skin/Breast Reports system reviewed and no additional complaints, except as documented Neuro Reports memory loss (IMMEDIATE MEMORY) Psych Reports no additional complaints and Reports memory loss (IMMEDIATE MEMORY) Endo Reports no additional complaints Physical Exam Vital Signs: Last Vital Signs Pulse 91 12/01/23 10:17 BP 120/68 12/01/23 10:17 Pulse Ox 97 12/01/23 10:17 Oxygen Delivery Method Room Air 12/01/23 10:17 BMI result Body Mass Index 39.4 Const General: healthy appearing (Except for being grossly overweight), comfortable, no acute distress, alert and awake Orientation/consciousness: patient oriented x3 HEENT Head: Yes normal to inspection General nose exam: No nasal polyps present, No nasal discharge present and Other nasal findings present (Mild nasal congestion) Face and sinus: Yes sinuses nontender Mouth: oropharynx abnormals (Oropharynx is narrow and crowded, Mallampati class 3) Throat: Yes posterior oropharynx normal Eyes General: appearance normal, both eyes and all related structures Neck Neck: Yes normal visual inspection, Yes no lymphadenopathy, Yes trachea midline, Yes no JVD and Yes other (Neck circumference 18-1/2 inch) Thyroid: Thyroid normal Chest Chest palpation & inspection: normal inspection of the chest, normal palpation of entire chest wall and no tenderness Resp Other: Percussion note is resonant, breath sounds are decreased over the basilar areas. No wheezes rhonchi or crepitations are heard. Cardio Palpation: normal PMI Rate: regular rate Rhythm: regular rhythm Heart sounds: no gallops and no murmurs Peripheral pulses: Peripheral pulses 2+ throughout GI Palpation (GI): Soft to palpation, nontender, No hepatosplenomegaly present, no masses and Other GI palpation findings present (Abdomen is obese and moderately protuberant) Auscultation: normal bowel sounds Back/Spine/Pelvis Thoracic/Lumbar Spine: thoracic and lumbar spine normal to inspection Skin General skin exam: no rashes or lesions noted Neuro General: patient oriented x3 and no focal motor deficits Cranial nerves: Yes CN's II-XII intact bilaterally Extrem General: Yes normal to inspection, Yes no clubbing, cyanosis or edema and Yes no calf tenderness Psych Appearance: grossly normal and well kempt Speech and movement: Normal speech and movement present Assessment & Plan Assessment & Plan (1) Asthma with COPD (chronic obstructive pulmonary disease): Comment: HE HAS CLINICAL FEATURES OF CHRONIC BRONCHIAL ASTHMA/COPD. HE HAS BEEN GETTING FREQUENT EXACERBATIONS AND TREATED WITH FREQUENT COURSES OF PREDNISONE. AT PRESENT HE HAS BEEN ABLE TO COME OFF PREDNISONE , AND HOLDING STABLE. Code(s): J44.89 - Other specified chronic obstructive pulmonary disease Category: Medical Plan: HAD A GOOD DISCUSSION WITH HIM AND DISCOURAGED HIM FROM TAKING PREDNISONE TOO FREQUENTLY. CONTINUE ADVAIR DISKUS 250-51 INHALATION B.I.D. IPRATROPIUM-ALBUTEROL SOLUTION IN THE NEBULIZER Q 6 HOURS P.R.N.. FOR OUTDOORS ALBUTEROL HFA Q 6 HOURS P.R.N. (2) Obesity (BMI 35.0-39.9 without comorbidity): Comment: I DISCUSSED WITH HIM THAT HE IS GROSSLY OVERWEIGHT, THIS CAN ADD TO HIS DYSPNEA ON EXERTION. THIS CAN ALSO BE A RISK FACTOR FOR OBSTRUCTIVE SLEEP APNEA. *OBSTRUCTIVE SLEEP APNEA IS STRONGLY SUSPECTED. BUT HE WOULD NOT AGREE TO HAVE SLEEP STUDY EVEN AT HOME. Code(s): E66.9 - Obesity, unspecified Category: Medical Plan: TALKED TO HIM GENTLY ABOUT LOSING WEIGHT, . MUCH HE CAN HE IS NOT IN A MOOD TO JOIN WEIGHT MANAGEMENT PROGRAM. PHYSICALLY HE HAS NOT VERY ACTIVE. TALKED ABOUT ANTI OBESITY AGENTS AND I ADVISED HIM TO DISCUSS WITH PRIMARY CARE PHYSICIAN . (3) Shortness of breath on exertion: Comment: DYSPNEA ON EXERTION, ESPECIALLY ON BENDING DOWN, SEEMS TO BE RELATED TO HIS OBESITY AND SOME RESTRICTIVE DISORDER OF THE LUNGS. Code(s): R06.02 - Shortness of breath Category: Medical Plan: AGAIN DISCUSSED WITH HIM, THE FACTORS INVOLVED IN SHORTNESS OF BREATH ON EXERTION AND ALSO , ON BENDING DOWN. HE NEEDS TO LOSE WEIGHT HE NEEDS TO DO DEEP BREATHING EXERCISES 2 TO 3 TIMES A DAY. (4) HERBERTH (obstructive sleep apnea): Comment: BECAUSE OF HIS GROSS OBESITY OBSTRUCTIVE SLEEP APNEA IS VERY MUCH SUSPECTED, HOWEVER HE DECLINES TO UNDERGO ANY SLEEP STUDY BECAUSE HE WOULD NOT USE THE CPAP. OVERNIGHT OXIMETRY RECORDING WAS PERFORMED AND HE DOES HAVE NOCTURNAL HYPOXEMIA. Code(s): G47.33 - Obstructive sleep apnea (adult) (pediatric) Category: Medical Plan: OXYGEN THERAPY 2 L/MINUTE AT NIGHT HAS BEEN PRESCRIBED. Coding Level of Care Code Est Pt Level 3 (96875) Diagnoses Asthma with COPD (chronic obstructive pulmonary disease) J44.89 Obesity (BMI 35.0-39.9 without comorbidity) E66.9 Shortness of breath on exertion R06.02 HERBERTH (obstructive sleep apnea) G47.33
== END 2023-12-01 11:01 | disposition home or self-care (01) ==
PROVIDERS: PCP Internal Medicine; Visit Provider Internal Medicine
DX: J44.89 Other specified chronic obstructive pulmonary disease (principal); E66.9 Obesity, unspecified; R06.02 Shortness of breath; G47.33 Obstructive sleep apnea (adult) (pediatric)
CPT/HCPCS: 99213

== ENCOUNTER → 2023-12-01 10:05 | Outpatient (BNVA) | payer MEDICARE, SELFPAY | PROVIDERS: PCP Internal Medicine; Visit Provider Internal Medicine | DX: J44.89 Other specified chronic obstructive pulmonary disease (principal); R06.02 Shortness of breath; G47.33 Obstructive sleep apnea (adult) (pediatric); E66.9 Obesity, unspecified; Z68.39 Body mass index [BMI] 39.0-39.9, adult | CPT/HCPCS: 99212 ==

== ENCOUNTER 2024-01-16 09:23 | Outpatient (AMB) | payer MEDICARE, SELFPAY ==
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
== END 2024-01-16 10:18 | disposition home or self-care (01) ==
LOC: HO.HUSH 09:23
PROVIDERS: PCP Internal Medicine; Visit Provider Urology
DX: N35.919 Unspecified urethral stricture, male, unspecified site (principal); N20.0 Calculus of kidney
CPT/HCPCS: 99213

== ENCOUNTER → 2024-01-16 09:23 | Outpatient (BNVA) | payer MEDICARE, SELFPAY | PROVIDERS: PCP Internal Medicine; Visit Provider Urology ==

== ENCOUNTER 2024-02-09 10:25 | Outpatient (AMB) | payer MEDICARE, SELFPAY ==
--- NOTE | 2024-02-09 10:26 | MHC.OFFVIS ---
Vital Signs 02/09/24 10:27 Height 5 ft 10 in Weight 286 lb BMI 41.0 BP 134/72 Blood Pressure Location Lt brachial Position Sitting Pulse 77 Pulse Source Doppler Pulse Oximetry (%) 96 Oxygen Delivery Method Room Air Intake Visit Reasons: Hypoxemia Intake Note: Patient is here for a follow up on Hypoxemia, patient stated he's been on nocturnal o2, reports no new symptoms. Allergies Seasonal Allergies Allergy (Verified 02/09/24 10:46) Runny Nose Medication List - Last Reconciled 02/09/24 by Km Elena MD acetaminophen 650 mg PO BID PRN albuterol sulfate 90 mcg/actuation 2 puffs PO Q4-6H PRN fluticasone propion-salmeterol 250-50 mcg/dose 1 inh inhalation BID 30 days ipratropium-albuterol 0.5 mg-3 mg(2.5 mg base)/3 mL 3 mL inhalation Q6H PRN pyridoxine (vitamin B6) 50 mg PO DAILY 90 days sildenafil 25 mg PO DAILY PRN Do you need a note to return to daycare/school/sports/work: No HPI HPI Hypoxemia: Details: THIS 68 YEARS OLD GENTLEMAN COMES FOR HIS ROUTINE FOLLOW-UP AFTER 6 MONTHS. HE IS A CASE OF MORBID OBESITY , DENIES SYMPTOMS OF SLEEP APNEA AND HAS DECLINED TO UNDERGO SLEEP STUDY. HE CLAIMS THAT HE SLEEPS VERY WELL ALMOST 8-9 HOURS EVERY NIGHT., THIS HAS DEFINITELY IMPROVED SINCE HE STARTED USING O2 AT NIGHT. HE HAS THE SOME OBSTRUCTIVE COMPONENT AND DEFINITE RESTRICTIVE COMPONENT, WITH CLINICAL DIAGNOSIS OF NOCTURNAL HYPOVENTILATION. SINCE USING OXYGEN HE IS DEFINITELY FEELING BETTER AND SLEEP QUALITY AND DURATION HAS IMPROVED. HE CONTINUES TO USE FLUTICASONE-SALMETEROL 250-50 B.I.D. IPRATROPIUM-ALBUTEROL UPDRAFT Q 4-6 HOURS P.R.N. AND ALBUTEROL P.R.N. WHEN HE GOES OUTDOORS. HIS P.R.N. USAGE HAS BEEN VERY LITTLE. MOST OF THE COMPLAINTS OF PERTAINING TO MINOR ACHES AND PAINS IN HIS BODY, HE DENIES ANY SIGNIFICANT AMOUNT OF COUGH OR WHEEZING DURING THE DAYTIME. [facility] Medical History (Updated 02/09/24 @ 10:56 by Km Elena MD) Nocturnal hypoxemia HERBERTH (obstructive sleep apnea) Asthma with COPD (chronic obstructive pulmonary disease) Orthopnea Reactive airway disease Chronic lung disease Seasonal allergies Allergic rhinitis COPD (chronic obstructive pulmonary disease) Restrictive lung disease Shortness of breath on exertion Asthma Obesity (BMI 35.0-39.9 without comorbidity) Kidney calculi Social History Household Members: None Housing: House Do you presently have visiting nurse or other home services: No Alcohol intake: current Alcohol intake frequency: 0-2 drinks per day Alcohol type: beer Patient Tobacco Use Status: Former Tobacco user Tobacco use type: Cigar Advance Directives Date on File: 01/27/21 service: No Current occupational status: retired Review of Systems Const All systems reviewed & are unremarkable except as noted in HPI and below Eyes Reports no additional complaints ENT Reports nasal congestion (OFF AND ON ALMOST ON A DAILY BASIS) Card Denies irregular heart rhythm and Reports leg edema (OFF AND ON) Resp Reports as per HPI GI Reports no additional complaints Reports erectile dysfunction Musc Reports no additional complaints Skin/Breast Reports system reviewed and no additional complaints, except as documented Neuro Reports memory loss (IMMEDIATE MEMORY) Psych Reports no additional complaints and Reports memory loss (IMMEDIATE MEMORY) Endo Reports no additional complaints Physical Exam Vital Signs: Last Vital Signs Pulse 77 02/09/24 10:27 BP 134/72 02/09/24 10:27 Pulse Ox 96 02/09/24 10:27 Oxygen Delivery Method Room Air 02/09/24 10:27 BMI result Body Mass Index 41.0 Const General: healthy appearing (Except for being grossly overweight), comfortable, no acute distress, alert and awake Orientation/consciousness: patient oriented x3 HEENT Head: Yes normal to inspection General nose exam: No nasal polyps present, No nasal discharge present and Other nasal findings present (Mild nasal congestion) Face and sinus: Yes sinuses nontender Mouth: oropharynx abnormals (Oropharynx is narrow and crowded, Mallampati class 3) Throat: Yes posterior oropharynx normal Eyes General: appearance normal, both eyes and all related structures Neck Neck: Yes normal visual inspection, Yes no lymphadenopathy, Yes trachea midline, Yes no JVD and Yes other (Neck circumference 18-1/2 inch) Thyroid: Thyroid normal Chest Chest palpation & inspection: normal inspection of the chest, normal palpation of entire chest wall and no tenderness Resp Other: Percussion note is resonant, breath sounds are decreased over the basilar areas. No wheezes rhonchi or crepitations are heard. Cardio Palpation: normal PMI Rate: regular rate Rhythm: regular rhythm Heart sounds: no gallops and no murmurs Peripheral pulses: Peripheral pulses 2+ throughout GI Palpation (GI): Soft to palpation, nontender, No hepatosplenomegaly present, no masses and Other GI palpation findings present (Abdomen is obese and moderately protuberant) Auscultation: normal bowel sounds Back/Spine/Pelvis Thoracic/Lumbar Spine: thoracic and lumbar spine normal to inspection Skin General skin exam: no rashes or lesions noted Neuro General: patient oriented x3 and no focal motor deficits Cranial nerves: Yes CN's II-XII intact bilaterally Extrem General: Yes normal to inspection, Yes no clubbing, cyanosis or edema and Yes no calf tenderness Psych Appearance: grossly normal and well kempt Speech and movement: Normal speech and movement present Assessment & Plan Assessment & Plan (1) Obesity (BMI 35.0-39.9 without comorbidity): Comment: HE REMAINS GROSSLY OBESE, CURRENT BMI 41.0 INSTEAD OF LOSING HE HAS GAINED FEW LB DURING THE LAST 6 MONTHS. Code(s): E66.9 - Obesity, unspecified Category: Medical Plan: HAD A GOOD DISCUSSION AND HE HAS LOT OF EXCUSES FOR NOT BEING ABLE TO LOSE WEIGHT. SUCH ACHES AND PAINS IN THE BODY IF HE DOES ANY EXERCISE, HE DOES NOT WANT TO JOIN A WEIGHT MANAGEMENT PROGRAM. (2) Allergic rhinitis: Comment: HE HAS CHRONIC UPPER AIRWAY ALLERGIES, FLARED DURING LATER PART OF SUMMER AND IN FALL. AT PRESENT RELATIVELY UNDER CONTROL. Code(s): J30.9 - Allergic rhinitis, unspecified Category: Medical Plan: MAY USE OTC ANTIHISTAMINIC AGENT SUCH CLARITIN ON CETIRIZINE P.R.N. 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 HE HAS BEEN GETTING FREQUENT EXACERBATIONS AND TREATED WITH FREQUENT COURSES OF PREDNISONE. AT PRESENT HE HAS BEEN ABLE REMAIN OFF THE PREDNISONE . AND IS RELATIVELY STABLE Code(s): J44.89 - Other specified chronic obstructive pulmonary disease Category: Medical Plan: CONTINUE FLUTICASONE-SALMETEROL 250-51 INHALATION B.I.D. USE IPRATROPIUM-ALBUTEROL SOLUTION IN THE NEBULIZER Q 4-6 HOURS P.R.N. WHEN AT HOME. USE ALBUTEROL HFA 2 PUFFS Q 6 HOURS P.R.N. WHEN OUTDOORS. (4) Restrictive lung disease: Comment: HE HAS MODERATELY SEVERE RESTRICTIVE PULMONARY DISORDER, MOST LIKELY DUE TO OBESITY. Code(s): J98.4 - Other disorders of lung Category: Medical Plan: EXPLAINED ABOUT THIS PROBLEM AND THE TREATMENT CONSISTS OF LOSING WEIGHT. ALSO INSTRUCTED TO DO DEEP BREATHING EXERCISES AT LEAST 3 TIMES A DAY. (5) Nocturnal hypoxemia: Comment: OVERNIGHT OXIMETRY RECORDING HAD SHOWN THAT HE DOES LOW O2 SATS AT NIGHT. HAS BEEN STARTED ON O2 SUPPLEMENTATION AT NIGHT 2 L/MINUTE AND WITH THAT HE CLAIMS THAT HIS SLEEP IS MUCH BETTER. HE WAKES UP MORE REFRESHED IN THE MORNING. Code(s): G47.34 - Idiopathic sleep related nonobstructive alveolar hypoventilation Category: Medical Plan: ADVISED TO CONTINUE USING O2 2 L/MINUTE AT NIGHT Coding Level of Care Code Est Pt Level 3 (07643) Diagnoses Obesity (BMI 35.0-39.9 without comorbidity) E66.9 Allergic rhinitis J30.9 Asthma with COPD (chronic obstructive pulmonary disease) J44.89 Restrictive lung disease J98.4 Nocturnal hypoxemia G47.34
[2024-02-09 10:27] VITALS: BP 134/72; PULSE 77; O2SAT 96; BMI 41.0
== END 2024-02-09 10:46 | disposition home or self-care (01) ==
PROVIDERS: PCP Internal Medicine; Visit Provider Internal Medicine
DX: E66.9 Obesity, unspecified (principal); J30.9 Allergic rhinitis, unspecified; J44.89 Other specified chronic obstructive pulmonary disease; J98.4 Other disorders of lung; G47.34 Idiopathic sleep related nonobstructive alveolar hypoventilation
CPT/HCPCS: 99213

== ENCOUNTER → 2024-02-09 10:25 | Outpatient (BNVA) | payer MEDICARE, SELFPAY | PROVIDERS: PCP Internal Medicine; Visit Provider Internal Medicine | DX: J98.4 Other disorders of lung (principal); J44.89 Other specified chronic obstructive pulmonary disease; J30.9 Allergic rhinitis, unspecified; G47.34 Idiopathic sleep related nonobstructive alveolar hypoventilation; E66.9 Obesity, unspecified; Z68.41 Body mass index [BMI] 40.0-44.9, adult; Z99.81 Dependence on supplemental oxygen | CPT/HCPCS: 99212 ==

== ENCOUNTER 2024-04-28 09:43 | Outpatient (AMB) | payer MEDICARE, SELFPAY ==
[2024-04-28 09:53] VITALS: BP 140/82; PULSE 70; O2SAT 97; BMI 41.1
--- NOTE | 2024-04-28 09:53 | MHC.OFFVIS ---
Vital Signs 04/28/24 09:53 Height 5 ft 10 in Weight 286 lb 9.615 oz BMI 41.1 BP 140/82 H Blood Pressure Location Lt brachial Position Sitting Pulse 70 Pulse Source Pulse Oximeter Pulse Oximetry (%) 97 Oxygen Delivery Method Room Air Intake Visit Reasons: Hypoxemia Intake Note: pt is here for follow up and states he is short of breath at times, some congestion. had 3 hospital stays this year. Strategic Accounts Manager Required: No Allergies Seasonal Allergies Allergy (Verified 04/28/24 10:15) Runny Nose Medication List - Last Reconciled 04/28/24 by Km Elena MD acetaminophen 650 mg PO BID PRN albuterol sulfate 90 mcg/actuation 2 puffs PO Q4-6H PRN fluticasone propion-salmeterol 250-50 mcg/dose 1 inh inhalation BID 30 days ipratropium-albuterol 0.5 mg-3 mg(2.5 mg base)/3 mL 3 mL inhalation Q6H PRN lisinopril 10 mg PO DAILY pyridoxine (vitamin B6) 50 mg PO DAILY 90 days sildenafil 25 mg PO DAILY PRN Do you need a note to return to daycare/school/sports/work: No HPI HPI Hypoxemia: Details: 69 years old gentleman with morbid obesity, nocturnal hypoxemia, most likely secondary to obesity related hypoventilation. He has declined to undergo sleep study, , overnight oximetry showed nocturnal hypoxemia. He has some degree of obstructive airway disorder, has frequent bouts of throat congestion, probably due to compromised upper airways. He does use Advair 250-51 inhalation only once a day. And uses the DuoNeb updraft only once a day his mostly at night. In the past 1 week he feels little bit more congested and this is related to change in the weather. He has no fever or chills and no mucopurulent expectoration. [facility] Medical History Nocturnal hypoxemia HERBERTH (obstructive sleep apnea) Asthma with COPD (chronic obstructive pulmonary disease) Orthopnea Reactive airway disease Chronic lung disease Seasonal allergies Allergic rhinitis COPD (chronic obstructive pulmonary disease) Restrictive lung disease Shortness of breath on exertion Asthma Obesity (BMI 35.0-39.9 without comorbidity) Kidney calculi Social History Household Members: None Housing: House Do you presently have visiting nurse or other home services: No Alcohol intake: current Alcohol intake frequency: 0-2 drinks per day Alcohol type: beer Patient Tobacco Use Status: Former Tobacco user Tobacco use type: Cigar Advance Directives Date on File: 01/27/21 service: No Current occupational status: retired Review of Systems Const All systems reviewed & are unremarkable except as noted in HPI and below Eyes Reports no additional complaints ENT Reports nasal congestion (OFF AND ON ALMOST ON A DAILY BASIS) Card Denies irregular heart rhythm and Reports leg edema (OFF AND ON) Resp Reports as per HPI GI Reports no additional complaints Reports erectile dysfunction Musc Reports no additional complaints Skin/Breast Reports system reviewed and no additional complaints, except as documented Neuro Reports memory loss (IMMEDIATE MEMORY) Psych Reports no additional complaints and Reports memory loss (IMMEDIATE MEMORY) Endo Reports no additional complaints Physical Exam Vital Signs: Last Vital Signs Pulse 70 04/28/24 09:53 BP 140/82 H 04/28/24 09:53 Pulse Ox 97 04/28/24 09:53 Oxygen Delivery Method Room Air 04/28/24 09:53 BMI result Body Mass Index 41.1 Const General: healthy appearing (Except for being grossly overweight), comfortable, no acute distress, alert and awake Orientation/consciousness: patient oriented x3 HEENT Head: Yes normal to inspection General nose exam: No nasal polyps present and No nasal discharge present Face and sinus: Yes sinuses nontender Mouth: oropharynx abnormals (Oropharynx is narrow and crowded, Mallampati class 3) Throat: Yes posterior oropharynx normal Eyes General: appearance normal, both eyes and all related structures Neck Neck: Yes normal visual inspection, Yes no lymphadenopathy, Yes trachea midline, Yes no JVD and Yes other (Neck circumference 18-1/2 inch) Thyroid: Thyroid normal Chest Chest palpation & inspection: normal inspection of the chest, normal palpation of entire chest wall and no tenderness Resp Other: Percussion note is resonant, breath sounds are decreased over the basilar areas. No wheezes rhonchi or crepitations are heard. Cardio Palpation: normal PMI Rate: regular rate Rhythm: regular rhythm Heart sounds: no gallops and no murmurs Peripheral pulses: Peripheral pulses 2+ throughout GI Palpation (GI): Soft to palpation, nontender, No hepatosplenomegaly present, no masses and Other GI palpation findings present (Abdomen is obese and moderately protuberant) Auscultation: normal bowel sounds Back/Spine/Pelvis Thoracic/Lumbar Spine: thoracic and lumbar spine normal to inspection Skin General skin exam: no rashes or lesions noted Neuro General: patient oriented x3 and no focal motor deficits Cranial nerves: Yes CN's II-XII intact bilaterally Extrem General: Yes normal to inspection, Yes no clubbing, cyanosis or edema and Yes no calf tenderness Psych Appearance: grossly normal and well kempt Speech and movement: Normal speech and movement present Assessment & Plan Assessment & Plan (1) Obesity (BMI 35.0-39.9 without comorbidity): Comment: HE REMAINS GROSSLY OBESE, CURRENT BMI 41.1 HE HAS NOT BEEN ABLE TO LOSE ANY WEIGHT. Code(s): E66.9 - Obesity, unspecified Category: Medical Plan: AGAIN TALKED TO HIM ABOUT THE WEIGHT. DISCUSSED ABOUT THE DIET AND NEED TO DO SOME PHYSICAL EXERCISE. HE DOES NOT SEEM TO BE MOTIVATED TO TAKE ANY ACTION. (2) Restrictive lung disease: Comment: HE HAS MODERATELY SEVERE RESTRICTIVE PULMONARY DISORDER, MOST LIKELY DUE TO OBESITY. Code(s): J98.4 - Other disorders of lung Category: Medical Plan: AGAIN ADVISED THAT HE NEEDS TO LOSE WEIGHT AND ALSO ADVISED TO KEEP ON DOING DEEP BREATHING EXERCISES AT LEAST 3 TIMES A DAY. 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 HE HAS BEEN GETTING FREQUENT EXACERBATIONS AND TREATED WITH FREQUENT COURSES OF PREDNISONE. AT PRESENT HE HAS BEEN ABLE REMAIN OFF THE PREDNISONE . AND IS RELATIVELY STABLE Code(s): J44.89 - Other specified chronic obstructive pulmonary disease Category: Medical Plan: ADVISED TO USE ADVAIR 250-51 INHALATION TWICE A DAY. USE IPRATROPIUM-ALBUTEROL SOLUTION IN THE NEBULIZER Q 6 HOURS P.R.N. AND MAY USE IT UP TO 3 TIMES A DAY (4) HERBERTH (obstructive sleep apnea): Comment: BECAUSE OF HIS MORBID OBESITY OBSTRUCTIVE SLEEP APNEA IS VERY MUCH SUSPECTED, HOWEVER HE DECLINES TO UNDERGO ANY SLEEP STUDY BECAUSE HE WOULD NOT USE THE CPAP. OVERNIGHT OXIMETRY RECORDING WAS PERFORMED AND HE DOES HAVE NOCTURNAL HYPOXEMIA. Code(s): G47.33 - Obstructive sleep apnea (adult) (pediatric) Category: Medical Plan: AGAIN DISCUSSED WITH HIM ABOUT POSSIBILITY OF OBSTRUCTIVE SLEEP APNEA BUT HE IS NOT GOING TO HAVE A SLEEP STUDY. (5) Nocturnal hypoxemia: Comment: OVERNIGHT OXIMETRY RECORDING HAD SHOWN THAT HE DOES LOW O2 SATS AT NIGHT. HAS BEEN STARTED ON O2 SUPPLEMENTATION AT NIGHT 2 L/MINUTE AND WITH THAT HE CLAIMS THAT HIS SLEEP IS MUCH BETTER. HE WAKES UP MORE REFRESHED IN THE MORNING. Code(s): G47.34 - Idiopathic sleep related nonobstructive alveolar hypoventilation Category: Medical Plan: CONTINUE O2 2 L/MINUTE AT NIGHT Coding Level of Care Code Est Pt Level 3 (16863) Diagnoses Obesity (BMI 35.0-39.9 without comorbidity) E66.9 Restrictive lung disease J98.4 Asthma with COPD (chronic obstructive pulmonary disease) J44.89 HERBERTH (obstructive sleep apnea) G47.33 Nocturnal hypoxemia G47.34
--- OUTSIDE RECORDS SUMMARY | 2024-05-04 17:17 | XMS_ITS ---
Author Organization Pato Hampton MD Address [address] [place], [place] [id number] Care Team Providers Care Hotel Server Name Role Phone Pato Hampton Primary Care Provider ALLERGIES Allergen (clinical drug ingredient) Drug/Non Drug Allergy documented on EMR Reaction Allergy Type Onset Date Status amoxicillin / clavulanate Augmentin nausea Drug Allergy Active REASON FOR VISIT 2 week MEDICATIONS Medication SIG (Take, Route, Frequency, Duration) Notes Start Date End Date Status traMADol HCl 50 MG TAKE ONE TABLET BY MOUTH EVERY 6 HOURS NEEDED FOR LOW BACK PAIN FOR 30 DAYS Orally Once a day for 30 days 12/04/2020 Not-Takin g Ventolin HFA * 108 (90 Base) MCG/ACT 2 puffs as needed Inhalation every 4 hrs for 30 day(s) 03/22/2013 Not-Taking Advair Diskus 250-50 MCG/ACT 1 puff Inhalation Twice a day Active Excedrin Tension Headache 500-65 MG 2 tablets as needed Orally Three times a day Not-Taking ProAir HFA 108 (90 Base) MCG/ACT 2 puffs as needed Inhalation every 6 hrs for 30 days 05/06/2017 Not-Taking predniSONE 5 MG 2 tablet with food o r milk Orally for 2weeks then taper 09/09/2023 Active Allopurinol 300 MG TAKE 1 TABLET BY BENJI TH EVERY DAY for 90 Not-Taking Fluticasone Propionate 50 MCG/ACT 1 spray in each nostril Nasally Once a day for 30 day(s) 02/07/2022 Not-Taking Symbicort 160-4.5 MCG/ACT 2 puffs Inhala tion Twice a day 02/03/2023 Not-Taking Ibuprofen 200 MG 1 tablet with food o r milk as needed Orally Three times a day Not-Taking Vitamin B-6 100 MG 1 tablet Orally Once a day for 30 day(s) Active Sildenafil Citrate 25 MG TAKE ONE TABLET BY MOUTH ONCE A DAY NEEDED for 30 Active Albuterol Sulfate (2.5 MG/3ML) 0.083% USE 3ML INHALED EVERY 8 HOURS NEEDED Active Ipratropium-Albuterol 0.5-2.5 (3) MG/3ML 3 ml as needed Inhalation every 6 hrs 02/03/2023 Active Tylenol 325 MG 1 tablet as needed Orally every 4 hrs Active PROBLEMS Problem Type ICD Code Onset Dates Problem Status W/U Status Risk SNOMED Code Notes Problem HERBERTH (obstructive sleep apnea) (G47.33) Active confirmed [id number] VITAL SIGNS BMI 40.46 kg/m2 11/20/2023 Blood pressure systolic 118 mm Hg 11/20/19 24 Blood pressure diastolic 80 mm Hg 024 Height 69 in 11/20/2023 Weight 274 lbs 11/20/2023 Encounters Encounter Location Date Provider Diagnosis Pato Hampton MD [address] [place] [address] [place] [phone] 11/20/2023 Pato Hampton Essential hypertension I10 ; Moderate asthma without complication, unspecified whether persistent J45.909 and HERBERTH (obstructive sleep apnea) G47.33 ASSESSMENTS Encounter Date Diagnosis Assessment Notes Treatment Notes Treatment Clinical Notes 11/20/2023 Essential hypertension (ICD-10 - I10) doing well off meds, will continue current regiment 11/20/2023 Moderate asthma without complication, unspecified whether persistent (ICD-10 - J45.909) is doing welll at present, will continue current regiment 11/20/2023 HERBERTH (obstructive sleep apnea) (ICD-10 - G47.33) discussed with patient will have him speak with dr ceja about a sleep study/ patient is aware PLAN OF TREATMENT Treatment Notes Assessment Notes Essential hypertension doing well off me ds, will continue current regiment Moderate asthma without comp lication, unspecified whether persistent is doing welll at present, will continue current regiment HERBERTH (obstructive sleep apnea) discussed with patient will have him speak with dr ceja about a sleep study/ patient is aware Next Appt Details Follow Up: 4 Weeks, Reason: Provider Name:Pato morillo, 05/20/2024 10:45:00 AM, [address] [place] [address], Suite [facility], [place], [place], [phone], Provider Name:Pato morillo, 08/23/2024 07:15:00 AM, [address] [place] [address], Suite [facility], [place], [place], [phone], Provider Name:Pato morillo, 08/30/2024 09:30:00 AM, [address] [place] [address], [address], [place], [place], [phone], Progress Notes * Examination Category Sub-Category Detail Notes General Examination GENERAL APPEARANCE: alert, w ell hydrated, in no distress HEAD: normocephalic HEART: regular rate and rhy thm, no murmurs, rubs, gallops LUNGS: no wheezes, rales, r honchi, good air movement, clear to auscultation bilaterally SKIN: good turgor
--- OUTSIDE RECORDS SUMMARY | 2024-05-04 17:17 | XMS_ITS ---
Author Organization Pato Hampton MD Address [address] [place], [place] [id number] Care Team Providers Care Content Checker Name Role Phone Pato Hampton Primary Care Provider ALLERGIES Allergen (clinical drug ingredient) Drug/Non Drug Allergy documented on EMR Reaction Allergy Type Onset Date Status amoxicillin / clavulanate Augmentin nausea Drug Allergy Active REASON FOR VISIT 4 week, Patient is now on Oxygen while sleeping MEDICATIONS Medication SIG (Take, Route, Frequency, Duration) Notes Start Date End Date Status Excedrin Tension Headache 500-65 MG 2 tablets as needed Orally Three times a day Not-Taking Ibuprofen 200 MG 1 tablet with food o r milk as needed Orally Three times a day Not-Taking ProAir HFA 108 (90 Base) MCG/ACT 2 puffs as needed Inhalation every 6 hrs for 30 days 05/06/2017 Not-Taking Ventolin HFA * 108 (90 Base) MCG/ACT 2 puffs as needed Inhalation every 4 hrs for 30 day(s) 03/22/2013 Not-Taking traMADol HCl 50 MG TAKE ONE TABLET BY MOUTH EVERY 6 HOURS NEEDED FOR LOW BACK PAIN FOR 30 DAYS Orally Once a day for 30 days 12/04/2020 Not-Takin g Allopurinol 300 MG TAKE 1 TABLET BY BENJI TH EVERY DAY for 90 Not-Taking Symbicort 160-4.5 MCG/ACT 2 puffs Inhala tion Twice a day 02/03/2023 Not-Taking Fluticasone Propionate 50 MCG/ACT 1 spray in each nostril Nasally Once a day for 30 day(s) 02/07/2022 Not-Taking Ipratropium-Albuterol 0.5-2.5 (3) MG/3ML 3 ml as needed Inhalation every 6 hrs 02/03/2023 Active Albuterol Sulfate (2.5 MG/3ML) 0.083% USE 3ML INHALED EVERY 8 HOURS NEEDED Active Advair Diskus 250-50 MCG/ACT 1 puff Inhalation Twice a day Active Vitamin B-6 100 MG 1 tablet Orally Once a day for 30 day(s) Active Tylenol 325 MG 1 tablet as needed Orally every 4 hrs Active Sildenafil Citrate 25 MG TAKE ONE TABLET BY MOUTH ONCE A DAY NEEDED for 30 Active VITAL SIGNS BMI 40.31 kg/m2 12/22/2023 Blood pressure systolic 124 mm Hg 12/22/19 24 Blood pressure diastolic 70 mm Hg 024 Height 69 in 12/22/2023 Weight 273 lbs 12/22/2023 Encounters Encounter Location Date Provider Diagnosis Pato Hampton MD [address] [place] [address] [place] [phone] 12/22/2023 Pato Hampton Moderate asthma without complication, unspecified whether persistent J45.909 ASSESSMENTS Encounter Date Diagnosis Assessment Notes Treatment Notes Treatment Clinical Notes 12/22/2023 Moderate asthma without complication, unspecified whether persistent (ICD-10 - J45.909) doing well on meds. PLAN OF TREATMENT Medication Medication Name Sig Start Date Stop Date Notes Ipratropium-Albuterol 0.5-2. 5 (3) MG/3ML 3 ml as needed Inhalation every 6 hrs 02/03/2023 Albuterol Sulfate (2.5 MG/3ML) 0.083% USE 3ML INHALED EVERY 8 HOURS NEEDED Advair Diskus 250-50 MCG/ACT 1 puff Inhalation Twice a day Treatment Notes Assessment Notes Moderate asthma without comp lication, unspecified whether persistent doing well on meds. Next Appt Details Follow Up: 2 Months, Reason: Provider Name:Pato morillo, 05/20/2024 10:45:00 AM, [address] [place] [address], [address], [place], [phone], Provider Name:Pato morillo, 08/23/2024 07:15:00 AM, [address] [place] [address], Suite [facility], [place], [phone], Provider Name:Pato morillo, 08/30/2024 09:30:00 AM, [address] [place] [address], Suite [facility], [place], [phone], Progress Notes * Examination Category Sub-Category Detail Notes General Examination GENERAL APPEARANCE: alert, w ell hydrated, in no distress HEAD: normocephalic HEART: regular rate and rhy thm, no murmurs, rubs, gallops LUNGS: good air movement, n o wheezes, rales, rhonchi SKIN: good turgor
--- OUTSIDE RECORDS SUMMARY | 2024-05-04 17:17 | XMS_ITS ---
Author Organization Pato Hampton MD Address [address] [place], [place] [id number] Care Team Providers Care Senior Quality Engineer Name Role Phone Pato Hampton Primary Care Provider [phone] ALLERGIES Allergen (clinical drug ingredient) Drug/Non Drug Allergy documented on EMR Reaction Allergy Type Onset Date Status amoxicillin / clavulanate Augmentin nausea Drug Allergy Active RESULTS Component Value Reference Range Notes Hemoglobin A1c Reviewed date:02/23/2024 09:22:00 AM Interpretation: Performing Lab: Notes/Report: Value Hemoglobin A1c 5.2 Glucose, finger stick Reviewed date:02/23/2024 09:19:32 AM Interpretation: Performing Lab: Notes/Report: Value 92 REASON FOR VISIT 2 MO F/U MEDICATIONS Medication SIG (Take, Route, Frequency, Duration) Notes Start Date End Date Status Ibuprofen 200 MG 1 tablet with food o r milk as needed Orally Three times a day Not-Taking Ventolin HFA * 108 (90 Base) MCG/ACT 2 puffs as needed Inhalation every 4 hrs for 30 day(s) 03/22/2013 Not-Taking traMADol HCl 50 MG TAKE ONE TABLET BY MOUTH EVERY 6 HOURS NEEDED FOR LOW BACK PAIN FOR 30 DAYS Orally Once a day for 30 days 12/04/2020 Not-Takin g ProAir HFA 108 (90 Base) MCG/ACT 2 puffs as needed Inhalation every 6 hrs for 30 days 05/06/2017 Not-Taking Excedrin Tension Headache 500-65 MG 2 tablets as needed Orally Three times a day Not-Taking Symbicort 160-4.5 MCG/ACT 2 puffs Inhala tion Twice a day 02/03/2023 Not-Taking Fluticasone Propionate 50 MCG/ACT 1 spray in each nostril Nasally Once a day for 30 day(s) 02/07/2022 Not-Taking Allopurinol 300 MG TAKE 1 TABLET BY BENJI TH EVERY DAY for 90 Not-Taking Ipratropium-Albuterol 0.5-2.5 (3) MG/3ML 3 ml as needed Inhalation every 6 hrs 02/03/2023 Active Albuterol Sulfate (2.5 MG/3ML) 0.083% USE 3ML INHALED EVERY 8 HOURS NEEDED Active Sildenafil Citrate 25 MG TAKE ONE TABLET BY MOUTH EVERY DAY NEEDED for 30 Active Advair Diskus 250-50 MCG/ACT 1 puff Inhalation Twice a day Active Vitamin B-6 100 MG 1 tablet Orally Once a day for 30 day(s) Active Tylenol 325 MG 1 tablet as needed Orally every 4 hrs Active Motrin IB 200 MG 1 tablet with food o r milk as needed Orally Three times a day Active IMMUNIZATIONS Vaccine Route Administration Date Status Comme nts Influenza High Dose IM Intramuscular 02/23/2024 Administer ed VITAL SIGNS BMI 41.93 kg/m2 02/23/2024 Blood pressure systolic 122 mm Hg 02/23/20 24 Blood pressure diastolic 74 mm Hg 024 Height 69 in 02/23/2024 Weight 284 lbs 02/23/2024 weight is up 9 pounds since 12-22-23 Encounters Encounter Location Date Provider Diagnosis Pato Hampton MD [address] [place] [address] Drive [address] [place] [phone] 02/23/2024 Pato Hampton Prediabetes R73.09 ; Moderate asthma without complication, unspecified whether persistent J45.909 and Encounter for immunization Z23 ASSESSMENTS Encounter Date Diagnosis Assessment Notes Treatment Notes Treatment Clinical Notes 02/23/2024 Prediabetes (ICD-10 - R73.09) good a1c, no need for medication at this time, will continue to monitor 02/23/2024 Moderate asthma without complication, unspecified whether persistent (ICD-10 - J45.909) fianlly doing well. continue with the same 02/23/2024 Encounter for immunization (ICD-10 - Z23) flu vaccine administered PLAN OF TREATMENT Medication Medication Name Sig Start Date Stop Date Notes Ipratropium-Albuterol 0.5-2. 5 (3) MG/3ML 3 ml as needed Inhalation every 6 hrs 02/03/2023 Albuterol Sulfate (2.5 MG/3ML) 0.083% USE 3ML INHALED EVERY 8 HOURS NEEDED Advair Diskus 250-50 MCG/ACT 1 puff Inhalation Twice a day Treatment Notes Assessment Notes Prediabetes good a1c, no need fo r medication at this time, will continue to monitor Moderate asthma without comp lication, unspecified whether persistent fianlly doing well. continue with the [facility] Encounter for immunization flu vaccine a dministered Next Appt Details Follow Up: 3 Months, Reason: Provider Name:Pato morillo, 05/20/2024 10:45:00 AM, [address] [place] [address], [address], [phone], Provider Name:Pato morillo, 08/23/2024 07:15:00 AM, [address] [place] [address], [address], [phone], Provider Name:Pato morillo, 08/30/2024 09:30:00 AM, [address] [place] [address], [address], [phone], Progress Notes * Examination Category Sub-Category Detail Notes General Examination GENERAL APPEARANCE: alert, w ell hydrated, in no distress , male HEAD: normocephalic HEART: no murmurs, rubs, ga llops, regular rate and rhythm LUNGS: abnormal with few an t wheezes. posterior clear SKIN: good turgor
--- OUTSIDE RECORDS SUMMARY | 2024-05-04 17:18 | XMS_ITS | Patient Health Record ---
Author Organization [facility] Address [address] [place] [address] Care Team Providers Care Heavy Equipment Service Manager Name Role Phone Berta ELIZALDE, Pato Primary Care Provider Derrick Mcnamara Unavailable [phone] REASON FOR REFERRAL No Information MEDICATIONS Medication SIG (Take, Route, Fr equency, Duration) Notes Start Date End Date Status Allopurinol 100 MG 1 tablet Orally Once a day Active ibuprofen Active Lisinopril 10 MG 1 tablet Orally Once a day Active IMMUNIZATIONS Vaccine Route Administration Date Status Comme nts Influenza Unknown 02/23/2021 Administered SOCIAL HISTORY Sex Assigned At : Social History Observation Description Sex Assigned At Unknown Alcohol Screen Question Answer Notes Did you have a drink contain ing alcohol in the past year? Yes How often did you have a dri nk containing alcohol in the past year? 4 or more times a week (4 points) How many drinks did you have on a typical day when you were drinking in the past year? 1 or 2 drinks (0 point) How often did you have 6 or more drinks on one occasion in the past year? Never (0 point) Points 4 Interpretation Positive PROBLEMS Problem Type ICD Code Onset Dates Problem Status W/U Status Risk SNOMED Code Notes Problem Encounter for screening for malignant neoplasm of colon (Z12.11) Active confirmed 759124957 Problem History of adenomatous polyp of colon (Z86.010) Active confirmed 862703561 Problem Preprocedural examination (Z01.818) Active confirmed 947259029 Problem Elevated liver enzymes (R74.8) Active confirmed 817241937 Problem Fatty liver (K76.0) Active confirmed 497845386 Problem Alcoholic liver disease (K70.9) Active confirmed 81709982 Problem Jaundice (R17) Active confirmed 7868124 1 PLAN OF TREATMENT Pending Test Test Name Order Date LIVER PROFILE 01/31/2021 PROTHROMBIN TIME (PT, INR) 01/31/2021 Future Test Test Name Order Date COLONOSCOPY 01/16/2012 COLONOSCOPY 10/31/2016 Insurance Providers Payer Name Payer Address Payer Phone Subscriber Number Group Number Insured Name Patient Relationship to Insured Coverage Start Date Coverage End Date [employer] Medicare Advantage Plan [address] [address] [place] [address] [id number] ANDREW DOOLEY Self - patient is the insured MEDICAL (GENERAL) HISTORY Medical History History ICD Code Screening colonoscopy in 200 8-2 Tubular adenomas removed; colonoscopy in 01/2012 was neg. except for a hyperplastic polyp, diverticulosis, and internal hemorrhoids. Negative colonoscopy in 2016. Kidney stones-cystoscopy, ESWL, and uret eral stents Hypertension Denies VT,DM,CVA,Lung disease Back pain, knee arthritis Jaundice and hospitalization in 01/2021 due to fatty liver, EtOH, Tylenol, and NSAIDs Surgical History Surgery Date(Month/Year) Removal of a lipoma
--- OUTSIDE RECORDS SUMMARY | 2024-05-04 17:18 | XMS_ITS | Patient Health Record ---
Author Organization Pato Hampton MD Address [address] [place], [place] [id number] Care Team Providers Care [employer] Name Role Phone Pato Hampton Primary Care Provider ALLERGIES Allergen (clinical drug ingredient) Drug/Non Drug Allergy documented on EMR Reaction Allergy Type Onset Date Status amoxicillin / clavulanate Augmentin nausea Drug Allergy Active RESULTS Component Value Reference Range Notes Hemoglobin A1c Reviewed date:05/16/2023 10:09:15 AM Interpretation: Performing Lab: Notes/Report: Value Hemoglobin A1c 5.2 Hemoglobin A1c Reviewed date:02/23/2024 09:22:00 AM Interpretation: Performing Lab: Notes/Report: Value Hemoglobin A1c 5.2 Glucose, finger stick Reviewed date:05/16/2023 10:02:41 AM Interpretation: Performing Lab: Notes/Report: Value 138 Complete Blood Count Auto Di ff Reviewed date:06/19/2023 10:45:37 AM Interpretation:see back 06-19-2023 Performing Lab:[facility], [address] [place] [phone] Notes/Report: White Blood Count 7.3 4.8-10.8 X10*3/uL Red Blood Count 4.60 4.60-5.80 X10*6/uL Hemoglobin 14.9 14.0-18.0 g/dl Hematocrit 44.9 42.0-52.0 % Mean Corpuscular Volume 97.6 80.0-98.0 fL Mean Corpuscular Hemoglobin 32.4 27.0-33.0 pg Mean Corpuscular HGB Conc 33.2 31.0-36.0 g/dl Red Cell Distribution Width 13.0 11.0-16.0 % Platelet Count 164 160-400 X10*3/uL Mean Platelet Volume 11.2 9.4-12.4 fL Neutrophils Percent Auto 65.5 45-73 % Imm Gran Pct Auto 0.3 0.0-0.4 % Lymphocytes Percent Auto 22.9 20-40 % Monocytes Percent Auto 8.4 2-11 % Eosinophils Percent Auto 2.6 0-4 % Basophils Percent Auto 0.3 0-2 % NRBC Pct Auto 0.0 0.0-0.2 /100WBC Neutrophils Absolute Auto 4.8 2.0-8.3 x10*3/u L Imm Gran Abs Auto 0.02 0.00-0.03 X10*3/uL Lymphocytes Absolute Auto 1.7 1.2-4.9 X10*3/u L Monocytes Absolute Auto 0.6 0.1-1.2 X10*3/uL Eosinophils Absolute Auto 0.2 0.0-0.4 X10*3/u L Basophils Absolute Auto 0.0 0.0-0.2 X10*3/uL NRBC Abs Auto 0.000 0.0-0.012 X10*3/uL White Blood Count 7.3 4.8-10.8 X10*3/uL Red Blood Count 4.60 4.60-5.80 X10*6/uL Hemoglobin 14.9 14.0-18.0 g/dl Hematocrit 44.9 42.0-52.0 % Mean Corpuscular Volume 97.6 80.0-98.0 fL Mean Corpuscular Hemoglobin 32.4 27.0-33.0 pg Mean Corpuscular HGB Conc 33.2 31.0-36.0 g/dl Red Cell Distribution Width 13.0 11.0-16.0 % Platelet Count 164 160-400 X10*3/uL Mean Platelet Volume 11.2 9.4-12.4 fL Neutrophils Percent Auto 65.5 45-73 % Imm Gran Pct Auto 0.3 0.0-0.4 % Lymphocytes Percent Auto 22.9 20-40 % Monocytes Percent Auto 8.4 2-11 % Eosinophils Percent Auto 2.6 0-4 % Basophils Percent Auto 0.3 0-2 % NRBC Pct Auto 0.0 0.0-0.2 /100WBC Neutrophils Absolute Auto 4.8 2.0-8.3 x10*3/u L Imm Gran Abs Auto 0.02 0.00-0.03 X10*3/uL Lymphocytes Absolute Auto 1.7 1.2-4.9 X10*3/u L Monocytes Absolute Auto 0.6 0.1-1.2 X10*3/uL Eosinophils Absolute Auto 0.2 0.0-0.4 X10*3/u L Basophils Absolute Auto 0.0 0.0-0.2 X10*3/uL NRBC Abs Auto 0.000 0.0-0.012 X10*3/uL Comprehensive Met. Panel Reviewed date:05/19/2023 06:34:56 PM Interpretation: Performing Lab:[facility], [address] [place] [phone] Notes/Report: Sodium 146 135-145 mmol/L Potassium 3.7 3.3-5.1 mmol/L Chloride 105 96-108 mmol/L Carbon Dioxide 30 22-29 mmol/L Anion Gap 15 12-20 Blood Urea Nitrogen 14 9-16 mg/dL Creatinine 0.85 0.5-1.4 mg/dL Creatinine Clr Calc Pharmacy 115.1 eGFR (calculated from the MDRD study equation) and eCrCl (calculated from the Cockcroft-Gault equation) are based on different parameters and may not yield comparable results. If eCrCl result is absurd, please check patient's height/weight. Estimated Glomerular Filt Rate > 60 NOTE: For -Irish individuals, multiply the result by 1.210. Chronic Kidney Disease: Estimated GFR < 60 mL/min/1.73m2 Severe Kidney Disease: Estimated GFR < 15 mL/min/1.73m2 Glucose Random 102 60-115 mg/dL Calcium 10.2 8.4-10.2 mg/dL Bilirubin Total 1.4 0.0-1.0 mg/dL Aspartate Amino Transferase 31 5-37 U/L Alanine Aminotransferase 24 0-40 U/L Total Protein 7.1 6.5-8.0 g/dL Albumin Level 3.9 3.5-5.0 g/dL Alkaline Phosphatase 81 39-117 U/L Urine Culture Reviewed date:05/21/2023 03:56:13 PM Interpretation: Performing Lab:[facility], [address] [place] [phone] Notes/Report: Urine Culture Report Result Urine Culture < 10,000 cfu/ml SLIDE REVIEW Reviewed date:05/19/2023 06:31:57 PM Interpretation: Performing Lab:[address] [phone] Notes/Report: SLIDE REVIEW VERIFIED UA ClnCatch+Micro w/rflx Cul t Reviewed date:05/19/2023 06:32:17 PM Interpretation: Performing Lab:[facility], [address] [place] [phone] Notes/Report: 1232 Urine, Clean Catch Color Urine [place] Appearance Urine Turbid PH 5.5 5.0-9.0 Glucose Urine UA Negative Negative mg/dL Urine Blood Large (3+) Negative Specific [place] - Urine 1.025 1.005-1.025 Urine Protein 30 (1+) Neg-Trace mg/dL Urine Ketones Trace Negative mg/dL Nitrite Urine Negative Negative Leukocyte Esterase Urine Small (1+) Negative RBC Urine >20 0-2 /HPF WBC Urine 11-20 0-5 /HPF Squamous Epithelial Cell Urine 0-2 0-2 /HPF Bacteria Urine None Seen None Seen Hyaline Casts Urine 0-2 0-2 /LPF CT abdomen pelvis wo con Reviewed date:05/19/2023 06:31:44 PM Interpretation: Performing Lab: Notes/Report: [address] [address] [address] Scan Report Signed Patient: Angel Temple MR#: [id number] [birth year] : 1955 Acct:[id number] Age/Sex: 68 / M ADM Date: 05/19/23 Loc: HO.ED Attending Dr: Ordering Physician: Mari Lucas Date of Service: 05/19/23 Procedure(s): CT abdomen pelvis wo IV con Accession Number(s): [id number] cc: Pato Hampton MD; Mari Lucas EXAMINATION: CT ABDOMEN AND PELVIS WITHOUT CONTRAST CLINICAL INFORMATION: Hematuria. Question stone COMPARISON: CT abdomen pelvis 09/06/2021 TECHNIQUE: Multidetector volumetric imaging was performed from the superior aspect of the liver through the pubic symphysis. Sagittal and coronal reformatted images were obtained on the technologist's workstation. This CT examination was performed using dose optimization techniques as appropriate, variously including the following: *Automated exposure control *Adjustment of mA and/or kV according to patient size (this includes techniques or standardized protocols for targeted exams where dose is matched to indication/reason for exam; i.e. extremities or head) *Use of iterative reconstruction technique DLP: 289 mGy-cm FINDINGS: LUNG BASES: There is left lower lobe, right middle lobe and lingular atelectasis/scarring. The heart size is normal. LIVER, GALLBLADDER, AND BILIARY TREE: The liver is normal in size, shape, and attenuation. No focal hepatic lesion or biliary ductal dilatation is present. The gallbladder is unremarkable with no evidence of radiopaque gallstones, gallbladder wall thickening, or obvious pericholecystic inflammatory changes. PANCREAS: Unremarkable. SPLEEN: The spleen is normal size. There several small scattered calcified foci likely granulomas. ADRENAL GLANDS: Unremarkable. KIDNEYS AND URETERS: The kidneys are normal in size, shape, and attenuation. There is several small radiopaque calculi lower pole calyx left kidney the largest measuring 6 mm on axial slice 34/3. There is no focal caliectasis. There is a 1 mm radiopaque calculi lower pole calyx right kidney axial slice 42/2. There is mild bilateral perinephric stranding. No hydroureteronephrosis seen. There are multiple bilateral small exophytic renal cyst. BLADDER: Unremarkable. GASTROINTESTINAL TRACT: There is scattered stool, diverticuli and gas seen throughout the colon without distention. The small bowel loops are normal caliber. Appendix is normal caliber. No inflammatory process seen in the abdomen or pelvis. ABDOMINAL WALL: There is a small umbilical hernia containing fat. LYMPH NODES: Normal. VASCULAR: Unremarkable. PELVIC VISCERA: The prostate gland is mildly enlarged. The periprostatic fat planes are preserved. No free air or free fluid. There are prominent bilateral inguinal canals containing fat. OSSEOUS STRUCTURES: There are degenerative disc changes throughout lumbar spine with ventral spondylosis. No aggressive lytic or sclerotic process seen. There are inferior endplate Schmorl's node L4 and L3 vertebra. CT/CT abdomen pelvis wo IV con IMPRESSION: Bilateral radiopaque renal calculi unchanged to previous study 09/06/2021. No caliectasis or hydronephrosis seen. Bilateral renal cysts are stable as well. Small umbilical hernia and bilateral prominent inguinal canals containing fat are stable. Fleischner guidelines were followed. Dictated By: Maxim Gonzalez MD Signed By: <Electronically signed by Maxim Gonzalez MD in OV> 05/19/23 1358 DD/ 1336 TD/TT: Dental Hygiene Instructor: GILBERTO Complete Blood Count Auto Di ff Reviewed date:05/22/2023 12:51:52 PM Interpretation: Performing Lab:[facility], [address] [place] [phone] Notes/Report: White Blood Count 8.7 4.8-10.8 X10*3/uL Red Blood Count 4.62 4.60-5.80 X10*6/uL Hemoglobin 15.1 14.0-18.0 g/dl Hematocrit 44.1 42.0-52.0 % Mean Corpuscular Volume 95.5 80.0-98.0 fL Mean Corpuscular Hemoglobin 32.7 27.0-33.0 pg Mean Corpuscular HGB Conc 34.2 31.0-36.0 g/dl Red Cell Distribution Width 12.8 11.0-16.0 % Platelet Count 150 160-400 X10*3/uL Mean Platelet Volume 11.3 9.4-12.4 fL Neutrophils Percent Auto 65.6 45-73 % Imm Gran Pct Auto 0.3 0.0-0.4 % Lymphocytes Percent Auto 21.6 20-40 % Monocytes Percent Auto 8.3 2-11 % Eosinophils Percent Auto 3.9 0-4 % Basophils Percent Auto 0.3 0-2 % NRBC Pct Auto 0.0 0.0-0.2 /100WBC Neutrophils Absolute Auto 5.7 2.0-8.3 x10*3/u L Imm Gran Abs Auto 0.03 0.00-0.03 X10*3/uL Lymphocytes Absolute Auto 1.9 1.2-4.9 X10*3/u L Monocytes Absolute Auto 0.7 0.1-1.2 X10*3/uL Eosinophils Absolute Auto 0.3 0.0-0.4 X10*3/u L Basophils Absolute Auto 0.0 0.0-0.2 X10*3/uL NRBC Abs Auto 0.000 0.0-0.012 X10*3/uL White Blood Count 8.7 4.8-10.8 X10*3/uL Red Blood Count 4.62 4.60-5.80 X10*6/uL Hemoglobin 15.1 14.0-18.0 g/dl Hematocrit 44.1 42.0-52.0 % Mean Corpuscular Volume 95.5 80.0-98.0 fL Mean Corpuscular Hemoglobin 32.7 27.0-33.0 pg Mean Corpuscular HGB Conc 34.2 31.0-36.0 g/dl Red Cell Distribution Width 12.8 11.0-16.0 % Platelet Count 150 160-400 X10*3/uL Mean Platelet Volume 11.3 9.4-12.4 fL Neutrophils Percent Auto 65.6 45-73 % Imm Gran Pct Auto 0.3 0.0-0.4 % Lymphocytes Percent Auto 21.6 20-40 % Monocytes Percent Auto 8.3 2-11 % Eosinophils Percent Auto 3.9 0-4 % Basophils Percent Auto 0.3 0-2 % NRBC Pct Auto 0.0 0.0-0.2 /100WBC Neutrophils Absolute Auto 5.7 2.0-8.3 x10*3/u L Imm Gran Abs Auto 0.03 0.00-0.03 X10*3/uL Lymphocytes Absolute Auto 1.9 1.2-4.9 X10*3/u L Monocytes Absolute Auto 0.7 0.1-1.2 X10*3/uL Eosinophils Absolute Auto 0.3 0.0-0.4 X10*3/u L Basophils Absolute Auto 0.0 0.0-0.2 X10*3/uL NRBC Abs Auto 0.000 0.0-0.012 X10*3/uL Basic Metabolic Panel Reviewed date:05/22/2023 12:47:01 PM Interpretation: Performing Lab:[facility], [address] [place] [phone] Notes/Report: Sodium 143 135-145 mmol/L Potassium 3.2 3.3-5.1 mmol/L Chloride 106 96-108 mmol/L Carbon Dioxide 26 22-29 mmol/L Anion Gap 14 12-20 Blood Urea Nitrogen 18 9-16 mg/dL Creatinine 0.79 0.5-1.4 mg/dL Creatinine Clr Calc Pharmacy 124.4 eGFR (calculated from the MDRD study equation) and eCrCl (calculated from the Cockcroft-Gault equation) are based on different parameters and may not yield comparable results. If eCrCl result is absurd, please check patient's height/weight. Estimated Glomerular Filt Rate > 60 NOTE: For -Irish individuals, multiply the result by 1.210. Chronic Kidney Disease: Estimated GFR < 60 mL/min/1.73m2 Severe Kidney Disease: Estimated GFR < 15 mL/min/1.73m2 Glucose Random 98 60-115 mg/dL Calcium 9.4 8.4-10.2 mg/dL SLIDE REVIEW Reviewed date:05/21/2023 03:40:57 PM Interpretation: Performing Lab:[facility], [address] [place] [phone] Notes/Report: SLIDE REVIEW VERIFIED Hold Gold Reviewed date:05/29/2023 01:34:46 PM Interpretation: Performing Lab:[facility], [address] [place] [phone] Notes/Report: Hold Gold See Note Specimen held untested for 24 hours; Call to request Chemistry testing. SLIDE REVIEW Reviewed date:05/29/2023 04:21:12 PM Interpretation: Performing Lab:[facility], [address] [place] [phone] Notes/Report: SLIDE REVIEW VERIFIED Complete Blood Count Auto Di ff Reviewed date:05/29/2023 04:21:31 PM Interpretation: Performing Lab:[facility], [address] [place] [phone] Notes/Report: White Blood Count 7.6 4.8-10.8 X10*3/uL Red Blood Count 4.62 4.60-5.80 X10*6/uL Hemoglobin 14.8 14.0-18.0 g/dl Hematocrit 45.1 42.0-52.0 % Mean Corpuscular Volume 97.6 80.0-98.0 fL Mean Corpuscular Hemoglobin 32.0 27.0-33.0 pg Mean Corpuscular HGB Conc 32.8 31.0-36.0 g/dl Red Cell Distribution Width 12.9 11.0-16.0 % Platelet Count 187 160-400 X10*3/uL Mean Platelet Volume 12.3 9.4-12.4 fL Neutrophils Percent Auto 61.7 45-73 % Imm Gran Pct Auto 0.5 0.0-0.4 % Lymphocytes Percent Auto 23.3 20-40 % Monocytes Percent Auto 9.1 2-11 % Eosinophils Percent Auto 5.1 0-4 % Basophils Percent Auto 0.3 0-2 % NRBC Pct Auto 0.0 0.0-0.2 /100WBC Neutrophils Absolute Auto 4.7 2.0-8.3 x10*3/u L Imm Gran Abs Auto 0.04 0.00-0.03 X10*3/uL Lymphocytes Absolute Auto 1.8 1.2-4.9 X10*3/u L Monocytes Absolute Auto 0.7 0.1-1.2 X10*3/uL Eosinophils Absolute Auto 0.4 0.0-0.4 X10*3/u L Basophils Absolute Auto 0.0 0.0-0.2 X10*3/uL NRBC Abs Auto 0.000 0.0-0.012 X10*3/uL White Blood Count 7.6 4.8-10.8 X10*3/uL Red Blood Count 4.62 4.60-5.80 X10*6/uL Hemoglobin 14.8 14.0-18.0 g/dl Hematocrit 45.1 42.0-52.0 % Mean Corpuscular Volume 97.6 80.0-98.0 fL Mean Corpuscular Hemoglobin 32.0 27.0-33.0 pg Mean Corpuscular HGB Conc 32.8 31.0-36.0 g/dl Red Cell Distribution Width 12.9 11.0-16.0 % Platelet Count 187 160-400 X10*3/uL Mean Platelet Volume 12.3 9.4-12.4 fL Neutrophils Percent Auto 61.7 45-73 % Imm Gran Pct Auto 0.5 0.0-0.4 % Lymphocytes Percent Auto 23.3 20-40 % Monocytes Percent Auto 9.1 2-11 % Eosinophils Percent Auto 5.1 0-4 % Basophils Percent Auto 0.3 0-2 % NRBC Pct Auto 0.0 0.0-0.2 /100WBC Neutrophils Absolute Auto 4.7 2.0-8.3 x10*3/u L Imm Gran Abs Auto 0.04 0.00-0.03 X10*3/uL Lymphocytes Absolute Auto 1.8 1.2-4.9 X10*3/u L Monocytes Absolute Auto 0.7 0.1-1.2 X10*3/uL Eosinophils Absolute Auto 0.4 0.0-0.4 X10*3/u L Basophils Absolute Auto 0.0 0.0-0.2 X10*3/uL NRBC Abs Auto 0.000 0.0-0.012 X10*3/uL Potassium Reviewed date:05/29/2023 01:45:00 PM Interpretation: Performing Lab:[facility], [address] [place] [phone] Notes/Report: Potassium 3.7 3.3-5.1 mmol/L SLIDE REVIEW Reviewed date:06/20/2023 12:47:07 PM Interpretation: Performing Lab:[facility], [address] [place] [phone] Notes/Report: SLIDE REVIEW VERIFIED Complete Blood Count Auto Di ff Reviewed date:06/19/2023 05:07:40 PM Interpretation: Performing Lab:[facility], [address] [place] [phone] Notes/Report: White Blood Count 9.6 4.8-10.8 X10*3/uL Red Blood Count 4.64 4.60-5.80 X10*6/uL Hemoglobin 15.2 14.0-18.0 g/dl Hematocrit 45.5 42.0-52.0 % Mean Corpuscular Volume 98.1 80.0-98.0 fL Mean Corpuscular Hemoglobin 32.8 27.0-33.0 pg Mean Corpuscular HGB Conc 33.4 31.0-36.0 g/dl Red Cell Distribution Width 13.0 11.0-16.0 % Platelet Count 221 160-400 X10*3/uL Mean Platelet Volume 12.2 9.4-12.4 fL Neutrophils Percent Auto 54.8 45-73 % Imm Gran Pct Auto 0.3 0.0-0.4 % Lymphocytes Percent Auto 31.5 20-40 % Monocytes Percent Auto 9.6 2-11 % Eosinophils Percent Auto 3.6 0-4 % Basophils Percent Auto 0.2 0-2 % NRBC Pct Auto 0.0 0.0-0.2 /100WBC Neutrophils Absolute Auto 5.3 2.0-8.3 x10*3/u L Imm Gran Abs Auto 0.03 0.00-0.03 X10*3/uL Lymphocytes Absolute Auto 3.0 1.2-4.9 X10*3/u L Monocytes Absolute Auto 0.9 0.1-1.2 X10*3/uL Eosinophils Absolute Auto 0.4 0.0-0.4 X10*3/u L Basophils Absolute Auto 0.0 0.0-0.2 X10*3/uL NRBC Abs Auto 0.000 0.0-0.012 X10*3/uL Urine Culture Reviewed date:08/25/2023 11:02:18 AM Interpretation: Performing Lab:[facility], [address] [place] [phone] Notes/Report: O:ESCCOL Escherichia coli Urine Culture ESBL Note: Urine Culture NOTE: Extended-Spectrum Beta-Lactamase enzyme present Urine Culture Quant Urine Culture > 100,000 cfu/mL Ampicillin >=32 Ceftriaxone >=64 Ertapenem <=0.12 Gentamicin <=1 Levofloxacin >=8 Nitrofurantoin <=16 Trimethoprim/Sulfamethoxazole >=320 SLIDE REVIEW Reviewed date:08/21/2023 02:30:03 PM Interpretation: Performing Lab:[address] [phone] Notes/Report: SLIDE REVIEW VERIFIED Complete Blood Count Auto Di ff Reviewed date:08/21/2023 02:29:50 PM Interpretation: Performing Lab:[facility], [address] [place] [phone] Notes/Report: White Blood Count 8.3 4.8-10.8 X10*3/uL Red Blood Count 4.40 4.60-5.80 X10*6/uL Hemoglobin 14.2 14.0-18.0 g/dl Hematocrit 41.8 42.0-52.0 % Mean Corpuscular Volume 95.0 80.0-98.0 fL Mean Corpuscular Hemoglobin 32.3 27.0-33.0 pg Mean Corpuscular HGB Conc 34.0 31.0-36.0 g/dl Red Cell Distribution Width 15.1 11.0-16.0 % Platelet Count 209 160-400 X10*3/uL Mean Platelet Volume 11.2 9.4-12.4 fL Neutrophils Percent Auto 57.0 45-73 % Imm Gran Pct Auto 0.2 0.0-0.4 % Lymphocytes Percent Auto 28.1 20-40 % Monocytes Percent Auto 9.8 2-11 % Eosinophils Percent Auto 4.7 0-4 % Basophils Percent Auto 0.2 0-2 % NRBC Pct Auto 0.0 0.0-0.2 /100WBC Neutrophils Absolute Auto 4.7 2.0-8.3 x10*3/u L Imm Gran Abs Auto 0.02 0.00-0.03 X10*3/uL Lymphocytes Absolute Auto 2.3 1.2-4.9 X10*3/u L Monocytes Absolute Auto 0.8 0.1-1.2 X10*3/uL Eosinophils Absolute Auto 0.4 0.0-0.4 X10*3/u L Basophils Absolute Auto 0.0 0.0-0.2 X10*3/uL NRBC Abs Auto 0.000 0.0-0.012 X10*3/uL White Blood Count 8.3 4.8-10.8 X10*3/uL Red Blood Count 4.40 4.60-5.80 X10*6/uL Hemoglobin 14.2 14.0-18.0 g/dl Hematocrit 41.8 42.0-52.0 % Mean Corpuscular Volume 95.0 80.0-98.0 fL Mean Corpuscular Hemoglobin 32.3 27.0-33.0 pg Mean Corpuscular HGB Conc 34.0 31.0-36.0 g/dl Red Cell Distribution Width 15.1 11.0-16.0 % Platelet Count 209 160-400 X10*3/uL Mean Platelet Volume 11.2 9.4-12.4 fL Neutrophils Percent Auto 57.0 45-73 % Imm Gran Pct Auto 0.2 0.0-0.4 % Lymphocytes Percent Auto 28.1 20-40 % Monocytes Percent Auto 9.8 2-11 % Eosinophils Percent Auto 4.7 0-4 % Basophils Percent Auto 0.2 0-2 % NRBC Pct Auto 0.0 0.0-0.2 /100WBC Neutrophils Absolute Auto 4.7 2.0-8.3 x10*3/u L Imm Gran Abs Auto 0.02 0.00-0.03 X10*3/uL Lymphocytes Absolute Auto 2.3 1.2-4.9 X10*3/u L Monocytes Absolute Auto 0.8 0.1-1.2 X10*3/uL Eosinophils Absolute Auto 0.4 0.0-0.4 X10*3/u L Basophils Absolute Auto 0.0 0.0-0.2 X10*3/uL NRBC Abs Auto 0.000 0.0-0.012 X10*3/uL Comprehensive [place]. Panel Fa st Reviewed date:08/21/2023 02:29:17 PM Interpretation: Performing Lab:[facility], [address] [place] [phone] Notes/Report: Sodium 141 135-145 mmol/L Potassium 4.6 3.3-5.1 mmol/L Chloride 108 96-108 mmol/L Carbon Dioxide 22 22-29 mmol/L Anion Gap 16 12-20 Blood Urea Nitrogen 32 9-16 mg/dL Creatinine 1.22 0.5-1.4 mg/dL Estimated Glomerular Filt Rate 59 NOTE: For -Irish individuals, multiply the result by 1.210. Chronic Kidney Disease: Estimated GFR < 60 mL/min/1.73m2 Severe Kidney Disease: Estimated GFR < 15 mL/min/1.73m2 Glucose Fasting 100 60-99 mg/dL A fasting glucose from 100-125 mg/dl is considered impaired (pre-diabetes). Calcium 9.7 8.4-10.2 mg/dL Bilirubin Total 0.7 0.0-1.0 mg/dL Aspartate Amino Transferase 34 5-37 U/L Alanine Aminotransferase 28 0-40 U/L Total Protein 7.8 6.5-8.0 g/dL Albumin Level 4.2 3.5-5.0 g/dL Alkaline Phosphatase 80 39-117 U/L Lipid Panel Reviewed date:08/21/2023 12:44:14 PM Interpretation: Performing Lab:[facility], [address] [place] [phone] Notes/Report: Triglycerides 65 <150 mg/dL Desirable Triglyceride: less than 150 mg/dL Borderline High Triglyceride 150-199 mg/dL High Triglyceride: 200-499 mg/dL Very High Triglyceride: greater than or equal to 5OO mg/dL Cholesterol 190 <200 mg/dL Desirable Cholesterol: less than 200 mg/dL Borderline High Cholesterol: 200-239 mg/dL High Cholesterol: greater than 239 mg/dL LDL Cholesterol Calculated 88 <100 mg/dL Desirable LDL: less than 100 mg/dL Near Optimal/Above Optimal LDL: 110-129 mg/dL Borderline High LDL: 130-159 mg/dL High LDL: 160-189 mg/dL Very High LDL: greater than or equal to 190 mg/dL HDL Cholesterol 89 >40 mg/dL Desirable HDL: greater than 40 mg/dL Note: This HDL assay may give artificially low results in patients with liver disease. PSA,Total (Free>4and<10) Reviewed date:08/25/2023 10:48:55 AM Interpretation:[facility] PSA 08/25/23 Performing Lab:[facility], [address] [place] [phone] Notes/Report: PSA,Total (Free>4and<10) 3.65 0.00-4.00 ng/mL A Free PSA was not performed: The percentage of Free PSA can be used to enhance the differentiation of prostate cancer from benign prostatic disease in subjects whose PSA levels are between 4.0 and 10.0 ng/mL. For subjects whose PSA levels are below 4.0 or above 10.0 ng/mL, the risk of prostate cancer is determined on the basis of the PSA alone. Therefore the % Free PSA is recommended only for those subjects whose PSA levels are between 4.0 and 10.0 ng/mL. PSA methodology: Christianson Alinity i Chemiluminescent Microparticle Immunoassay (CMIA) UA ClnCatch+Micro w/rflx Cul t Reviewed date:08/25/2023 12:38:04 PM Interpretation: Performing Lab:[facility], [address] [place] [phone] Notes/Report: [id number] Urine, Clean Catch Color Urine Yellow Appearance Urine Turbid PH 5.0 5.0-9.0 Glucose Urine UA Negative Negative mg/dL Urine Blood Small (1+) Negative Specific [place] - Urine 1.015 1.005-1.025 Urine Protein 30 (1+) Neg-Trace mg/dL Urine Ketones Negative Negative mg/dL Nitrite Urine Positive Negative Leukocyte Esterase Urine Large (3+) Negative RBC Urine 0-2 0-2 /HPF WBC Urine >50 0-5 /HPF WBC Clumps Urine Present Squamous Epithelial Cell Urine 3-5 0-2 /HPF Bacteria Urine 4+ None Seen Hyaline Casts Urine 0-2 0-2 /LPF Occult Blood, Stool, Guaiac Reviewed date:08/25/2023 01:21:52 PM Interpretation: Performing Lab: Notes/Report: Occult Blood, Stool, Guaiac Neg Hold Gold Reviewed date:09/22/2023 12:05:43 PM Interpretation: Performing Lab:[facility], [address] [place] [phone] Notes/Report: Hasmukh Lim See Note Specimen held untested for 24 hours; Call to request Chemistry testing. Blood Urea Nitrogen Reviewed date:09/22/2023 03:30:00 PM Interpretation: Performing Lab:[facility], [address] [place] [phone] Notes/Report: Blood Urea Nitrogen 38 9-16 mg/dL Urine Culture Reviewed date:09/23/2023 11:22:51 AM Interpretation: Performing Lab:[address] [phone] Notes/Report: Urine Culture No growth. Lactic Acid Reviewed date:10/13/2023 12:52:26 PM Interpretation: Performing Lab:[facility], [address] [place] [phone] Notes/Report: Lactic Acid 1.9 0.5-2.0 mmol/L Blood Culture (First) Reviewed date:10/20/2023 01:44:28 PM Interpretation: Performing Lab:[address] [phone] Notes/Report: Blood Culture (First) No growth after 5 days. Blood Culture (Second) Reviewed date:10/20/2023 01:45:15 PM Interpretation: Performing Lab:[address] [phone] Notes/Report: Blood Culture (Second) No growth after 5 days. Venous Blood Gases - POC Reviewed date:10/13/2023 12:51:57 PM Interpretation: Performing Lab:[address] [phone] Notes/Report: VBG pH 7.30 7.32-7.43 METER #: [id number] additional_comment: Cb touchen VBG pCO2 50 METER #: [id number] additional_comment: Cb touchen VBG pO2 45 METER #: [id number] additional_comment: Cb touchen VBG Base Excess -1.7 METER #: [id number] additional_comment: Cb touchen VBG HCO3 25 22-26 mmol/L METER #: [id number] additional_comment: Cb touchen VBG O2 % Saturation 73.0 METER #: [id number] additional_comment: Cb touchen CT cervical spine wo con Reviewed date:10/12/2023 07:09:33 PM Interpretation: Performing Lab: Notes/Report: [address] [address] [address] Scan Report Signed Patient: Angel Temple MR#: [id number] [birth year] : 1955 Acct:[id number] Age/Sex: 68 / M ADM Date: 10/12/23 Loc: .ED Attending Dr: Ordering Physician: Vale Moon DO Date of Service: 10/12/23 Procedure(s): CT cervical spine wo IV con Accession Number(s): [id number] cc: Pato Hampton MD; Marion,Vale DO Examination: CT brain and CT cervical spine without contrast. Clinical indications: Neck trauma. TECHNIQUE: 5 mm thin axial and reformatted 2 mm thin sagittal coronal images of brain were obtained. Subsequently axial 3 mm thin and reformatted 2 mm thin sagittal coronal images of cervical spine were obtained. DLP [id number]. This CT examination was performed using dose optimization technique as appropriate, variously including the following: Automated exposure control Adjustment of MA and/or KV according to patient size(this includes techniques or standardized protocols for targeted exams where dose is matched to indication/reason for exam; extremities or head. Use of iterative reconstruction techniques. FINDINGS: Brain: There is no acute intra-axial, extra-axial bleed, masses or midline shift. There is no acute infarction in evolution. There is no edema. The lateral ventricles are symmetrical in size and configuration without enlargement. The merritt to white matter differentiation is maintained normal. Bone windows reveal no calvarial abnormality. The paranasal sinuses and mastoid air cells are well-aerated. No scalp soft tissue abnormality seen. Cervical spine: There is mild straightening of cervical lordosis. The vertebral heights and alignment are normal. There is mild loss of C4-C5, C5-C6, C6-C7 disc heights with ventral and posterior spondylosis. The craniovertebral junction and C1-C2 alignment is normal. There is no visible acute fracture, dislocation or subluxation seen. The prevertebral and paravertebral soft tissues are normal. The lung apices are clear. CT/CT cervical spine wo IV con IMPRESSION: 1. No acute intracranial process seen. 2. There is no acute fracture, dislocation or subluxation seen. There are degenerative disc changes C4-C5, C5-C6 and C6-C7 disc levels with ventral and posterior spondylosis. Dictated By: Maxim Gonzalez MD Signed By: <Electronically signed by Maxim Gonzalez MD in OV> 10/12/23 1653 DD/ 1631 TD/TT: Dental Hygiene Instructor: GILBERTO CT head/brain wo con Reviewed date:10/12/2023 07:09:56 PM Interpretation: Performing Lab: Notes/Report: [address] [address] [address] Scan Report Signed Patient: Angel Temple MR#: [id number] [birth year] : 1955 Acct:[id number] Age/Sex: 68 / M ADM Date: 10/12/23 Loc: HO.ED Attending Dr: Ordering Physician: Vale Moon DO Date of Service: 10/12/23 Procedure(s): CT head/brain wo IV con Accession Number(s): [id number] cc: Pato Hampton MD; Vale Moon DO Examination: CT brain and CT cervical spine without contrast. Clinical indications: Neck trauma. TECHNIQUE: 5 mm thin axial and reformatted 2 mm thin sagittal coronal images of brain were obtained. Subsequently axial 3 mm thin and reformatted 2 mm thin sagittal coronal images of cervical spine were obtained. DLP 1427. This CT examination was performed using dose optimization technique as appropriate, variously including the following: Automated exposure control Adjustment of MA and/or KV according to patient size(this includes techniques or standardized protocols for targeted exams where dose is matched to indication/reason for exam; extremities or head. Use of iterative reconstruction techniques. FINDINGS: Brain: There is no acute intra-axial, extra-axial bleed, masses or midline shift. There is no acute infarction in evolution. There is no edema. The lateral ventricles are symmetrical in size and configuration without enlargement. The merritt to white matter differentiation is maintained normal. Bone windows reveal no calvarial abnormality. The paranasal sinuses and mastoid air cells are well-aerated. No scalp soft tissue abnormality seen. Cervical spine: There is mild straightening of cervical lordosis. The vertebral heights and alignment are normal. There is mild loss of C4-C5, C5-C6, C6-C7 disc heights with ventral and posterior spondylosis. The craniovertebral junction and C1-C2 alignment is normal. There is no visible acute fracture, dislocation or subluxation seen. The prevertebral and paravertebral soft tissues are normal. The lung apices are clear. CT/CT head/brain wo IV con IMPRESSION: 1. No acute intracranial process seen. 2. There is no acute fracture, dislocation or subluxation seen. There are degenerative disc changes C4-C5, C5-C6 and C6-C7 disc levels with ventral and posterior spondylosis. Dictated By: Maxim Gonzalez MD Signed By: <Electronically signed by Maxim Gonzalez MD in OV> 10/12/23 1653 DD/ 1631 TD/TT: Dental Hygiene Instructor: GILBERTO XR chest 1V Reviewed date:10/13/2023 12:52:16 PM Interpretation: Performing Lab: Notes/Report: [address] [address] XRay Report Signed Patient: Angel Temple MR#: [id number] 20 : 1955 Acct:[id number] Age/Sex: 68 / M ADM Date: 10/12/23 Loc: HO.ED Attending Dr: Ordering Physician: Vale Moon DO Date of Service: 10/12/23 Procedure(s): XR chest 1V Accession Number(s): [id number] cc: Pato Hampton MD; Vale Moon DO EXAMINATION: XR CHEST CLINICAL INFORMATION: Dyspnea. COMPARISON: Chest 01/23/2023 TECHNIQUE: Frontal view of the chest was obtained. FINDINGS: Lungs are somewhat expanded and clear of acute process. Heart size and pulmonary vascularity is normal. No gross bony abnormality seen. XR/XR chest 1V IMPRESSION: Unremarkable chest exam. Dictated By: Maxim Gonzalez MD Signed By: <Electronically signed by Maxim Gonzalez MD in OV> 10/12/23 1630 DD/ 1554 TD/TT: Dental Hygiene Instructor: GILBERTO Complete Blood Count no Diff Reviewed date:10/13/2023 02:11:45 PM Interpretation: Performing Lab:[facility], [address] [place] [phone] Notes/Report: White Blood Count 8.7 4.8-10.8 X10*3/uL Red Blood Count 4.12 4.60-5.80 X10*6/uL Hemoglobin 13.6 14.0-18.0 g/dl Hematocrit 39.6 42.0-52.0 % Mean Corpuscular Volume 96.1 80.0-98.0 fL Mean Corpuscular Hemoglobin 33.0 27.0-33.0 pg Mean Corpuscular HGB Conc 34.3 31.0-36.0 g/dl Red Cell Distribution Width 12.9 11.0-16.0 % Platelet Count 170 160-400 X10*3/uL Mean Platelet Volume 11.9 9.4-12.4 fL NRBC Pct Auto 0.0 0.0-0.2 /100WBC NRBC Abs Auto 0.000 0.0-0.012 X10*3/uL Hold Lav - Possible Hematolo gy Reviewed date:10/13/2023 05:11:44 PM Interpretation: Performing Lab:[facility], [address] [place] [phone] Notes/Report: Hold Lav - Possible Hematology SEE NOTE Specimen will be held untested for 8 hours. Call Hematology if testing is desired. Basic Metabolic Panel Reviewed date:10/13/2023 12:47:58 PM Interpretation: Performing Lab:[facility], [address] [place] [phone] Notes/Report: Sodium 135 135-145 mmol/L Potassium 4.9 3.3-5.1 mmol/L Chloride 102 96-108 mmol/L Carbon Dioxide 20 22-29 mmol/L Anion Gap 18 12-20 Blood Urea Nitrogen 25 9-16 mg/dL Creatinine 1.20 0.5-1.4 mg/dL Creatinine Clr Calc Pharmacy 78.7 eGFR (calculated from the MDRD study equation) and eCrCl (calculated from the Cockcroft-Gault equation) are based on different parameters and may not yield comparable results. If eCrCl result is absurd, please check patient's height/weight. Estimated Glomerular Filt Rate > 60 NOTE: For -Irish individuals, multiply the result by 1.210. Chronic Kidney Disease: Estimated GFR < 60 mL/min/1.73m2 Severe Kidney Disease: Estimated GFR < 15 mL/min/1.73m2 Glucose Random 157 60-115 mg/dL Calcium 9.9 8.4-10.2 mg/dL Magnesium Reviewed date:10/13/2023 12:33:55 PM Interpretation: Performing Lab:[facility], [address] [place] [phone] Notes/Report: Magnesium 1.7 1.6-2.6 mg/dL D Dimer High Sensitivity Reviewed date:10/13/2023 05:11:44 PM Interpretation: Performing Lab:[facility], [address] [place] [phone] Notes/Report: D Dimer High Sensitivity 698 D-DIMER HS REFERENCE RANGE Note: Our assay reports D-Dimer Units (D-DU). The cut-off value for venous thromboembolic (VTE) disease is 230 ng/mL. This value has a very high negative predictive value when the patient has a low to moderate clinical probability of VTE. The upper limit of normal is 243 ng/mL. Hold Green Gel Reviewed date:10/13/2023 05:10:37 PM Interpretation: Performing Lab:[facility], [address] [place] [phone] Notes/Report: Hold Green Gel See Note Specimen held untested for 24 hours; Call to request Chemistry testing. Basic Metabolic Panel Reviewed date:10/14/2023 04:32:07 PM Interpretation: Performing Lab:[facility], [address] [place] [phone] Notes/Report: Pt going for tests. Will be in [place] later Sodium 137 135-145 mmol/L Potassium 4.3 3.3-5.1 mmol/L Chloride 101 96-108 mmol/L Carbon Dioxide 23 22-29 mmol/L Anion Gap 17 12-20 Blood Urea Nitrogen 37 9-16 mg/dL Creatinine 1.49 0.5-1.4 mg/dL Creatinine Clr Calc Pharmacy 63.4 eGFR (calculated from the MDRD study equation) and eCrCl (calculated from the Cockcroft-Gault equation) are based on different parameters and may not yield comparable results. If eCrCl result is absurd, please check patient's height/weight. Estimated Glomerular Filt Rate 47 NOTE: For -Irish individuals, multiply the result by 1.210. Chronic Kidney Disease: Estimated GFR < 60 mL/min/1.73m2 Severe Kidney Disease: Estimated GFR < 15 mL/min/1.73m2 Glucose Random 150 60-115 mg/dL Calcium 10.0 8.4-10.2 mg/dL NM pul perfusion Reviewed date:10/14/2023 04:31:43 PM Interpretation: Performing Lab: Notes/Report: [address] [place] [address] Nuclear Medicine Report Signed Patient: Angel Temple MR#: [id number] 20 : 1955 Acct:[id number] Age/Sex: 68 / M ADM Date: 10/12/23 Loc: HO.S3 369-[address]: Felipe Anderson MD Ordering Physician: Felipe Anderson MD Date of Service: 10/14/23 Procedure(s): NM pul perfusion Accession Number(s): [id number] cc: Pato Hampton MD; Felipe Anderson MD EXAMINATION: PULMONARY PERFUSION STUDY CLINICAL INFORMATION: Shortness of breath and hypoxia. COMPARISON: No previous lung scan is available for comparison. Radiographs of the chest dated 10/14/2023, the same date as his lung scan, are available for comparison. TECHNIQUE: Following the intravenous injection of 4.0 mCi Tc-99m MAA, the lungs were imaged in the anterior and posterior, left and right lateral and TAJIK, PARHAM, LPO, and RPO projections using a gamma scintillation camera. FINDINGS: No segmental perfusion defects are present. There is a small subsegmental perfusion abnormality present laterally in the right middle lobe. No other perfusion abnormalities are present. NM/NM pul perfusion IMPRESSION: Very low probability of pulmonary embolism. Dictated By: Abdiel Cadena MD Signed By: <Electronically signed by Abdiel Cadena MD in OV> 10/14/23 1002 DD/ 0925 TD/TT: Dental Hygiene Instructor: LYNETTE XR chest 2V Reviewed date:10/14/2023 04:30:01 PM Interpretation: Performing Lab: Notes/Report: [place] [address] XRay Report Signed Patient: Angel Temple MR#: [id number] 20 : 1955 Acct:[id number] Age/Sex: 68 / M ADM Date: 10/12/23 Loc: HO.S3 369-[address]: Felipe Anderson MD Ordering Physician: Felipe Anderson MD Date of Service: 10/14/23 Procedure(s): XR chest 2V Accession Number(s): [id number] cc: Pato Hampton MD; Felipe Anderson MD EXAMINATION: XR CHEST CLINICAL INFORMATION: Shortness of breath and hypoxia COMPARISON: 10/12/2023 TECHNIQUE: 2 views of the chest were obtained. FINDINGS: Heart, mediastinum and vascularity within normal limits. Low lung volumes likely contributing to prominent appearing right hilum and increasing left base density. XR/XR chest 2V IMPRESSION: Low lung volumes. Left lower lobe increased markings, question atelectasis versus pneumonia. Dictated By: Edda Goodrich MD Signed By: <Electronically signed by Edda Goodrich MD in OV> 10/14/23949 DD/ 5 TD/TT: Dental Hygiene Instructor: Basic Metabolic Panel Reviewed date:10/16/2023 07:36:57 PM Interpretation: Performing Lab:[address] [phone] Notes/Report: Sodium 140 135-145 mmol/L Potassium 4.0 3.3-5.1 mmol/L Chloride 102 96-108 mmol/L Carbon Dioxide 24 22-29 mmol/L Anion Gap 18 12-20 Blood Urea Nitrogen 48 9-16 mg/dL Creatinine 1.69 0.5-1.4 mg/dL Creatinine Clr Calc Pharmacy 55.9 eGFR (calculated from the MDRD study equation) and eCrCl (calculated from the Cockcroft-Gault equation) are based on different parameters and may not yield comparable results. If eCrCl result is absurd, please check patient's height/weight. Estimated Glomerular Filt Rate 41 NOTE: For -Irish individuals, multiply the result by 1.210. Chronic Kidney Disease: Estimated GFR < 60 mL/min/1.73m2 Severe Kidney Disease: Estimated GFR < 15 mL/min/1.73m2 Glucose Random 72 60-115 mg/dL Calcium 10.6 8.4-10.2 mg/dL Hold Lav - Possible Hematolo gy Reviewed date:10/16/2023 12:45:41 PM Interpretation: Performing Lab:[address] [phone] Notes/Report: Hold Lav - Possible Hematology SEE NOTE Specimen will be held untested for 8 hours. Call Hematology if testing is desired. Basic Metabolic Panel Reviewed date:10/16/2023 05:11:48 PM Interpretation: Performing Lab:[facility], [address] [place] [phone] Notes/Report: Sodium 142 135-145 mmol/L Potassium 4.3 3.3-5.1 mmol/L Chloride 108 96-108 mmol/L Carbon Dioxide 25 22-29 mmol/L Anion Gap 13 12-20 Blood Urea Nitrogen 53 9-16 mg/dL Creatinine 1.52 0.5-1.4 mg/dL Creatinine Clr Calc Pharmacy 62.1 eGFR (calculated from the MDRD study equation) and eCrCl (calculated from the Cockcroft-Gault equation) are based on different parameters and may not yield comparable results. If eCrCl result is absurd, please check patient's height/weight. Estimated Glomerular Filt Rate 46 NOTE: For -Irish individuals, multiply the result by 1.210. Chronic Kidney Disease: Estimated GFR < 60 mL/min/1.73m2 Severe Kidney Disease: Estimated GFR < 15 mL/min/1.73m2 Glucose Random 86 60-115 mg/dL Calcium 9.6 8.4-10.2 mg/dL Complete Blood Count Auto Di ff Reviewed date:10/31/2023 12:24:05 PM Interpretation: Performing Lab:[facility], [address] [place] [address] Notes/Report: White Blood Count 8.4 4.8-10.8 X10*3/uL Red Blood Count 3.85 4.60-5.80 X10*6/uL Hemoglobin 13.1 14.0-18.0 g/dl Hematocrit 38.1 42.0-52.0 % Mean Corpuscular Volume 99.0 80.0-98.0 fL Mean Corpuscular Hemoglobin 34.0 27.0-33.0 pg Mean Corpuscular HGB Conc 34.4 31.0-36.0 g/dl Red Cell Distribution Width 13.0 11.0-16.0 % Platelet Count 170 160-400 X10*3/uL Mean Platelet Volume 11.4 9.4-12.4 fL Neutrophils Percent Auto 59.4 45-73 % Imm Gran Pct Auto 0.5 0.0-0.4 % Lymphocytes Percent Auto 23.9 20-40 % Monocytes Percent Auto 7.4 2-11 % Eosinophils Percent Auto 8.6 0-4 % Basophils Percent Auto 0.2 0-2 % NRBC Pct Auto 0.0 0.0-0.2 /100WBC Neutrophils Absolute Auto 5.0 2.0-8.3 x10*3/u L Imm Gran Abs Auto 0.04 0.00-0.03 X10*3/uL Lymphocytes Absolute Auto 2.0 1.2-4.9 X10*3/u L Monocytes Absolute Auto 0.6 0.1-1.2 X10*3/uL Eosinophils Absolute Auto 0.7 0.0-0.4 X10*3/u L Basophils Absolute Auto 0.0 0.0-0.2 X10*3/uL NRBC Abs Auto 0.000 0.0-0.012 X10*3/uL White Blood Count 8.4 4.8-10.8 X10*3/uL Red Blood Count 3.85 4.60-5.80 X10*6/uL Hemoglobin 13.1 14.0-18.0 g/dl Hematocrit 38.1 42.0-52.0 % Mean Corpuscular Volume 99.0 80.0-98.0 fL Mean Corpuscular Hemoglobin 34.0 27.0-33.0 pg Mean Corpuscular HGB Conc 34.4 31.0-36.0 g/dl Red Cell Distribution Width 13.0 11.0-16.0 % Platelet Count 170 160-400 X10*3/uL Mean Platelet Volume 11.4 9.4-12.4 fL Neutrophils Percent Auto 59.4 45-73 % Imm Gran Pct Auto 0.5 0.0-0.4 % Lymphocytes Percent Auto 23.9 20-40 % Monocytes Percent Auto 7.4 2-11 % Eosinophils Percent Auto 8.6 0-4 % Basophils Percent Auto 0.2 0-2 % NRBC Pct Auto 0.0 0.0-0.2 /100WBC Neutrophils Absolute Auto 5.0 2.0-8.3 x10*3/u L Imm Gran Abs Auto 0.04 0.00-0.03 X10*3/uL Lymphocytes Absolute Auto 2.0 1.2-4.9 X10*3/u L Monocytes Absolute Auto 0.6 0.1-1.2 X10*3/uL Eosinophils Absolute Auto 0.7 0.0-0.4 X10*3/u L Basophils Absolute Auto 0.0 0.0-0.2 X10*3/uL NRBC Abs Auto 0.000 0.0-0.012 X10*3/uL Prothrombin Time INR Reviewed date:10/31/2023 12:23:25 PM Interpretation: Performing Lab:[facility], [address] [place] [phone] Notes/Report: Prothrombin Time 12.4 11.1-13.3 SEC INTERNATIONAL NORM RATIO 1.0 0.9-1.1 INTERNATIONAL NORMALIZED RATIO (INR) REFERENCE RANGES Reference Range For patients not on anticoagulant therapy: 0.9 - 1.1 INR ranges for oral anticoagulant therapy: For prevention and treatment of venous thrombosis and pulmonary embolism: 2.0 - 3.0 For acute myocardial infarction with aspirin therapy: 2.0 - 3.0 For acute myocardial infarction without aspirin therapy: 3.0 - 4.0 For patients with mechanical prosthetic heart valves: 2.5 - 3.5 Comprehensive Met. Panel Reviewed date:10/31/2023 12:28:54 PM Interpretation: Performing Lab:[facility], [address] [place] [phone] Notes/Report: Sodium 139 135-145 mmol/L Potassium 4.2 3.3-5.1 mmol/L Chloride 101 96-108 mmol/L Carbon Dioxide 26 22-29 mmol/L Anion Gap 16 12-20 Blood Urea Nitrogen 10 9-16 mg/dL Creatinine 0.80 0.5-1.4 mg/dL Creatinine Clr Calc Pharmacy 114.2 eGFR (calculated from the MDRD study equation) and eCrCl (calculated from the Cockcroft-Gault equation) are based on different parameters and may not yield comparable results. If eCrCl result is absurd, please check patient's height/weight. Estimated Glomerular Filt Rate > 60 NOTE: For -Irish individuals, multiply the result by 1.210. Chronic Kidney Disease: Estimated GFR < 60 mL/min/1.73m2 Severe Kidney Disease: Estimated GFR < 15 mL/min/1.73m2 Glucose Random 118 60-115 mg/dL Calcium 9.8 8.4-10.2 mg/dL Bilirubin Total 0.9 0.0-1.0 mg/dL Aspartate Amino Transferase 34 5-37 U/L Alanine Aminotransferase 25 0-40 U/L Total Protein 7.2 6.5-8.0 g/dL Albumin Level 4.2 3.5-5.0 g/dL Alkaline Phosphatase 84 39-117 U/L Magnesium Reviewed date:10/31/2023 12:28:37 PM Interpretation: Performing Lab:[facility], [address] [place] [phone] Notes/Report: Magnesium 1.9 1.6-2.6 mg/dL Troponin-I High Sensitivity Reviewed date:10/31/2023 12:23:16 PM Interpretation: Performing Lab:[facility], [address] [place] [phone] Notes/Report: Troponin-I High Sensitivity 5.0 <3.5-35.0 ng/ L The [place] high sensitivity Troponin-I results should be used in conjunction with other diagnostic information such as ECG, clinical observations and information, and patient symptoms to aid in the diagnosis of [place]. B Type Natriuretic Peptide Reviewed date:10/31/2023 12:27:46 PM Interpretation: Performing Lab:[facility], [address] [place] [phone] Notes/Report: B Type Natriuretic Peptide 35 <100 pg/mL For those patients who are being treated with Natrecor (nesiritide, recombinant BNP), BNP testing should be performed at least two hours post treatment in order to ensure that only endogenous levels of BNP are detected. Respiratory Panel Reviewed date:11/03/2023 12:37:20 PM Interpretation: Performing Lab:[address] [phone] Notes/Report: Adenovirus PCR Not Detected Not Detect. Bordetella pertussis PCR Not Detected Not Detect. Bordetella parapertussis PCR Not Detected Not Detect. Chlamydia pneumoniae PCR Not Detected Not Detect. Coronavirus 229E PCR Not Detected Not Detect. Coronavirus HKU1 PCR Not Detected Not Detect. Coronavirus NL63 PCR Not Detected Not Detect. Coronavirus OC43 PCR Not Detected Not Detect. SARS-CoV-2 PCR Not Detected Not Detect. SARS-CoV-2 not detected by real-time RT-PCR. Note: If clinical suspicion for Sars-CoV-2 is high, continue to maintain precautions and consider repeat testing. Test results should be interpreted in the context of clinical findings and other laboratory data. Rare polymorphisms exist that could lead to false-negative or false-positive results. If results do not match the clinical findings, additional testing should be considered. Results reported to [facility]. This test has been authorized by the FDA under the Emergency Use Authorization (EUA) for use by authorized laboratories. Influenza A PCR Not Detected Not Detect. Influenza B PCR Not Detected Not Detect. Human metapneumovirus PCR Not Detected Not Detect. Rhino/Enterovirus PCR Not Detected Not Detect. Mycoplasma pneumoniae PCR Not Detected Not Detect. Parainfluenza 1 PCR Not Detected Not Detect. Parainfluenza 2 PCR Not Detected Not Detect. Parainfluenza 3 PCR Not Detected Not Detect. Parainfluenza 4 PCR Not Detected Not Detect. RSV PCR Not Detected Not Detect. Resp Panel NA Note See Note All results must be correlated with clinical findings. Negative results should not be used as the sole basis for diagnosis, treatment, or other management decisions. A negative result does not exclude the possibility of viral or bacterial infection. Negative results may occur from the presence of sequence variants in the region targeted by the assay, the presence of inhibitors, an infection caused by an organism not detected by the panel, or lower respiratory tract infections that are not detected by a nasopharyngeal swab specimen. Test results may also be affected by concurrent antiviral/antibacteri al therapy or levels of organism in the specimen that are below the limit of detection for this test. This assay is performed by Multiplexed PCR, utilizing the [employer] Array. SLIDE REVIEW Reviewed date:10/31/2023 12:23:07 PM Interpretation: Performing Lab:[facility], [address] [place] [phone] Notes/Report: SLIDE REVIEW VERIFIED SARS-CoV2/FLU/RSV Reviewed date:10/31/2023 12:23:34 PM Interpretation: Performing Lab:[facility], [address] [place] [phone] Notes/Report: Influenza A PCR NEGATIVE Negative Influenza B PCR NEGATIVE Negative Resp Syncy Virus RNA Qual PCR NEGATIVE Negative SARS COV2 PCR INHOUSE NEGATIVE Negative All test results must be correlated with clinical findings. Negative results do not preclude SARS-CoV2, influenza A virus, influenza B virus and/or RSV infection and should not be used as the sole basis for treatment or other patient management decisions. Negative results must be combined with clinical observations, patient history, and epidemiological information. This test has not been evaluated for monitoring treatment of infection. This test has been authorized by the FDA under an Emergency Use Authorization (EUA) for use by authorized laboratories. Testing performed on the [employer] Gene[employer]pert utilizing real-time RT-PCR. All SARS CoV2 and positive influenza A/B results are reported to [facility]. UA CC w/rflx Micro + Cult Reviewed date:11/03/2023 04:50:47 PM Interpretation: Performing Lab:[address] [phone] Notes/Report: [id number] Urine, Clean Catch Color Urine Yellow Appearance Urine Clear PH 5.5 5.0-9.0 Glucose Urine UA Negative Negative mg/dL Urine Blood Negative Negative Specific [place] - Urine 1.015 1.005-1.025 Urine Protein Negative Neg-Trace mg/dL Urine Ketones 15 Negative mg/dL Nitrite Urine Negative Negative Leukocyte Esterase Urine Negative Negative Arterial Blood Gases - POC Reviewed date:10/31/2023 12:22:58 PM Interpretation: Performing Lab:[facility], [address] [place] [phone] Notes/Report: ABG pH 7.35 7.35-7.45 METER #: [id number] additional_comment: Ever canadabb lucas ABG pCO2 42 32-45 mmHg METER #: [id number] additional_comment: Ever macario ctrbb lucas ABG pO2 86 83-108 mmHg METER #: [id number] additional_comment: Ever macario ctrbb lucas ABG Base Excess -1.6 METER #: [id number] additional_comment: Ever canadabb lucas ABG HCO3 23 22-26 mmol/L METER #: [id number] additional_comment: Ever canadabb lucas ABG O2 % Saturation 97.0 METER #: [id number] additional_comment: Ever canadabb lucas XR chest 1V Reviewed date:10/31/2023 12:28:12 PM Interpretation: Performing Lab: Notes/Report: [address] [address] XRay Report Signed Patient: Angel Temple MR#: [id number] 20 : 1955 Acct:[id number] Age/Sex: 68 / M ADM Date: 10/31/23 Loc: HO.ED Attending Dr: Ordering Physician: Mari Lucas Date of Service: 10/31/23 Procedure(s): XR chest 1V Accession Number(s): [id number] cc: Pato Hampton MD; Mari Lucas EXAMINATION: XR chest 1V CLINICAL INFORMATION: Reason for Exam sob COMPARISON: Chest radiograph 10/14/2023 TECHNIQUE: AP upright portable chest radiograph FINDINGS: Normal appearance of the cardiomediastinal structures. No effusions or pneumothoraces. Normal pattern of pulmonary vasculature. No focal pulmonary consolidation. The descending aortic and left hemidiaphragmatic margins are well visualized which may represent resolution of the previously noted left base airspace opacification on the comparison study of 10/14/2023. XR/XR chest 1V IMPRESSION: Normal chest. Lungs clear. Dictated By: Clayton Sy MD Signed By: <Electronically signed by Clayton Sy MD in OV> 10/31/23 1142 DD/ 0900 TD/TT: Dental Hygiene Instructor: MARIA G Complete Blood Count no Diff Reviewed date:11/02/2023 07:56:20 AM Interpretation: Performing Lab:[facility], [address] [place] [id number] Notes/Report: White Blood Count 11.5 4.8-10.8 X10*3/uL Red Blood Count 4.03 4.60-5.80 X10*6/uL Hemoglobin 13.4 14.0-18.0 g/dl Hematocrit 40.0 42.0-52.0 % Mean Corpuscular Volume 99.3 80.0-98.0 fL Mean Corpuscular Hemoglobin 33.3 27.0-33.0 pg Mean Corpuscular HGB Conc 33.5 31.0-36.0 g/dl Red Cell Distribution Width 13.2 11.0-16.0 % Platelet Count 188 160-400 X10*3/uL Mean Platelet Volume 12.5 9.4-12.4 fL NRBC Pct Auto 0.0 0.0-0.2 /100WBC NRBC Abs Auto 0.000 0.0-0.012 X10*3/uL Basic Metabolic Panel Fastin g Reviewed date:11/03/2023 12:43:15 PM Interpretation: Performing Lab:[facility], [address] [place] [id number] Notes/Report: Sodium 138 135-145 mmol/L Potassium 4.0 3.3-5.1 mmol/L Chloride 104 96-108 mmol/L Carbon Dioxide 25 22-29 mmol/L Anion Gap 13 12-20 Blood Urea Nitrogen 21 9-16 mg/dL Creatinine 0.84 0.5-1.4 mg/dL Creatinine Clr Calc Pharmacy 108.8 eGFR (calculated from the MDRD study equation) and eCrCl (calculated from the Cockcroft-Gault equation) are based on different parameters and may not yield comparable results. If eCrCl result is absurd, please check patient's height/weight. Estimated Glomerular Filt Rate > 60 NOTE: For -Irish individuals, multiply the result by 1.210. Chronic Kidney Disease: Estimated GFR < 60 mL/min/1.73m2 Severe Kidney Disease: Estimated GFR < 15 mL/min/1.73m2 Glucose Fasting 119 60-99 mg/dL A fasting glucose from 100-125 mg/dl is considered impaired (pre-diabetes). Calcium 10.1 8.4-10.2 mg/dL Glucose, finger stick Reviewed date:02/23/2024 09:19:32 AM Interpretation: Performing Lab: Notes/Report: Value 92 REASON FOR REFERRAL Reason elevated BUN Diagnosis 1 Elevated BUN (R79.9) Referral Organization Pato Hampton MD Referring Provider First Name Pato Referring Provider Last Name Berta Referring Provider Speciality Internal M edicine Referred Provider Yovanny Yoon Referred Provider Specialty Nephrology General Notes Dior Hewitt 03:29:02 PM EDT > info faxed , Dior Hewitt 10/02/2023 03:19:11 PM EDT > appt is in [place] , Dior Hewitt 10/07/2023 11:27:36 AM EDT > patient is aware of appt Referral Priority Routine Referral Appointment Date 10/17/2023 Reason mild intermittent as thmatic bronchitis Diagnosis 1 Mild intermittent as thmatic bronchitis with acute exacerbation (J45.21) Referral Organization Pato Hampton MD Referring Provider First Name Pato Referring Provider Last Name Berta Referring Provider Speciality Internal M edicine Referred Provider ROSARIO BAHENA Referred Provider Specialty Pulmonary Di seases General Notes Dior Hewitt 12:04:31 PM EDT > info faxed Referral Priority Routine Referral Appointment Date 11/05/2023 MEDICATIONS Medication SIG (Take, Route, Frequency, Duration) [...] 300 MG TAKE 1 TABLET BY BENJI EVERY DAY for 90 Not-Taking Sildenafil Citrate 25 MG TAKE ONE TABLET BY MOUTH EVERY DAY NEEDED for 30 Active Ipratropium-Albuterol 0.5-2.5 (3) MG/3ML 3 ml as needed Inhalation every 6 hrs 02/03/2023 Active Albuterol Sulfate (2.5 MG/3ML) 0.083% USE 3ML INHALED EVERY 8 HOURS NEEDED Active Ventolin HFA * 108 (90 Base) MCG/ACT 2 puffs as needed Inhalation every 4 hrs for 30 day(s) 03/22/2013 Not-Taking Advair Diskus 250-50 MCG/ACT 1 puff Inhalation Twice a day Active Vitamin B-6 100 MG 1 tablet Orally Once a day for 30 day(s) Active traMADol HCl 50 MG TAKE ONE TABLET BY MOUTH EVERY 6 HOURS NEEDED FOR LOW BACK PAIN FOR 30 DAYS Orally Once a day for 30 days 12/04/2020 Not-Takin g Tylenol 325 MG 1 tablet as needed Orally every 4 hrs Active ProAir HFA 108 (90 Base) MCG/ACT 2 puffs as needed Inhalation every 6 hrs for 30 days 05/06/2017 Not-Taking Excedrin Tension Headache 500-65 MG 2 tablets as needed Orally Three times a day Not-Taking Motrin IB 200 MG 1 tablet with food o r milk as needed Orally Three times a day Active IMMUNIZATIONS Vaccine Route Administration Date Status Comme nts Flu Vaccine IM Intramuscular 02/18/2011 Administered Flu Vaccine Unknown 03/01/2013 Administered Work Fluarix Quadrivalent IM Intramuscular 02/28/2014 Administe red Flu Vaccine Unknown 03/14/2015 Administered At work Fluarix Quadrivalent Unknown 03/20/2016 Administered [facility] in [place] TDaP IM Intramuscular 04/29/2016 Administered Fluarix Quadrivalent Unknown 04/15/2017 Administered At work Fluarix Quadrivalent Unknown 04/20/2018 Administered At work Fluarix Quadrivalent Unknown 04/08/2019 Administered pt was given the vaccine at [facility] in [place]. Fluarix Quadrivalent Unknown 04/08/[address] [facility] Tetanus Unknown 04/29/2016 Administered Covid Vaccine Unknown 09/06/2020 Administered [facility] Influenza High Dose IM Intramuscular 03/08/2021 Administer ed SARS-COV-2 Pfizer Unknown 09/06/2020 Administered SARS-COV-2 Pfizer Unknown 03/28/2021 Administered Fluarix Quadrivalent IM Intramuscular 02/17/2023 Administe red Influenza High Dose IM Intramuscular 02/23/2024 Administer ed Shingrix Unknown 11/04/2017 Refused PPSV23 (Pnemovax) Unknown 05/14/2018 Refused Prevnar 13 Unknown 05/17/2019 Refused Flu Vaccine Unknown 02/28/2014 Pending Tetanus Unknown 04/29/2016 Pending Fluarix Quadrivalent Unknown 03/10/2020 Pending [facility] SOCIAL HISTORY Tobacco Use: Social History Observation Description Date Details (start date - stop date) Never Smoker NA - NA Sex Assigned At : Social History Observation Description Sex Assigned At Unknown Tobacco Use/Smoking Question Answer Notes Patient is a nonsmoker Additional Findings: Tobacco Non-User Cu rrent non-smoker, currently using no form of tobacco Alcohol Screen Question Answer Notes Did you [...] W/U Status Risk SNOMED Code Notes Problem Neutropenia (D70.9) Active confirmed Neutropenia (080127747) Problem Hypocalcemia (E83.51) Active confirmed Hypocalcemia (6770003) Problem Hypercalcemia (E83.52) Active confirmed Hypercalcemia (25119210) Problem Alcoholic hepatitis without ascites (K70.10) Active confirmed 891050840 Problem Alcoholic hepatitis with ascites (K70.11) Active confirmed Acute alcoh olic liver disease (6555367) Problem Body mass index (BMI) 37.0-37.9, adult (Z68.37) Active confirmed 099186454 Problem Essential hypertension (I10) Active confirmed 25390242 Problem Prediabetes (R73.09) Active confirmed 0590631 Problem Vasculogenic erectile dysfunction, unspecified vasculogenic erectile dysfunction type (N52.9) Active confirmed 6919827457035 Problem Bladder outlet obstruction (N32.0) Active confirmed 736857356 Problem Seasonal allergic rhinitis due to pollen (J30.1) Active confirmed 81691486 Problem Elevated PSA (R97.20) Active confirmed 747068659 Problem Body mass index (BMI) of 37.0-37.9 in adult (Z68.37) Active confirmed 415669806 Problem Hyperplastic colonic polyp, unspecified part of colon (K63.5) Active confirmed 408644173 Problem HERBERTH (obstructive sleep apnea) (G47.33) Active confirmed 29378004 Problem Mild intermittent asthmatic bronchitis with acute exacerbation (J45.21) Active confirmed 765959050 Problem Moderate asthma without complication, unspecified whether persistent (J45.909) Active confirmed 892997489 Problem Thrombopenia (D69.6) Active confirmed 256422556 VITAL SIGNS Blood pressure diastolic 74 mm Hg 02/23/2024 elizabeth ght is up 9 pounds since 12-22-23 Height 69 in 02/23/2024 weight is up 9 pounds since 12-22-23 Blood pressure systolic 122 mm Hg 02/23/2024 weig ht is up 9 pounds since 12-22-23 Weight 284 lbs 02/23/2024 weight is up 9 pounds since 12-22-23 BMI 41.93 kg/m2 02/23/2024 weight is up 9 pounds since 12-22-23 Encounters Encounter Location Date Provider Diagnosis Pato Hampton MD [address] [place] [id number] 08/25/2023 Pato Hampton Moderate asthma without complication, unspecified whether persistent J45.909 ; Annual physical exam Z00.00 ; Acute UTI N39.0 ; Elevated PSA R97.20 ; Elevated BUN R79.9 ; Essential hypertension I10 ; Prediabetes R73.09 ; Colon cancer screening Z12.11 and Depression screening Z13.31 Pato Hampton MD [address] [place] [id number] 06/19/2023 Pato Hampton Thrombopenia D69.6 ; Hypokalemia E87.6 ; Mild intermittent asthmatic bronchitis with acute exacerbation J45.21 and Edema leg R60.0 Pato Hampton MD [address] [id number] 08/21/2023 Pato Hampton Blood tests for routine general physical examination Z00.00 ; Essential hypertension I10 ; Elevated PSA R97.20 and Neutropenia D70.9 Pato Hampton MD [address] [place] [id number] 06/20/2023 Pato Hampton Thrombopenia D69.6 Pato Hampton MD [address] [id number] 09/22/2023 Pato Hampton Urinary tract infection, site not specified N39.0 ; Hematuria, unspecified R31.9 ; Acute UTI N39.0 and Elevated BUN R79.9 Pato Hampton MD [address] [place] [id number] 10/27/2023 Pato Hampton Elevated BUN R79.9 Pato Hampton MD [address] [place] [address] [id number] 05/16/2023 Pato Hampton Prediabetes R73.09 ; Mild intermittent asthmatic bronchitis with acute exacerbation J45.21 and Skin lesion of left leg L98.9 Pato Hampton MD [address] [place] [id number] 11/03/2023 Pato Hampton Prediabetes R73.09 ; Mild intermittent asthmatic bronchitis with acute exacerbation J45.21 and Elevated BUN R79.9 Pato Hampton MD [address] [place] [address] [id number] 11/20/2023 Pato Hampton Essential hypertension I10 ; Moderate asthma without complication, unspecified whether persistent J45.909 and HERBERTH (obstructive sleep apnea) G47.33 Pato Hampton MD [address] [place] [address] [id number] 12/22/2023 Pato Hampton Moderate asthma without complication, unspecified whether persistent J45.909 Pato Hampton MD [address] [place] [address] [id number] 02/23/2024 Pato Hampton Prediabetes R73.09 ; Moderate asthma without complication, unspecified whether persistent J45.909 and Encounter for immunization Z23 Pato Hampton MD [address] [place] [address] [id number] 05/29/2023 Pato Hampton Bladder outlet obstruction N32.0 ; Hypokalemia E87.6 ; Thrombopenia D69.6 and Lower extremity edema R60.0 Pato Hampton MD [address] [place] [address] [id number] 05/22/20[address] [place] [address] [id number] 05/22/2023 [address]o Hampton [address] [place] [address] [id number] 10/23/2023 Pato Hampton MD [address] [place] [address] [id number] 09/09/2023 Pato Hampton Mild intermittent asthmatic bronchitis with acute exacerbation J45.21 and Leg edema R60.0 ASSESSMENTS Encounter Date Diagnosis Assessment Notes Treatment Notes Treatment Clinical Notes 08/25/2023 Annual physical exam (ICD-10 - Z00.00) labs reviewed and discussed with patient 08/25/2023 Moderate asthma without complication, unspecified whether persistent (ICD-10 - J45.909) stable, will contiue current regiment 06/19/2023 Hypokalemia (ICD-10 - E87.6) is stopping the furosemide will not need potassium 06/19/2023 Thrombopenia (ICD-10 - D69.6) is stopping the furosemide and prednisone is stopped. will not need replacement, will continue to monitor 08/21/2023 Essential hypertension (ICD-10 - I10) 08/21/2023 Blood tests for routine general physical examination (ICD-10 - Z00.00) 06/20/2023 Thrombopenia (ICD-10 - D69.6) 09/22/2023 Urinary tract infection, site not specified (ICD-10 - N39.0) 09/22/2023 Hematuria, unspecified (ICD-10 - R31.9) 10/27/2023 Elevated BUN (ICD-10 - R79.9) 05/16/2023 Prediabetes (ICD-10 - R73.09) stable, no need for medication at this time 05/16/2023 Mild intermittent asthmatic bronchitis with acute exacerbation (ICD-10 - J45.21) taking 2 prednisone every other day 11/03/2023 Prediabetes (ICD-10 - R73.09) doing well, no need for medication at this time 11/03/2023 Mild intermittent asthmatic bronchitis with acute exacerbation (ICD-10 - J45.21) is doing well on prednisone, no signs of sx's related to hospitalization, will continue current regiment 11/20/2023 Essential hypertension (ICD-10 - I10) doing well off meds, will continue current regiment 11/20/2023 Moderate asthma without complication, unspecified whether persistent (ICD-10 - J45.909) is doing welll at present, will continue current regiment 12/22/2023 Moderate asthma without complication, unspecified whether persistent (ICD-10 - J45.909) doing well on meds. 02/23/2024 Prediabetes (ICD-10 - R73.09) good a1c, no need for medication at this time, will continue to monitor 02/23/2024 Moderate asthma without complication, unspecified whether persistent (ICD-10 - J45.909) fianlly doing well. continue with the same 05/29/2023 Hypokalemia (ICD-10 - E87.6) pending labs 05/29/2023 Bladder outlet obstruction (ICD-10 - N32.0) pending labs 09/09/2023 Leg edema (ICD-10 - R60.0) 09/09/2023 Mild intermittent asthmatic bronchitis with acute exacerbation (ICD-10 - J45.21) patient verbalized understanding of medications and directions for use 08/25/2023 Acute UTI (ICD-10 - N39.0) patient verbalized understanding of medication and directions for use 06/19/2023 Mild intermittent asthmatic bronchitis with acute exacerbation (ICD-10 - J45.21) doing great, gualberto continue current regiment 08/21/2023 Elevated PSA (ICD-10 - R97.20) 05/16/2023 Skin lesion of left leg (ICD-10 - L98.9) will recheck on next visit 11/03/2023 Elevated BUN (ICD-10 - R79.9) has returned to normal after stopping lisinopril, will continue to monitor 11/20/2023 HERBERTH (obstructive sleep apnea) (ICD-10 - G47.33) discussed with patient will have him speak with dr ceja about a sleep study/ patient is aware 02/23/2024 Encounter for immunization (ICD-10 - Z23) flu vaccine administered 05/29/2023 Thrombopenia (ICD-10 - D69.6) penbding labs 08/25/2023 Elevated PSA (ICD-10 - R97.20) stable, will continue to monitor 06/19/2023 Edema leg (ICD-10 - R60.0) has resolved 08/21/2023 Neutropenia (ICD-10 - D70.9) 09/22/2023 Acute UTI (ICD-10 - N39.0) 05/29/2023 Lower extremity edema (ICD-10 - R60.0) is probalbly secondary to the prednisone he has been taking has been off for 2 weeks, will continue to monitor Patient/Caregiver verbalizes understanding of medications side effects, interactions and warnings. 08/25/2023 Elevated BUN (ICD-10 - R79.9) stable, will continue to monitor 09/22/2023 Elevated BUN (ICD-10 - R79.9) 08/25/2023 Essential hypertension (ICD-10 - I10) doing well, gualberto khan current regiment 08/25/2023 Prediabetes (ICD-10 - R73.09) stable, no need for medication at this time 08/25/2023 Colon cancer screening (ICD-10 - Z12.11) guaiac negative 08/25/2023 Depression screening (ICD-10 - Z13.31) negative screen 05/29/2023 Other will check labs before clearing him for surgery PLAN OF TREATMENT Pending Test Test Name Order Date Electrocardiogram (EKG) 05/14/2018 Electrocardiogram (EKG) 05/21/2019 Glucose, finger stick 05/20/2024 XR CHEST 2 VIEW PA & LAT 04/01/2022 Next Appt Details Provider Name:Pato Vanegas ier, 05/20/2024 10:45:00 AM, [address] [place] [address], [address] [place] [address], [phone], Provider Name:Pato Vanegas ier, 08/23/2024 07:15:00 AM, [address] [place] [address], [address], [phone], Provider Name:Pato Dawkins Tomlaura ier, 08/30/2024 09:30:00 AM, [address] [place] [address], [place] [address], [place], [place], [phone], Insurance Providers Payer Name Payer Address Payer Phone Subscriber Number Group Number Insured Name Patient Relationship to Insured Coverage Start Date Coverage End Date [facility] [employer] [address] [address] [place] [address] [id number] Angel Temple Self - patient is the insured MEDICARE [employer] [address] [place] [id number] Angel Temple Self - patient is the insured MEDICAL (GENERAL) HISTORY Medical History History ICD Code colonoscopy 2007 due 2011; d one 02/04/17 - repeat 2016; colonoscopy done 02/12/[address] Vazquez - repeat 10 years hematuria. followed by dr varma. has h ad ct and cysto HERBERTH. dr ceja wanted study but patient d eclined Surgical History Surgery Date(Month/Year) Left ESWL - Dr. Blanco 08/2020
== END 2024-04-28 10:17 | disposition home or self-care (01) ==
PROVIDERS: PCP Internal Medicine; Visit Provider Internal Medicine
DX: E66.9 Obesity, unspecified (principal); J98.4 Other disorders of lung; J44.89 Other specified chronic obstructive pulmonary disease; G47.33 Obstructive sleep apnea (adult) (pediatric); G47.34 Idiopathic sleep related nonobstructive alveolar hypoventilation
CPT/HCPCS: 99213

== ENCOUNTER → 2024-04-28 09:43 | Outpatient (BNVA) | payer MEDICARE, SELFPAY | PROVIDERS: PCP Internal Medicine; Visit Provider Internal Medicine | DX: E66.9 Obesity, unspecified (principal); J44.89 Other specified chronic obstructive pulmonary disease; J98.4 Other disorders of lung; G47.33 Obstructive sleep apnea (adult) (pediatric); G47.34 Idiopathic sleep related nonobstructive alveolar hypoventilation; Z68.41 Body mass index [BMI] 40.0-44.9, adult | CPT/HCPCS: 99212 ==

== ENCOUNTER 2024-08-23 07:15 | Outpatient (REF) | payer MEDICARE, SELFPAY ==
[2024-08-23 12:29] LABS: Basophils Percent Auto 0.1 % (0-2); Eosinophils Absolute Auto 0.2 X10*3/uL (0.0-0.4); Eosinophils Percent Auto 1.5 % (0-4); Hematocrit 38.6 % (42.0-52.0); Hemoglobin 12.8 g/dl (14.0-18.0); Imm Gran Abs Auto 0.06 X10*3/uL (0.00-0.03); Imm Gran Pct Auto 0.5 % (0.0-0.4); Lymphocytes Absolute Auto 4.4 X10*3/uL (1.2-4.9); Lymphocytes Percent Auto 39.2 % (20-40); MANUAL DIFF FLAG SCAN; Mean Corpuscular HGB Conc 33.2 g/dl (31.0-36.0); Mean Corpuscular Hemoglobin 32.9 pg (27.0-33.0); Mean Corpuscular Volume 99.2 fL (80.0-98.0); Mean Platelet Volume 12.4 fL (9.4-12.4); Monocytes Absolute Auto 0.8 X10*3/uL (0.1-1.2); Monocytes Percent Auto 7.5 % (2-11); Neutrophils Absolute Auto 5.8 x10*3/uL (2.0-8.3); Neutrophils Percent Auto 51.2 % (45-73); Platelet Count 188 X10*3/uL (160-400); Red Blood Count 3.89 X10*6/uL (4.60-5.80); Red Cell Distribution Width 14.5 % (11.0-16.0); SCAN SMEAR FLAG 1; White Blood Count 11.2 X10*3/uL (4.8-10.8)
[2024-08-23 12:52] LABS: Estimated Average Glucose 105 mg/dL; Hemoglobin A1c % 5.3 % (<6.0)
[2024-08-23 13:07] LABS: Alanine Aminotransferase 33 U/L (0-40); Albumin Level 4.2 g/dL (3.5-5.0); Alkaline Phosphatase 60 U/L (39-117); Anion Gap 12 (12-20); Aspartate Amino Transferase 34 U/L (5-37); Bilirubin Total 0.6 mg/dL (0.0-1.0); Blood Urea Nitrogen 47 mg/dL (9-16); Calcium 9.3 mg/dL (8.4-10.2); Carbon Dioxide 27 mmol/L (22-29); Chloride 107 mmol/L (96-108); Cholesterol 180 mg/dL (<200); Estimated Glomerular Filt Rate 52; Glucose Fasting 65 mg/dL (60-99); HDL Cholesterol 115 mg/dL (>40); LDL Cholesterol Calculated 60 mg/dL (<100); Potassium 4.4 mmol/L (3.3-5.1); Sodium 142 mmol/L (135-145); Total Protein 7.3 g/dL (6.5-8.0); Triglycerides 26 mg/dL (<150)
[2024-08-23 13:11] LABS: PSA,Total (Free>4and<10) 3.56 ng/mL (0.00-4.00)
[2024-08-23 13:17] LABS: Appearance Urine Clear; Color Urine Yellow; Glucose Urine UA Negative (Negative); Leukocyte Esterase Urine Trace (Negative); Nitrite Urine Negative (Negative); PH 5.5 (5.0-9.0); UMIC TRIGGER UACC YES; Urine Blood Negative (Negative); Urine Ketones Trace mg/dL (Negative); Urine Protein Negative (Neg-Trace)
[2024-08-23 13:19] LABS: Creatinine Urine 152.58 mg/dL; Microalbum/Creatinine Ratio Ur 7.2 ug/mg cr (<30)
[2024-08-23 13:23] LABS: Bacteria Urine None Seen (None Seen); Hyaline Casts Urine 0-2 /LPF (0-2); RBC Urine 0-2 /HPF (0-2); Squamous Epithelial Cell Urine 0-2 /HPF (0-2); WBC Urine 0-5 /HPF (0-5)
--- OUTSIDE RECORDS SUMMARY | 2024-08-23 13:30 | XMS_ITS ---
Author Organization Pato Hampton MD Address [address] [place], [place] [phone] Care Team Providers Care Attacher Name Role Phone Pato Hampton Primary Care Provider [phone] Allergies Allergen (clinical drug ingredient) Drug/Non Drug Allergy documented on EMR Reaction Allergy Type Onset Date Status amoxicillin / clavulanate Augmentin nausea Drug Allergy Active REASON FOR VISIT 1 week Medications Medication SIG (Take, Route, Frequency, Duration) Notes Start Date End Date Status Ventolin HFA * 108 (90 Base) MCG/ACT [...] needed Orally Three times a day Not-Taking Ipratropium-Albuterol 0.5-2.5 (3) MG/3ML INHALE THE CONTENTS OF 1 VIAL (3ML) VIA NEBULIZER EVERY 6 HOURS NEEDED Active Albuterol Sulfate (2.5 MG/3ML) 0.083% USE 3ML INHALED EVERY 8 HOURS NEEDED Active Symbicort 160-4.5 MCG/ACT 2 puffs Inhala tion Twice a day 02/03/2023 Not-Taking Fluticasone Propionate 50 MCG/ACT 1 spray in each nostril Nasally Once a day for 30 day(s) 02/07/2022 Not-Taking Allopurinol 300 MG TAKE 1 TABLET BY BENJI TH EVERY DAY for 90 Not-Taking Furosemide 20 MG 1 tablet Orally Once a day for 30 day(s) 05/20/2024 Active predniSONE 10 MG 1 tablet with food o r milk Orally 4 tabs for 4 days, 3 tabs for 4 days, 2 tbs for 4 days, and 1 tab for 4 days for 14 days 05/20/2024 Active Sildenafil Citrate 25 MG TAKE ONE TABLET BY MOUTH EVERY DAY NEEDED for 30 Active Advair Diskus 250-50 MCG/ACT 1 puff Inhalation Twice a day Active Advair Diskus 500-50 MCG/ACT 1 puff Inhalation Twice a day for 30 days 05/28/2024 Active Vitamin B-6 100 MG 1 tablet Orally Once a day for 30 day(s) Active Tylenol 325 MG 1 tablet as needed Orally every 4 hrs Active Motrin IB 200 MG 1 tablet with food o r milk as needed Orally Three times a day Active Vital Signs Blood pressure systolic 142 mm Hg 05/28/19 25 Blood pressure diastolic 80 mm Hg 025 Height 69 in 05/28/2024 Weight 285 lbs 05/28/2024 BMI 42.08 kg/m2 05/28/2024 weight is down 9 pounds [facility] 05-20-24 Encounters Encounter Location Date Provider Diagnosis Pato Hampton MD [address] [place] [address] [address] [place], [place] [phone] 05/28/2024 Pato Hampton Essential hypertension I10 ; Mild intermittent asthmatic bronchitis with acute exacerbation J45.21 and Bilateral leg edema R60.0 Assessments Encounter Date Diagnosis (ICD Code) Assessment Notes Treatment Notes Treatment Clinical Notes Section Notes 05/28/2024 Essential hypertension (ICD-10 - I10) a little high now on the steroids, will continue current regiment and will continue to monitor 05/28/2024 Mild intermittent asthmatic bronchitis with acute exacerbation (ICD-10 - J45.21) patient verbalized understanding of medication and directins for use 05/28/2024 Bilateral leg edema (ICD-10 - R60.0) has resolved with the lasix, will continue to monitor Plan Of Treatment Medication Medication Name Sig Start Date Stop Date Notes Advair Diskus 500-50 MCG/ACT 1 puff Inha lation Twice a day for 30 days 05/28/2024 Treatment Notes Assessment Notes Essential hypertension a little high now on the steroids, will continue current regiment and will continue to monitor Mild intermittent asthmatic bronchitis with acute exacerbation patient verbalized understanding of medication and directins for use Bilateral leg edema has resolved with th e lasix, will continue to monitor Next Appt Details Follow Up: 4 Weeks, Reason: Provider Name:Pato morillo, 08/30/2024 09:30:00 AM, [address] [place] [address], [address], [place], [place], [phone], Progress Notes * Angel DOOLEY HDOB: (69 yo M)Acc No.[id number]:05/28/2024 Patient:?Dooley Angel Neto Provider:?Pato Hampton MD :1955???Age:69 Y???Sex:Male Nura e:05/28/2024 Address:[address] [place], [place] [id number] Subjective: * Chief Complaints: * ???1 week * HPI: ???Symptom(s):? patientis a 69 yo male here for one week follow up visit, doing much better down to 20 mg of prednisone. * ROS:?General/Constitutional:?Denies?Chills.?Denies?Fatigue.?Denies?Fever.?Denies?Headache.?ENT:?Patient denies?decreased sense of smell , any loss of taste , sore throat.?Denies?Sore throat.?Respiratory:?Admits?Cough.?Denies?Shortness of breath at rest.?Admits?Shortness of breath with exertion.?Admits?Sputum production.?Gastrointestinal:?Denies?Diarrhea.?Denies?Nausea.?Musculoskeletal:?Patient denies?muscle aches.?Peripheral Vascular:?Patient denies?red and blue toes.? * Medical History:? * Surgical History:? * Hospitalization/Major Diagno stic Procedure:? * Medications:?TakingMotrin IB 200 MG Tablet 1 tablet with food or milk as needed Orally Three times a dayTylenol 325 MG Tablet 1 tablet as needed Orally every 4 hrsVitamin B-6 100 MG Tablet 1 tablet Orally Once a daySildenafil Citrate 25 MG Tablet TAKE ONE TABLET BY MOUTH EVERY DAY NEEDED predniSONE 10 MG Tablet 1 tablet with food or milk Orally 4 tabs for 4 days, 3 tabs for 4 days, 2 tbs for 4 days, and 1 tab for 4 daysFurosemide 20 MG Tablet 1 tablet Orally Once a dayAdvair Diskus 250-50 MCG/ACT Aerosol Powder Breath Activated 1 puff Inhalation Twice a dayAlbuterol Sulfate (2.5 MG/3ML) 0.083% Nebulization Solution USE 3ML INHALED EVERY 8 HOURS NEEDED Ipratropium-Albuterol 0.5-2.5 (3) MG/3ML Solution INHALE THE CONTENTS OF 1 VIAL (3ML) VIA NEBULIZER EVERY 6 HOURS NEEDED Taking Motrin IB 200 MG Tablet 1 tablet with food or milk as needed Orally Three times a dayTaking Tylenol 325 MG Tablet 1 tablet as needed Orally every 4 hrsTaking Vitamin B-6 100 MG Tablet 1 tablet Orally Once a dayTaking Sildenafil Citrate 25 MG Tablet TAKE ONE TABLET BY MOUTH EVERY DAY NEEDED Taking predniSONE 10 MG Tablet 1 tablet with food or milk Orally 4 tabs for 4 days, 3 tabs for 4 days, 2 tbs for 4 days, and 1 tab for 4 daysTaking Furosemide 20 MG Tablet 1 tablet Orally Once a dayTaking Advair Diskus 250-50 MCG/ACT Aerosol Powder Breath Activated 1 puff Inhalation Twice a dayTaking Albuterol Sulfate (2.5 MG/3ML) 0.083% Nebulization Solution USE 3ML INHALED EVERY 8 HOURS NEEDED Taking Ipratropium-Albuterol 0.5-2.5 (3) MG/3ML Solution INHALE THE CONTENTS OF 1 VIAL (3ML) VIA NEBULIZER EVERY 6 HOURS NEEDED Not-Taking/PRNAllopurinol 300 MG Tablet TAKE 1 TABLET BY MOUTH EVERY DAY Fluticasone Propionate 50 MCG/ACT Suspension 1 spray in each nostril Nasally Once a daySymbicort 160-4.5 MCG/ACT Aerosol 2 puffs Inhalation Twice a dayIbuprofen 200 MG Tablet 1 tablet with food or milk as needed Orally Three times a dayExcedrin Tension Headache 500-65 MG Tablet 2 tablets as needed Orally Three times a dayProAir HFA 108 (90 Base) MCG/ACT Aerosol Solution 2 puffs as needed Inhalation every 6 hrstraMADol HCl 50 MG Tablet TAKE ONE TABLET BY MOUTH EVERY 6 HOURS NEEDED FOR LOW BACK PAIN FOR 30 DAYS Orally Once a dayVentolin HFA * 108 (90 Base) MCG/ACT Aerosol Solution 2 puffs as needed Inhalation every 4 hrsNot-Taking/PRN Allopurinol 300 MG Tablet TAKE 1 TABLET BY MOUTH EVERY DAY Not-Taking/PRN Fluticasone Propionate 50 MCG/ACT Suspension 1 spray in each nostril Nasally Once a dayNot-Taking/PRN Symbicort 160-4.5 MCG/ACT Aerosol 2 puffs Inhalation Twice a dayNot-Taking/PRN Ibuprofen 200 MG Tablet 1 tablet with food or milk as needed Orally Three times a dayNot-Taking/PRN Excedrin Tension Headache 500-65 MG Tablet 2 tablets as needed Orally Three times a dayNot-Taking/PRN ProAir HFA 108 (90 Base) MCG/ACT Aerosol Solution 2 puffs as needed Inhalation every 6 hrsNot- Taking/PRN traMADol HCl 50 MG Tablet TAKE ONE TABLET BY MOUTH EVERY 6 HOURS NEEDED FOR LOW BACK PAIN FOR 30 DAYS Orally Once a dayNot-Taking/PRN Ventolin HFA * 108 (90 Base) MCG/ACT Aerosol Solution 2 puffs as needed Inhalation every 4 hrsDiscontinuedZithromax Z-Neo 250 MG Tablet 2 tablet on the first day, then 1 tablet daily for 4 days Orally Once a dayMedication List reviewed and reconciled with the patientDiscontinued Zithromax Z-Neo 250 MG Tablet 2 tablet on the first day, then 1 tablet daily for 4 days Orally Once a dayMedication List reviewed and reconciled with the patient * Allergies:?Augmentin: nausea yes[Allergies Verified] Objective: * Vitals:?Ht: 69, Wt:285, BMI: 42.08, BP:142/80 weight is down 9 pounds since 05-20-24. * Examination: ???General Examination: ?GENERAL APPEARANCE:?alert, well hydrated, in no distress.?HEAD:?normocephalic.?SKIN:?good turgor.?HEART:?regular rate and rhythm , no murmurs, rubs, gallops.?LUNGS:?with few scattered wheezes.?EXTREMITIES:?no edema.? Assessment: * Assessment: 1.?Essential hypertension - I10?2.?Mild intermittent asthmatic bronchitis with acute exacerbation - J45.21?3.?Bilateral leg edema - R60.0? Plan: * Treatment: 2.?Mild intermittent asthmat ic bronchitis with acute exacerbation? Start Advair Diskus Aerosol Powder Breath Activated, 500-50 MCG/ACT, 1 puff, Inhalation, Twice a day, 30 days, 1, Refills 6.?? Notes: patient verbalized understanding of medication and directins for use?? 3.?Bilateral leg edema? Notes: has resolved with the lasix, will continue to monitor?? * Procedure Codes:? * Follow Up:?4 Weeks * * Sign off status: Completed true * Provider:?Pato Hampton MD Date:?0 05/28/2024 Generated for Hedy woodard/Brenda/Robbie on:?08/23/2024 01:30 PM EDT History and Physical Notes * HPI (History of Present Illness) Category Sub-Category Detail Notes Category Not es Symptom(s) patientis a 69 yo male here for one week follow up visit, doing much better down to 20 mg of prednisone Examination Category Sub-Category Detail Notes Category Not es General Examination GENERAL APPEARANCE: alert, w ell hydrated, in no distress HEAD: normocephalic HEART: regular rate and rhy thm , no murmurs, rubs, gallops LUNGS: with few scattered w heezes SKIN: good turgor EXTREMITIES: no edema
--- OUTSIDE RECORDS SUMMARY | 2024-08-23 13:30 | XMS_ITS ---
Author Organization Pato Hampton MD Address [address] [place], [place] [phone] Care Team Providers Care Costume Technician Name Role Phone Pato Hampton Primary Care Provider [phone] Allergies Allergen (clinical drug ingredient) Drug/Non Drug Allergy documented on EMR Reaction Allergy Type Onset Date Status amoxicillin / clavulanate Augmentin nausea Drug Allergy Active REASON FOR VISIT 4 week Medications Medication SIG (Take, Route, Frequency, Duration) Notes Start Date End Date Status Symbicort 160-4.5 MCG/ACT as directed In halation every 4 houss as needed for 30 days 06/28/2024 Active Advair Diskus 250-50 MCG/ACT 1 puff Inhalation Twice a day Active Ipratropium-Albuterol 0.5-2.5 (3) MG/3ML INHALE THE CONTENTS OF 1 VIAL (3ML) VIA NEBULIZER EVERY 6 HOURS NEEDED Active Albuterol Sulfate (2.5 MG/3ML) 0.083% USE 3ML INHALED EVERY 8 HOURS NEEDED Active Advair Diskus 500-50 MCG/ACT 1 puff Inhalation Twice a day 05/28/2024 Active traMADol HCl 50 MG TAKE ONE TABLET BY MOUTH EVERY 6 HOURS NEEDED FOR LOW BACK PAIN FOR 30 DAYS Orally Once a day for 30 days 12/04/2020 Not-Takeloina ann Ventolin HFA * 108 (90 Base) MCG/ACT 2 puffs as needed Inhalation every 4 hrs for 30 day(s) 03/22/2013 Not-Taking predniSONE 10 MG 1 tablet with food o r milk Orally 4 tabs for 3 days,3tabs for 3 days, 2 tabs for 3 days, and 1 tab for 3 days for 14 days 06/28/2024 Active ProAir HFA 108 (90 Base) MCG/ACT 2 puffs as needed Inhalation every 6 hrs for 30 days 05/06/2017 Not-Taking Excedrin Tension Headache 500-65 MG 2 tablets as needed Orally Three times a day Not-Taking Ibuprofen 200 MG 1 tablet with food o r milk as needed Orally Three times a day Not-Taking Fluticasone Propionate 50 MCG/ACT 1 spray in each nostril Nasally Once a day for 30 day(s) 02/07/2022 Not-Taking Symbicort 160-4.5 MCG/ACT 2 puffs Inhala tion Twice a day 02/03/2023 Not-Taking Furosemide 20 MG TAKE ONE TABLET BY MOUTH EVERY DAY for 30 Active Allopurinol 300 MG TAKE ONE TABLET BY MOUTH EVERY DAY for 90 Active predniSONE 10 MG 1 tablet with food o r milk Orally 4 tabs for 4 days, 3 tabs for 4 days, 2 tbs for 4 days, and 1 tab for 4 days for 14 days 05/20/2024 Not-Taking Vitamin B-6 100 MG 1 tablet Orally Once a day for 30 day(s) Active Sildenafil Citrate 25 MG TAKE ONE TABLET BY MOUTH EVERY DAY NEEDED for 30 Active Motrin IB 200 MG 1 tablet with food o r milk as needed Orally Three times a day Active Tylenol 325 MG 1 tablet as needed Orally every 4 hrs Not-Taking Vital Signs Blood pressure systolic 152 mm Hg 06/28/19 25 Blood pressure diastolic 74 mm Hg 025 Height 69 in 06/28/2024 Weight 290 lbs 06/28/2024 BMI 42.82 kg/m2 06/28/2024 Encounters Encounter Location Date Provider Diagnosis Pato Hampton MD [address] [place] [address] [address] [place], [place] [phone] 06/28/2024 Pato Hampton Essential hypertension I10 and Moderate asthma without complication, unspecified whether persistent J45.909 Assessments Encounter Date Diagnosis (ICD Code) Assessment Notes Treatment Notes Treatment Clinical Notes Section Notes 06/28/2024 Essential hypertension (ICD-10 - I10) doing well 06/28/2024 Moderate asthma without complication, unspecified whether persistent (ICD-10 - J45.909) doing well at present / will give prednisone to have on hand, patientn verbalized uderstanding of medication and directions for use Plan Of Treatment Medication Medication Name Sig Start Date Stop Date Notes Symbicort 160-4.5 MCG/ACT as directed In halation every 4 houss as needed for 30 days 06/28/2024 Advair Diskus 250-50 MCG/ACT 1 puff Inhalation Twice a day Ipratropium-Albuterol 0.5-2. 5 (3) MG/3ML INHALE THE CONTENTS OF 1 VIAL (3ML) VIA NEBULIZER EVERY 6 HOURS NEEDED Albuterol Sulfate (2.5 MG/3ML) 0.083% USE 3ML INHALED EVERY 8 HOURS NEEDED Advair Diskus 500-50 MCG/ACT 1 puff Inhalation Twice a day 05/28/2024 predniSONE 10 MG 1 tablet with food o r milk Orally 4 tabs for 3 days,3tabs for 3 days, 2 tabs for 3 days, and 1 tab for 3 days for 14 days 06/28/2024 Treatment Notes Assessment Notes Essential hypertension doing well Moderate asthma without comp lication, unspecified whether persistent doing well at present / will give prednisone to have on hand, patientn verbalized uderstanding of medication and directions for use Next Appt Details Follow Up: 3 Months, Reason: Provider Name:Pato cuellarr, 08/30/2024 09:30:00 AM, [address], [address], [place], [place], [phone], Progress Notes * Angel DOOLEY HDOB: (69 yo M)Acc No.[id number]:06/28/2024 Progress Notes Patient:?Angel DOOLEY Provider:?Pato Hampton MD :1955???Age:69 Y???Sex:Male Nura e:06/28/2024 Address:[address] [id number] Subjective: * Chief Complaints: * ???4 week * HPI: ???Symptom(s):?patient is a 69 yo male here for 4 week follow up visit, doing well on meds. using? nebulizer once a night. off prednisone . * ROS:?General/Constitutional:?Denies?Chills.?Denies?Fatigue.?Denies?Fever.?Denies?Headache.?ENT:?Patient denies?decreased sense of smell, any loss of taste, sore throat.?Denies?Sore throat.?Respiratory:?Denies?Cough.?Denies?Shortness of breath at rest.?Admits?Shortness of breath with exertion.?Gastrointestinal:?Denies?Diarrhea.?Denies?Nausea.?Musculoskeletal:?Patient denies?muscle aches.?Peripheral Vascular:?Patient denies?red and blue toes.? * Medical History:? * Surgical History:? * Hospitalization/Major Diagno stic Procedure:? * Medications:?TakingMotrin IB 200 MG Tablet 1 tablet with food or milk as needed Orally Three times a day Vitamin B-6 100 MG Tablet 1 tablet Orally Once a day Sildenafil Citrate 25 MG Tablet TAKE ONE TABLET BY MOUTH EVERY DAY NEEDED Advair Diskus 250-50 MCG/ACT Aerosol Powder Breath Activated 1 puff Inhalation Twice a day Albuterol Sulfate (2.5 MG/3ML) 0.083% Nebulization Solution USE 3ML INHALED EVERY 8 HOURS NEEDED Ipratropium-Albuterol 0.5-2.5 (3) MG/3ML Solution INHALE THE CONTENTS OF 1 VIAL (3ML) VIA NEBULIZER EVERY 6 HOURS NEEDED Advair Diskus 500-50 MCG/ACT Aerosol Powder Breath Activated 1 puff Inhalation Twice a day Furosemide 20 MG Tablet TAKE ONE TABLET BY MOUTH EVERY DAY Allopurinol 300 MG Tablet TAKE ONE TABLET BY MOUTH EVERY DAY Taking Motrin IB 200 MG Tablet 1 tablet with food or milk as needed Orally Three times a day Taking Vitamin B-6 100 MG Tablet 1 tablet Orally Once a day Taking Sildenafil Citrate 25 MG Tablet TAKE ONE TABLET BY MOUTH EVERY DAY NEEDED Taking Advair Diskus 250-50 MCG/ACT Aerosol Powder Breath Activated 1 puff Inhalation Twice a day Taking Albuterol Sulfate (2.5 MG/3ML) 0.083% Nebulization Solution USE 3ML INHALED EVERY 8 HOURS NEEDED Taking Ipratropium-Albuterol 0.5-2.5 (3) MG/3ML Solution INHALE THE CONTENTS OF 1 VIAL (3ML) VIA NEBULIZER EVERY 6 HOURS NEEDED Taking Advair Diskus 500-50 MCG/ACT Aerosol Powder Breath Activated 1 puff Inhalation Twice a day Taking Furosemide 20 MG Tablet TAKE ONE TABLET BY MOUTH EVERY DAY Taking Allopurinol 300 MG Tablet TAKE ONE TABLET BY MOUTH EVERY DAY Not- Taking/PRNTylenol 325 MG Tablet 1 tablet as needed Orally every 4 hrs predniSONE 10 MG Tablet 1 tablet with food or milk Orally 4 tabs for 4 days, 3 tabs for 4 days, 2 tbs for 4 days, and 1 tab for 4 days Fluticasone Propionate 50 MCG/ACT Suspension 1 spray in each nostril Nasally Once a day Symbicort 160-4.5 MCG/ACT Aerosol 2 puffs Inhalation Twice a day Ibuprofen 200 MG Tablet 1 tablet with food or milk as needed Orally Three times a day Excedrin Tension Headache 500-65 MG Tablet 2 tablets as needed Orally Three times a day ProAir HFA 108 (90 Base) MCG/ACT Aerosol Solution 2 puffs as needed Inhalation every 6 hrs traMADol HCl 50 MG Tablet TAKE ONE TABLET BY MOUTH EVERY 6 HOURS NEEDED FOR LOW BACK PAIN FOR 30 DAYS Orally Once a day Ventolin HFA * 108 (90 Base) MCG/ACT Aerosol Solution 2 puffs as needed Inhalation every 4 hrs Medication List reviewed and reconciled with the patientNot-Taking/PRN Tylenol 325 MG Tablet 1 tablet as needed Orally every 4 hrs Not-Taking/PRN predniSONE 10 MG Tablet 1 tablet with food or milk Orally 4 tabs for 4 days, 3 tabs for 4 days, 2 tbs for 4 days, and 1 tab for 4 days Not-Taking/PRN Fluticasone Propionate 50 MCG/ACT Suspension 1 spray in each nostril Nasally Once a day Not-Taking/PRN Symbicort 160-4.5 MCG/ACT Aerosol 2 puffs Inhalation Twice a day Not-Taking/PRN Ibuprofen 200 MG Tablet 1 tablet with food or milk as needed Orally Three times a day Not-Taking/PRN Excedrin Tension Headache 500-65 MG Tablet 2 tablets as needed Orally Three times a day Not- Taking/PRN ProAir HFA 108 (90 Base) MCG/ACT Aerosol Solution 2 puffs as needed Inhalation every 6 hrs Not-Taking/PRN traMADol HCl 50 MG Tablet TAKE ONE TABLET BY MOUTH EVERY 6 HOURS NEEDED FOR LOW BACK PAIN FOR 30 DAYS Orally Once a day Not-Taking/PRN Ventolin HFA * 108 (90 Base) MCG/ACT Aerosol Solution 2 puffs as needed Inhalation every 4 hrs Medication List reviewed and reconciled with the patient * Allergies:?Augmentin: nausea yes[Allergies Verified] Objective: * Vitals:?Ht: 69, Wt: 290, BMI :42.82, BP:152/74, Repeat BP:130/78, Wt-k.[id number]. * Examination: ???General Examination: ?GENERAL APPEARANCE:?alert, well hydrated, in no distress.?SKIN:?good turgor.?HEART:?regular rate and rhythm, no murmurs, rubs, gallops.?LUNGS:?good air movement, no wheezes, rales, rhonchi.? Assessment: * Assessment: 1.?Essential hypertension - I10 (Primary)???2.?Moderate asthma without complication, unspecified whether persistent - J45.909??? Plan: * Treatment: 2.?Moderate asthma without c omplication, unspecified whether persistent? Start predniSONE Tablet, 10 MG, 1 tablet with food or milk, Orally, 4 tabs for 3 days,3tabs for 3 days, 2 tabs for 3 days, and 1 tab for 3 days, 14 days, 30, Refills 0;?Start Symbicort Aerosol, 160-4.5 MCG/ACT, as directed, Inhalation, every 4 houss as needed, 30 days, 1, Refills 5;?Continue Advair Diskus Aerosol Powder Breath Activated, 500-50 MCG/ACT, 1 puff, Inhalation, Twice a day; Continue Ipratropium-Albuterol Solution, 0.5-2.5 (3) MG/3ML, INHALE THE CONTENTS OF 1 VIAL (3ML) VIA NEBULIZER EVERY 6 HOURS NEEDED;?Continue Albuterol Sulfate Nebulization Solution, (2.5 MG/3ML) 0.083%, USE 3ML INHALED EVERY 8 HOURS NEEDED;?Continue Advair Diskus Aerosol Powder Breath Activated, 250-50 MCG/ACT, 1 puff, Inhalation, Twice a day.?? Notes: doing well at present / will give prednisone to have on hand, patientn verbalized uderstanding of medication and directions for use?? * Procedure Codes:? * Follow Up:?3 Months * * Sign off status: Completed true * Provider:?Pato Hampton MD Date:?0 06/28/2024 Generated for Hedy woodard/Brenda/eTransmitting on:?08/23/2024 01:30 PM EDT History and Physical Notes * HPI (History of Present Illness) Category Sub-Category Detail Notes Category Not es Symptom(s) patient is a 69 yo male here for 4 week follow up visit, doing well on meds. using nebulizer once a night. off prednisone . Examination Category Sub-Category Detail Notes Category Not es General Examination GENERAL APPEARANCE: alert, w ell hydrated, in no distress HEART: regular rate and rhy thm, no murmurs, rubs, gallops LUNGS: good air movement, n o wheezes, rales, rhonchi SKIN: good turgor
--- OUTSIDE RECORDS SUMMARY | 2024-08-23 13:30 | XMS_ITS ---
Author Organization Pato Hampton MD Address [address] [place], [place] [id number] Care Team Providers Care Customer Advisor Specialist Name Role Phone Berta Pato Primary Care Provider [phone] Results Component Value Reference Range Notes Comprehensive [place]. Panel Fa st (Not yet reviewed by provider) Interpretation: Performing Lab:[facility], [address] [place] [address] Notes/Report: Sodium 142 135-145 mmol/L Potassium 4.4 3.3-5.1 mmol/L Chloride 107 96-108 mmol/L Carbon Dioxide 27 22-29 mmol/L Anion Gap 12 12-20 Blood Urea Nitrogen 47 9-16 mg/dL Creatinine 1.37 0.5-1.4 mg/dL Estimated Glomerular Filt Rate 52 Chronic Kidney Disease: Estimated GFR < 60 mL/min/1.73m2 Severe Kidney Disease: Estimated GFR < 15 mL/min/1.73m2 Glucose Fasting 65 60-99 mg/dL Calcium 9.3 8.4-10.2 mg/dL Bilirubin Total 0.6 0.0-1.0 mg/dL Aspartate Amino Transferase 34 5-37 U/L Alanine Aminotransferase 33 0-40 U/L Total Protein 7.3 6.5-8.0 g/dL Albumin Level 4.2 3.5-5.0 g/dL Alkaline Phosphatase 60 39-117 U/L Lipid Panel (Not yet reviewe d by provider) Interpretation: Performing Lab:[address] [phone] Notes/Report: Triglycerides 26 <150 mg/dL Desirable Triglyceride: less than 150 mg/dL Borderline High Triglyceride 150-199 mg/dL High Triglyceride: 200-499 mg/dL Very High Triglyceride: greater than or equal to 5OO mg/dL Cholesterol 180 <200 mg/dL Desirable Cholesterol: less than 200 mg/dL Borderline High Cholesterol: 200-239 mg/dL High Cholesterol: greater than 239 mg/dL LDL Cholesterol Calculated 60 <100 mg/dL Desirable LDL: less than 100 mg/dL Near Optimal/Above Optimal LDL: 110-129 mg/dL Borderline High LDL: 130-159 mg/dL High LDL: 160-189 mg/dL Very High LDL: greater than or equal to 190 mg/dL HDL Cholesterol 115 >40 mg/dL Desirable HDL: greater than 40 mg/dL Note: This HDL assay may give artificially low results in patients with liver disease. PSA,Total (Free>4and<10) (No t yet reviewed by provider) Interpretation: Performing Lab:[facility], [address] [place] [phone] Notes/Report: PSA,Total (Free>4and<10) 3.56 0.00-4.00 ng/mL A Free PSA was not [...] Christianson Alinity i Chemiluminescent Microparticle Immunoassay (CMIA) Microalbumin, Random (Not ye t reviewed by provider) Interpretation: Performing Lab:[facility], [address] [place] [phone] Notes/Report: Creatinine Urine 152.58 Microalbumin Urine 11.0 Microalbum/Creatinine Ratio Ur 7.2 <30 ug/mg cr Albumin/Creatinine Ratio Reference Ranges: Normal: < 30 ug/mg creatinine Microalbuminuria: 30 - 300 ug/mg creatinine Clinical Albuminuria: > 300 ug/mg creatinine Hemoglobin A1c (Not yet revi ewed by provider) Interpretation: Performing Lab:[facility], [address] [place] [phone] Notes/Report: Hemoglobin A1c % 5.3 <6.0 % Hemoglobin A1C Reference Range Adults: 4.8 - 6.0 % Non diabetic: < 6.0 % Goal: < 7.0 % Additional Action Suggested: > 8.0 % Note: Hemoglobin A1c results are invalid for patients with abnormal amounts of HbF. Blood transfusions may impact the HbA1c concentration in the patient sample. Estimated Average Glucose 105 eAG = Estimated average glucose which is %A1C expressed as average glucose, using the formula of the [id number] Average Glucose study (ADAG), Diabetes Care, Vol.31,#8, Dec. 2007 UA ClnCatch+Micro w/rflx Cul t (Not yet reviewed by provider) Interpretation: Performing Lab:[address] [phone] Notes/Report: Urine, Clean Catch Color Urine Yellow Appearance Urine Clear PH 5.5 5.0-9.0 Glucose Urine UA Negative Negative mg/dL Urine Blood Negative Negative Specific [place] - Urine 1.020 1.005-1.025 Urine Protein Negative Neg-Trace mg/dL Urine Ketones Trace Negative mg/dL Nitrite Urine Negative Negative Leukocyte Esterase Urine Trace Negative RBC Urine 0-2 0-2 /HPF WBC Urine 0-5 0-5 /HPF Squamous Epithelial Cell Urine 0-2 0-2 /HPF Bacteria Urine None Seen None Seen Hyaline Casts Urine 0-2 0-2 /LPF REASON FOR VISIT yearly fasting labs Encounters Encounter Location Date Provider Diagnosis Pato Hampton MD [address] [place] [address] Drive [address] [place], [place] [id number] 08/23/2024 Pato Hampton Blood tests for routine general physical examination Z00.00 ; Essential hypertension I10 ; Prediabetes R73.09 ; Elevated PSA R97.20 and Thrombopenia D69.6 Assessments Encounter Date Diagnosis (ICD Code) Assessment Notes Treatment Notes Treatment Clinical Notes Section Notes 08/23/2024 Blood tests for routine general physical examination (ICD-10 - Z00.00) 08/23/2024 Essential hypertension (ICD-10 - I10) 08/23/2024 Prediabetes (ICD-10 - R73.09) 08/23/2024 Elevated PSA (ICD-10 - R97.20) 08/23/2024 Thrombopenia (ICD-10 - D69.6) Plan Of Treatment Pending Test Test Name Order Date Complete Blood Count Auto Diff Comprehensive [place]. Panel Fast Lipid Panel 08/23/2024 PSA,Total (Free>4and<10) 08/23/2024 Microalbumin, Random 08/23/2024 Hemoglobin A1c 08/23/2024 UA ClnCatch+Micro w/rflx Cult 08/23/2024 Next Appt Details Provider Name:Pato Vanegas ier, 08/30/2024 09:30:00 AM, [address] [facility], [address], [place], [place], [id number], Progress Notes * Angel DOOLEY HDOB: (69 yo M)Acc No.[id number]:08/23/2024 Progress Note Patient:?Angel DOOLEY Provider:?Pato Hampton MD :[id number]???Age:69 Y???Sex:Male Nura e:08/23/2024 Address:[address] [place], [place] [phone] Subjective: * Chief Complaints: * ???1. Yearly fasting labs. * Medical History:? Objective: * Vitals:? Assessment: * Assessment: 1.?Blood tests for routine g eneral physical examination - Z00.00 (Primary)???2.?Essential hypertension - I10???3.?Prediabetes - R73.09???4.?Elevated PSA - R97.20???5.?Thrombopenia - D69.6??? Plan: * Treatment: 2.?Essential hypertension?LAB: Complete Blood Count Auto Diff ?LAB: Comprehensive [place]. Panel Fast (Collection Date & Time - 08/23/2024 07:30 AM) ?LAB: Lipid Panel (Collection Date & Time - 08/23/2024 07:30 AM) ?LAB: PSA,Total (Free>4and<10) (Collection Date & Time - 08/23/2024 07:30 AM) ?LAB: Microalbumin, Random (Collection Date & Time - 08/23/2024 07:30 AM) ?LAB: Hemoglobin A1c (Collection Date & Time - 08/23/2024 07:30 AM) ?LAB: UA ClnCatch+Micro w/rflx Cult (Collection Date & Time - 08/23/2024 07:30 AM) 3.?Prediabetes?LAB: Complete Blood Count Auto Diff ?LAB: Comprehensive [place]. Panel Fast (Collection Date & Time - 08/23/2024 07:30 AM) ?LAB: Lipid Panel (Collection Date & Time - 08/23/2024 07:30 AM) ?LAB: PSA,Total (Free>4and<10) (Collection Date & Time - 08/23/2024 07:30 AM) ?LAB: Microalbumin, Random (Collection Date & Time - 08/23/2024 07:30 AM) ?LAB: Hemoglobin A1c (Collection Date & Time - 08/23/2024 07:30 AM) ?LAB: UA ClnCatch+Micro w/rflx Cult (Collection Date & Time - 08/23/2024 07:30 AM) 4.?Elevated PSA?LAB: Complete Blood Count Auto Diff ?LAB: Comprehensive [place]. Panel Fast (Collection Date & Time - 08/23/2024 07:30 AM) ?LAB: Lipid Panel (Collection Date & Time - 08/23/2024 07:30 AM) ?LAB: PSA,Total (Free>4and<10) (Collection Date & Time - 08/23/2024 07:30 AM) ?LAB: Microalbumin, Random (Collection Date & Time - 08/23/2024 07:30 AM) ?LAB: Hemoglobin A1c (Collection Date & Time - 08/23/2024 07:30 AM) ?LAB: UA ClnCatch+Micro w/rflx Cult (Collection Date & Time - 08/23/2024 07:30 AM) 5.?Thrombopenia?LAB: Complete Blood Count Auto Diff ?LAB: Comprehensive [place]. Panel Fast (Collection Date & Time - 08/23/2024 07:30 AM) ?LAB: Lipid Panel (Collection Date & Time - 08/23/2024 07:30 AM) ?LAB: PSA,Total (Free>4and<10) (Collection Date & Time - 08/23/2024 07:30 AM) ?LAB: Microalbumin, Random (Collection Date & Time - 08/23/2024 07:30 AM) ?LAB: Hemoglobin A1c (Collection Date & Time - 08/23/2024 07:30 AM) ?LAB: UA ClnCatch+Micro w/rflx Cult (Collection Date & Time - 08/23/2024 07:30 AM) * Procedure Codes:?71364 VENIP UNCT, ROUTINE* * * The named appointment provid er may or may not be the originator of this progress note, and it is not deemed complete until electronically signed by the appointment provider. Sign off status: Pending * Provider:?Pato Hampton MD Date:?0 08/23/2024 Generated for Hedy woodard/Brenda/eTransmitting on:?08/23/2024 01:30 PM EDT
--- OUTSIDE RECORDS SUMMARY | 2024-08-23 13:31 | XMS_ITS | Patient Health Record ---
Author Organization [facility] Address [address] [place] [address] Care Team Providers Care Route Driver Coin Machines Name Role Phone Berta ELIZALDE, Pato Primary Care Provider Derrick Mcnamara Unavailable [phone] Reason For Referral No Information Medications Medication SIG (Take, Route, Fr equency, Duration) Notes Start Date End Date Status Allopurinol 100 MG 1 tablet Orally Once a day Active ibuprofen Active Lisinopril 10 MG 1 tablet Orally Once a day Active Immunizations Vaccine Route Administration Date Status Comme nts Influenza Unknown 02/23/2021 Administered Social History Alcohol Screen Question Answer Notes Did you [...] Never (0 point) Points 4 Interpretation Positive Section Notes: Nonsmoker; 2-3 beers QD Nonsmoker; 1-2 beers QD Nonsmoker; no significant al cohol use since his 01/2021 hospitalization for jaundice Problems Problem Type SNOMED Code ICD Code Onset Dates Problem Status W/U Status Risk Notes Problem 597063747 Encounter for screening for malignant neoplasm of colon (Z12.11) Active confirmed Problem 794108849 History of adenomatous polyp of colon (Z86.010) Active confirmed Problem 832961573 Preprocedural examination (Z01.818) Active confirmed Problem 492902902 Elevated liver enzymes (R74.8) Active confirmed Problem 518833571 Fatty liver (K76.0) Active confirmed Problem 19836233 Alcoholic liver disease (K70.9) Active confirmed Problem 31210749 Jaundice (R17) Active confirmed Plan Of Treatment Pending Test Test Name Order Date LIVER PROFILE 01/31/2021 PROTHROMBIN TIME (PT, INR) 01/31/2021 Future Test Test Name Order Date COLONOSCOPY 01/16/2012 COLONOSCOPY 10/31/2016 Insurance Providers Payer Name Payer Address Payer Phone Subscriber Number Group Number Insured Name Patient Relationship to Insured Coverage Start Date Coverage End Date [facility] Medicare Advantage Plan [address] [address] [place] [address] [id number] ANDREW DOOLEY Self - patient is the insured Medical (General) History Medical History History ICD Code Screening colonoscopy in 200 8-2 Tubular adenomas removed; colonoscopy in 01/2012 was neg. except for a hyperplastic polyp, diverticulosis, and internal hemorrhoids. Negative colonoscopy in 2016. Kidney stones-cystoscopy, ESWL, and uret eral stents Hypertension Denies KS,DM,CVA,Lung disease Back pain, knee arthritis Jaundice and hospitalization in 01/2021 due to fatty liver, EtOH, Tylenol, and NSAIDs Surgical History Surgery Date(Month/Year) Removal of a lipoma
[2024-08-23 13:38] LABS: SLIDE REVIEW VERIFIED
== END 2024-08-23 07:16 | disposition home or self-care (01) ==
LOC: HO.LNP 07:15
PROVIDERS: Visit Provider Internal Medicine
DX: Z00.00 Encounter for general adult medical examination without abnormal findings (principal); I10 Essential (primary) hypertension; R73.03 Prediabetes; R97.20 Elevated prostate specific antigen [PSA]; D69.6 Thrombocytopenia, unspecified; Z12.5 Encounter for screening for malignant neoplasm of prostate
CPT/HCPCS: 80053; 80061; 81001; 82043; 82570; 83036; 84153; 85025

== ENCOUNTER 2024-08-31 10:33 | Outpatient (AMB) | payer MEDICARE, SELFPAY ==
--- NOTE | 2024-08-31 10:41 | A.OFFVIS_ITS ---
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 Required: No Allergies Seasonal Allergies Allergy (Verified 08/31/24 11:31) Runny Nose Medication List - Last Reconciled 08/31/24 by Km Elena MD acetaminophen 650 mg PO BID PRN albuterol sulfate 90 mcg/actuation 2 puffs PO Q4-6H PRN fluticasone propion-salmeterol 500-50 mcg/dose (Advair Diskus) 1 inh inhalation Q12H ipratropium-albuterol 0.5 mg-3 mg(2.5 mg base)/3 mL 3 mL inhalation Q6H PRN lisinopril 10 mg PO DAILY pyridoxine (vitamin B6) 50 mg PO DAILY 90 days sildenafil 25 mg PO DAILY PRN Do you need a note to return to daycare/school/sports/work: No HPI HPI Hypoxemia: Details: Patient is here today for six-month follow-up Patient overall reports feeling well except for occasional chest congestion. Was seen by his primary care about 1.5 months ago and had his Advair dose increased from Advair 250-50mcg q 12 hours to Advair 500-50 mcg. States he has not noticed much improvment in chest congestion since dose has been increased, but this may also be due to using prednisone tablets. Completed a short course of prednisone about 2 weeks ago that temporarily cleared his chest congestion but states it has now returned. Uses ipratropium-albuterol 0.5 mg-3 mg every night before bed but over the last 2 weeks has been waking up around 03:00am needing to do an updraft treatment. Patient reports using oxygen at 2 L for approximately 10-12 hours each night. As during the past visits patient has declined to undergo a sleep study, though there is a high suspicion of HERBERTH/hypoventilation syndrome. 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) Orthopnea Reactive airway disease Chronic lung disease Seasonal allergies Allergic rhinitis COPD (chronic obstructive pulmonary disease) Restrictive lung disease Shortness of breath on exertion Asthma Obesity (BMI 35.0-39.9 without comorbidity) Kidney calculi Social History Household Members: None Housing: House Do you presently have visiting nurse or other home services: No Alcohol intake: current Alcohol intake frequency: 0-2 drinks per day Alcohol type: beer Patient Tobacco Use Status: Former Tobacco user Tobacco use type: Cigar Advance Directives Date on File: 01/27/21 service: No Current occupational status: retired Review of Systems Const All systems reviewed & are unremarkable except as noted in HPI and below Eyes Reports no additional complaints ENT Reports nasal congestion (OFF AND ON ALMOST ON A DAILY BASIS) Card Denies irregular heart rhythm and Reports leg edema (OFF AND ON) Resp Reports as per HPI GI Reports no additional complaints Reports erectile dysfunction Musc Reports no additional complaints Skin/Breast Reports system reviewed and no additional complaints, except as documented Neuro Reports memory loss (IMMEDIATE MEMORY) Psych Reports no additional complaints and Reports memory loss (IMMEDIATE MEMORY) Endo Reports no additional complaints Physical Exam Vital Signs: Last Vital Signs Pulse 95 08/31/24 10:42 BP 118/70 08/31/24 10:42 Pulse Ox 94 08/31/24 10:42 Oxygen Delivery Method Room Air 08/31/24 10:42 BMI result Body Mass Index 41.1 Const General: healthy appearing (Except for being grossly overweight), comfortable, no acute distress, alert and awake Orientation/consciousness: patient oriented x3 HEENT Head: Yes normal to inspection General nose exam: No nasal polyps present and No nasal discharge present Face and sinus: Yes sinuses nontender Mouth: oropharynx abnormals (Oropharynx is narrow and crowded, Mallampati class 3) Throat: Yes posterior oropharynx normal Eyes General: appearance normal, both eyes and all related structures Neck Neck: Yes normal visual inspection, Yes no lymphadenopathy, Yes trachea midline, Yes no JVD and Yes other (Neck circumference 18-1/2 inch) Thyroid: Thyroid normal Chest Chest palpation & inspection: normal inspection of the chest, normal palpation of entire chest wall and no tenderness Resp Other: Percussion note is resonant, breath sounds are decreased over the basilar areas. No wheezes rhonchi or crepitations are heard. However if patient breathes through his mouth closed there are some inspiratory wheezes in the anterior part of the chest. Cardio Palpation: normal PMI Rate: regular rate Rhythm: regular rhythm Heart sounds: no gallops and no murmurs Peripheral pulses: Peripheral pulses 2+ throughout GI Palpation (GI): Soft to palpation, nontender, No hepatosplenomegaly present, no masses and Other GI palpation findings present (Abdomen is obese and moderately protuberant) Auscultation: normal bowel sounds Back/Spine/Pelvis Thoracic/Lumbar Spine: thoracic and lumbar spine normal to inspection Skin General skin exam: no rashes or lesions noted Neuro General: patient oriented x3 and no focal motor deficits Cranial nerves: Yes CN's II-XII intact bilaterally Extrem General: Yes normal to inspection, Yes no clubbing, cyanosis or edema and Yes no calf tenderness Psych Appearance: grossly normal and well kempt Speech and movement: Normal speech and movement present Office Procedures Spirometry Testing Spirometry Comments: Spirometry done in the office, Dr. Elena has the results results scanned to his chart. 47040- Spirometry Results Reviewed Results Reviewed: In office spirometry completed today FVC 55% FEV1 53% FEV F 25-75%- 47% No significant change from last spirometry completed in office in 2021 Assessment & Plan Assessment & Plan (1) HERBERTH (obstructive sleep apnea): Comment: BECAUSE OF HIS MORBID OBESITY OBSTRUCTIVE SLEEP APNEA IS VERY MUCH SUSPECTED, HOWEVER HE DECLINES TO UNDERGO ANY SLEEP STUDY BECAUSE HE WOULD NOT USE THE CPAP. PER PREVIOUS OVERNIGHT OXIMETRY RECORDING HE DOES HAVE NOCTURNAL HYPOXEMIA PROBABLY DUE TO HERBERTH/OBESITY RELATED HYPOVENTILATION. Code(s): G47.33 - Obstructive sleep apnea (adult) (pediatric) Category: Medical Plan: Continue to use home O2 at 2 L at bedtime (2) Restrictive lung disease: Comment: HE HAS MODERATELY SEVERE RESTRICTIVE PULMONARY DISORDER, MOST LIKELY DUE TO OBESITY. Code(s): J98.4 - Other disorders of lung Category: Medical Plan: Reviewed the with patient the importance of weight loss patient will follow-up with primary care regarding anti obesity injections ALSO ADVISED TO KEEP ON DOING DEEP BREATHING EXERCISES. 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 HE HAS BEEN GETTING FREQUENT EXACERBATIONS AND TREATED WITH FREQUENT COURSES OF PREDNISONE. PER PREVIOUS DISCUSSIONS THE PATIENT HAS BEEN MADE AWARE OF SIDE EFFECTS FROM THE LONG-TERM USE OF PREDNISONE. HOWEVER HE INSISTS TO HAVE PREDNISONE TABLETS ON HAND. Code(s): J44.89 - Other specified chronic obstructive pulmonary disease Category: Medical Plan: Stop Advair 500-50 mcg-dose Start Advair 250-50 mcg-dose Continue ipratropium-albuterol 0.5 mg-3 mg inhalations q.6 hours PRN Albuterol sulfate 90 mcg 2 puffs p.o. q.4-6 hours PRN as needed Prescribed prednisone 5 mg , 15 tablets, to use p.r.n. for acute exacerbations. * patient usually uses 2 tablets a day for about 1 week at a time. (4) Nocturnal hypoxemia: Comment: OVERNIGHT OXIMETRY RECORDING HAD SHOWN THAT HE DOES LOW O2 SATS AT NIGHT. HAS BEEN STARTED ON O2 SUPPLEMENTATION AT NIGHT 2 L/MINUTE AND WITH THAT HE CLAIMS THAT HIS SLEEP IS MUCH BETTER. HE WAKES UP MORE REFRESHED IN THE MORNING. Code(s): G47.34 - Idiopathic sleep related nonobstructive alveolar hypoventilation Category: Medical Plan: Continue use of 2 L O2 time nightly. Orders: Orders AMB Spirometry Testing Today J45.909 - Unspecified asthma, uncomplicated Medications: New prednisone see taper instructions May use 2 tabs a day for one week at a time 5 mg PO DIRECTED 30 tabs 4RF Asthma/copd excerbation 30 days fluticasone propion-salmeterol 250-50 mcg/dose (Advair Diskus) 1 inh inhalation BID 60 ea 5RF Asthma/COPD 30 days Coding Level of Care Code Est Pt Level 3 (39626) Diagnoses HERBERTH (obstructive sleep apnea) G47.33 Restrictive lung disease J98.4 Asthma with COPD (chronic obstructive pulmonary disease) J44.89 Nocturnal hypoxemia G47.34 CPT Codes Spirometry - CPT: 00832- Spirometry ([id number])
[2024-08-31 10:42] VITALS: BP 118/70; PULSE 95; O2SAT 94; BMI 41.1
--- OUTSIDE RECORDS SUMMARY | 2024-08-31 12:36 | XMS_ITS ---
Author Organization Pato Hampton MD Address [address] [place], [place] [id number] Care Team Providers Care Field Representative Name Role Phone BertaDarenn Primary Care Provider Results Component Value Reference Range Notes Complete Blood Count Auto Di ff Reviewed date:08/23/2024 04:36:53 PM Interpretation: Performing Lab:[facility], [address] [place] [phone] Notes/Report: White Blood Count 11.2 4.8-10.8 X10*3/uL Red Blood Count 3.89 4.60-5.80 X10*6/uL Hemoglobin 12.8 14.0-18.0 g/dl Hematocrit 38.6 42.0-52.0 % Mean Corpuscular Volume 99.2 80.0-98.0 fL Mean Corpuscular Hemoglobin 32.9 27.0-33.0 pg Mean Corpuscular HGB Conc 33.2 31.0-36.0 g/dl Red Cell Distribution Width 14.5 11.0-16.0 % Platelet Count 188 160-400 X10*3/uL Mean Platelet Volume 12.4 9.4-12.4 fL Neutrophils Percent Auto 51.2 45-73 % Imm Gran Pct Auto 0.5 0.0-0.4 % Lymphocytes Percent Auto 39.2 20-40 % Monocytes Percent Auto 7.5 2-11 % Eosinophils Percent Auto 1.5 0-4 % Basophils Percent Auto 0.1 0-2 % NRBC Pct Auto 0.0 0.0-0.2 /100WBC Neutrophils Absolute Auto 5.8 2.0-8.3 x10*3/u L Imm Gran Abs Auto 0.06 0.00-0.03 X10*3/uL Lymphocytes Absolute Auto 4.4 1.2-4.9 X10*3/u L Monocytes Absolute Auto 0.8 0.1-1.2 X10*3/uL Eosinophils Absolute Auto 0.2 0.0-0.4 X10*3/u L Basophils Absolute Auto 0.0 0.0-0.2 X10*3/uL NRBC Abs Auto 0.000 0.0-0.012 X10*3/uL White Blood Count 11.2 4.8-10.8 X10*3/uL Red Blood Count 3.89 4.60-5.80 X10*6/uL Hemoglobin 12.8 14.0-18.0 g/dl Hematocrit 38.6 42.0-52.0 % Mean Corpuscular Volume 99.2 80.0-98.0 fL Mean Corpuscular Hemoglobin 32.9 27.0-33.0 pg Mean Corpuscular HGB Conc 33.2 31.0-36.0 g/dl Red Cell Distribution Width 14.5 11.0-16.0 % Platelet Count 188 160-400 X10*3/uL Mean Platelet Volume 12.4 9.4-12.4 fL Neutrophils Percent Auto 51.2 45-73 % Imm Gran Pct Auto 0.5 0.0-0.4 % Lymphocytes Percent Auto 39.2 20-40 % Monocytes Percent Auto 7.5 2-11 % Eosinophils Percent Auto 1.5 0-4 % Basophils Percent Auto 0.1 0-2 % NRBC Pct Auto 0.0 0.0-0.2 /100WBC Neutrophils Absolute Auto 5.8 2.0-8.3 x10*3/u L Imm Gran Abs Auto 0.06 0.00-0.03 X10*3/uL Lymphocytes Absolute Auto 4.4 1.2-4.9 X10*3/u L Monocytes Absolute Auto 0.8 0.1-1.2 X10*3/uL Eosinophils Absolute Auto 0.2 0.0-0.4 X10*3/u L Basophils Absolute Auto 0.0 0.0-0.2 X10*3/uL NRBC Abs Auto 0.000 0.0-0.012 X10*3/uL CORRECTED REPORT CORRECTED REPORT Comprehensive [place]. Panel Fa st Reviewed date:08/30/2024 10:37:24 AM Interpretation:08-30-2024 Performing Lab:[facility], [address] [place] [phone] Notes/Report: Sodium 142 135-145 mmol/L Potassium 4.4 [...] Alkaline Phosphatase 60 39-117 U/L Lipid Panel Reviewed date:08/23/2024 01:50:50 PM Interpretation: Performing Lab:[facility], [address] [place] [phone] Notes/Report: Triglycerides 26 <150 mg/dL Desirable Triglyceride: [...] patients with liver disease. PSA,Total (Free>4and<10) Reviewed date:08/23/2024 01:50:16 PM Interpretation: Performing Lab:[facility], [address] [place] [phone] Notes/Report: PSA,Total (Free>4and<10) 3.56 0.00-4.00 ng/mL A [...] i Chemiluminescent Microparticle Immunoassay (CMIA) Microalbumin, Random Reviewed date:08/23/2024 01:50:28 PM Interpretation: Performing Lab:[facility], [address] [place] [phone] Notes/Report: Creatinine Urine 152.58 Microalbumin Urine 11.0 Microalbum/Creatinine Ratio Ur 7.2 <30 ug/mg cr Albumin/Creatinine Ratio Reference Ranges: Normal: < 30 ug/mg creatinine Microalbuminuria: 30 - 300 ug/mg creatinine Clinical Albuminuria: > 300 ug/mg creatinine Hemoglobin A1c Reviewed date:08/23/2024 01:50:42 PM Interpretation: Performing Lab:[facility], [address] [place] [phone] Notes/Report: Hemoglobin A1c % 5.3 <6.0 % [...] average glucose, using the formula of the P0B-Vbcgpku Average Glucose study (ADAG), Diabetes Care, Vol.31,#8, Dec. 2007 UA ClnCatch+Micro w/rflx Cul t Reviewed date:08/23/2024 04:37:12 PM Interpretation: Performing Lab:[facility], [address] [place] [phone] Notes/Report: Urine, Clean Catch Color Urine Yellow Appearance Urine Clear PH 5.5 5.0-9.0 Glucose Urine UA Negative Negative mg/dL Urine Blood Negative Negative Specific [place] - Urine 1.020 1.005-1.025 Urine Protein Negative [...] Date Provider Diagnosis Pato Hampton MD [address] [place], [place] [phone] 08/23/2024 Pato Hampton Blood tests for routine [...] Thrombopenia (ICD-10 - D69.6) Plan Of Treatment Next Appt Details Provider Name:Pato Vanegas ier, 11/15/2024 10:00:00 AM, [address], [address], [place], [place], [phone], Provider Name:Pato Vanegas ier, 03/01/2025 07:00:00 AM, [address] [place] [address] Drive, [address] [facility], [place], [place], [phone], Provider Name:Pato Vanegas ier, 08/25/2025 07:45:00 AM, [address] [place] [address], Suite [facility], [place], [place], [phone], Provider Name:Pato Vanegas ier, 09/02/2025 08:30:00 AM, [address] [place] [address] Drive, [address], [place], [place], [phone], Progress Notes * Angel DOOLEY HDOB: (69 yo M)Acc No.[id number]:08/23/2024 Progress Note Patient:?Angel DOOLEY Provider:?Pato Hampton MD :[id number]???Age:69 Y???Sex:Male Nura e:08/23/2024 Address:[address] [place] [address] Milena Steve [facility] Subjective: * Chief Complaints: * ???1. Yearly fasting labs. * Medical History:? Objective: * Vitals:? Assessment: * Assessment: 1.?Blood tests for routine g eneral physical examination - Z00.00 (Primary)???2.?Essential hypertension - I10???3.?Prediabetes - R73.09???4.?Elevated PSA - R97.20???5.?Thrombopenia - D69.6??? Plan: * Treatment: 2.?Essential hypertension?LAB: Complete Blood Count Auto Diff (Collection Date & Time - 08/23/2024 07:30 AM) ?LAB: [facility] [place]. Panel Fast (Collection Date & Time - [...] AM) 3.?Prediabetes?LAB: Complete Blood Count Auto Diff (Collection Date & Time - 08/23/2024 07:30 AM) ?LAB: [facility] [place]. Panel Fast (Collection Date & Time - [...] 4.?Elevated PSA?LAB: Complete Blood Count Auto Diff (Collection Date & Time - 08/23/2024 07:30 AM) ?LAB: [facility] [place]. Panel Fast (Collection Date & Time - [...] AM) 5.?Thrombopenia?LAB: Complete Blood Count Auto Diff (Collection Date & Time - 08/23/2024 07:30 AM) ?LAB: [facility] [place]. Panel Fast (Collection Date & Time - [...] Time - 08/23/2024 07:30 AM) * Procedure Codes:?84910 VENIP UNCT, ROUTINE* * * The named appointment provid er may or may not be the originator of this progress note, and it is not deemed complete until electronically signed by the appointment provider. Sign off status: Pending * Provider:?Pato Hampton MD Date:?0 08/23/2024 Generated for Radhai ng/Faxing/eTransmitting on:?08/31/2024 12:36 PM EDT
--- OUTSIDE RECORDS SUMMARY | 2024-08-31 12:36 | XMS_ITS ---
Author Organization Pato Hampton MD Address [address] [place] [phone] Care Team Providers Care Specifications Checker Name Role Phone Pato Hampton Primary Care Provider [phone] Allergies Allergen (clinical drug ingredient) Drug/Non Drug Allergy documented on EMR Reaction Allergy Type Onset Date Status amoxicillin / clavulanate Augmentin nausea Drug Allergy Active Results Component Value Reference Range Notes Occult Blood, Stool, Guaiac Reviewed date:08/30/2024 11:30:57 AM Interpretation:Negative Performing Lab: Notes/Report: Negative Occult Blood, Stool, Guaiac Neg REASON FOR VISIT annual visit/ must see bun Medications Medication SIG (Take, Route, Frequency, Duration) Notes Start Date End Date Status Symbicort 160-4.5 MCG/ACT 2 puffs Inhalation Twice a day 02/03/2023 Not-Taking Fluticasone Propionate 50 MCG/ACT 1 spray in each nostril Nasally Once a day for 30 day(s) 02/07/2022 Not-Taking predniSONE 10 MG 1 tablet with food o r milk Orally 4 tabs for 4 days, 3 tabs for 4 days, 2 tbs for 4 days, and 1 tab for 4 days for 14 days 05/20/2024 Not-Taking Tylenol 325 MG 1 tablet as needed Orally every 4 hrs Not-Taking Advair Diskus 250-50 MCG/ACT 1 puff Inhalation Twice a day Not-Taking Symbicort 160-4.5 MCG/ACT as directed Inhalation every 4 houss as needed for 30 days 06/28/2024 Not-Taking Allopurinol 300 MG TAKE ONE TABLET BY M OUTH EVERY DAY for 90 Active Furosemide 20 MG TAKE ONE TABLET BY M OUTH EVERY DAY for 30 Active Albuterol Sulfate (2.5 MG/3ML) 0.083% USE 3ML INHALED EVERY 8 HOURS NEEDED Not-Taking Ipratropium-Albuterol 0.5-2.5 (3) MG/3ML INHALE THE CONTENTS OF 1 VIAL (3ML) VIA NEBULIZER EVERY 6 HOURS NEEDED Active Sildenafil Citrate 25 MG TAKE ONE TABLET BY MOUTH EVERY DAY NEEDED for 30 Active Vitamin B-6 100 MG 1 tablet Orally Once a day for 30 day(s) Active Motrin IB 200 MG 1 tablet with food o r milk as needed Orally Three times a day Active Loratadine 10 MG 1 tablet Orally Once a day Active ProAir HFA 108 (90 Base) MCG/ACT 2 puffs as needed Inhalation every 6 hrs for 30 days 05/06/2017 Not-Taking Advair Diskus 500-50 MCG/ACT 1 puff Inhalation Twice a day 05/28/2024 Active Ozempic (0.25 or 0.5 MG/DOSE) 2 MG/3ML 0.25 mg Subcutaneous weekly for 30 days 08/30/2024 Active Ventolin HFA * 108 (90 Base) MCG/ACT 2 puffs as needed Inhalation every 4 hrs for 30 day(s) 03/22/2013 Not-Taking traMADol HCl 50 MG TAKE ONE TABLET BY M OUTH EVERY 6 HOURS NEEDED FOR LOW BACK PAIN FOR 30 DAYS Orally Once a day for 30 days 12/04/2020 Not-Taking Excedrin Tension Headache 500-65 MG 2 tablets as needed Orally Three times a day Not-Ezio ing Ibuprofen 200 MG 1 tablet with food o r milk as needed Orally Three times a day Not-Taking Social History Tobacco Use: Social History Observation Description Date Details (start date - stop date) Never Smoker NA - NA Tobacco Use/Smoking Question Answer Notes Patient is [...] Never (0 point) Points 4 Interpretation Positive Vital Signs Blood pressure systolic 124 mm Hg 08/31/19 25 Blood pressure diastolic 70 mm Hg 025 Height 69 in 08/30/2024 Weight 287 lbs 08/30/2024 BMI 42.38 kg/m2 08/30/2024 weight is down 3 pounds [facility] e 06-28-24 Encounters Encounter Location Date Provider Diagnosis Pato Hampton MD [address] [place] [address] [place] [phone] 08/30/2024 Pato Hampton Adult general medica l examination Z00.00 ; Elevated PSA R97.20 ; Moderate asthma without complication, unspecified whether persistent J45.909 ; HERBERTH (obstructive sleep apnea) G47.33 ; Skin lesion L98.9 ; Essential hypertension I10 ; Prediabetes R73.09 ; Colon cancer screening Z12.11 and Depression screening Z13.31 Assessments Encounter Date Diagnosis (ICD Code) Assessment Notes Treatment Notes Treatment Clinical Notes Section Notes 08/30/2024 Adult general medical examination (ICD-10 - Z00.00) labs reviewed and discussed with patient 08/30/2024 Elevated PSA (ICD-10 - R97.20) has come down this year. will repeat and continue to monitor 08/30/2024 Moderate asthma without complication, unspecified whether persistent (ICD-10 - J45.909) gualberto todd curent regiment 08/30/2024 HERBERTH (obstructive sleep apnea) (ICD-10 - G47.33) not using his cpap 08/30/2024 Skin lesion (ICD-10 - L98.9) advised to see dermatiologist/ ALL INFORMATION GIVEN FOR [facility] 08/30/2024 Essential hypertension (ICD-10 - I10) stable, will continue current regiment 08/30/2024 Prediabetes (ICD-10 - R73.09) verbalized medication and directions for use 08/30/2024 Colon cancer screening (ICD-10 - Z12.11) guaiac negative 08/30/2024 Depression screening (ICD-10 - Z13.31) negative screen Plan Of Treatment Medication Medication Name Sig Start Date Stop Date Notes Ipratropium-Albuterol 0.5-2.5 (3) MG/3ML INHALE THE CONTENTS OF 1 VIAL (3ML) VIA NEBULIZER EVERY 6 HOURS NEEDED Advair Diskus 500-50 MCG/ACT 1 puff Inhalation Twice a day 05/28/2024 Ozempic (0.25 or 0.5 MG/DOSE) 2 MG/3ML 0.25 mg Subcutaneous weekly for 30 days 08/30/2024 Treatment Notes Assessment Notes Adult general medical examination labs r eviewed and discussed with patient Elevated PSA has come down this y ear. will repeat and continue to monitor Moderate asthma without comp lication, unspecified whether persistent stvale, gualberto continue curent regiment HERBERTH (obstructive sleep apnea) not using his cpap Skin lesion advised to see derma tiologist/ ALL INFORMATION GIVEN FOR [facility] Essential hypertension stable, will cont inue current regiment Prediabetes verbalized medicatio n and directions for use Colon cancer screening guaiac negative Depression screening negative screen Future Test Test Name Order Date PSA,Total (Free>4and<10) 03/01/2025 Next Appt Details Follow Up: 2 Months, Reason: Provider Name:Pato morillo, 11/15/2024 10:00:00 AM, [address] [place] [address], [address], [phone], Provider Name:Pato morillo, 03/01/2025 07:00:00 AM, [address] [place] [address], [address], [phone], Provider Name:Pato morillo, 08/25/2025 07:45:00 AM, [address] [place] [address], [address], [phone], Provider Name:Pato morillo, 09/02/2025 08:30:00 AM, [address], [address], [place], [place], [phone], Progress Notes * Angel DOOLEY HDOB: (69 yo M)Acc No.[id number]:08/30/2024 Progress Notes Patient:?Angel DOOLEY Provider:?Pato Hampton MD :1955???Age:69 Y???Sex:Male Nura e:08/30/2024 Address: [address], [id number] Subjective: * Chief Complaints: * ???1. Annual visit/ must see bun. * HPI: ???Depression Screening:?PHQ-9?Little interest or pleasure in doing things?Not at all,?Feeling down, depressed, or hopeless?Not at all,?Trouble falling or staying asleep, or sleeping too much?Not at all,?Feeling tired or having little energy?Not at all,?Poor appetite or overeating?Not at all,?Feeling bad about yourself or that you are a failure, or have let yourself or your family down?Not at all,?Trouble concentrating on things, such as reading the newspaper or watching television?Not at all,?Moving or speaking so slowly that other people could have noticed; or the opposite, being so fidgety or restless that you have been moving around a lot more than usual?Not at all,?Thoughts that you would be better off or of hurting yourself in some way?Not at all,?Total Score?0.?Interpretation and Intervention?Depression Screening Findings?Negative,?Follow-Up for Depression?: review of PHQ-9 found negative result, no follow-up needed.? here for yearly evaluation. asthma has been a problem. ???Communication Needs:?Communication Needs?Does the patient have a hearing impairment?No,?Does the patient have a vision impairment??Yes,?If yes, what is the vision impairment??Glasses,?Does the patient have a cognition impairment??No.?Fall Risk:?History?Have you had any falls with injury in the past year??No,?Have you had two or more falls in the past year??No.?SDOH Questions:?SDOH Questions?In the past year have you been worried about losing housing??No,?In the past year have you or any family members you live with been unable to get any of the following when it was really needed? Check all that apply:?None.?Symptom(s):? patient is a 69 yo male here for annual visit with review of recent labs and follow up of chronic issues. * ROS:?General/Constitutional:?Change in appetite?denies.?Chills?denies.?Fever?denies.?Ophthalmologic:?Blurred vision?denies.?Discharge?denies.?Pain?denies.?ENT:?Decreased hearing?denies.?Sore throat?denies.?Swollen glands?denies.?Endocrine:?Cold intolerance?denies.?Excessive thirst?denies.?Heat intolerance?denies.?Weight loss?denies.?Respiratory:?Cough?denies.?Shortness of breath at rest?denies.?Shortness of breath with exertion?denies.?Wheezing?denies.?Cardiovascular:?Chest pain at rest?denies.?Chest pain with exertion?denies.?Irregular heartbeat?denies.?Shortness of breath?denies.?Gastrointestinal:?Abdominal pain?denies.?Change in bowel habits?denies.?Diarrhea?denies.?Nausea?denies.?Rectal bleeding?denies.?Vomiting?denies .?Genitourinary:?Blood in urine?denies.?Difficulty urinating?denies.?Frequent urination?denies.?Musculoskeletal:?Painful joints?denies.?Weakness?denies.?Skin:?Dry skin?denies.?Itching?denies.?Denies?Mole(s),? changes in moles, new moles or any lesions of concern.?Denies?Photosensitivity.?Rash?denies.?Neurologic:?Dizziness?denies.?Fainting?denies.?Headache?denies.? * Medical History:?colonoscopy 2008 due 2011; done 02/04/17 - repeat 2016; colonoscopy done 02/12/[address] Vazquez - repeat 10 years, Hematuria. followed by dr varma. has had ct and cysto, HERBERTH. dr ceja wanted study but patient declined. * Family History:?Father: dece ased 97 yrs.?Mother: alive 101 yrs.?1 sister(s) - healthy. 1 son(s) - healthy. .? Father old age lung cancer, No pertinent family medical history, Denies mental health/substance abuse family history, No pertinent family medical history. * Social History:?Tobacco Use:?Tobacco Use/Smoking?Patient is a?nonsmoker,?Additional Findings: Tobacco Non-User?Current non-smoker, currently using no form of tobacco.?Drugs/Alcohol:?Alcohol Screen?Did you have a drink containing alcohol in the past year??Yes,?How often did you have a drink containing alcohol in the past year??4 or more times a week (4 points),?How many drinks did you have on a typical day when you were drinking in the past year??1 or 2 drinks (0 point),?How often did you have 6 or more drinks on one occasion in the past year??Never (0 point),?Points?4,?Interpretation?Positive.?Miscellaneous:?Caffeine: yes, frequency:, 1-2 cups per day. Children: yes. Exercise: no. Home smoke detector use: yes. Housing: owning. Living with: significant other. Marital status: single, . Occupation: weeks/months/years, works full-time. Pets: cats: dogs:1 cat. Travel outside of the [place]: no. * Medications:?Taking Loratadi ne 10 MG Tablet 1 tablet Orally Once a day , Taking Motrin IB 200 MG Tablet 1 tablet with food or milk as needed Orally Three times a day , Taking Vitamin B-6 100 MG Tablet 1 tablet Orally Once a day , Taking Sildenafil Citrate 25 MG Tablet TAKE ONE TABLET BY MOUTH EVERY DAY NEEDED , Taking Furosemide 20 MG Tablet TAKE ONE TABLET BY MOUTH EVERY DAY , Taking Allopurinol 300 MG Tablet TAKE ONE TABLET BY MOUTH EVERY DAY , Taking Advair Diskus 500-50 MCG/ACT Aerosol Powder Breath Activated 1 puff Inhalation Twice a day , Taking Ipratropium- Albuterol 0.5-2.5 (3) MG/3ML Solution INHALE THE CONTENTS OF 1 VIAL (3ML) VIA NEBULIZER EVERY 6 HOURS NEEDED , Not-Taking/PRN Symbicort 160-4.5 MCG/ACT Aerosol as directed Inhalation every 4 houss as needed , Not-Taking/PRN Albuterol Sulfate (2.5 MG/3ML) 0.083% Nebulization Solution USE 3ML INHALED EVERY 8 HOURS NEEDED , Not- Taking/PRN Advair Diskus 250-50 MCG/ACT Aerosol Powder Breath Activated 1 puff Inhalation Twice a day , Not-Taking/PRN Tylenol 325 MG Tablet 1 tablet as needed Orally every 4 hrs , Not-Taking/PRN predniSONE 10 MG Tablet 1 tablet with food or milk Orally 4 tabs for 4 days, 3 tabs for 4 days, 2 tbs for 4 days, and 1 tab for 4 days , Not-Taking/PRN Fluticasone Propionate 50 MCG/ACT Suspension 1 spray in each nostril Nasally Once a day , Not-Taking/PRN Symbicort 160-4.5 MCG/ACT Aerosol 2 puffs Inhalation Twice a day , Not-Taking/PRN Ibuprofen 200 MG Tablet 1 tablet with food or milk as needed Orally Three times a day , Not-Taking/PRN Excedrin Tension Headache 500-65 MG Tablet 2 tablets as needed Orally Three times a day , Not-Taking/PRN ProAir HFA 108 (90 Base) MCG/ACT Aerosol Solution 2 puffs as needed Inhalation every 6 hrs , Not- Taking/PRN traMADol HCl 50 MG Tablet TAKE ONE TABLET BY MOUTH EVERY 6 HOURS NEEDED FOR LOW BACK PAIN FOR 30 DAYS Orally Once a day , Not-Taking/PRN Ventolin HFA * 108 (90 Base) MCG/ACT Aerosol Solution 2 puffs as needed Inhalation every 4 hrs , Discontinued predniSONE 10 MG Tablet 1 tablet with food or milk Orally 4 tabs for 3 days,3tabs for 3 days, 2 tabs for 3 days, and 1 tab for 3 days , Medication List reviewed and reconciled with the patient * Allergies:?Augmentin: nausea . Objective: * Vitals:?Ht: 69, Wt: 287, BMI :42.38, BP:124/70, Wt-k.18. weight is down 3 pounds since 06-28-24. * ???Past Orders: ???Lab:PSA,Total (Free>4and< 10) (Order Date - 08/23/2024) (Collection Date & Time - 08/23/2024 07:30 AM) ? Value Reference Range ?PSA,Total (Free>4and<10) 3.56 0.00-4.00 - ng/mL ???Lab:Microalbumin, Random (Order Date - 08/23/2024) (Collection Date & Time - 08/23/2024 07:30 AM) ? Value Reference Range ?Creatinine Urine 152.58 - m g/dL ?Microalbumin Urine 11.0 - mg/L ?Microalbum Creatinine Ratio Ur 7.2 <30 - ug/mg cr ???Lab:Hemoglobin A1c (Order Date - 08/23/2024) (Collection Date & Time - 08/23/2024 07:30 AM) ? Value Reference Range ?Hemoglobin A1c % 5.3 <6. 0 - % ?Estimated Average Glucose 105 - mg/dL ???Lab:Lipid Panel (Order Da te 08/23/2024) (Collection Date & Time - 08/23/2024 07:30 AM) ? Value Reference Range ?Triglycerides 26 <150 - mg/dL ?Cholesterol 180 <200 - m g/dL ?LDL Cholesterol Calculated 60 <100 - mg/dL ?HDL Cholesterol 115 >40 - mg/dL ???Lab:UA ClnCatch+Micro w/r flx Cult (Order Date - 08/23/2024) (Collection Date & Time - 08/23/2024 07:30 AM) ? Value Reference Range ?Color Urine Yellow - ?Appearance Urine Clear - ?PH 5.5 5.0-9.0 - ?Glucose Urine UA Negative Neg ative - mg/dL ?Urine Blood Negative Negative - ?Specific Sharon - Urine 1.020 1.005-1.025 - ?Urine Protein Negative Neg-Tr romaine - mg/dL ?Urine Ketones Trace Negati ve - mg/dL ?Nitrite Urine Negative Negati ve - ?Leukocyte Esterase Urine Trace A Negative - ?RBC Urine 0-2 0-2 - /HPF ?WBC Urine 0-5 0-5 - /HPF ?Squamous Epithelial Cell Urine 0-2 0-2 - /HPF ?Bacteria Urine None Seen None Seen - ?Hyaline Casts Urine 0-2 0-2 - /LPF ???Lab:Complete Blood Count Auto Diff (Order Date - 08/23/2024) (Collection Date & Time - 08/23/2024 07:30 AM) ? Value Reference Range ?White Blood Count 11.2 H 4. 8-10.8 - X10*3/uL ?Red Blood Count 3.89 L 4.60 -5.80 - X10*6/uL ?Hemoglobin 12.8 L 14.0-18.0 - g/dl ?Hematocrit 38.6 L 42.0-52.0 - % ?Mean Corpuscular Volume 99.2 H 80.0-98.0 - fL ?Mean Corpuscular Hemoglobin 32.9 27.0-33.0 - pg ?Mean Corpuscular HGB Conc 33.2 31.0-36.0 - g/dl ?Red Cell Distribution Width 14.5 11.0-16.0 - % ?Platelet Count 188 160-4 00 - X10*3/uL ?Mean Platelet Volume 12.4 9.4-12.4 - fL ?Neutrophils Percent Auto 51.2 45-73 - % ?Imm Gran Pct Auto 0.5 H 0. 0-0.4 - % ?Lymphocytes Percent Auto 39.2 20-40 - % ?Monocytes Percent Auto 7.5 2-11 - % ?Eosinophils Percent Auto 1.5 0-4 - % ?Basophils Percent Auto 0.1 0-2 - % ?NRBC Pct Auto 0.0 0.0-0. 2 - /100WBC ?Neutrophils Absolute Auto 5.8 2.0-8.3 - x10*3/uL ?Imm Gran Abs Auto 0.06 H 0. 00-0.03 - X10*3/uL ?Lymphocytes Absolute Auto 4.4 1.2-4.9 - X10*3/uL ?Monocytes Absolute Auto 0.8 0.1-1.2 - X10*3/uL ?Eosinophils Absolute Auto 0.2 0.0-0.4 - X10*3/uL ?Basophils Absolute Auto 0.0 0.0-0.2 - X10*3/uL ?NRBC Abs Auto 0.000 0.0-0. 012 - X10*3/uL * Examination: ???General Examination: ?GENERAL APPEARANCE:?well developed, well nourished, in no acute distress.?HEAD:?normocephalic, atraumatic.?EYES:?pupils equal, round, reactive to light and accommodation, sclera non-icteric.?EARS:?normal.?ORAL CAVITY:?mucosa moist.?THROAT:?clear.?NECK/THYROID:?neck supple, full range of motion, no cervical lymphadenopathy, no bruits.?SKIN:?warm and dry, , abnormal lesion on face suspicious for cancer.?HEART:?regular rate and rhythm, S1, S2 normal, no murmurs.?LUNGS:?clear to auscultation bilaterally.?ABDOMEN:?soft, nontender, nondistended, bowel sounds present, normal, no organomegaly , no masses palpable.?RECTAL EXAM:?normal tone, no external hemorrhoids, no masses palpable, prostate normal, stool guaiac negative.?MALE GENITOURINARY:?circumcised, no penile lesions or discharge, testes descended bilaterally, no testicular mass.?EXTREMITIES:?no clubbing, cyanosis, or edema.?NEUROLOGIC:?nonfocal, motor strength normal upper and lower extremities, sensory exam intact.? Assessment: * Assessment: 1.?Adult general medical exa mination - Z00.00 (Primary)???2.?Elevated PSA - R97.20???3.?Moderate asthma without complication, unspecified whether persistent - J45.909???4.?HERBERTH (obstructive sleep apnea) - G47.33???5. Skin lesion - L98.9???6.?Essential hypertension - I10???7.?Prediabetes - R73.09???8.?Colon cancer screening - Z12.11???9.?Depression screening - Z13.31??? Plan: * Treatment: 2.?Elevated PSA?LAB: PSA,Total (Free>4and<10) (Ordered for 03/01/2025) Notes: has come down this year. will repeat and continue to monitor?? 3.?Moderate asthma without c omplication, unspecified whether persistent? Continue Advair Diskus Aerosol Powder Breath Activated, 500-50 MCG/ACT, 1 puff, Inhalation, Twice a day;?Continue Ipratropium-Albuterol Solution, 0.5-2.5 (3) MG/3ML, INHALE THE CONTENTS OF 1 VIAL (3ML) VIA NEBULIZER EVERY 6 HOURS NEEDED.?? Notes: gualberto todd continue curent regiment?? 4.?HERBERTH (obstructive sleep ap sol[place])? Notes: not using his cpap?? 5.?Skin lesion? Notes: advised to see dermatiologist/ ALL INFORMATION GIVEN FOR [facility]?? 6.?Essential hypertension? Notes: stable, will continue current regiment?? 7.?Prediabetes? Notes: verbalized medication and directions for use?? 8.?Colon cancer screening?LAB: Occult Blood, Stool, Guaiac (Collection Date & Time - 08/30/2024)?Negative ? Value Reference Range ?Occult Blood, Stool, Guaiac Neg Notes: guaiac negative??9.?Depression screening? Notes: negative screen?? * Procedure Codes:?88472 TEST FOR BLOOD, FECES * Follow Up:?2 Months * * The named appointment provid er may or may not be the originator of this progress note, and it is not deemed complete until electronically signed by the appointment provider. Sign off status: Pending * Provider:?Pato Hampton MD Date:?0 08/30/2024 Generated for Hedy woodard/Brenda/Robbie on:?08/31/2024 12:36 PM EDT History and Physical Notes * HPI (History of Present Illness) Category Sub-Category Detail Notes Category Not es Symptom(s) patient is a 69 yo male here for annual visit with review of recent labs and follow up of chronic issues Depression Screening PHQ-9 Little inte rest or pleasure in doing things: Not at all here for yearly evaluation. asthma has been a problem Feeling down, depressed, or hopeless: No t at all Trouble falling or staying asleep, or sl eeping too much: Not at all Feeling tired or having little energy: N ot at all Poor appetite or overeating: Not at all Feeling bad about yourself o r that you are a failure, or have let yourself or your family down: Not at all Trouble concentrating on thi ngs, such as reading the newspaper or watching television: Not at all Moving or speaking so slowly that other people could have noticed; or the opposite, being so fidgety or restless that you have been moving around a lot more than usual: Not at all Thoughts that you would be b florecita off or of hurting yourself in some way: Not at all Total Score: 0 Interpretation and Intervention Depression Dino wagoner Findings: Negative Follow-Up for Depression: : review of PH Q-9 found negative result, no follow-up needed SDOH Questions SDOH Questions In the past year have you been worried about losing housing?: No In the past year have you or any family members you live with been unable to get any of the following when it was really needed? Check all that apply:: None Fall Risk History Have you had any falls with injury i n the past year?: No Have you had two or more falls in the st year?: No Communication Needs Communication Needs Does the patient have a hearing impairment: No Does the patient have a vision impairmen t?: Yes ?If yes, what is the vision impairment?: Glasses Does the patient have a cognition impair ment?: No Examination Category Sub-Category Detail Notes Category Not es General Examination GENERAL APPEARANCE: well dev eloped, well nourished, in no acute distress HEAD: normocephalic, atrau matic EYES: pupils equal, round, reactive to light and accommodation, sclera non- icteric EARS: normal THROAT: clear NECK/THYROID: neck supple, full ra nge of motion, no cervical lymphadenopathy, no bruits HEART: regular rate and rhy thm, S1, S2 normal, no murmurs LUNGS: clear to auscultatio n bilaterally ABDOMEN: soft, nontender, non distended, bowel sounds present, normal, no organomegaly , no masses palpable NEUROLOGIC: nonfocal, motor stre ngth normal upper and lower extremities, sensory exam intact SKIN: warm and dry, , abno rmal lesion on face suspicious for cancer EXTREMITIES: no clubbing, cyanosi s, or edema MALE GENITOURINARY: circumcised, no peni le lesions or discharge, testes descended bilaterally, no testicular mass RECTAL EXAM: normal tone, no exte rnal hemorrhoids, no masses palpable, prostate normal, stool guaiac negative ORAL CAVITY: mucosa moist
--- OUTSIDE RECORDS SUMMARY | 2024-08-31 12:36 | XMS_ITS ---
Author Organization Pato Hampton MD Address [address] [place], [place] [id number] Care Team Providers Care Reservoir Caretaker Name Role Phone Pato Hampton Primary Care Provider Allergies Allergen (clinical drug ingredient) Drug/Non Drug [...] Location Date Provider Diagnosis Pato Hampton MD [address] [place] [address] [address] [place], [place] [phone] 06/28/2024 Pato Hampton Essential hypertension I10 and [...] Up: 3 Months, Reason: Provider Name:Pato morillo, 11/15/2024 10:00:00 AM, [address] [place] [address], Suite [facility], [place], [place], [phone], Provider Name:Pato morillo, 03/01/2025 07:00:00 AM, [address] [place] [address], [address], [phone], Provider Name:Pato morillo, 08/25/2025 07:45:00 AM, [address] [place] [address], [address], [place], [phone], Provider Name:Pato cuellarr, 09/02/2025 08:30:00 AM, [address] [facility], [address], [place], [phone], Progress Notes * Angel DOOLEY HDOB: (69 yo M)Acc No.[id number]:06/28/2024 Progress Notes Patient:?Angel DOOLEY Provider:?Pato Hampton MD :1955???Age:69 Y???Sex:Male Nura e:06/28/2024 Address: [address] [id number] Subjective: * Chief Complaints: * ???4 week [...] Hampton MD Date:?0 06/28/2024 Generated for Hedy woodard/Brenda/Ajititting on:?08/31/2024 12:36 PM EDT History and Physical [...]
== END 2024-08-31 11:18 | disposition home or self-care (01) ==
LOC: HO.HPS 10:33
PROVIDERS: PCP Internal Medicine; Visit Provider Internal Medicine
DX: G47.33 Obstructive sleep apnea (adult) (pediatric) (principal); J98.4 Other disorders of lung; J44.89 Other specified chronic obstructive pulmonary disease; G47.34 Idiopathic sleep related nonobstructive alveolar hypoventilation
CPT/HCPCS: 94010; 99213

== ENCOUNTER → 2024-08-31 10:33 | Outpatient (BNVA) | payer MEDICARE, SELFPAY | PROVIDERS: PCP Internal Medicine; Visit Provider Internal Medicine | DX: J44.89 Other specified chronic obstructive pulmonary disease (principal); J98.4 Other disorders of lung; G47.33 Obstructive sleep apnea (adult) (pediatric); G47.34 Idiopathic sleep related nonobstructive alveolar hypoventilation | CPT/HCPCS: 94010; 99212 ==

== ENCOUNTER 2025-01-07 13:10 | Outpatient (REF) | payer MEDICARE, SELFPAY ==
--- NOTE | ~2025-01-07 | US_ITS ---
EXAMINATION: US RETROPERITONEAL LIMITED (RENAL ONLY) CLINICAL INFORMATION: Calculus of kidney. COMPARISON: Correlated to CT dated May 19, 2023 demonstrated nephrolithiasis without hydronephrosis. TECHNIQUE: Real-time ultrasound kidneys using grayscale technique. FINDINGS: RIGHT KIDNEY: 11 x 7 x 6 cm (SAG x AP x TRV). Normal echotexture. Normal renal cortical thickness. No hydronephrosis. No gross solid or cystic lesion detected by the technologist. LEFT KIDNEY: 11 x 5 x 5 cm (SAG x AP x TRV). Normal echotexture. Normal renal cortical thickness. No hydronephrosis. No gross solid or cystic lesion detected by the technologist. US/US renal BI IMPRESSION: No hydronephrosis. No gross nephrolithiasis. CT is a most sensitive modality. Electronically signed by: Vincent Rice MD 01/07/2025 02:23 PM EDT
[2025-01-07 15:31] LABS: Prostate Specific Antigen 3.07 ng/mL (<0.05-4.0)
== END 2025-01-07 13:11 | disposition home or self-care (01) ==
LOC: HO.US 13:10
PROVIDERS: PCP Internal Medicine; Visit Provider Urology
DX: N20.0 Calculus of kidney (principal); N17.9 Acute kidney failure, unspecified; Z12.5 Encounter for screening for malignant neoplasm of prostate
CPT/HCPCS: 36415; 76775; 84153

== ENCOUNTER → 2025-01-07 13:11 | Outpatient (BNV) | payer MEDICARE, SELFPAY | PROVIDERS: PCP Internal Medicine; Visit Provider Radiology Diagnostic Radiology | DX: N20.0 Calculus of kidney (principal) | CPT/HCPCS: 76775 ==

== ENCOUNTER 2025-01-14 10:17 | Outpatient (AMB) | payer MEDICARE, SELFPAY ==
--- NOTE | 2025-01-14 10:30 | MHC.OFFVIS ---
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 He is a patient of . He is seen for the following urologic conditions - nephrolithiasis - urethral stricture Twelve month follow-up PSA 01/17 3.1 Discussed renal ultrasound 12 month follow-up repeat imaging with PVR Nephrolithiasis Chronic Last intervention right ureteroscopy 2020 Has required cystoscopy with urethral dilatation Imaging - 01/17 renal ultrasound no evidence of stones PFSH Medical History Nocturnal hypoxemia HERBERTH (obstructive sleep apnea) Asthma with COPD (chronic obstructive pulmonary disease) Orthopnea Reactive airway disease Chronic lung disease Seasonal allergies Allergic rhinitis COPD (chronic obstructive pulmonary disease) Restrictive lung disease Shortness of breath on exertion Asthma Obesity (BMI 35.0-39.9 without comorbidity) Kidney calculi Social History Household Members: None Housing: House Do you presently have visiting nurse or other home services: No Alcohol intake: current Alcohol intake frequency: 0-2 drinks per day Alcohol type: beer Patient Tobacco Use Status: Former Tobacco user Tobacco use type: Cigar Advance Directives Date on File: 01/27/21 service: No Current occupational status: retired Review of Systems Const Denies chills and Denies fever(s) Card Reports no additional complaints and Denies syncope Resp Denies cough GI Denies abdominal pain and Denies heartburn Reports as per HPI and Denies change in libido Neuro Denies syncope Psych Denies change in libido Endo Denies change in libido Physical Exam Const General: cooperative, healthy appearing, comfortable and no acute distress Orientation/consciousness: patient oriented x3 HEENT Face and sinus: Yes normal facial exam Mouth: moist mucous membranes Neck Neck: Yes normal visual inspection, Yes full ROM and Yes trachea midline Chest Chest palpation & inspection: normal inspection of the chest Resp Effort & Inspection: normal respiratory effort, able to speak in complete sentences and no respiratory distress GI Inspection: Yes normal to inspection Back/Spine/Pelvis Cervical Spine: normal cervical lordosis Thoracic/Lumbar Spine: thoracic and lumbar spine normal to inspection Skin General skin exam: no rashes or lesions noted Neuro General: patient oriented x3, gait normal, tone normal and moves all extremities Extrem General: Yes normal to inspection and Yes capillary refill normal Assessment & Plan Assessment & Plan (1) Kidney calculi: Code(s): N20.0 - Calculus of kidney Category: Medical (2) Urethral stricture: Code(s): N35.919 - Unspecified urethral stricture, male, unspecified site Category: Medical Plan Twelve month follow-up imaging and PSA Orders: Orders US renal BI 12 Months N20.0 - Calculus of kidney Medications: Refilled pyridoxine (vitamin B6) 50 mg PO DAILY 90 tabs 3RF 90 days N20.0 - Calculus of kidney Patient Instructions: This note is constructed using voice recognition software. While every effort has been made to ensure accuracy clinical medical transcriptionist errors may have been included. Imaging studies, laboratory and physical exam results were discussed and reviewed in detail. No major barriers to patient understanding were identified. An opportunity to ask questions regarding the treatment plan was provided. All questions were answered. The patient expressed understanding and agreement with the above treatment plan. The patient is aware they should contact our office by phone for worsening of their current condition or the appearance of new urologic symptoms. Compliance is encouraged with any medications and followup testing that is ordered. It is a privilege to participate in the urologic care of your patient. If you have any questions or concerns regarding treatment for the above conditions, or other urologic issues, please do not hesitate to contact me. The office telephone contact is [phone]. Sincerely, Dr Bryan Blanco MD, [facility] - Urology Compassionate Specialist Care for the Genitourinary System Coding Level of Care Code Est Pt Level 4 (11096) Complex EM visit Add On G2211 Diagnoses Kidney calculi N20.0 Urethral stricture N35.919
== END 2025-01-14 10:54 | disposition home or self-care (01) ==
LOC: HO.HUSH 10:18
PROVIDERS: PCP Internal Medicine; Visit Provider Urology
DX: N20.0 Calculus of kidney (principal); N35.919 Unspecified urethral stricture, male, unspecified site
CPT/HCPCS: 99214; G2211

== ENCOUNTER → 2025-01-14 10:17 | Outpatient (BNVA) | payer MEDICARE, SELFPAY | PROVIDERS: PCP Internal Medicine; Visit Provider Urology | DX: N20.0 Calculus of kidney (principal); N35.919 Unspecified urethral stricture, male, unspecified site | CPT/HCPCS: 99212 ==